=== PATIENT | male | born 1950 | race Caucasian/White ===

== ENCOUNTER 2017-12-30 15:18 | Inpatient (IN) | payer MEDICAID, OTHER ==
--- NOTE | 2017-12-30 15:26 | ED PDOC ---
Arrival/HPI - General Time Seen by Provider: 12/30/17 15:25 Historian: Patient, Family (Son) - History of Present Illness Narrative History of Present Illness (Text): 12/30/17 16:04 67 year old male, whose past medical history includes Afib, hypotension, o rthostatis, and CVA (left sided weakness), who presents to the ED complaining of 2 episodes of syncope over the past 3 days. Patient notes associated SOB, fatigue and bilateral side pain. Patient had a rushing catheter put in 1 week ago. Patient has been on nitrofuracin for 5 days. Patient notes 3 days ago he experienced vomiting, diarrhea, and syncope. On his way to the bathroom he felt weak, sat down in his wheelchair and passed out for 2 minutes. Syncopal episode was witnessed by son. Patient notes he felt better yesterday. However, today patient had another syncopal episode while walking to the couch, witnessed by son. Patient denies any chills, chest pain, or any other complaints. Time/Duration: < week (3 days) Symptom Onset: Gradual Symptom Course: Unchanged Activities at Onset: Light Context: Home Past Medical History - Provider Review Nursing Documentation Reviewed: Yes Family/Social History - Physician Review Nursing Documentation Reviewed: Yes Family/Social History: Unknown Family HX Allergies/Home Meds Allergies/Adverse Reactions: Allergies No Known Allergies Allergy (Verified 12/30/17 15:31) Home Medications: Home Meds Medication Instructions Recorded Confirmed Apixaban [Eliquis] 5 mg PO DAILY 12/30/17 12/30/17 Atorvastatin [Lipitor] 10 mg PO DIN 12/30/17 12/30/17 Midodrine [Proamatine] 2.5 mg PO DAILY 12/30/17 12/30/17 Pantoprazole [Protonix] 40 mg PO DAILY 12/30/17 12/30/17 Potassium Chloride [K-Dur 20 mEq 1 tab PO DAILY 12/30/17 12/30/17 ER Tab] RX: Aspirin [Aspirin Chewable] 81 mg PO DAILY 12/30/17 12/30/17 RX: Dofetilide [Tikosyn] 1 tab PO DAILY 12/30/17 12/30/17 Review of Systems - Physician Review All systems were reviewed & negative as marked: Yes - Review of Systems Constitutional: Fatigue Eyes: Normal ENT: Normal Respiratory: SOB Cardiovascular: Syncope. absent: Chest Pain Gastrointestinal: Diarrhea, Vomiting Genitourinary Male: Normal. absent: Frequency, Hematuria Musculoskeletal: Normal. absent: Back Pain Skin: Normal. absent: Rash Neurological: Normal. absent: Headache, Dizziness Endocrine: Normal Hemo/Lymphatic: Normal Psychiatric: Normal Physical Exam - Physical Exam Narrative Physical Exam (Text): 12/30/17 16:16 Gen: NAD, cooperative, well appearing, non-toxic. Head: NCAT. EYES: PERRL, EOMI, conjunctiva clear, MOUTH: edentulous, moist MM, posterior pharynx without erythema or exudate, uvula midline. CV: (+) S1S2, RRR, no M/G/R LUNGS: CTA B/L, No W/R/R, good air movement Abd: Soft, CVA tenderness, no guarding, rebound or rigidity. Gastrourinary: leg bag filled with yellow urine. Neuro: AAO x 3, GCS 15, CN 2-12 intact, motor and sensory grossly intact, 4/5 muscle strength LLE and LUE, 5/5 RUE's and RLE's. ext: no cyanosis or edema Vital Signs Reviewed: Yes Temperature: Afebrile Blood Pressure: Normal Pulse: Bradycardic Respiratory Rate: Normal Appearance: Positive for: Well-Appearing, Non-Toxic, Comfortable Pain Distress: None Mental Status: Positive for: Alert and Oriented X 3 Medical Decision Making ED Course and Treatment: 12/30/17 16:19 Impression: 67 year old male presents to the ED complaining of 2 syncopal episodes over the past 3 days. Plan: -- CT abd/pelvis -- CT head -- Labs -- Cardiac ISO -- EKG -- CXR -- Urine Culture -- Blood Culture -- UA Progress Notes: 12/30/17 15:31 EKG reviewed, shows Sinus Bradycardia at 54 bpm. First degree AV block. Normal QRS intervals. Normal QT intervals. No ST elevations or depressions. 12/30/17 17:33 CXR reviewed, shows: IMPRESSION: No active pulmonary disease. 12/30/17 18:08 Pt orthostatic is positive 12/30/17 19:05 CT Head reviewed, shows: IMPRESSION: 1. Diffuse age-appropriate cerebellar and cerebral atrophy. 2. Bilateral periventricular hypolucencies compatible with chronic white matter ischemic disease. 3. Sinusitis as above. 4. No evidence of acute intracranial pathology. CT Abd/Pelvis reviewed, shows: IMPRESSION: 1. Phrygian gallbladder cap. 2. Bilateral renal cysts. 3. The prostate gland is moderately enlarged. Please correlate with PSA levels. 4. Severe nodular bladder wall thickening measuring up to 1.5 cm. Consider correlation with cystoscopy. 5. Moderate cardiomegaly with borderline pulmonary venous congestive changes. 12/30/17 19:09 Lab results discussed with pt. Blood was found in urine and large WBC count. 12/30/17 20:08 As per medical esthetician, Dr. Lopez has accepted pt onto her service. 12/30/17 20:24 Blood Culture sent out and pt will be administered Rocephin. - Scribe Statement The provider has reviewed the documentation as recorded by the Scribe Estee Lopez All medical record entries made by the Scribe were at my direction and personally dictated by me. I have reviewed the chart and agree that the record accurately reflects my personal performance of the history, physical exam, medical decision making, and the department course for this patient. I have also personally directed, reviewed, and agree with the discharge instructions and disposition. Disposition/Present on Arrival - Present on Arrival Any Indicators Present on Arrival: No History of DVT/PE: No History of Uncontrolled Diabetes: No Urinary Catheter: No History of Decub. Ulcer: No - Disposition Have Diagnosis and Disposition been Completed?: Yes Diagnosis: Syncope, UTI (urinary tract infection) Disposition: HOSPITALIZED Disposition Time: 19:00 Patient Problems: Current Active Problems Problem Status Onset Neurocardiogenic syncope Acute Syncope Acute UTI (urinary tract infection) Acute Condition: STABLE
[2017-12-30 16:56] LABS: INR 1.67; PARTIAL THROMBOPLASTIN TIME 30.3 Seconds (25.1-36.5); PROTHROMBIN TIME 19.2 SECONDS (9.4-12.5)
[2017-12-30 16:59] LABS: ALBUMIN 3.8 g/dL (3.0-4.8)
[2017-12-30 17:09] LABS: TROPONIN I 0.02 ng/mL
[2017-12-30 17:17] LABS: URINE APPEARANCE SL CLOUDY (CLEAR); URINE BILIRUBIN NEGATIVE (NEGATIVE); URINE BLOOD MODERATE (NEGATIVE); URINE COLOR YELLOW (YELLOW); URINE GLUCOSE (UA) NEGATIVE (NEGATIVE); URINE LEUKOCYTE ESTERASE LARGE Leu/uL (NEGATIVE); URINE PROTEIN NEGATIVE mg/dL (<30 mg/dL); URINE UROBILINOGEN 0.2 E.U./dL (<1 E.U./dL)
[2017-12-30] MEDS ORDERED: Sodium Chloride 0.9% 1,000 ML IV STA (17:28)
[2017-12-30 17:30] LABS: URINE BACTERIA MOD (NEG); URINE WBC 15 - 20 /hpf (0-6)
--- NOTE | 2017-12-30 17:31 | RAD ---
Date of service: 12/30/2017 HISTORY: syncope COMPARISON: No prior. FINDINGS: LUNGS: The lungs are well inflated and clear. PLEURA: No pleural effusions or pneumothorax. CARDIOVASCULAR: The heart is normal in size. No aortic atherosclerotic calcification present. OSSEOUS STRUCTURES: Within normal limits for the patient's age. VISUALIZED UPPER ABDOMEN: Normal. OTHER FINDINGS: None. IMPRESSION: No active pulmonary disease.
[2017-12-30] MEDS ORDERED: Iodixanol 320 MG/ML 100 ML BOTTLE IV ONE (17:35)
[2017-12-30 19:11] LABS: EOS % 0.3 % (1.5-5.0); GRAN # 6.33 (1.4-6.5); GRAN % 79.6 % (50.0-68.0); HEMOGLOBIN 11.6 g/dL (14.0-18.0); LYMPH # 1.2 (1.2-3.4); LYMPH % 14.9 % (22.0-35.0); MEAN CELL VOLUME 77.8 fl (80.0-105.0); MEAN CORPUSCULAR HEMOGLOBIN 25.8 pg (25.0-35.0); MEAN CORPUSCULAR HGB CONC 33.1 g/dl (31.0-37.0); MEAN PLATELET VOLUME 10.8 fl (7.0-11.0); MONO # 0.4 (0.1-0.6); MONO % 5.2 % (1.0-6.0); RBC 4.5 10^6/uL (3.5-6.1); RED CELL DISTRIBUTION WIDTH 13.7 % (11.5-14.5); WHITE BLOOD COUNT 7.9 10^3/uL (4.5-11.0)
[2017-12-30] MEDS ORDERED: cefTRIAXone 1 gm 1 GM/100 ML BAG IVPB STA (20:24)
[2017-12-30 21:32] VITALS: BMI 38.9
[2017-12-30] MEDS ORDERED: Magnesium Sulfate 2 gm/50 ml 2 GM/50 ML BAG IVPB ONE (21:44)
[2017-12-30 22:15] LABS: VENOUS BLOOD GAS BASE EXCESS 0.8 mmol/L (0.0-2.0); VENOUS BLOOD GAS PO2 86 mm/Hg (30-55); VENOUS BLOOD PH 7.46 (7.32-7.43)
[2017-12-30] MEDS ORDERED: Magnesium Sulfate 2 GM in Sodium Chloride 0.9% 100 ML IVPB ONE (22:17)
--- NOTE | 2017-12-30 22:53 | CP.PCM.HP ---
History of Present Illness - History of Present Illness History of Present Illness: Prasad Bell DO PGY1 - Internal Medicine Photographic Plate Maker - Medicine H&P CC: Syncope Patient is a 67M w/ a PMH of Afib on Dofetilide + Eliquis (Cardioverted as per son 9mo ago), Hypotension/ Orthostatic Hypotension, CVA w/ L sided residual de ficit, syncopal episodes, Urinary incontinence s/p rushing insertion; Presented [place] [facility] [place] w/ CC of syncopal episode this afternoon. Patient is a syriac speaking patient; HPI was supplemented with information from son. Patient reported that since rushing insertion he has been feeling "ill" with complaints of malaise and fever over the past week or so. Patient reports complaints of fevers, chills, BL flank pain, and dizziness over the past week. Over the past 3 days patient has had multiple bouts of nausea w/ 1 episode of NBNB vomitus; and multiple episodes of diarrhea. He reported that today when getting into his wheel chair he began to feel dizzy and complained of worsening dizziness and lightheadedness for 2-3 minutes prior to having a syncopal episode in his wheel chair. His son witnessed and called EMS; patient was reportedly unconscious for approximately 5min. There were no complaints of chest pain, palpitations, SOB, seizure like activity, denies any new or worsening focal deficits. Remainder of 12 system ROS is negative. PMD: [place] PMH: As above PSH: Lymph Node Biopsy - 02/2017 - negative Allergies: NKDA Home Rx: As per Chart - Verified Social: Denies Present on Admission - Present on Admission Any Indicators Present on Admission: No Review of Systems - Review of Systems All systems: reviewed and no additional remarkable complaints except Review of Systems: As per HPI Past Patient History - Infectious Disease Hx of Infectious Diseases: None - Past Social History Smoking Status: Never Smoked - CARDIAC Hx Hypertension: Yes - NEUROLOGICAL HX Cerebrovascular Accident: Yes - MUSCULOSKELETAL/RHEUMATOLOGICAL Hx Falls: No - PSYCHIATRIC Hx Substance Use: No - SURGICAL HISTORY Hx Cardiac Catheterization: Yes (2016) - ANESTHESIA Hx Anesthesia: Yes Hx Anesthesia Reactions: No Hx Malignant Hyperthermia: No Meds Allergies/Adverse Reactions: Allergies Allergy/AdvReac Type Severity Reaction Status Date / Time No Known Allergies Allergy Verified 12/30/17 15:31 Physical Exam - Constitutional Appears: Well, Non-toxic, No Acute Distress - Head Exam Head Exam: ATRAUMATIC, NORMAL INSPECTION, NORMOCEPHALIC - Eye Exam Eye Exam: EOMI, Normal appearance, PERRL. absent: Scleral icterus - ENT Exam ENT Exam: Mucous Membranes Moist, Normal Exam - Respiratory Exam Respiratory Exam: Clear to Auscultation Bilateral, NORMAL BREATHING PATTERN. absent: Rales, Rhonchi, Wheezes, Respiratory Distress - Cardiovascular Exam Cardiovascular Exam: Bradycardia, RRR, +S1, +S2 - GI/Abdominal Exam GI & Abdominal Exam: Normal Bowel Sounds, Soft. absent: Tenderness - Back Exam Back exam: CVA tenderness (L), CVA tenderness (R) - Neurological Exam Neurological exam: Alert, CN II-XII Intact, Oriented x3 - Psychiatric Exam Psychiatric exam: Normal Affect, Normal Mood - Skin Skin Exam: Dry, Normal Color, Warm Results - Vital Signs Recent Vital Signs: Last Vital Signs Temp 98.8 F 12/30/17 15:19 Pulse 54 L 12/30/17 21:07 Resp 18 12/30/17 21:29 BP 120/78 12/30/17 21:07 Pulse Ox 100 12/30/17 21:07 - Labs Result Diagrams: 12/30/17 18:50 12/30/17 16:30 Labs: Laboratory Results - last 24 hr 12/30/17 12/30/17 12/30/17 16:30 16:30 17:05 WBC RBC Hgb Hct MCV MCH MCHC RDW Plt Count MPV Gran % Lymph % (Auto) [place] % (Auto) Eos % (Auto) Baso % (Auto) Gran # Lymph # (Auto) [place] # (Auto) Eos # (Auto) Baso # (Auto) PT 19.2 H INR 1.67 APTT 30.3 Sodium 134 Potassium 4.1 Chloride 104 Carbon Dioxide 20 L Anion Gap 14 BUN 30 H Creatinine 1.5 Est GFR ( Amer) 56 Est GFR (Non-Af Amer) 47 Random Glucose 120 H Calcium 9.0 Phosphorus 2.5 Magnesium 1.5 L Total Bilirubin 0.8 AST 25 ALT 20 Alkaline Phosphatase 80 Lactate Dehydrogenase 572 Total Creatine Kinase 139 Troponin I 0.02 Total Protein 7.7 Albumin 3.8 Globulin 3.9 Albumin/Globulin Ratio 1.0 L Urine Color Yellow Urine Appearance Sl cloudy Urine pH 6.0 Ur Specific [place] <= 1.005 Urine Protein Negative Urine Glucose (UA) Negative Urine Ketones Negative Urine Blood Moderate H Urine Nitrate Negative Urine Bilirubin Negative Urine Urobilinogen 0.2 Ur Leukocyte Esterase Large H Urine RBC 5 - 10 Urine WBC 15 - 20 Ur Epithelial Cells 4 - 5 Urine Bacteria Mod 12/30/17 18:50 WBC 7.9 RBC 4.50 Hgb 11.6 L Hct 35.0 L MCV 77.8 L MCH 25.8 MCHC 33.1 RDW 13.7 Plt Count 156 MPV 10.8 Gran % 79.6 H Lymph % (Auto) 14.9 L [place] % (Auto) 5.2 Eos % (Auto) 0.3 L Baso % (Auto) 0.0 Gran # 6.33 Lymph # (Auto) 1.2 [place] # (Auto) 0.4 Eos # (Auto) 0.0 Baso # (Auto) 0.00 PT INR APTT Sodium Potassium Chloride Carbon Dioxide Anion Gap BUN Creatinine Est GFR ( Amer) Est GFR (Non-Af Amer) Random Glucose Calcium Phosphorus Magnesium Total Bilirubin AST ALT Alkaline Phosphatase Lactate Dehydrogenase Total Creatine Kinase Troponin I Total Protein Albumin Globulin Albumin/Globulin Ratio Urine Color Urine Appearance Urine pH Ur Specific [place] Urine Protein Urine Glucose (UA) Urine Ketones Urine Blood Urine Nitrate Urine Bilirubin Urine Urobilinogen Ur Leukocyte Esterase Urine RBC Urine WBC Ur Epithelial Cells Urine Bacteria Assessment & Plan - Assessment and Plan (Free Text) Assessment: Patient is a 67M w/ a PMH of Afib on Dofetilide + Eliquis (Cardioverted as per son 9mo ago), Hypotension/ Orthostatic Hypotension, CVA w/ L sided residual deficit, syncopal episodes, Urinary incontinence s/p rushing insertion; Presented [place] [facility] [place] on [place] w/ CC of syncopal episode this afternoon. Plan: Syncopal Episode Most likely secondary to hypovolemia 2/2 dehydration in setting of UTI however must r/o cardiac and acute neurologic etiologies Orthostatic Vitals Lying, Sitting [place]/69 >> 151/87 >> 95/47 C/w Midodrine 2.5 PO QD; may increase if no response w/ fluids Given unknown EF; we will c/w gentle hydration w/ NS at 50cc/hr TSH/T4 pending ECHO pending Cardiology consulted, appreciate reccs Neurology consulted, appreciate recscs UTI w/ flank tenderness; Patient febrile on admission CTAP showed no acute renal findings Renal US pending Rocephin 1gm QD Blood Cx Urine Cx Lactate wnl Tylenol prn fever Urology Dr. Montague consulted, appreciate reccs Diarrhea Given Recent Abx use we will r/o CDIFF F/u Cdiff studies Fecal leukocyte PORTIA - Cr 1.5; No baseline available Gental hydration as above Reassess BUN/Cr post hydration Hx AFib C/w Eliquis C/w Dofetilide (Tikosyn) or formulary replacement CVA w/ L sided residual deficit ASA 81 Lipitor 40 Patient was seen, examined, discussed w/ attending Dr. Eneida Bell DO PGY1 Internal Medicine Photographic Plate Maker - Date & Time Date: 12/31/17 Time: 02:59
[2017-12-31] MEDS: Sodium Chloride 0.9% 1,000 ML IV SCH (03:36)
[2017-12-31 06:53] LABS: EOS % 0.4 % (1.5-5.0); GRAN # 6.02 (1.4-6.5); GRAN % 75.5 % (50.0-68.0); HEMOGLOBIN 11.1 g/dL (14.0-18.0); LYMPH # 0.9 (1.2-3.4); LYMPH % 10.9 % (22.0-35.0); MEAN CELL VOLUME 78.2 fl (80.0-105.0); MEAN CORPUSCULAR HEMOGLOBIN 25.5 pg (25.0-35.0); MEAN CORPUSCULAR HGB CONC 32.6 g/dl (31.0-37.0); MEAN PLATELET VOLUME 10.9 fl (7.0-11.0); MONO # 1.1 (0.1-0.6); MONO % 13.2 % (1.0-6.0); RBC 4.36 10^6/uL (3.5-6.1); RED CELL DISTRIBUTION WIDTH 13.8 % (11.5-14.5)
[2017-12-31 07:50] LABS: CALCIUM 8.8 mg/dL (8.4-10.5)
[2017-12-31 07:51] LABS: ALB/GLOB RATIO 0.9 (1.1-1.8); ALBUMIN 3.5 g/dL (3.0-4.8)
--- NOTE | 2017-12-31 08:27 | CT ---
Date of service: 12/30/2017 PROCEDURE: CT HEAD WITHOUT CONTRAST. HISTORY: syncope COMPARISON: None available. TECHNIQUE: Axial computed tomography images were obtained through the head/brain without intravenous contrast. Radiation dose: Total exam DLP = 826.94 mGy-cm. This CT exam was performed using one or more of the following dose reduction techniques: Automated exposure control, adjustment of the mA and/or kV according to patient size, and/or use of iterative reconstruction technique. FINDINGS: HEMORRHAGE: No intracranial hemorrhage. BRAIN: No mass effect or edema. Mild atrophy with a chronic infarct in the left lateral cerebellum. VENTRICLES: Unremarkable. No hydrocephalus. CALVARIUM: Unremarkable. PARANASAL SINUSES: Unremarkable as visualized. No significant inflammatory changes. MASTOID AIR CELLS: Unremarkable as visualized. No inflammatory changes. OTHER FINDINGS: None. IMPRESSION: No acute hemorrhage.
--- NOTE | 2017-12-31 08:38 | CT ---
Date of service: 12/30/2017 PROCEDURE: CT Abdomen and Pelvis with and without intravenous contrast HISTORY: abd/flank pain COMPARISON: None. TECHNIQUE: Axial images of the abdomen were obtained in the pre contrast, portal venous and delayed phases of enhancement. Coronal and sagittal reformats were generated. Contrast dose: Radiation dose: Total exam DLP = 1037.92 mGy-cm. This CT exam was performed using one or more of the following dose reduction techniques: Automated exposure control, adjustment of the mA and/or kV according to patient size, and/or use of iterative reconstruction technique. FINDINGS: LOWER THORAX: Small hiatal hernia. LIVER: Unremarkable. No gross lesion or ductal dilatation. GALLBLADDER AND BILE DUCTS: Unremarkable. PANCREAS: Unremarkable. No gross lesion or ductal dilatation. SPLEEN: Unremarkable. ADRENALS: Unremarkable. No mass. KIDNEYS AND URETERS: Bilateral renal cysts, right greater than left measuring up to 2.5 centimeters. VASCULATURE: Unremarkable. No aortic aneurysm. No aortic atherosclerotic calcification or mural plaque present. BOWEL: Unremarkable. No obstruction. No gross mural thickening. APPENDIX: Normal appendix. PERITONEUM: Unremarkable. No free fluid. No free air. LYMPH NODES: Unremarkable. No enlarged lymph nodes. BLADDER: Heard catheter in the bladder severe bladder wall thickening with intraluminal air; correlate clinically for recent instrumentation. Findings suggestive of a severe cystitis. REPRODUCTIVE: Unremarkable. BONES: No acute fracture. OTHER FINDINGS: None. IMPRESSION: Heard catheter in the bladder severe bladder wall thickening with intraluminal air; correlate clinically for recent instrumentation. Findings suggestive of a severe cystitis. Bilateral renal cysts.
[2017-12-31] MEDS: cefTRIAXone 1 gm 1 GM/100 ML BAG IVPB SCH (09:21)
[2017-12-31] MEDS: Pantoprazole 40 mg EC Tab PO SCH (09:21)
--- NOTE | 2017-12-31 10:15 | CARD ---
APPROVED REPORT Date of service: 12/30/2017 EKG Measurement Heart [id number] <Conclusion> Probably AF with slow VR vs Sinus bradycardia. PRWP NSSTW changes
--- NOTE | 2017-12-31 10:37 | US ---
PROCEDURE: Bilateral carotid artery duplex ultrasound HISTORY: Carotid stenosis PHYSICIAN(S): Devante Dee MD. TECHNIQUE: Duplex sonography and color-flow Doppler were used to evaluate the carotid bifurcations and limited segments of the vertebral arteries bilaterally. FINDINGS: There is mild smooth heterogeneous plaque noted at the carotid bifurcations bilaterally. The peak systolic velocity in the proximal right internal carotid artery is 57 cm/sec. This corresponds to a 20 to 39% proximal right ICA stenosis. Normal systolic velocities are noted in the proximal right external carotid artery. There is antegrade flow in the right vertebral artery. The peak systolic velocity in the proximal left internal carotid artery is 61 cm/sec. This corresponds to a 20 to 39% proximal left ICA stenosis. Normal systolic velocities are noted in the proximal left external carotid artery. There is antegrade flow in the left vertebral artery. IMPRESSION: 1. Bilateral 20-39% proximal ICA stenoses. 2. Antegrade flow in both vertebral arteries.
[2017-12-31 11:04] LABS: FREE T4 1.33 ng/dL (0.78-2.19)
--- NOTE | 2017-12-31 13:40 | CP.PCM.CON ---
History of Present Illness - History of Present Illness History of Present Illness: Neurology Consultation Note: Mr. Gray is a 67-year-old man with multiple cardiovascular and medical co-morb idities and previous history of neurocardiogenic syncopal events, who had another event lasting about 5 minutes without evidence of seizure activity. According to the patient's son, there have been no syncopal events since the patient was started on Midodrine due to orthostatic hypotension. However, the patient recently had a Heard catheter placed for incontinence, and since then he has had 2 events. Neurology was consulted to assist with the management and care. The patient is currently back to baseline. Non-contrast CT scan of the head did not show any acute findings. Review of Systems - Constitutional Constitutional: As Per HPI - EENT Eyes: absent: As Per HPI, Blind Spots, Blurred Vision, Change in Vision, Decreased Night Vision, Diplopia, Discharge, Dry Eye, Exophthalmos, Floaters, Irritation, Itchy Eyes, Loss of Peripheral Vision, Pain, Photophobia, Requires Corrective Lenses, Sees Flashes, Spots in Vision, Tunnel Vision, Other Visual Disturbances, Loss of Vision, Other Ears: absent: As Per HPI, Decreased Hearing, Ear Discharge, Ear Pain, Tinnitus, Abnormal Hearing, Disequilibrium, Dizziness, Other Nose/Mouth/Throat: absent: As Per HPI, Epistaxis, Nasal Congestion, Nasal Discharge, Nasal Obstruction, Nasal Trauma, Nose Pain, Post Nasal Drip, Sinus Pain, Sinus Pressure, Bleeding Gums, Change in Voice, Dental Pain, Dry Mouth, Dysphagia, Halitosis, Hoarsness, Lip Swelling, Mouth Lesions, Mouth Pain, Odynophagia, Sore Throat, Throat Swelling, Tongue Swelling, Facial Pain, Neck Pain, Neck Mass, Other - Cardiovascular Cardiovascular: As Per HPI - Respiratory Respiratory: absent: As Per HPI, Cough, Dyspnea, Hemoptysis, Dyspnea on Exert ion, Wheezing, Snoring, Stridor, Pain on Inspiration, Chest Congestion, Excessive Mucous Production, Change in Mucous Color, Pain with Coughing, Other - Gastrointestinal Gastrointestinal: absent: As Per HPI, Abdominal Pain, Belching, Bloating, Change in Bowel Habits, Change in Stool Character, Coffee Ground Emesis, Constipation, Cramping, Diarrhea, Dyspepsia, Dysphagia, Early Satiety, Excessive Flatus, Fecal Incontinence, Heartburn, Hematemesis, Hematochezia, Loose Stools, Melena, Nausea, Odynophagia, Temesmus, Vomiting, Other - Neurological Neurological: As Per HPI - Psychiatric Psychiatric: absent: As Per HPI, Abnormal Sleep Pattern, Anhedonia, Anxiety, Auditory Hallucinations, Behavioral Changes, Change in Appetite, Change in Libido, Confusion, Depression, Difficulty Concentrating, Hallucinations, Homicidal Ideation, Hopelessness, Irritability, Memory Loss, Mood Swings, Panic Attacks, Paranoia, Suicidal Ideation, Visual Hallucinations, Tactile Hallucinations, Other - Endocrine Endocrine: absent: As Per HPI, Change in Body Appearance, Change in Libido, Cold Intolorance, Deepening of Voice, Excessive Sweating, Fatigue, Flushing, Heat Intolorance, Increase in Ring/Shoe/Hat Size, Palpitations, Polydipsia, Polyphagia, Polyuria, Other - Hematologic/Lymphatic Hematologic: absent: As Per HPI, Easy Bleeding, Easy Bruising, Lymphadenopathy, Other Past Patient History - Infectious Disease Hx of Infectious Diseases: None - Past Social History Smoking Status: Never Smoked - CARDIAC Hx Hypertension: Yes - NEUROLOGICAL HX Cerebrovascular Accident: Yes - MUSCULOSKELETAL/RHEUMATOLOGICAL Hx Falls: No - PSYCHIATRIC Hx Substance Use: No - SURGICAL HISTORY Hx Cardiac Catheterization: Yes (2016) - ANESTHESIA Hx Anesthesia: Yes Hx Anesthesia Reactions: No Hx Malignant Hyperthermia: No Meds Allergies/Adverse Reactions: Allergies Allergy/AdvReac Type Severity Reaction Status Date / Time No Known Allergies Allergy Verified 12/30/17 15:31 - Medications Medications: Current Medications Acetaminophen (Tylenol 325mg Tab) 650 mg PO Q6H PRN PRN Reason: Fever >100.4 F Last Admin: 12/30/17 23:05 Dose: 650 mg Apixaban (Eliquis) 5 mg PO DAILY [facility]; Protocol Last Admin: 12/31/17 09:21 Dose: 5 mg Aspirin (Aspirin Chewable) 81 mg PO DAILY [facility] Last Admin: 12/31/17 09:21 Dose: 81 mg Atorvastatin Calcium (Lipitor) 10 mg PO DIN NERY Finasteride (Proscar) 5 mg PO DAILY [facility] Ceftriaxone Sodium (Rocephin 1 Gram Ivpb) 1 gm in 100 mls @ 100 mls/hr IVPB DAILY [facility]; Protocol Last Admin: 12/31/17 09:21 Dose: 100 mls/hr Sodium Chloride (Sodium Chloride 0.9%) 1,000 mls @ 50 mls/hr IV .Q20H [facility] Last Admin: 12/31/17 03:36 Dose: 50 mls/hr Midodrine (Proamatine) 2.5 mg PO DAILY [facility] Last Admin: 12/31/17 09:21 Dose: 2.5 mg (Dofetilide [Tikosyn (]) Non-Formulary) 1 tab PO DAILY [facility] Pantoprazole Sodium (Protonix Ec Tab) 40 mg PO DAILY [facility] Last Admin: 12/31/17 09:21 Dose: 40 mg Physical Exam - Constitutional Appears: Well - Head Exam Head Exam: ATRAUMATIC, NORMAL INSPECTION, NORMOCEPHALIC - Eye Exam Eye Exam: EOMI, Normal appearance, PERRL - ENT Exam ENT Exam: Mucous Membranes Moist, Normal Exam - Neck Exam Neck exam: Positive for: Normal Inspection - Respiratory Exam Respiratory Exam: Clear to Auscultation Bilateral, NORMAL BREATHING PATTERN - Cardiovascular Exam Cardiovascular Exam: REGULAR RHYTHM, +S1, +S2 - GI/Abdominal Exam GI & Abdominal Exam: Normal Bowel Sounds, Soft. absent: Tenderness - Rectal Exam Rectal Exam: Deferred - Neurological Exam Neurological exam: Alert, CN II-XII Intact, Normal Gait, Oriented x3, Reflexes Normal - Psychiatric Exam Psychiatric exam: Normal Affect, Normal Mood - Skin Skin Exam: Dry, Intact, Normal Color, Warm Results - Vital Signs Recent Vital Signs: Last Vital Signs Temp 98 F 12/31/17 12:00 Pulse 53 L 12/31/17 12:00 Resp 20 12/31/17 12:00 BP 157/77 H 12/31/17 12:00 Pulse Ox 98 12/31/17 06:00 - Labs Result Diagrams: 12/31/17 05:45 12/31/17 05:45 Labs: Laboratory Results - last 24 hr 12/30/17 12/30/17 12/30/17 16:30 16:30 17:05 WBC RBC Hgb Hct MCV MCH MCHC RDW Plt Count MPV Gran % Lymph % (Auto) [place] % (Auto) Eos % (Auto) Baso % (Auto) Gran # Lymph # (Auto) [place] # (Auto) Eos # (Auto) Baso # (Auto) PT 19.2 H INR 1.67 APTT 30.3 pO2 VBG pH VBG pCO2 VBG HCO3 VBG Total CO2 VBG O2 Sat (Calc) VBG Base Excess VBG Potassium Glucose Lactate FiO2 Sodium 134 Potassium 4.1 Chloride 104 Carbon Dioxide 20 L Anion Gap 14 BUN 30 H Creatinine 1.5 Est GFR ( Amer) 56 Est GFR (Non-Af Amer) 47 POC Glucose (mg/dL) Random Glucose 120 H Hemoglobin A1c Calcium 9.0 Phosphorus 2.5 Magnesium 1.5 L Total Bilirubin 0.8 AST 25 ALT 20 Alkaline Phosphatase 80 Lactate Dehydrogenase 572 Total Creatine Kinase 139 Troponin I 0.02 Total Protein 7.7 Albumin 3.8 Globulin 3.9 Albumin/Globulin Ratio 1.0 L Triglycerides Cholesterol LDL Cholesterol Direct HDL Cholesterol Free T4 TSH 3rd Generation Venous Blood Potassium Urine Color Yellow Urine Appearance Sl cloudy Urine pH 6.0 Ur Specific [place] <= 1.005 Urine Protein Negative Urine Glucose (UA) Negative Urine Ketones Negative Urine Blood Moderate H Urine Nitrate Negative Urine Bilirubin Negative Urine Urobilinogen 0.2 Ur Leukocyte Esterase Large H Urine RBC 5 - 10 Urine WBC 15 - 20 Ur Epithelial Cells 4 - 5 Urine Bacteria Mod 12/30/17 12/30/17 12/31/17 18:50 22:00 05:45 WBC 7.9 RBC 4.50 Hgb 11.6 L Hct 35.0 L MCV 77.8 L MCH 25.8 MCHC 33.1 RDW 13.7 Plt Count 156 MPV 10.8 Gran % 79.6 H Lymph % (Auto) 14.9 L [place] % (Auto) 5.2 Eos % (Auto) 0.3 L Baso % (Auto) 0.0 Gran # 6.33 Lymph # (Auto) 1.2 [place] # (Auto) 0.4 Eos # (Auto) 0.0 Baso # (Auto) 0.00 PT INR APTT pO2 86 H VBG pH 7.46 H VBG pCO2 34.0 L VBG HCO3 24.2 VBG Total CO2 25.2 VBG O2 Sat (Calc) 97.6 H VBG Base Excess 0.8 VBG Potassium 4.0 Glucose 109 Lactate 1.0 FiO2 21.0 Sodium 138.0 138 Potassium 3.9 Chloride 107.0 105 Carbon Dioxide 25 Anion Gap 12 BUN 26 H Creatinine 1.5 Est GFR ( Amer) 56 Est GFR (Non-Af Amer) 47 POC Glucose (mg/dL) Random Glucose 101 Hemoglobin A1c Calcium 8.8 Phosphorus 3.0 Magnesium 1.9 Total Bilirubin 0.7 AST 22 ALT 22 Alkaline Phosphatase 73 Lactate Dehydrogenase Total Creatine Kinase Troponin I Total Protein 7.2 Albumin 3.5 Globulin 3.7 Albumin/Globulin Ratio 0.9 L Triglycerides 146 Cholesterol 97 L LDL Cholesterol Direct 39 HDL Cholesterol 29 Free T4 TSH 3rd Generation Venous Blood Potassium 4.0 Urine Color Urine Appearance Urine pH Ur Specific [place] Urine Protein Urine Glucose (UA) Urine Ketones Urine Blood Urine Nitrate Urine Bilirubin Urine Urobilinogen Ur Leukocyte Esterase Urine RBC Urine WBC Ur Epithelial Cells Urine Bacteria 12/31/17 12/31/17 12/31/17 05:45 05:45 05:45 WBC 8.0 RBC 4.36 Hgb 11.1 L Hct 34.1 L MCV 78.2 L MCH 25.5 MCHC 32.6 RDW 13.8 Plt Count 142 MPV 10.9 Gran % 75.5 H Lymph % (Auto) 10.9 L [place] % (Auto) 13.2 H Eos % (Auto) 0.4 L Baso % (Auto) 0.0 Gran # 6.02 Lymph # (Auto) 0.9 L [place] # (Auto) 1.1 H Eos # (Auto) 0.0 Baso # (Auto) 0.00 PT INR APTT pO2 VBG pH VBG pCO2 VBG HCO3 VBG Total CO2 VBG O2 Sat (Calc) VBG Base Excess VBG Potassium Glucose Lactate FiO2 Sodium Potassium Chloride Carbon Dioxide Anion Gap BUN Creatinine Est GFR ( Amer) Est GFR (Non-Af Amer) POC Glucose (mg/dL) Random Glucose Hemoglobin A1c 6.4 Calcium Phosphorus Magnesium Total Bilirubin AST ALT Alkaline Phosphatase Lactate Dehydrogenase Total Creatine Kinase Troponin I Total Protein Albumin Globulin Albumin/Globulin Ratio Triglycerides Cholesterol LDL Cholesterol Direct HDL Cholesterol Free T4 1.33 TSH 3rd Generation 1.68 Venous Blood Potassium Urine Color Urine Appearance Urine pH Ur Specific [place] Urine Protein Urine Glucose (UA) Urine Ketones Urine Blood Urine Nitrate Urine Bilirubin Urine Urobilinogen Ur Leukocyte Esterase Urine RBC Urine WBC Ur Epithelial Cells Urine Bacteria 12/31/17 07:42 WBC RBC Hgb Hct MCV MCH MCHC RDW Plt Count MPV Gran % Lymph % (Auto) [place] % (Auto) Eos % (Auto) Baso % (Auto) Gran # Lymph # (Auto) [place] # (Auto) Eos # (Auto) Baso # (Auto) PT INR APTT pO2 VBG pH VBG pCO2 VBG HCO3 VBG Total CO2 VBG O2 Sat (Calc) VBG Base Excess VBG Potassium Glucose Lactate FiO2 Sodium Potassium Chloride Carbon Dioxide Anion Gap BUN Creatinine Est GFR ( Amer) Est GFR (Non-Af Amer) POC Glucose (mg/dL) 94 Random Glucose Hemoglobin A1c Calcium Phosphorus Magnesium Total Bilirubin AST ALT Alkaline Phosphatase Lactate Dehydrogenase Total Creatine Kinase Troponin I Total Protein Albumin Globulin Albumin/Globulin Ratio Triglycerides Cholesterol LDL Cholesterol Direct HDL Cholesterol Free T4 TSH 3rd Generation Venous Blood Potassium Urine Color Urine Appearance Urine pH Ur Specific [place] Urine Protein Urine Glucose (UA) Urine Ketones Urine Blood Urine Nitrate Urine Bilirubin Urine Urobilinogen Ur Leukocyte Esterase Urine RBC Urine WBC Ur Epithelial Cells Urine Bacteria Assessment & Plan (1) Neurocardiogenic syncope Assessment and Plan: Likely due to underlying cardiac disease, in addition to dehydration and vaso- vagal like events caused by catheter decreasing pressure. Florinef may help in addition to midodrine. Consider removing the Heard. Neurological work-up is negative. No further recommendations at this time. Status: Acute
--- NOTE | 2017-12-31 15:09 | US ---
Date of service: 12/31/2017 PROCEDURE: Ultrasound of the Kidneys HISTORY: b/l flank pain COMPARISON: None available. TECHNIQUE: Sonogram of the kidneys. FINDINGS: RIGHT KIDNEY: Measures: 12.3 x 6.5 x 6.7 cm. Normal in size, contour and echogenicity. No stone, solid mass lesion or hydronephrosis visualized. There are 4 separate cysts in the right kidney ranging in size from 1.8 to 3 cm. LEFT KIDNEY: Measures: 12.1 x 4.7 x 4.5 cm. Normal in size, contour and echogenicity. No stone, solid mass lesion or hydronephrosis visualized. OTHER FINDINGS: None. IMPRESSION: Unremarkable renal sonogram.
--- NOTE | 2017-12-31 15:27 | CARD ---
APPROVED REPORT Date of service: 12/31/2017 EXAM: Two-dimensional and M-mode echocardiogram with Doppler and color Doppler. INDICATION Syncope 2D DIMENSIONS Left Atrium (2D)4.2 (1.6-4.0cm)IVSd1.2 (0.7-1.1cm) LVDd4.6 (3.9-5.9cm)PWd1.4 (0.7-1.1cm) LVDs2.6 (2.5-4.0cm)FS (%) 42.9 % LVEF (%)74.1 (>50%) M-Mode DIMENSIONS Aortic Root3.90 (2.2-3.7cm)Aortic Cusp Exc.2.10 (1.5-2.0cm) Aortic Valve AoV Peak Gmdlwrjw104.0cm/[place] Peak GR.9mmHg Mitral Valve MV E Tqdzxojd027.0cm/sMV A Ykpyfodd47.8cm/sE/A ratio2.0 TDI Lateral E' Peak V7.90cm/sMedial E' Peak V4.00cm/sE/Lateral E'14.2 E/Medial E'28.0 Pulmonary Valve PV Peak Hxxsyiqu18.7cm/sPV Peak Grad.4mmHg Tricuspid Valve TR Peak [id number]/sRAP [id number] Peak Gr.55mmHg [id number] LEFT VENTRICLE The left ventricle is normal size. There is normal left ventricular wall thickness. The left ventricular ejection fraction is within the normal range. There is a flattened septum RIGHT VENTRICLE The right ventricle is normal size. There is normal right ventricular wall thickness. The right ventricular systolic function is normal. ATRIA The left atrium is mildly dilated. The right atrium is mildly dilated. AORTIC VALVE The aortic valve is not well visualized. No aortic regurgitation is present. There is no aortic valvular stenosis. MITRAL VALVE The mitral valve is moderately thickened. Mitral regurgitation is moderate. TRICUSPID VALVE There is moderate tricuspid regurgitation. There is moderate to severe pulmonary hypertension. PULMONIC VALVE There is mild pulmonic valvular regurgitation. GREAT VESSELS The aortic root is normal in size. <Conclusion> The left ventricle is normal size. There is normal left ventricular wall thickness. The left ventricular ejection fraction is within the normal range. There is a flattened septum Mitral regurgitation is moderate. There is moderate tricuspid regurgitation. There is moderate to severe pulmonary hypertension.
[2017-12-31] MEDS: DOFETILIDE PO SCH (15:37)
--- NOTE | 2017-12-31 19:55 | US ---
HISTORY: Leg pain and swelling. Evaluate for DVT PHYSICIAN(S): Devante Dee MD. TECHNIQUE: Duplex sonography and color-flow Doppler with graded compression were used to evaluate the deep venous systems of both lower extremities. FINDINGS: The visualized deep venous systems of both lower extremities are sonographically normal and compressible. Normal wave forms and augmentation are seen. There is no sonographic evidence for deep venous thrombosis in the visualized segments of both lower extremities. IMPRESSION: No sonographic evidence for deep venous thrombosis in the visualized segments of both lower extremities.
--- NOTE | 2018-01-01 00:48 | CON ---
DATE: 12/31/2017 REASON FOR CONSULTATION: Recurrent falls. HISTORY OF PRESENT ILLNESS: The patient is a 67-year-old [place] male who has a history of hypertension, history of chronic atrial fibrillation, is being followed by Dr. Davila, underwent cardiac catheterization according to the last year at [facility] and was told that he has no coronary artery disease. The patient has a history of stroke some few years ago and was placed on Tegretol therapy, but was taken off Tegretol. After that, the patient was admitted because of recurrent falls about five times according to the . The witnessed most of them. They usually occur either in the sitting or the standing position. The patient loses conciseness, collapses. His tongue is tangled. The tongue protrudes out his mouth. The patient usually gets urinary incontinence when he had Heard catheter inserted in the office of his urologist. There were no convulsions noted and no tongue biting. The patient attributes the force to precipitous drop in the patient's blood pressure. SOCIAL HISTORY: The patient is a nonsmoker and nondrinker. MEDICATIONS: Aspirin 81 mg once a day, Eliquis 5 mg once daily, Lipitor 10 mg once a day, Proamatine 2.5 mg once a day, Rocephin 1 g intravenously daily, normal saline at 60 mL an hour. REVIEW OF SYSTEMS: No fever or chills. No nausea or vomiting. The patient has prostatic enlargement, but the is unaware of any history of prostatic carcinoma. PHYSICAL EXAMINATION: GENERAL: The patient is an elderly male who does not appear to be in acute distress. VITAL SIGNS: Blood pressure 120/78, heart rate 54, temperature 98.8, and respirations 19. HEENT: Normocephalic. CHEST: Clear. HEART: S1 and S2 are regular. ABDOMEN: Soft. EXTREMITIES: No edema. LABORATORY DATA: Hemoglobin and hematocrit 11.1 and 34.1. White blood count and platelet count are within normal limits. Today's SMA-7 is within normal limits except for BUN of 26. One set of troponin is 0.02. TSH level and free T4 are within normal limits. INR is 1.67. CT scan of the abdomen and pelvis revealed Heard catheter in the bladder, severe bladder wall thickening with intraluminal air, correlate clinically for recent instrumentation. Findings suggestive of severe cystitis. Chest x-ray is unremarkable except for borderline cardiomegaly and prominent bronchovascular markings. Head CT scan without contrast was unremarkable as well as carotid Doppler. EKG revealed atrial fibrillation with slow ventricular response at the rate of 54, poor R-wave progression and nonspecific ST-T wave changes. ASSESSMENT: 1. Recurrent falls, rule out recurrent seizure activity rather than the current syncope. 2. Chronic atrial fibrillation with slow ventricular response. 3. Bladder neck obstruction. RECOMMENDATIONS: Continue aspirin 81 mg once a day, Eliquis 5 mg twice daily, and Lipitor 10 mg once a day. Obtain prostatic-specific antigen. I would review the echocardiographic study. Obtain electroencephalogram. Neurology consult has been requested. Vic Tripp MD
[2018-01-01 06:34] LABS: EOS # 0.1 (0.0-0.7); EOS % 1.2 % (1.5-5.0); GRAN # 4.45 (1.4-6.5); HEMOGLOBIN 11.3 g/dL (14.0-18.0); LYMPH % 15.1 % (22.0-35.0); MEAN CELL VOLUME 78.4 fl (80.0-105.0); MEAN CORPUSCULAR HEMOGLOBIN 25.7 pg (25.0-35.0); MEAN CORPUSCULAR HGB CONC 32.8 g/dl (31.0-37.0); MEAN PLATELET VOLUME 10.9 fl (7.0-11.0); MONO % 15.7 % (1.0-6.0); RBC 4.4 10^6/uL (3.5-6.1); RED CELL DISTRIBUTION WIDTH 13.9 % (11.5-14.5); WHITE BLOOD COUNT 6.6 10^3/uL (4.5-11.0)
[2018-01-01 06:46] LABS: ALB/GLOB RATIO 0.9 (1.1-1.8); ALBUMIN 3.4 g/dL (3.0-4.8); ALT/SGPT 27 U/L (7-56); AST/SGOT 38 U/L (17-59); BLOOD UREA NITROGEN 24 mg/dL (7-21); CALCIUM 8.4 mg/dL (8.4-10.5); GFR NON-AFRICAN AMERICAN 55
[2018-01-01] MEDS: DOFETILIDE PO SCH (09:26)
[2018-01-01] MEDS: Pantoprazole 40 mg EC Tab PO SCH (09:26)
[2018-01-01] MEDS: cefTRIAXone 1 gm 1 GM/100 ML BAG IVPB SCH (09:26)
--- NOTE | 2018-01-01 16:50 | CP.PCM.PN ---
<Andres Griffin - Last Filed: 01/01/18 22:49> Subjective - Date & Time of Evaluation Date of Evaluation: 01/01/18 Time of Evaluation: 07:00 - Subjective Subjective: PGY-1 Medicine Progress Note for Dr. Goel Patient seen and examined at bedside, in no acute distress. No acute events reported overnight. Patient endorses continued dizziness when attempting sit upright in bed or with standing. No fevers/chills, headaches, changes in vision, chest pain, palpitations, sob, cough, abdominal pain, n/v/d/c, dysuria, or changes in stool. Objective - Vital Signs/Intake and Output Vital Signs (last 24 hours): Temp Pulse Resp BP Pulse Ox 99 F 47 L 18 163/83 H 98 01/01/18 12:00 01/01/18 12:00 01/01/18 12:00 01/01/18 12:00 01/01/18 06:00 Intake and Output: 01/01/18 01/01/18 06:59 18:59 Intake Total 600 720 Output Total 1600 Balance 600 -880 - Medications Medications: Current Medications Acetaminophen (Tylenol 325mg Tab) 650 mg PO Q6H PRN PRN Reason: Fever >100.4 F Last Admin: 12/30/17 23:05 Dose: 650 mg Apixaban (Eliquis) 5 mg PO DAILY [facility]; Protocol Last Admin: 01/01/18 09:26 Dose: 5 mg Aspirin (Aspirin Chewable) 81 mg PO DAILY [facility] Last Admin: 01/01/18 09:26 Dose: 81 mg Atorvastatin Calcium (Lipitor) 10 mg PO DIN [facility] Last Admin: 12/31/17 18:10 Dose: 10 mg Finasteride (Proscar) 5 mg PO DAILY [facility] Last Admin: 01/01/18 09:26 Dose: 5 mg Fludrocortisone Acetate (Florinef) 0.1 mg PO DAILY [facility] Last Admin: 01/01/18 09:26 Dose: 0.1 mg Ceftriaxone Sodium (Rocephin 1 Gram Ivpb) 1 gm in 100 mls @ 100 mls/hr IVPB DAILY [facility]; Protocol Last Admin: 01/01/18 09:26 Dose: 100 mls/hr Sodium Chloride (Sodium Chloride 0.9%) 1,000 mls @ 50 mls/hr IV .Q20H [facility] Last Admin: 12/31/17 03:36 Dose: 50 mls/hr Midodrine (Proamatine) 5 mg PO DAILY [facility] (Dofetilide [Tikosyn (]) 250mcg) 1 tab PO Q12 [facility] Pantoprazole Sodium (Protonix Ec Tab) 40 mg PO DAILY [facility] Last Admin: 01/01/18 09:26 Dose: 40 mg - Labs Labs: 01/01/18 05:30 01/01/18 05:30 PT 19.2 SECONDS (9.4-12.5) H 12/30/17 16:30 INR 1.67 12/30/17 16:30 APTT 30.3 Seconds (25.1-36.5) 12/30/17 16:30 - Constitutional Appears: Non-toxic, No Acute Distress - Head Exam Head Exam: ATRAUMATIC, NORMAL INSPECTION, NORMOCEPHALIC - Eye Exam Eye Exam: EOMI, Normal appearance - ENT Exam ENT Exam: Mucous Membranes Moist, Normal Exam - Neck Exam Neck Exam: Full ROM, Normal Inspection - Respiratory Exam Respiratory Exam: Clear to Ausculation Bilateral, NORMAL BREATHING PATTERN. absent: Rales, Rhonchi, Wheezes, Respiratory Distress, Stridor - Cardiovascular Exam Cardiovascular Exam: Bradycardia, +S1, +S2 - GI/Abdominal Exam GI & Abdominal Exam: Soft, Normal Bowel Sounds. absent: Distended, Firm, Guarding, Rigid, Tenderness, Organomegaly - Extremities Exam Extremities Exam: Normal Capillary Refill, Normal Inspection. absent: Joint Swelling, Pedal Edema - Back Exam Back Exam: NORMAL INSPECTION - Neurological Exam Neurological Exam: Alert, Awake, CN II-XII Intact, Oriented x3 Additional comments: + orthostatic vitals - Psychiatric Exam Psychiatric exam: Normal Affect, Normal Mood - Skin Skin Exam: Dry, Intact, Normal Color, Warm Assessment and Plan - Assessment and Plan (Free Text) Assessment: 67 Armenian-speaking male with a PMHx of Afib on Dofetilide + Eliquis (Cardioverted as per son 9mo ago), Hypotension/ Orthostatic Hypotension, CVA w/ L sided residual deficit, syncopal episodes, Urinary incontinence s/p rushing insertion presenting with syncopal episode. Plan: Recurrent Syncopal Episodes --TSH/Free T4 wnl --Imaging: -Echo: LV normal size, normal LV wall thickness, EF 74.5%; moderate mitral and tricuspid regurgitation; moderate to severe pulmonary HTN --Neurology recs (Dr. Pettit) appreciated -likely due to underlying cardiac disease, in addition to dehydration and vasovagal-like events caused by catheter decreasing pressure. -Florinef may help in addition to midodrine -consider removing rushing -no further recs at this time --Cardiology recs (Dr. Tripp) appreciated -c/w Eliquis, ASA, lipitor, proamantine -patient requested electrophysiology consult by Dr. Daniel Perez -dofetilide being held for now until pt is evaluated by Dr. Perez --Medications -Midodrine increased to 10 mg PO daily -Florinef 0.1 mg PO daily -NS @ 50 cc/hr UTI w/ flank tenderness --pt febrile on admission (102.6) --Lactate wnl --BCx no growth after 24 hrs x2 --Urine Cx prelim: gram negative varun, between 50K-100K colonies --f/u Urology recs (Dr. Montague) --CT abdomen/pelvis: no acute renal findings --Renal U/S: no acute findings --Medications -Rocephin 1gm Daily -Tylenol PRN Diarrhea --Given Recent Abx use we will r/o C-diff --F/u Cdiff studies --Fecal leukocyte PORTIA - Cr 1.5; No baseline available --Gental hydration as above --Cr 1.3, continue to monitor Hx AFib --C/w Eliquis --Hold Dofetilide, per Cardio, until patient evaluated by electrophysiology CVA w/ L sided residual deficit --c/w ASA 81 --c/w Lipitor 40 PPx, Diet, Disposition --GI: protonix 40 mg PO daily --Diet: HHD --f/u PT eval and therapy Case discussed with Dr. Manasa Griffin DO, PGY-1 <Manuel Goel - Last Filed: 01/05/18 11:04> Objective - Vital Signs/Intake and Output Vital Signs (last 24 hours): Temp Pulse Resp BP Pulse Ox 98.8 F 53 L 18 130/71 99 01/05/18 06:00 01/05/18 06:00 01/05/18 06:00 01/05/18 06:00 01/05/18 06:00 Intake and Output: 01/05/18 01/05/18 06:59 18:59 Intake Total 1480 Output Total 2200 Balance -720 - Medications Medications: Current Medications Acetaminophen (Tylenol 325mg Tab) 650 mg PO Q6H PRN PRN Reason: Fever >100.4 F Last Admin: 12/30/17 23:05 Dose: 650 mg Apixaban (Eliquis) 5 mg PO DAILY [facility]; Protocol Last Admin: 01/05/18 09:27 Dose: 5 mg Aspirin (Aspirin Chewable) 81 mg PO DAILY [facility] Last Admin: 01/05/18 09:27 Dose: 81 mg Atorvastatin Calcium (Lipitor) 5 mg PO DIN [facility] Last Admin: 01/04/18 17:30 Dose: 5 mg Finasteride (Proscar) 5 mg PO DAILY [facility] Last Admin: 01/05/18 09:27 Dose: 5 mg Fludrocortisone Acetate (Florinef) 0.2 mg PO BID [facility] Last Admin: 01/05/18 09:27 Dose: 0.2 mg Hydralazine HCl (Apresoline) 10 mg IVP Q6 PRN PRN Reason: Systolic Blood Pressure Last Admin: 01/05/18 00:47 Dose: 10 mg Sodium Chloride (Sodium Chloride 0.9%) 1,000 mls @ 50 mls/hr IV .Q20H [facility] Last Admin: 01/04/18 10:39 Dose: 50 mls/hr Lactulose (Enulose) 20 gm PO DAILY [facility] Last Admin: 01/05/18 09:28 Dose: Not Given Midodrine (Proamatine) 5 mg PO DAILY [facility] Last Admin: 01/05/18 09:27 Dose: 5 mg (Dofetilide [Tikosyn (]) 250mcg) 1 tab PO Q12 [facility] Pantoprazole Sodium (Protonix Ec Tab) 40 mg PO DAILY [facility] Last Admin: 01/05/18 09:27 Dose: 40 mg Polyethylene Glycol (Miralax) 17 gm PO DAILY PRN PRN Reason: Constipation - Labs Labs: 01/05/18 06:30 01/05/18 06:30 PT 19.2 SECONDS (9.4-12.5) H 12/30/17 16:30 INR 1.67 12/30/17 16:30 APTT 30.3 Seconds (25.1-36.5) 12/30/17 16:30 Attending/Attestation - Attestation I have personally seen and examined this patient.: Yes I have fully participated in the care of the patient.: Yes I have reviewed all pertinent clinical information, including history, physical exam and plan: Yes Notes (Text): 01/05/18 11:04 Medical record note made by the resident after discussion with my direction and input after the patient was personally seen and examined by me. I have reviewed the chart and agree that the record accurately reflects by personal performance of the history, physical exam, data review, and medical decision-making, in the course for the patient. I have also personally directed the plan of care.
--- NOTE | 2018-01-01 17:33 | PN ---
DATE: 01/01/2018 SUBJECTIVE: The patient was noted to have insignificant pulses on the monitor. No reported dizziness. PHYSICAL EXAMINATION: VITAL SIGNS: Blood pressure 163/83, heart rate 47, temperature 99, respiration 18. HEENT: Normocephalic. CHEST: Clear. HEART: S1 and S2 regular. ABDOMEN: Soft. EXTREMITIES: No edema. LABORATORY DATA: Today's SMA-7 is within normal limits except for BUN of 24. Today's hemoglobin and hematocrit 11.3 and 34.5, white count and platelet count are within normal limits. RPR is negative. Venous Doppler of lower extremity, no evidence of DVT. Carotid artery ultrasound bilateral 20-39% proximal internal carotid artery stenosis, antegrade flow on both vertebral arteries. ASSESSMENT: 1. Recurrent syncopal episodes. 2. Chronic atrial fibrillation with slow ventricular response and insignificant pauses. RECOMMENDATIONS: Continue current Eliquis, aspirin, Lipitor, ProAmatine. The patient did request electrophysiology consult by Dr. Daniel Perez. Dofetilide is being on hold for now until the patient is evaluated by Dr. Perez. Vic Tripp MD
[2018-01-02 06:30] LABS: EOS # 0.2 (0.0-0.7); EOS % 3.7 % (1.5-5.0); GRAN # 2.27 (1.4-6.5); GRAN % 56.3 % (50.0-68.0); HEMOGLOBIN 11.1 g/dL (14.0-18.0); LYMPH # 1.1 (1.2-3.4); LYMPH % 28.3 % (22.0-35.0); MEAN CELL VOLUME 77.8 fl (80.0-105.0); MEAN CORPUSCULAR HEMOGLOBIN 25.6 pg (25.0-35.0); MEAN CORPUSCULAR HGB CONC 32.9 g/dl (31.0-37.0); MEAN PLATELET VOLUME 10.6 fl (7.0-11.0); MONO # 0.5 (0.1-0.6); MONO % 11.7 % (1.0-6.0); RBC 4.33 10^6/uL (3.5-6.1); RED CELL DISTRIBUTION WIDTH 13.8 % (11.5-14.5)
[2018-01-02 06:39] LABS: ALB/GLOB RATIO 0.9 (1.1-1.8); ALBUMIN 3.3 g/dL (3.0-4.8); ALT/SGPT 31 U/L (7-56); AST/SGOT 28 U/L (17-59); BLOOD UREA NITROGEN 24 mg/dL (7-21); CALCIUM 8.6 mg/dL (8.4-10.5); GFR NON-AFRICAN AMERICAN 55
[2018-01-02] MEDS: Pantoprazole 40 mg EC Tab PO SCH (10:45)
[2018-01-02] MEDS: cefTRIAXone 1 gm 1 GM/100 ML BAG IVPB SCH (10:46)
--- NOTE | 2018-01-02 13:49 | CP.PCM.PN ---
<Andres Griffin - Last Filed: 01/02/18 15:32> Subjective - Date & Time of Evaluation Date of Evaluation: 01/02/18 Time of Evaluation: 08:00 - Subjective Subjective: PGY-1 Medicine Progress Note for Dr. Goel Patient seen and examined with son at bedside. No acute events reported overnight. Son states that patient continues to have dizziness when standing. Per nursing notes, last set of ortho vitals were positive. Patient unable to stand, gets dizzy and lightheaded. Patient also endorses constipation. No other acute complaints at this time. Objective - Vital Signs/Intake and Output Vital Signs (last 24 hours): Temp Pulse Resp BP Pulse Ox 99.7 F H 49 L 18 154/87 H 98 01/02/18 12:00 01/02/18 12:00 01/02/18 12:00 01/02/18 12:00 01/02/18 06:00 Intake and Output: 01/02/18 01/02/18 06:59 18:59 Intake Total 1200 Output Total 2000 Balance -800 - Medications Medications: Current Medications Acetaminophen (Tylenol 325mg Tab) 650 mg PO Q6H PRN PRN Reason: Fever >100.4 F Last Admin: 12/30/17 23:05 Dose: 650 mg Apixaban (Eliquis) 5 mg PO DAILY [facility]; Protocol Last Admin: 01/02/18 11:21 Dose: 5 mg Aspirin (Aspirin Chewable) 81 mg PO DAILY [facility] Last Admin: 01/02/18 10:45 Dose: 81 mg Atorvastatin Calcium (Lipitor) 5 mg PO DIN [facility] Finasteride (Proscar) 5 mg PO DAILY [facility] Last Admin: 01/02/18 10:45 Dose: 5 mg Fludrocortisone Acetate (Florinef) 0.2 mg PO DAILY [facility] Ceftriaxone Sodium (Rocephin 1 Gram Ivpb) 1 gm in 100 mls @ 100 mls/hr IVPB DAILY [facility]; Protocol Last Admin: 01/02/18 10:46 Dose: 100 mls/hr Sodium Chloride (Sodium Chloride 0.9%) 1,000 mls @ 50 mls/hr IV .Q20H [facility] Last Admin: 12/31/17 03:36 Dose: 50 mls/hr Midodrine (Proamatine) 5 mg PO DAILY [facility] (Dofetilide [Tikosyn (]) 250mcg) 1 tab PO Q12 [facility] Pantoprazole Sodium (Protonix Ec Tab) 40 mg PO DAILY [facility] Last Admin: 01/02/18 10:45 Dose: 40 mg Polyethylene Glycol (Miralax) 17 gm PO DAILY PRN PRN Reason: Constipation - Labs Labs: 01/02/18 05:35 01/02/18 05:35 PT 19.2 SECONDS (9.4-12.5) H 12/30/17 16:30 INR 1.67 12/30/17 16:30 APTT 30.3 Seconds (25.1-36.5) 12/30/17 16:30 - Constitutional Appears: Non-toxic, No Acute Distress - Head Exam Head Exam: ATRAUMATIC, NORMAL INSPECTION, NORMOCEPHALIC - Eye Exam Eye Exam: EOMI, Normal appearance - ENT Exam ENT Exam: Mucous Membranes Moist, Normal Exam - Neck Exam Neck Exam: Full ROM, Normal Inspection - Respiratory Exam Respiratory Exam: Clear to Ausculation Bilateral, NORMAL BREATHING PATTERN. absent: Rales, Rhonchi, Wheezes, Respiratory Distress, Stridor - Cardiovascular Exam Cardiovascular Exam: Bradycardia, +S1, +S2 - GI/Abdominal Exam GI & Abdominal Exam: Soft, Normal Bowel Sounds. absent: Distended, Firm, Guarding, Rigid, Tenderness - Exam Additional comments: indwelling rushing catheter in place, draining 5150 cc within past 24 hrs. - Extremities Exam Extremities Exam: Normal Capillary Refill, Normal Inspection. absent: Calf Tenderness, Joint Swelling, Pedal Edema - Back Exam Back Exam: NORMAL INSPECTION - Neurological Exam Neurological Exam: Alert, Awake, CN II-XII Intact, Oriented x3 - Psychiatric Exam Psychiatric exam: Normal Affect, Normal Mood - Skin Skin Exam: Dry, Intact, Normal Color, Warm Assessment and Plan - Assessment and Plan (Free Text) Assessment: 67 [place]bourgish-speaking male with a PMHx of Afib on Dofetilide + Eliquis (Cardioverted as per son 9mo ago), Hypotension/ Orthostatic Hypotension, CVA w/ L sided residual deficit, syncopal episodes, Urinary incontinence s/p rushing insertion presenting with syncopal episode. Plan: Recurrent Syncopal Episodes --TSH/Free T4 wnl --Imaging: -Echo: LV normal size, normal LV wall thickness, EF 74.5%; moderate mitral and tricuspid regurgitation; moderate to severe pulmonary HTN --Neurology recs (Dr. Pettit) appreciated -likely due to underlying cardiac disease, in addition to dehydration and vasovagal-like events caused by catheter decreasing pressure. -Florinef may help in addition to midodrine -consider removing rushing -no further recs at this time --Cardiology recs (Dr. Tripp) appreciated -c/w Eliquis, ASA, lipitor, proamantine -patient requested electrophysiology consult by Dr. Daniel Perez -dofetilide being held for now until pt is evaluated by Dr. Perez --Medications -Midodrine decreased to 5mg PO daily -Florinef increased to 0.2 mg PO daily -NS @ 50 cc/hr UTI w/ flank tenderness --pt febrile on admission (102.6) --Lactate wnl --BCx no growth after 24 hrs x2 --Urine Cx: Serratia Marcescens, sensitive to rocephin. 50K-100k colonies --f/u Urology recs (Dr. Montague) --CT abdomen/pelvis: no acute renal findings --Renal U/S: no acute findings --Medications -Rocephin 1gm Daily -Tylenol PRN Constipation --Begin Miralax prn PORTIA - Cr 1.5; No baseline available --Gental hydration as above --Cr 1.3, continue to monitor Hx AFib --C/w Eliquis --Held Dofetilide, per Cardio, until patient evaluated by electrophysiology CVA w/ L sided residual deficit --c/w ASA 81 --c/w Lipitor 40 PPx, Diet, Disposition --GI: protonix 40 mg PO daily --Diet: HHD --f/u PT eval and therapy Case discussed with Dr. Manasa Griffin DO, PGY-1 <Manuel Goel - Last Filed: 01/05/18 11:04> Objective - Vital Signs/Intake and Output Vital Signs (last 24 hours): Temp Pulse Resp BP Pulse Ox 98.8 F 53 L 18 130/71 99 01/05/18 06:00 01/05/18 06:00 01/05/18 06:00 01/05/18 06:00 01/05/18 06:00 Intake and Output: 01/05/18 01/05/18 06:59 18:59 Intake Total 1480 Output Total 2200 Balance -720 - Medications Medications: Current Medications Acetaminophen (Tylenol 325mg Tab) 650 mg PO Q6H PRN PRN Reason: Fever >100.4 F Last Admin: 12/30/17 23:05 Dose: 650 mg Apixaban (Eliquis) 5 mg PO DAILY [facility]; Protocol Last Admin: 01/05/18 09:27 Dose: 5 mg Aspirin (Aspirin Chewable) 81 mg PO DAILY [facility] Last Admin: 01/05/18 09:27 Dose: 81 mg Atorvastatin Calcium (Lipitor) 5 mg PO DIN [facility] Last Admin: 01/04/18 17:30 Dose: 5 mg Finasteride (Proscar) 5 mg PO DAILY [facility] Last Admin: 01/05/18 09:27 Dose: 5 mg Fludrocortisone Acetate (Florinef) 0.2 mg PO BID [facility] Last Admin: 01/05/18 09:27 Dose: 0.2 mg Hydralazine HCl (Apresoline) 10 mg IVP Q6 PRN PRN Reason: Systolic Blood Pressure Last Admin: 01/05/18 00:47 Dose: 10 mg Sodium Chloride (Sodium Chloride 0.9%) 1,000 mls @ 50 mls/hr IV .Q20H [facility] Last Admin: 01/04/18 10:39 Dose: 50 mls/hr Lactulose (Enulose) 20 gm PO DAILY [facility] Last Admin: 01/05/18 09:28 Dose: Not Given Midodrine (Proamatine) 5 mg PO DAILY [facility] Last Admin: 01/05/18 09:27 Dose: 5 mg (Dofetilide [Tikosyn (]) 250mcg) 1 tab PO Q12 [facility] Pantoprazole Sodium (Protonix Ec Tab) 40 mg PO DAILY [facility] Last Admin: 01/05/18 09:27 Dose: 40 mg Polyethylene Glycol (Miralax) 17 gm PO DAILY PRN PRN Reason: Constipation - Labs Labs: 01/05/18 06:30 01/05/18 06:30 PT 19.2 SECONDS (9.4-12.5) H 12/30/17 16:30 INR 1.67 12/30/17 16:30 APTT 30.3 Seconds (25.1-36.5) 12/30/17 16:30 Attending/Attestation - Attestation I have personally seen and examined this patient.: Yes I have fully participated in the care of the patient.: Yes I have reviewed all pertinent clinical information, including history, physical exam and plan: Yes Notes (Text): 01/05/18 11:04 Medical record note made by the resident after discussion with my direction and input after the patient was personally seen and examined by me. I have reviewed the chart and agree that the record accurately reflects by personal performance of the history, physical exam, data review, and medical decision-making, in the course for the patient. I have also personally directed the plan of care.
--- NOTE | 2018-01-02 15:41 | PN ---
DATE: 01/02/2018 SUBJECTIVE: The patient is still experiencing postural dizziness. He is currently in sinus bradycardia with insignificant pauses and first-degree AV block. PHYSICAL EXAMINATION: VITAL SIGNS: Blood pressure 125/70, heart rate 75, temperature 98.6, respiration 20. Earlier, heart rate this morning was 48. HEENT: Normocephalic. CHEST: Clear. HEART: S1, S2 regular. EXTREMITIES: No edema. LABORATORY DATA: Today's hemoglobin and hematocrit 11.1 and 33.7, white count 4, platelet count 146,000. Today, SMA-7 is within normal limit except for BUN of 24. ASSESSMENT: 1. Recurrent syncopal episode. 2. Postural hypotension. 3. Paroxysmal atrial fibrillation. 4. Sinus bradycardia with insignificant pauses. RECOMMENDATIONS: Continue current aspirin, Eliquis, Florinef, ProAmatine, Lipitor. Awaiting electrophysiology evaluation by Dr. Perez. Vic Tripp MD
[2018-01-02] MEDS: Sodium Chloride 0.9% 1,000 ML IV SCH (23:47)
[2018-01-03 06:15] LABS: BASO # 0.01 K/mm3 (0.0-2.0); BASO % 0.3 % (0.0-3.0); EOS # 0.2 (0.0-0.7); EOS % 5.1 % (1.5-5.0); GRAN # 1.94 (1.4-6.5); GRAN % 52.1 % (50.0-68.0); HEMOGLOBIN 11.2 g/dL (14.0-18.0); LYMPH # 1.1 (1.2-3.4); LYMPH % 30.1 % (22.0-35.0); MEAN CELL VOLUME 77.5 fl (80.0-105.0); MEAN CORPUSCULAR HEMOGLOBIN 25.5 pg (25.0-35.0); MEAN CORPUSCULAR HGB CONC 32.8 g/dl (31.0-37.0); MEAN PLATELET VOLUME 10.5 fl (7.0-11.0); MONO # 0.5 (0.1-0.6); MONO % 12.4 % (1.0-6.0); RBC 4.4 10^6/uL (3.5-6.1); RED CELL DISTRIBUTION WIDTH 13.9 % (11.5-14.5); WHITE BLOOD COUNT 3.7 10^3/uL (4.5-11.0)
[2018-01-03 06:32] LABS: ALB/GLOB RATIO 0.9 (1.1-1.8); ALBUMIN 3.1 g/dL (3.0-4.8); ALT/SGPT 28 U/L (7-56); AST/SGOT 30 U/L (17-59); BLOOD UREA NITROGEN 21 mg/dL (7-21); CALCIUM 8.2 mg/dL (8.4-10.5); GFR NON-AFRICAN AMERICAN > 60
--- NOTE | 2018-01-03 07:13 | CP.PCM.PN ---
<Andres Griffin - Last Filed: 01/03/18 15:59> Subjective - Date & Time of Evaluation Date of Evaluation: 01/03/18 Time of Evaluation: 07:13 - Subjective Subjective: PGY-1 Medicine Progress Note for Dr. Goel Patient seen and examined sitting at bedside this AM, resting comfortably. Continues to endorse lightheadedness/dizziness with sitting/standing. Orthostatic vitals still positive. Encouraged to continue working with PT to ambulate and transfer. No other acute complaints at this time. Objective - Vital Signs/Intake and Output Vital Signs (last 24 hours): Temp Pulse Resp BP Pulse Ox 98.6 F 58 L 20 110/62 97 01/03/18 00:01 01/03/18 00:01 01/03/18 00:01 01/03/18 00:01 01/03/18 00:01 Intake and Output: 01/03/18 01/03/18 06:59 18:59 Intake Total 560 Output Total 1000 Balance -440 - Medications Medications: Current Medications Acetaminophen (Tylenol 325mg Tab) 650 mg PO Q6H PRN PRN Reason: Fever >100.4 F Last Admin: 12/30/17 23:05 Dose: 650 mg Apixaban (Eliquis) 5 mg PO DAILY [facility]; Protocol Last Admin: 01/02/18 11:21 Dose: 5 mg Aspirin (Aspirin Chewable) 81 mg PO DAILY [facility] Last Admin: 01/02/18 10:45 Dose: 81 mg Atorvastatin Calcium (Lipitor) 5 mg PO DIN [facility] Last Admin: 01/02/18 17:24 Dose: 5 mg Finasteride (Proscar) 5 mg PO DAILY [facility] Last Admin: 01/02/18 10:45 Dose: 5 mg Fludrocortisone Acetate (Florinef) 0.2 mg PO DAILY [facility] Ceftriaxone Sodium (Rocephin 1 Gram Ivpb) 1 gm in 100 mls @ 100 mls/hr IVPB DAILY [facility]; Protocol Last Admin: 01/02/18 10:46 Dose: 100 mls/hr Sodium Chloride (Sodium Chloride 0.9%) 1,000 mls @ 50 mls/hr IV .Q20H [facility] Last Admin: 01/02/18 23:47 Dose: 50 mls/hr Midodrine (Proamatine) 5 mg PO DAILY [facility] (Dofetilide [Tikosyn (]) 250mcg) 1 tab PO Q12 [facility] Pantoprazole Sodium (Protonix Ec Tab) 40 mg PO DAILY [facility] Last Admin: 01/02/18 10:45 Dose: 40 mg Polyethylene Glycol (Miralax) 17 gm PO DAILY PRN PRN Reason: Constipation - Labs Labs: 01/03/18 05:30 01/03/18 05:30 PT 19.2 SECONDS (9.4-12.5) H 12/30/17 16:30 INR 1.67 12/30/17 16:30 APTT 30.3 Seconds (25.1-36.5) 12/30/17 16:30 - Constitutional Appears: Non-toxic, No Acute Distress - Head Exam Head Exam: ATRAUMATIC, NORMAL INSPECTION, NORMOCEPHALIC - Eye Exam Eye Exam: EOMI, Normal appearance Pupil Exam: NORMAL ACCOMODATION - ENT Exam ENT Exam: Mucous Membranes Moist, Normal Exam - Neck Exam Neck Exam: Full ROM, Normal Inspection - Respiratory Exam Respiratory Exam: Clear to Ausculation Bilateral, NORMAL BREATHING PATTERN. absent: Rales, Rhonchi, Wheezes, Respiratory Distress, Stridor - Cardiovascular Exam Cardiovascular Exam: Bradycardia, +S1, +S2 - GI/Abdominal Exam GI & Abdominal Exam: Soft, Normal Bowel Sounds. absent: Distended, Firm, Guarding, Rigid, Tenderness - Exam Additional comments: indwelling rushing catheter in place, draining 2900cc in 24 hrs. - Extremities Exam Extremities Exam: Normal Capillary Refill, Normal Inspection. absent: Calf Tenderness, Joint Swelling, Pedal Edema - Back Exam Back Exam: NORMAL INSPECTION - Neurological Exam Neurological Exam: Alert, Awake, CN II-XII Intact, Oriented x3 - Psychiatric Exam Psychiatric exam: Normal Affect, Normal Mood - Skin Skin Exam: Dry, Intact, Normal Color, Warm Assessment and Plan - Assessment and Plan (Free Text) Assessment: 67 Sinhala-speaking male with a PMHx of Afib on Dofetilide + Eliquis (Cardioverted as per son 9mo ago), Hypotension/ Orthostatic Hypotension, CVA w/ L sided residual deficit, syncopal episodes, Urinary incontinence s/p rushing i nsertion presenting with syncopal episode. Plan: Recurrent Syncopal Episodes --TSH/Free T4 wnl --Imaging: -Echo: LV normal size, normal LV wall thickness, EF 74.5%; moderate mitral and tricuspid regurgitation; moderate to severe pulmonary HTN --Neurology recs (Dr. Pettit) appreciated -likely due to underlying cardiac disease, in addition to dehydration and vasovagal-like events caused by catheter decreasing pressure. -Florinef may help in addition to midodrine -consider removing rushing -no further recs at this time --Cardiology recs (Dr. Tripp) appreciated -c/w Eliquis, ASA, lipitor, proamantine, dofetilide --Electrophysiology recs (Dr. Perez) appreciated -spoke with Dr. Perez who evaluated pt today -may resume dofetilide, does not warrant pacemaker at this time -c/w IVF, encourage ambulation and continued work with PT --Medications -Midodrine 5mg PO daily -Florinef 0.2 mg PO daily -Dofetilide 1 tab PO q12 -NS @ 50 cc/hr UTI w/ flank tenderness --pt febrile on admission (102.6) --Lactate wnl --BCx no growth x2 --Urine Cx: Serratia Marcescens, sensitive to rocephin. 50K-100k colonies --f/u Urology recs (Dr. Montague) --CT abdomen/pelvis: no acute renal findings --Renal U/S: no acute findings --Medications -Rocephin 1gm Daily -Tylenol PRN Constipation --Miralax prn PORTIA - Cr 1.5; No baseline available --Gental hydration as above --Cr 1.2, continue to monitor Hx AFib --C/w Eliquis --Held Dofetilide, per Cardio, until patient evaluated by electrophysiology CVA w/ L sided residual deficit --c/w ASA 81 --c/w Lipitor 40 PPx, Diet, Disposition --GI: protonix 40 mg PO daily --Diet: HHD --Physical therapy on board --Dispo: Custodial Services Manager spoke to son at the bedside regarding insurance for patient. * Son stated he brought [facility] for his father recently. Insurance package may not cover subacute. * Patient is not a citizen at this time and is here on a green card. Patient does not have the 5 year stay yet under Medicaid. * Patient's son will bring card in tomorrow. Custodial Services Manager will run insurance to see if a facility will accept and if subacute is a coverage. Case discussed with Dr. Manasa Griffin DO, PGY-1 <Manuel Goel - Last Filed: 01/05/18 11:03> Objective - Vital Signs/Intake and Output Vital Signs (last 24 hours): Temp Pulse Resp BP Pulse Ox 98.8 F 53 L 18 130/71 99 01/05/18 06:00 01/05/18 06:00 01/05/18 06:00 01/05/18 06:00 01/05/18 06:00 Intake and Output: 01/05/18 01/05/18 06:59 18:59 Intake Total 1480 Output Total 2200 Balance -720 - Medications Medications: Current Medications Acetaminophen (Tylenol 325mg Tab) 650 mg PO Q6H PRN PRN Reason: Fever >100.4 F Last Admin: 12/30/17 23:05 Dose: 650 mg Apixaban (Eliquis) 5 mg PO DAILY [facility]; Protocol Last Admin: 01/05/18 09:27 Dose: 5 mg Aspirin (Aspirin Chewable) 81 mg PO DAILY [facility] Last Admin: 01/05/18 09:27 Dose: 81 mg Atorvastatin Calcium (Lipitor) 5 mg PO DIN [facility] Last Admin: 01/04/18 17:30 Dose: 5 mg Finasteride (Proscar) 5 mg PO DAILY [facility] Last Admin: 01/05/18 09:27 Dose: 5 mg Fludrocortisone Acetate (Florinef) 0.2 mg PO BID [facility] Last Admin: 01/05/18 09:27 Dose: 0.2 mg Hydralazine HCl (Apresoline) 10 mg IVP Q6 PRN PRN Reason: Systolic Blood Pressure Last Admin: 01/05/18 00:47 Dose: 10 mg Sodium Chloride (Sodium Chloride 0.9%) 1,000 mls @ 50 mls/hr IV .Q20H [facility] Last Admin: 01/04/18 10:39 Dose: 50 mls/hr Lactulose (Enulose) 20 gm PO DAILY [facility] Last Admin: 01/05/18 09:28 Dose: Not Given Midodrine (Proamatine) 5 mg PO DAILY [facility] Last Admin: 01/05/18 09:27 Dose: 5 mg (Dofetilide [Tikosyn (]) 250mcg) 1 tab PO Q12 [facility] Pantoprazole Sodium (Protonix Ec Tab) 40 mg PO DAILY [facility] Last Admin: 01/05/18 09:27 Dose: 40 mg Polyethylene Glycol (Miralax) 17 gm PO DAILY PRN PRN Reason: Constipation - Labs Labs: 01/05/18 06:30 01/05/18 06:30 PT 19.2 SECONDS (9.4-12.5) H 12/30/17 16:30 INR 1.67 12/30/17 16:30 APTT 30.3 Seconds (25.1-36.5) 12/30/17 16:30 Attending/Attestation - Attestation I have personally seen and examined this patient.: Yes I have fully participated in the care of the patient.: Yes I have reviewed all pertinent clinical information, including history, physical exam and plan: Yes Notes (Text): 01/05/18 11:03 Medical record note made by the resident after discussion with my direction and input after the patient was personally seen and examined by me. I have reviewed the chart and agree that the record accurately reflects by personal performance of the history, physical exam, data review, and medical decision-making, in the course for the patient. I have also personally directed the plan of care.
[2018-01-03] MEDS: Pantoprazole 40 mg EC Tab PO SCH (09:38)
[2018-01-03] MEDS: cefTRIAXone 1 gm 1 GM/100 ML BAG IVPB SCH (09:38)
--- NOTE | 2018-01-03 12:55 | PN ---
DATE: 01/03/2018 SUBJECTIVE: The patient denies any chest pain. He is currently in sinus rhythm. He did have a 2.47 sinus pause. The patient was evaluated with Dr. Daniel Perez yesterday who recommended to reduce the dose of dofetilide to 1 tablet a day and pacemaker is not indicated at this time. This was relayed to me by Dr. Goel as the official consult is not available yet on the [facility] Database. The patient complains of constipation. PHYSICAL EXAMINATION: VITAL SIGNS: Blood pressure 141/76, heart rate 50, temperature 98.4, respirations 18. HEENT: Normocephalic. CHEST: Clear. HEART: S1, S2 regular. EXTREMITIES: No edema. LABORATORY DATA: Today's hemoglobin and hematocrit 11.2 and 34.1. White count 3.7, platelet count 170,000. Today's SMA-7 is within normal limit except for anion gap of 8. ASSESSMENT: 1. Paroxysmal atrial fibrillation. 2. Postural hypotension. 3. History of cerebrovascular accident. RECOMMENDATIONS: Continue aspirin 81 mg once a day, Eliquis 5 mg daily, Lipitor at 5 mg daily, ProAmatine 5 mg daily. Resume dofetilide at one tablet daily. I will start lactulose 30 mg p.o. daily. Vic Tripp MD
--- NOTE | 2018-01-03 18:04 | CARD ---
APPROVED REPORT Date of service: 01/03/2018 EKG Measurement Heart [id number] <Conclusion> Sinus bradycardia with 1st degree AV block Left axis deviation Abnormal ECG
[2018-01-03 18:11] LABS: HEMOGLOBIN 11.5 g/dL (14.0-18.0); MEAN CELL VOLUME 77.3 fl (80.0-105.0); MEAN CORPUSCULAR HEMOGLOBIN 25.9 pg (25.0-35.0); MEAN CORPUSCULAR HGB CONC 33.5 g/dl (31.0-37.0); MEAN PLATELET VOLUME 10.2 fl (7.0-11.0); RBC 4.44 10^6/uL (3.5-6.1); RED CELL DISTRIBUTION WIDTH 13.7 % (11.5-14.5)
[2018-01-03 18:12] LABS: BLOOD UREA NITROGEN 18 mg/dL (7-21); CALCIUM 8.5 mg/dL (8.4-10.5); GFR NON-AFRICAN AMERICAN > 60
[2018-01-03 18:24] LABS: TROPONIN I 0.08 ng/mL
[2018-01-03 18:33] LABS: WHITE BLOOD COUNT 3.2 10^3/uL (4.5-11.0)
[2018-01-03] MEDS: Sodium Chloride 0.9% 1,000 ML IV SCH (18:45)
--- NOTE | 2018-01-03 21:17 | PCM.RRT ---
<Arleen Ortiz - Last Filed: 01/03/18 21:06> COOPERATIVE MANAGER Nurse Assessment - Situation Date: 01/03/18 Time COOPERATIVE MANAGER was called: 16:38 COOPERATIVE MANAGER Responder Arrival Time: 16:40 COOPERATIVE MANAGER Location:: [address] [place] [address] Room Number: 264-1 COOPERATIVE MANAGER Reason for Call: Bradycardia, Change in Mental Status COOPERATIVE MANAGER Called By: RN - IV IV Inserted during COOPERATIVE MANAGER?: No - Respiratory Oxygen Delivery Method: Non Rebreather @% Oxygen Flow Rate: 100 Received Nebulizer Treatments:: No Was the Patient Ventilated with Bag/Mask 100% O2?: No Secretions Suctioned?: No Was the Patient Intubated?: No Was the Patient Placed on a Ventilator?: No - Diagnostic Test Ordered EKG: Yes Chest X-Ray: No CT Scan: No - Stat Labs Ordered COOPERATIVE MANAGER Stat Labs Ordered: CBC, BMP, TROPONIN COOPERATIVE MANAGER Other Labs Ordered: magnesium CPR started during COOPERATIVE MANAGER?: No - Vital Signs Vital Sign: Rapid Response Vital Sign Blood Pressure 195/95 Pulse Rate 34 Respiratory Rate 14 Temperature 98.3 F Oxygen Saturation 100 - Finger Stick Blood Glucose Finger Stick Blood Glucose: 107 - Time COOPERATIVE MANAGER Ended Time COOPERATIVE MANAGER Ended: 16:55 - Vital Signs at end of COOPERATIVE MANAGER Vital Signs at end of COOPERATIVE MANAGER: Rapid Response End Vital Sign Blood Pressure 188/86 Pulse Rate 57 Respiratory Rate 16 Temperature 98.3 F O2 Sat by Pulse Oximetry 100 - Recommendations Notifications: Attending Physician, Family or Designated Caregiver I.Reason for COOPERATIVE MANAGER - A) Acute Change in Patient: Subjective: Rapid response was called on pt, pt was assessed and found to be responsive upon exam. Pts vitals were taken, and are listed in note. He had a history of orthostatic hypotension and had gotten up with assistance from nursing to use the camode. Pt after straining started to become unresponse and foaming at mouth per nursing. Pt was found to be HTNsive so no fluids were started and pt was given oxygen through NC. Pt was noted to be more responsive and no longer altered as initial exam was proceeding. Pt then was noted to be at baseline mentation as he was recovering from suspected vasovagal episode. 12 lead EKG done at the time showed 1st degree AV block with HR in the 50s which is pts baseline. The bradycardia did not make the pt hypotensive and the rapid was resolved while further investigation and exams were being done. CBC, BMP, mag, cardiac enzymes and finger stick were drawn. - Neurological Status (Select all that apply): Alert, Confused - Respiratory Oxygen Delivery Method: Non Rebreather @% Oxygen Flow Rate: 100 - Constitutional Appears: Agitated, Confused Additional Comments: upon resolution of rapid pt improved back to alert, oriented - Head Head Exam: ATRAUMATIC, NORMAL INSPECTION, NORMOCEPHALIC - Eyes Eye Exam: EOMI, Normal appearance - Respiratory Exam Respiratory Exam: Decreased Breath Sounds, NORMAL BREATHING PATTERN. absent: Rales, Rhonchi, Wheezes Additional comments: upon resolution of rapid pt improved back to baseline - Cardiovascular Exam Cardiovascular Exam: Bradycardia, +S1, +S2. absent: Gallop, Rubs - GI/Abdominal Exam GI & Abdominal Exam: Soft, Normal Bowel Sounds. absent: Rigid, Tenderness - Neurological Exam Neurological Exam: Alert, Altered Additional exam: upon resolution of rapid pt improved back to baseline - Extremities Exam Extremities Exam: Full ROM, Normal Capillary Refill, Normal Inspection. absent: Calf Tenderness, Tenderness Plan - Assessment of Findings&Treatment Plan Pt is 67 yo M who had a rapid called for being unrepsonsive. Upon entry into the room pt was alert, but still altered. Given past history of orthostatic hypotension and the history per nursing of pt straining, likely thought to be vasovagal episode which resolved spontaneously. Cbc. bmp, mag, cardiac enzymes, 12 lead ekg, blood glucose and vitals were all taken or assessed at bedside. <Manuel Goel - Last Filed: 01/05/18 11:03> COOPERATIVE MANAGER Nurse Assessment - Vital Signs Vital Sign: Rapid Response Vital Sign Blood Pressure 195/95 Pulse Rate 34 Respiratory Rate 14 Temperature 98.3 F Oxygen Saturation 100 - Vital Signs at end of COOPERATIVE MANAGER Vital Signs at end of COOPERATIVE MANAGER: Rapid Response End Vital Sign Blood Pressure 188/86 Pulse Rate 57 Respiratory Rate 16 Temperature 98.3 F O2 Sat by Pulse Oximetry 100 Attending/Attestation - Attestation I have personally seen and examined this patient.: Yes I have fully participated in the care of the patient.: Yes I have reviewed all pertinent clinical information, including history, physical exam and plan: Yes Notes (Text): 01/05/18 11:03 Medical record note made by the resident after discussion with my direction and input after the patient was personally seen and examined by me. I have reviewed the chart and agree that the record accurately reflects by personal performance of the history, physical exam, data review, and medical decision-making, in the course for the patient. I have also personally directed the plan of care.
--- NOTE | 2018-01-03 22:05 | PCM.SEPTIC ---
Sepsis Progress Note - Non Invasive Reassessment Vital Sign (Latest): Temp Pulse Resp BP Pulse Ox 98.3 F 52 L 18 169/90 H 99 01/03/18 17:22 01/03/18 17:22 01/03/18 17:22 01/03/18 17:22 01/03/18 06:00
--- NOTE | 2018-01-04 02:41 | CON ---
DATE: 01/03/2018 REASON FOR EVALUATION: 1. Paroxysmal atrial fibrillation. 2. Orthostatic hypotension. 3. Bradycardia. 4. Bladder neck obstruction. Thank you very much for this consult. HISTORY OF PRESENT ILLNESS: Mr. Angélica Gray is a 67-year-old [place] gentleman with past medical history of hypertension, atrial fibrillation, status post CVA, possible seizure disorder who presents to [facility] with recurrent falls approximately 5 times according to the . I had a detailed discussion with the patient's son who is well aware of his condition and his current circumstances. The patient had been on Tikosyn, was discontinued off Tikosyn upon admission because of baseline bradycardia. The patient's functional status over the last year has been very limited, he is able to walk short distances, but has been free from syncope during this time. His syncopal episodes occur neither in a sitting or standing position, he loses consciousness and collapses. The patient has been having issues with urinary incontinence and does follow with his urologist. The patient has been seen by Dr. Davila and was initiated on midodrine with limited success. SOCIAL HISTORY: Negative for tobacco, ETOH or drug abuse. The patient's primary is Dr. Briones of [facility]. PAST MEDICAL HISTORY: As mentioned. PAST SURGICAL HISTORY: Lymph node biopsy in 02/2017, which was negative. ALLERGIES: NO KNOWN DRUG ALLERGIES. PHYSICAL EXAMINATION: VITAL SIGNS: Temperature is 98.9, pulse is 74, blood pressure is 196/82, prior to that orthostatics had been done with the patient's lying blood pressure of 158/82, sitting blood pressure of 90/58, standing blood pressure of 98/35, respiratory rate of 18. GENERAL: He is a well-developed obese elderly [place] male in no acute distress. HEENT: Examination of his head is normocephalic and atraumatic. There is no stephanie facial asymmetry. Mucous membranes appear moist. NECK: Supple. No jugular venous distention. No carotid bruits. CHEST: Clear to auscultation bilaterally. CARDIOVASCULAR: Irregular rhythm with what appears to be coarse atrial fibrillation with slow ventricular response. QT and QTc is 464 and 440 respectively. DIAGNOSTIC DATA: Telemetry currently appears that he is in sinus rhythm. Echocardiogram was performed on 12/31/2017. LV function appears to be within the normal range, there is a flattened septum, RV systolic function and appearance appears to be normal, left atrium is mildly dilated, right atrium is mildly dilated, aortic valve is not well visualized, mitral valve is moderately thickened, mitral regurgitation is moderate. There is also some moderate tricuspid regurgitation as well, [id number] pulmonary hypertension also noted. Lower extremity venous Doppler was negative for DVT. ASSESSMENT AND PLAN: 1. Paroxysmal atrial fibrillation. The patient with intermittent atrial fibrillation, atrial fibrillation had been treated successfully with Tikosyn which the patient did respond to. At this point, we would restart half dose Tikosyn in an effort to maintain normal sinus rhythm. The patient may have some degree of sick sinus syndrome. The patient had been functioning at baseline over the last 6 months. If we have evidence of significant worsening sinus bradycardia or pauses, we may consider a permanent pacemaker implantation. In addition, if we are able to demonstrate chronotropic incompetence also, a pacemaker would be indicated. I have discussed this with the patient's son, as well as the medical team. 2. Orthostatic hypotension. I agree with the patient being started on isoproterenol, we will need to monitor for significant hypertension. The patient's finasteride may be complicating that as well. We will continue midodrine as well. At this point, we will continue to treat him as such, it is unclear if the patient's urinary issues for which now he has a Heard catheter is making the situation worse. I suspect this may have a large part to do with the patient's presentation, I have discussed this with the patient's son as well as the medical team. 3. Bradycardia, of unclear significance. If there is again failure to increase heart rate with activity, a permanent pacemaker may be indicated. 4. Bladder neck obstruction treated as per the Urology team. 5. Moderate mitral regurgitation, tricuspid regurgitation, pulmonary hypertension may be the patient's baseline, there does not appear to be any significant lower extremity venous thrombosis, chronic thromboembolic phenomenon may have been considered in terms of his hypotension in presentation at this point, less likely given negative lower extremity venous Doppler. Daniel Perez MD cc: Vic Tripp MD
[2018-01-04 06:45] LABS: BASO # 0.01 K/mm3 (0.0-2.0); BASO % 0.3 % (0.0-3.0); EOS # 0.1 (0.0-0.7); EOS % 3.4 % (1.5-5.0); GRAN # 1.64 (1.4-6.5); HEMOGLOBIN 11.1 g/dL (14.0-18.0); LYMPH % 28.1 % (22.0-35.0); MEAN CELL VOLUME 77.8 fl (80.0-105.0); MEAN CORPUSCULAR HEMOGLOBIN 25.5 pg (25.0-35.0); MEAN CORPUSCULAR HGB CONC 32.7 g/dl (31.0-37.0); MEAN PLATELET VOLUME 10.6 fl (7.0-11.0); MONO # 0.7 (0.1-0.6); MONO % 21.2 % (1.0-6.0); PLATELET COUNT 176 10^3/uL (120.0-450.0); RBC 4.36 10^6/uL (3.5-6.1); RED CELL DISTRIBUTION WIDTH 13.8 % (11.5-14.5); WHITE BLOOD COUNT 3.5 10^3/uL (4.5-11.0)
[2018-01-04 07:15] LABS: ALB/GLOB RATIO 0.9 (1.1-1.8); ALBUMIN 3.2 g/dL (3.0-4.8); ALT/SGPT 28 U/L (7-56); AST/SGOT 25 U/L (17-59); BLOOD UREA NITROGEN 17 mg/dL (7-21); CALCIUM 8.8 mg/dL (8.4-10.5); GFR NON-AFRICAN AMERICAN > 60
--- NOTE | 2018-01-04 07:38 | CP.PCM.PN ---
<Andres Griffin - Last Filed: 01/04/18 12:40> Subjective - Date & Time of Evaluation Date of Evaluation: 01/04/18 Time of Evaluation: 07:38 - Subjective Subjective: PGY-1 Medicine Progress Note for Dr. Goel Patient seen and examined at bedside this AM. 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 Pt was found to be hypertensive so no fluids were started and pt was given oxygen through [place]. He became more responsive and reached baseline mentation as he recovered from vasovagal episode. 12 lead EKG done at the time showed 1st degree AV block with HR in the 50s which is his baseline. Patient continues to endorse dizziness this AM, continues to work with PT for conditioning and ambulation. Objective - Vital Signs/Intake and Output Vital Signs (last 24 hours): Temp Pulse Resp BP Pulse Ox 98.2 F 57 L 20 138/80 97 01/04/18 06:00 01/04/18 06:00 01/04/18 06:00 01/04/18 06:00 01/04/18 06:00 Intake and Output: 01/04/18 01/04/18 06:59 18:59 Intake Total 1450 Output Total 5300 Balance -3850 - Medications Medications: Current Medications Acetaminophen (Tylenol 325mg Tab) 650 mg PO Q6H PRN PRN Reason: Fever >100.4 F Last Admin: 12/30/17 23:05 Dose: 650 mg Apixaban (Eliquis) 5 mg PO DAILY [facility]; Protocol Last Admin: 01/03/18 09:38 Dose: 5 mg Aspirin (Aspirin Chewable) 81 mg PO DAILY [facility] Last Admin: 01/03/18 09:37 Dose: 81 mg Atorvastatin Calcium (Lipitor) 5 mg PO DIN [facility] Last Admin: 01/03/18 18:44 Dose: 5 mg Finasteride (Proscar) 5 mg PO DAILY [facility] Last Admin: 01/03/18 09:37 Dose: 5 mg Fludrocortisone Acetate (Florinef) 0.2 mg PO BID [facility] Last Admin: 01/03/18 18:44 Dose: 0.2 mg Hydralazine HCl (Apresoline) 10 mg IVP Q6 PRN PRN Reason: Systolic Blood Pressure Ceftriaxone Sodium (Rocephin 1 Gram Ivpb) 1 gm in 100 mls @ 100 mls/hr IVPB DAILY [facility]; Protocol Last Admin: 01/03/18 09:38 Dose: 100 mls/hr Sodium Chloride (Sodium Chloride 0.9%) 1,000 mls @ 50 mls/hr IV .Q20H [facility] Last Admin: 01/03/18 18:45 Dose: 50 mls/hr Lactulose (Enulose) 20 gm PO DAILY [facility] Last Admin: 01/03/18 12:17 Dose: 20 gm Midodrine (Proamatine) 5 mg PO DAILY [facility] Last Admin: 01/03/18 09:38 Dose: 5 mg (Dofetilide [Tikosyn (]) 250mcg) 1 tab PO Q12 [facility] Pantoprazole Sodium (Protonix Ec Tab) 40 mg PO DAILY [facility] Last Admin: 01/03/18 09:38 Dose: 40 mg Polyethylene Glycol (Miralax) 17 gm PO DAILY PRN PRN Reason: Constipation - Labs Labs: 01/04/18 05:15 01/04/18 05:15 PT 19.2 SECONDS (9.4-12.5) H 12/30/17 16:30 INR 1.67 12/30/17 16:30 APTT 30.3 Seconds (25.1-36.5) 12/30/17 16:30 - Constitutional Appears: Non-toxic, No Acute Distress - Head Exam Head Exam: ATRAUMATIC, NORMAL INSPECTION, NORMOCEPHALIC - Eye Exam Eye Exam: EOMI, Normal appearance Pupil Exam: NORMAL ACCOMODATION - ENT Exam ENT Exam: Mucous Membranes Moist, Normal Exam - Neck Exam Neck Exam: Full ROM, Normal Inspection - Respiratory Exam Respiratory Exam: Clear to Ausculation Bilateral, NORMAL BREATHING PATTERN. absent: Rales, Rhonchi, Wheezes, Respiratory Distress, Stridor - Cardiovascular Exam Cardiovascular Exam: Bradycardia, +S1, +S2 - GI/Abdominal Exam GI & Abdominal Exam: Soft, Normal Bowel Sounds. absent: Distended, Firm, Guarding, Rigid, Tenderness, Rebound - Extremities Exam Extremities Exam: Full ROM, Normal Capillary Refill, Normal Inspection. absent: Calf Tenderness, Joint Swelling, Pedal Edema - Back Exam Back Exam: NORMAL INSPECTION - Neurological Exam Neurological Exam: Alert, Awake, CN II-XII Intact, Oriented x3 - Psychiatric Exam Psychiatric exam: Normal Affect, Normal Mood - Skin Skin Exam: Dry, Intact, Normal Color, Warm Assessment and Plan - Assessment and Plan (Free Text) Assessment: 67 Tajik-speaking male with a PMHx of Afib on Dofetilide + Eliquis (Cardioverted as per son 9mo ago), Hypotension/ Orthostatic Hypotension, CVA w/ L sided residual deficit, syncopal episodes, Urinary incontinence s/p rushing insertion presenting with syncopal episode. Plan: Recurrent Syncopal Episodes --TSH/Free T4 wnl --Imaging: -Echo: LV normal size, normal LV wall thickness, EF 74.5%; moderate mitral and tricuspid regurgitation; moderate to severe pulmonary HTN --Neurology recs (Dr. Pettit) appreciated -likely due to underlying cardiac disease, in addition to dehydration and vasovagal-like events caused by catheter decreasing pressure. -Florinef may help in addition to midodrine -consider removing rushing -no further recs at this time --Cardiology recs (Dr. Tripp) appreciated -c/w Eliquis, ASA, lipitor, proamantine, dofetilide --Electrophysiology recs (Dr. Perez) appreciated -pt with intermittent a fib that had been treated successfully with Tikosyn which the pt did respond to. At this point, we would restart half dose Tikosyn in effort to maintain NSR; pt may have some degree of sick sinus syndrome. -if there's evidence of worsening sinus bradycardia or pauses, we may consider a permanent pacemaker implantation -consider starting pt on isopreterenol, monitor for significant HTN. The pt's finasteride may be complicated that as well. -Continue midodrine --Medications -Midodrine 5mg PO daily -Florinef 0.2 mg PO daily changed to 0.2 mg PO BID (01/04) -Dofetilide 1 tab PO q12--on hold to get pt's HR up (01/04) -NS @ 50 cc/hr UTI w/ flank tenderness --pt febrile on admission (102.6) --Lactate wnl --BCx no growth x2 --Urine Cx: Serratia Marcescens, sensitive to rocephin. 50K-100k colonies --f/u Urology recs (Dr. Montague) -rushing to be removed Sunday, per who spoke with Dr. Montague --CT abdomen/pelvis: no acute renal findings --Renal U/S: no acute findings --Medications -Rocephin 1gm Daily -Tylenol PRN Constipation --Miralax prn PORTIA - Cr 1.5; No baseline available --Gental hydration as above --Cr 1.1, continue to monitor Hx AFib --C/w Eliquis --Held Dofetilide, per Cardio, until patient evaluated by electrophysiology CVA w/ L sided residual deficit --c/w ASA 81 --c/w Lipitor 40 PPx, Diet, Disposition --GI: protonix 40 mg PO daily --Diet: HHD --Physical therapy on board -tolerated treatment well. he was able to tolerate sitting for 4-5 mins, standing 30 sec- 45 sec. Last set of orthostatics are as below: Supine: 158/82 Sittin/51 Standin/35 --Dispo: [facility] has no in network facilities for patient's insurance. rag production worker called provider services, was advised that patient has a benefit for [facility] but they could not give sw a list of facilities. sw was advised that if a member or patient called member services, , they can provide a list of in network [facility] facilities. sw spoke with patient's son, Eduardo at [phone]. sw reviewed the above regarding member services. eduardo will call and provide sw with in network facilities. sw provided contact information. Case discussed with Dr. Manasa Griffin DO, PGY-1 <Manuel Goel - Last Filed: 01/05/18 11:02> Objective - Vital Signs/Intake and Output Vital Signs (last 24 hours): Temp Pulse Resp BP Pulse Ox 98.8 F 53 L 18 130/71 99 01/05/18 06:00 01/05/18 06:00 01/05/18 06:00 01/05/18 06:00 01/05/18 06:00 Intake and Output: 01/05/18 01/05/18 06:59 18:59 Intake Total 1480 Output Total 2200 Balance -720 - Medications Medications: Current Medications Acetaminophen (Tylenol 325mg Tab) 650 mg PO Q6H PRN PRN Reason: Fever >100.4 F Last Admin: 12/30/17 23:05 Dose: 650 mg Apixaban (Eliquis) 5 mg PO DAILY [facility]; Protocol Last Admin: 01/05/18 09:27 Dose: 5 mg Aspirin (Aspirin Chewable) 81 mg PO DAILY [facility] Last Admin: 01/05/18 09:27 Dose: 81 mg Atorvastatin Calcium (Lipitor) 5 mg PO DIN [facility] Last Admin: 01/04/18 17:30 Dose: 5 mg Finasteride (Proscar) 5 mg PO DAILY [facility] Last Admin: 01/05/18 09:27 Dose: 5 mg Fludrocortisone Acetate (Florinef) 0.2 mg PO BID [facility] Last Admin: 01/05/18 09:27 Dose: 0.2 mg Hydralazine HCl (Apresoline) 10 mg IVP Q6 PRN PRN Reason: Systolic Blood Pressure Last Admin: 01/05/18 00:47 Dose: 10 mg Sodium Chloride (Sodium Chloride 0.9%) 1,000 mls @ 50 mls/hr IV .Q20H [facility] Last Admin: 01/04/18 10:39 Dose: 50 mls/hr Lactulose (Enulose) 20 gm PO DAILY [facility] Last Admin: 01/05/18 09:28 Dose: Not Given Midodrine (Proamatine) 5 mg PO DAILY [facility] Last Admin: 01/05/18 09:27 Dose: 5 mg (Dofetilide [Tikosyn (]) 250mcg) 1 tab PO Q12 [facility] Pantoprazole Sodium (Protonix Ec Tab) 40 mg PO DAILY [facility] Last Admin: 01/05/18 09:27 Dose: 40 mg Polyethylene Glycol (Miralax) 17 gm PO DAILY PRN PRN Reason: Constipation - Labs Labs: 01/05/18 06:30 01/05/18 06:30 PT 19.2 SECONDS (9.4-12.5) H 12/30/17 16:30 INR 1.67 12/30/17 16:30 APTT 30.3 Seconds (25.1-36.5) 12/30/17 16:30 Attending/Attestation - Attestation I have personally seen and examined this patient.: Yes I have fully participated in the care of the patient.: Yes I have reviewed all pertinent clinical information, including history, physical exam and plan: Yes Notes (Text): 01/05/18 10:54 67 yearls old male with PMHx of Afib on Dofetilide and anticoagulation with Eliquis (Cardioverted as per son 9mo ago), Orthostatic Hypotension on Midodrine at home since one year, CVA w/ L sided residual deficit, syncopal episodes, SP recent [facility] cathter for Urinary retention was admitted with recurrent syncope, found to have severe orthostatic hypotension , was also found to be bradycardiac. There is no new Neuro deficit.Patient is still symptomatic. Orthostatic hypotension , on IV hydration, Florinef and Midodrine.Midodrine dose can not be increased due to H/O urinary retention.Patient will need physical therapy and rehabilitation. AF, currently in NSR , HR is around 50, Dofetilide is on hold.Cardiology is following, on anticoagulation with apixiban. Urinary Retention due to BPH and medication, Urology is following.Patient is ASP treatment for UTI. Prognosis is guarded. 01/05/18 11:00 01/05/18 11:01
[2018-01-04 08:20] LABS: ATYPICAL LYMPHOCYTE 2 % (0.0-0.0); EOSINOPHIL 7 % (0.0-3.0); LYMPHOCYTE 21 % (22.0-35.0); MONOCYTE 13 % (1.0-6.0); NEUTROPHIL 57 % (50.0-70.0); PLATELET ESTIMATE NORMAL (NORMAL)
[2018-01-04] MEDS: Pantoprazole 40 mg EC Tab PO SCH (10:28)
[2018-01-04] MEDS: Sodium Chloride 0.9% 1,000 ML IV SCH (10:39)
--- NOTE | 2018-01-04 17:03 | PN ---
DATE: 01/04/2018 SUBJECTIVE: The patient had rapid response yesterday in the afternoon because of bradycardia. Patient's heart rate at that time, the lowest was reported to be 29 beats per minute and the patient had 3.1-second pause. PHYSICAL EXAMINATION: VITAL SIGNS: Blood pressure 191/95, heart rate 46, temperature 99, respiration 18. HEENT: Normocephalic. CHEST: Diminished breath sounds at bases. HEART: S1, S2 regular. LABORATORY DATA: Today's SMA-7 is within normal limits except for potassium of 3.5 and anion gap of 9. ASSESSMENT: 1. Paroxysmal atrial fibrillation. 2. Symptomatic bradycardia. RECOMMENDATIONS: Continue current Eliquis, aspirin, hydralazine, Florinef, Lipitor, ProAmatine as well as normal saline infusion and I will further discuss case with outsole molder, Dr. Perez. Vic Tripp MD
[2018-01-05 07:28] LABS: BASO # 0.01 K/mm3 (0.0-2.0); BASO % 0.3 % (0.0-3.0); EOS # 0.1 (0.0-0.7); EOS % 3.3 % (1.5-5.0); GRAN # 1.72 (1.4-6.5); GRAN % 44.2 % (50.0-68.0); LYMPH # 1.2 (1.2-3.4); LYMPH % 29.6 % (22.0-35.0); MEAN CELL VOLUME 77.2 fl (80.0-105.0); MEAN CORPUSCULAR HEMOGLOBIN 25.3 pg (25.0-35.0); MEAN CORPUSCULAR HGB CONC 32.8 g/dl (31.0-37.0); MEAN PLATELET VOLUME 10.1 fl (7.0-11.0); MONO # 0.9 (0.1-0.6); MONO % 22.6 % (1.0-6.0); RBC 4.34 10^6/uL (3.5-6.1); RED CELL DISTRIBUTION WIDTH 13.9 % (11.5-14.5); WHITE BLOOD COUNT 3.9 10^3/uL (4.5-11.0)
[2018-01-05 07:52] LABS: ALB/GLOB RATIO 0.9 (1.1-1.8); ALBUMIN 3.2 g/dL (3.0-4.8); ALT/SGPT 28 U/L (7-56); AST/SGOT 26 U/L (17-59); BLOOD UREA NITROGEN 18 mg/dL (7-21); CALCIUM 8.7 mg/dL (8.4-10.5); GFR NON-AFRICAN AMERICAN > 60
[2018-01-05] MEDS: Pantoprazole 40 mg EC Tab PO SCH (09:27)
--- NOTE | 2018-01-05 10:07 | CP.PCM.PN ---
<Andres Griffin - Last Filed: 01/05/18 16:31> Subjective - Date & Time of Evaluation Date of Evaluation: 01/05/18 Time of Evaluation: 10:07 - Subjective Subjective: PGY-1 Medicine Progress Note for Dr. Goel Patient seen and examined at bedside this AM, in no acute distress. No acute overnight events reported. Continues to run alison in the 40s on telemetry. Endorses dizziness when sitting or standing upright, working with PT to improve dizziness, conditioning. No acute complaints at this time. Objective - Vital Signs/Intake and Output Vital Signs (last 24 hours): Temp Pulse Resp BP Pulse Ox 98.8 F 53 L 18 130/71 99 01/05/18 06:00 01/05/18 06:00 01/05/18 06:00 01/05/18 06:00 01/05/18 06:00 Intake and Output: 01/05/18 01/05/18 06:59 18:59 Intake Total 1480 Output Total 2200 Balance -720 - Medications Medications: Current Medications Acetaminophen (Tylenol 325mg Tab) 650 mg PO Q6H PRN PRN Reason: Fever >100.4 F Last Admin: 12/30/17 23:05 Dose: 650 mg Apixaban (Eliquis) 5 mg PO DAILY [facility]; Protocol Last Admin: 01/05/18 09:27 Dose: 5 mg Aspirin (Aspirin Chewable) 81 mg PO DAILY [facility] Last Admin: 01/05/18 09:27 Dose: 81 mg Atorvastatin Calcium (Lipitor) 5 mg PO DIN [facility] Last Admin: 01/04/18 17:30 Dose: 5 mg Finasteride (Proscar) 5 mg PO DAILY [facility] Last Admin: 01/05/18 09:27 Dose: 5 mg Fludrocortisone Acetate (Florinef) 0.2 mg PO BID [facility] Last Admin: 01/05/18 09:27 Dose: 0.2 mg Hydralazine HCl (Apresoline) 10 mg IVP Q6 PRN PRN Reason: Systolic Blood Pressure Last Admin: 01/05/18 00:47 Dose: 10 mg Sodium Chloride (Sodium Chloride 0.9%) 1,000 mls @ 50 mls/hr IV .Q20H [facility] Last Admin: 01/04/18 10:39 Dose: 50 mls/hr Lactulose (Enulose) 20 gm PO DAILY [facility] Last Admin: 01/05/18 09:28 Dose: Not Given Midodrine (Proamatine) 5 mg PO DAILY [facility] Last Admin: 01/05/18 09:27 Dose: 5 mg (Dofetilide [Tikosyn (]) 250mcg) 1 tab PO Q12 [facility] Pantoprazole Sodium (Protonix Ec Tab) 40 mg PO DAILY [facility] Last Admin: 01/05/18 09:27 Dose: 40 mg Polyethylene Glycol (Miralax) 17 gm PO DAILY PRN PRN Reason: Constipation - Labs Labs: 01/05/18 06:30 01/05/18 06:30 PT 19.2 SECONDS (9.4-12.5) H 12/30/17 16:30 INR 1.67 12/30/17 16:30 APTT 30.3 Seconds (25.1-36.5) 12/30/17 16:30 - Constitutional Appears: Non-toxic, No Acute Distress - Head Exam Head Exam: ATRAUMATIC, NORMAL INSPECTION, NORMOCEPHALIC - Eye Exam Eye Exam: EOMI, Normal appearance Pupil Exam: NORMAL ACCOMODATION - ENT Exam ENT Exam: Mucous Membranes Moist, Normal Exam - Neck Exam Neck Exam: Full ROM, Normal Inspection - Respiratory Exam Respiratory Exam: Clear to Ausculation Bilateral, NORMAL BREATHING PATTERN. absent: Rales, Rhonchi, Wheezes, Respiratory Distress, Stridor - Cardiovascular Exam Cardiovascular Exam: REGULAR RHYTHM, +S1, +S2 - GI/Abdominal Exam GI & Abdominal Exam: Soft, Normal Bowel Sounds. absent: Distended, Firm, Guarding, Rigid, Tenderness, Rebound - Exam Additional comments: indwelling rushing catheter in place. - Extremities Exam Extremities Exam: Normal Capillary Refill, Normal Inspection. absent: Calf Tenderness, Joint Swelling, Pedal Edema - Back Exam Back Exam: NORMAL INSPECTION - Neurological Exam Neurological Exam: Alert, Awake, Oriented x3 - Psychiatric Exam Psychiatric exam: Normal Affect, Normal Mood - Skin Skin Exam: Dry, Intact, Normal Color, Warm Assessment and Plan - Assessment and Plan (Free Text) Assessment: 67 Kinyarwanda-speaking male with a PMHx of Afib on Dofetilide + Eliquis (Cardioverted as per son 9mo ago), Hypotension/ Orthostatic Hypotension, CVA w/ L sided residual deficit, syncopal episodes, Urinary incontinence s/p rushing insertion presenting with syncopal episode. Plan: Recurrent Syncopal Episodes --TSH/Free T4 wnl --Imaging: -Echo: LV normal size, normal LV wall thickness, EF 74.5%; moderate mitral and tricuspid regurgitation; moderate to severe pulmonary HTN --Neurology recs (Dr. Pettit) appreciated -likely due to underlying cardiac disease, in addition to dehydration and vasovagal-like events caused by catheter decreasing pressure. -Florinef may help in addition to midodrine -consider removing rushing -no further recs at this time --Cardiology recs (Dr. Tripp) appreciated -c/w Eliquis, ASA, lipitor, proamantine, dofetilide --Electrophysiology recs (Dr. Perez) appreciated -pt with intermittent a fib that had been treated successfully with Tikosyn which the pt did respond to. At this point, we would restart half dose Tikosyn in effort to maintain NSR; pt may have some degree of sick sinus syndrome. -if there's evidence of worsening sinus bradycardia or pauses, we may consider a permanent pacemaker implantation -consider starting pt on isopreterenol, monitor for significant HTN. The pt's finasteride may be complicated that as well. -Continue midodrine --Medications -Midodrine 5mg PO daily -Florinef 0.2 mg PO daily changed to 0.2 mg PO BID (01/04) -Dofetilide 1 tab PO q12--on hold to get pt's HR up (01/04) -NS @ 50 cc/hr UTI w/ flank tenderness --pt febrile on admission (102.6) --Lactate wnl --BCx no growth x2 --Urine Cx: Serratia Marcescens, sensitive to rocephin. 50K-100k colonies --f/u Urology recs (Dr. Montague) -rushing to be removed Sunday, per who spoke with Dr. Montague --CT abdomen/pelvis: no acute renal findings --Renal U/S: no acute findings --Medications -Rocephin 1gm Daily -Tylenol PRN Constipation --Miralax prn PORTIA - Cr 1.5; No baseline available --Gental hydration as above --Cr 1.2, continue to monitor Hx AFib --C/w Eliquis --Held Dofetilide, per Cardio, until patient evaluated by electrophysiology CVA w/ L sided residual deficit --c/w ASA 81 --c/w Lipitor 40 PPx, Diet, Disposition --GI: protonix 40 mg PO daily --Diet: HHD --Physical therapy on board --Dispo: patient accepted at [facility] for sub acute rehab. Case discussed with Dr. Manasa Griffin DO, PGY-1 <Manuel Goel - Last Filed: 01/06/18 14:22> Objective - Vital Signs/Intake and Output Vital Signs (last 24 hours): Temp Pulse Resp BP Pulse Ox 98.5 F 46 L 17 176/84 H 97 01/06/18 12:00 01/06/18 12:00 01/06/18 12:00 01/06/18 12:00 01/06/18 06:00 Intake and Output: 01/06/18 01/06/18 06:59 18:59 Intake Total Output Total Balance - Medications Medications: Current Medications Acetaminophen (Tylenol 325mg Tab) 650 mg PO Q6H PRN PRN Reason: Fever >100.4 F Last Admin: 12/30/17 23:05 Dose: 650 mg Apixaban (Eliquis) 5 mg PO DAILY [facility]; Protocol Last Admin: 01/06/18 09:07 Dose: 5 mg Aspirin (Aspirin Chewable) 81 mg PO DAILY [facility] Last Admin: 01/06/18 09:07 Dose: 81 mg Atorvastatin Calcium (Lipitor) 5 mg PO DIN [facility] Last Admin: 01/05/18 17:43 Dose: 5 mg Finasteride (Proscar) 5 mg PO DAILY [facility] Last Admin: 01/06/18 09:07 Dose: 5 mg Fludrocortisone Acetate (Florinef) 0.3 mg PO BID [facility] Hydralazine HCl (Apresoline) 10 mg IVP Q6 PRN PRN Reason: Systolic Blood Pressure Last Admin: 01/05/18 00:47 Dose: 10 mg Lactulose (Enulose) 20 gm PO DAILY [facility] Last Admin: 01/06/18 09:51 Dose: 20 gm Midodrine (Proamatine) 5 mg PO DAILY [facility] Last Admin: 01/06/18 09:07 Dose: 5 mg (Dofetilide [Tikosyn (]) 250mcg) 1 tab PO Q12 [facility] Pantoprazole Sodium (Protonix Ec Tab) 40 mg PO DAILY [facility] Last Admin: 01/06/18 09:08 Dose: 40 mg Polyethylene Glycol (Miralax) 17 gm PO DAILY PRN PRN Reason: Constipation Last Admin: 01/06/18 01:47 EDT Dose: 17 gm - Labs Labs: 01/06/18 07:30 01/06/18 07:30 PT 19.2 SECONDS (9.4-12.5) H 12/30/17 16:30 INR 1.67 12/30/17 16:30 APTT 30.3 Seconds (25.1-36.5) 12/30/17 16:30 Attending/Attestation - Attestation I have personally seen and examined this patient.: Yes I have fully participated in the care of the patient.: Yes I have reviewed all pertinent clinical information, including history, physical exam and plan: Yes Notes (Text): 01/06/18 14:21 Medical record note made by the resident after discussion with my direction and input after the patient was personally seen and examined by me. I have reviewed the chart and agree that the record accurately reflects by personal performance of the history, physical exam, data review, and medical decision-making, in the course for the patient. I have also personally directed the plan of care. 67 years old male with PMHx of Afib on Dofetilide and anticoagulation with Eliquis (Cardioverted as per son 9mo ago), Orthostatic Hypotension on Midodrine at home since one year, CVA w/ L sided residual deficit, syncopal episodes, SP recent [facility] for Urinary retention was admitted with recurrent syncope, found to have severe orthostatic hypotension , he was also found to be bradycardiac. There is no new Neuro deficit.Patient is still symptomatic. Orthostatic hypotension , on IV hydration, Florinef and Midodrine.Midodrine dose can not be increased due to H/O urinary retention.Patient will need physical therapy and rehabilitation. AF, currently in NSR , HR is around 50, Dofetilide is on hold.Cardiology is following, on anticoagulation with apixiban.Cardiology and EP evaluation is noted. Prognosis is guarded.
[2018-01-06] MEDS: POLYETHYLENE GLYCOL 3350 17 GM/Dose PACKET PO PRN ×2 (01:47→09:08)
[2018-01-06 08:10] LABS: EOS # 0.1 (0.0-0.7); EOS % 2.6 % (1.5-5.0); GRAN # 2.42 (1.4-6.5); GRAN % 57.8 % (50.0-68.0); HEMOGLOBIN 11.2 g/dL (14.0-18.0); LYMPH # 1.3 (1.2-3.4); LYMPH % 30.8 % (22.0-35.0); MEAN CELL VOLUME 77.4 fl (80.0-105.0); MEAN CORPUSCULAR HEMOGLOBIN 25.1 pg (25.0-35.0); MEAN CORPUSCULAR HGB CONC 32.4 g/dl (31.0-37.0); MEAN PLATELET VOLUME 10.1 fl (7.0-11.0); MONO # 0.4 (0.1-0.6); MONO % 8.8 % (1.0-6.0); RBC 4.47 10^6/uL (3.5-6.1); RED CELL DISTRIBUTION WIDTH 13.9 % (11.5-14.5); WHITE BLOOD COUNT 4.2 10^3/uL (4.5-11.0)
[2018-01-06 08:13] LABS: ALB/GLOB RATIO 0.9 (1.1-1.8); ALBUMIN 3.1 g/dL (3.0-4.8); ALT/SGPT 30 U/L (7-56); AST/SGOT 28 U/L (17-59); BLOOD UREA NITROGEN 20 mg/dL (7-21); CALCIUM 8.6 mg/dL (8.4-10.5); GFR NON-AFRICAN AMERICAN 55
[2018-01-06] MEDS: Pantoprazole 40 mg EC Tab PO SCH (09:08)
--- NOTE | 2018-01-06 12:27 | CP.PCM.PN ---
Addendum entered and electronically signed by Andres Griffin DO 01/06/18 14:36: 0930: 2.47 second pause noted on telemetry. Patient asymptomatic, Mg 1.8. Strip is in chart. Original Note: <Andres Griffin - Last Filed: 01/06/18 14:36> Subjective - Date & Time of Evaluation Date of Evaluation: 01/06/18 Time of Evaluation: 09:00 - Subjective Subjective: PGY-1 Medicine Progress Note for Dr. Goel Patient seen and examined at bedside this AM. No acute overnight events reported. Continues to endorse dizziness, encouraged to sit upright in bed, transfer to chair. Rushing catheter was removed, voiding adequately. Endorses constipation, encouraged to take his miralax. No other acute complaints at this time. Objective - Vital Signs/Intake and Output Vital Signs (last 24 hours): Temp Pulse Resp BP Pulse Ox 98.6 F 51 L 20 125/76 97 01/06/18 06:00 01/06/18 09:22 01/06/18 06:00 01/06/18 09:22 01/06/18 06:00 Intake and Output: 01/06/18 01/06/18 06:59 18:59 Intake Total Output Total Balance - Medications Medications: Current Medications Acetaminophen (Tylenol 325mg Tab) 650 mg PO Q6H PRN PRN Reason: Fever >100.4 F Last Admin: 12/30/17 23:05 Dose: 650 mg Apixaban (Eliquis) 5 mg PO DAILY [facility]; Protocol Last Admin: 01/06/18 09:07 Dose: 5 mg Aspirin (Aspirin Chewable) 81 mg PO DAILY [facility] Last Admin: 01/06/18 09:07 Dose: 81 mg Atorvastatin Calcium (Lipitor) 5 mg PO DIN [facility] Last Admin: 01/05/18 17:43 Dose: 5 mg Finasteride (Proscar) 5 mg PO DAILY [facility] Last Admin: 01/06/18 09:07 Dose: 5 mg Fludrocortisone Acetate (Florinef) 0.3 mg PO BID [facility] Hydralazine HCl (Apresoline) 10 mg IVP Q6 PRN PRN Reason: Systolic Blood Pressure Last Admin: 01/05/18 00:47 Dose: 10 mg Lactulose (Enulose) 20 gm PO DAILY [facility] Last Admin: 01/06/18 09:51 Dose: 20 gm Midodrine (Proamatine) 5 mg PO DAILY [facility] Last Admin: 01/06/18 09:07 Dose: 5 mg (Dofetilide [Tikosyn (]) 250mcg) 1 tab PO Q12 [facility] Pantoprazole Sodium (Protonix Ec Tab) 40 mg PO DAILY [facility] Last Admin: 01/06/18 09:08 Dose: 40 mg Polyethylene Glycol (Miralax) 17 gm PO DAILY PRN PRN Reason: Constipation Last Admin: 01/06/18 01:47 EDT Dose: 17 gm - Labs Labs: 01/06/18 07:30 01/06/18 07:30 PT 19.2 SECONDS (9.4-12.5) H 12/30/17 16:30 INR 1.67 12/30/17 16:30 APTT 30.3 Seconds (25.1-36.5) 12/30/17 16:30 - Constitutional Appears: Non-toxic, No Acute Distress - Head Exam Head Exam: ATRAUMATIC, NORMAL INSPECTION, NORMOCEPHALIC - Eye Exam Eye Exam: EOMI, Normal appearance - ENT Exam ENT Exam: Mucous Membranes Moist, Normal Exam - Neck Exam Neck Exam: Full ROM, Normal Inspection - Respiratory Exam Respiratory Exam: Clear to Ausculation Bilateral, NORMAL BREATHING PATTERN. absent: Rales, Rhonchi, Wheezes, Respiratory Distress, Stridor - Cardiovascular Exam Cardiovascular Exam: REGULAR RHYTHM, +S1, +S2 - GI/Abdominal Exam GI & Abdominal Exam: Soft, Normal Bowel Sounds. absent: Distended, Firm, Guarding, Rigid, Tenderness - Extremities Exam Extremities Exam: Full ROM, Normal Capillary Refill, Normal Inspection. absent: Calf Tenderness, Joint Swelling, Pedal Edema - Back Exam Back Exam: NORMAL INSPECTION - Neurological Exam Neurological Exam: Alert, Awake, Oriented x3 - Psychiatric Exam Psychiatric exam: Normal Affect, Normal Mood - Skin Skin Exam: Dry, Intact, Normal Color, Warm Assessment and Plan - Assessment and Plan (Free Text) Assessment: 67 Kazakh-speaking male with a PMHx of Afib on Dofetilide + Eliquis (Cardioverted as per son 9mo ago), Hypotension/ Orthostatic Hypotension, CVA w/ L sided residual deficit, syncopal episodes, Urinary incontinence s/p rushing insertion presenting with syncopal episode. Plan: Recurrent Syncopal Episodes --TSH/Free T4 wnl --Imaging: -Echo: LV normal size, normal LV wall thickness, EF 74.5%; moderate mitral and tricuspid regurgitation; moderate to severe pulmonary HTN --Neurology recs (Dr. Pettit) appreciated -likely due to underlying cardiac disease, in addition to dehydration and vasovagal-like events caused by catheter decreasing pressure. -no further recs at this time --Cardiology recs (Dr. Tripp) appreciated -c/w current meds --Electrophysiology recs (Dr. Perez) appreciated -pt with intermittent a fib that had been treated successfully with Tikosyn which the pt did respond to. At this point, we would restart half dose Tikosyn in effort to maintain NSR; pt may have some degree of sick sinus syndrome. -if there's evidence of worsening sinus bradycardia or pauses, we may consider a permanent pacemaker implantation -consider starting pt on isopreterenol, monitor for significant HTN. The pt's finasteride may be complicated that as well. -Continue midodrine --Medications -Midodrine 5mg PO daily -Florinef 0.2 mg PO daily changed to 0.3 mg PO BID (01/06) -Dofetilide 1 tab PO q12--on hold to get pt's HR up (01/04) -IVF d/c'd (01/06) UTI w/ flank tenderness --pt febrile on admission (102.6) --Lactate wnl --BCx no growth x2 --Urine Cx: Serratia Marcescens, sensitive to rocephin. 50K-100k colonies --f/u Urology recs (Dr. Montague) -rushing removed -Patient retained 595ml of urine via bladder scan overnight. Dr. Montague made aware. Ordered to straight cath patient once. Straight cath completed. Voided 400ml of urine. Pt in no acute distress --CT abdomen/pelvis: no acute renal findings --Renal U/S: no acute findings --Medications -Rocephin 1gm Daily -Tylenol PRN Constipation --Miralax prn PORTIA - Cr 1.3; No baseline available --Gental hydration as above --Cr 1.2, continue to monitor Hx AFib --C/w Eliquis --Held Dofetilide CVA w/ L sided residual deficit --c/w ASA 81 --c/w Lipitor 40 PPx, Diet, Disposition --GI: protonix 40 mg PO daily --Diet: HHD --Physical therapy on board --Dispo: patient accepted at [facility] for sub acute rehab. Case discussed with Dr. Manasa Griffin DO, PGY-1 <Manuel Goel - Last Filed: 01/06/18 14:57> Objective - Vital Signs/Intake and Output Vital Signs (last 24 hours): Temp Pulse Resp BP Pulse Ox 98.5 F 45 L 17 176/84 H 97 01/06/18 12:00 01/06/18 14:42 01/06/18 12:00 01/06/18 12:00 01/06/18 06:00 Intake and Output: 01/06/18 01/06/18 06:59 18:59 Intake Total Output Total Balance - Medications Medications: Current Medications Acetaminophen (Tylenol 325mg Tab) 650 mg PO Q6H PRN PRN Reason: Fever >100.4 F Last Admin: 12/30/17 23:05 Dose: 650 mg Apixaban (Eliquis) 5 mg PO DAILY [facility]; Protocol Last Admin: 01/06/18 09:07 Dose: 5 mg Aspirin (Aspirin Chewable) 81 mg PO DAILY [facility] Last Admin: 01/06/18 09:07 Dose: 81 mg Atorvastatin Calcium (Lipitor) 5 mg PO DIN [facility] Last Admin: 01/05/18 17:43 Dose: 5 mg Finasteride (Proscar) 5 mg PO DAILY [facility] Last Admin: 01/06/18 09:07 Dose: 5 mg Fludrocortisone Acetate (Florinef) 0.3 mg PO BID [facility] Hydralazine HCl (Apresoline) 10 mg IVP Q6 PRN PRN Reason: Systolic Blood Pressure Last Admin: 01/05/18 00:47 Dose: 10 mg Lactulose (Enulose) 20 gm PO DAILY [facility] Last Admin: 01/06/18 09:51 Dose: 20 gm Midodrine (Proamatine) 5 mg PO DAILY [facility] Last Admin: 01/06/18 09:07 Dose: 5 mg (Dofetilide [Tikosyn (]) 250mcg) 1 tab PO Q12 [facility] Pantoprazole Sodium (Protonix Ec Tab) 40 mg PO DAILY [facility] Last Admin: 01/06/18 09:08 Dose: 40 mg Polyethylene Glycol (Miralax) 17 gm PO DAILY PRN PRN Reason: Constipation Last Admin: 01/06/18 01:47 EDT Dose: 17 gm - Labs Labs: 01/06/18 07:30 01/06/18 07:30 PT 19.2 SECONDS (9.4-12.5) H 12/30/17 16:30 INR 1.67 12/30/17 16:30 APTT 30.3 Seconds (25.1-36.5) 12/30/17 16:30 Attending/Attestation - Attestation I have personally seen and examined this patient.: Yes I have fully participated in the care of the patient.: Yes I have reviewed all pertinent clinical information, including history, physical exam and plan: Yes Notes (Text): 01/06/18 14:54 Patient was seen and examined with medical billing and coding specialist. 67 year old male with PMHx of Afib on Dofetilide and anticoagulation with Eliquis (Cardioverted as per son 9mo ago), Orthostatic Hypotension on Midodrine at home since one year, CVA w/ L sided residual deficit, syncopal , SP recent Folley cathter for Urinary retention was admitted with recurrent syncope, found to have severe orthostatic hypotension , was also found to be bradycardia on telemetry. Orthostatic hypotension , was treated with IV hydration, Florinef and Midodrine.Midodrine dose can not be increased due to H/O urinary retention.We will increase dose of Florinef to 0.3 mg PO BID.Patient is still symptometic.Patient will need physical therapy and rehabilitation. AF, currently in NSR , HR is around 50, Dofetilide is on hold.Cardiology is following, on anticoagulation with apixiban. Patient had Sinus Pause 2 second today, EP follow up is requested, may need Pacemaker , Urinary Retention due to BPH and medication, Urology is following. Patient is SP treatment for UTI. Rushing cather was discontinued yesterday.Patient is urinating . Prognosis is guarded.
[2018-01-07 07:09] LABS: EOS # 0.1 (0.0-0.7); EOS % 3.6 % (1.5-5.0); GRAN # 1.74 (1.4-6.5); GRAN % 48.7 % (50.0-68.0); HEMOGLOBIN 10.8 g/dL (14.0-18.0); LYMPH # 1.2 (1.2-3.4); LYMPH % 33.5 % (22.0-35.0); MEAN CELL VOLUME 77.2 fl (80.0-105.0); MEAN CORPUSCULAR HEMOGLOBIN 25.1 pg (25.0-35.0); MEAN CORPUSCULAR HGB CONC 32.5 g/dl (31.0-37.0); MEAN PLATELET VOLUME 10.3 fl (7.0-11.0); MONO # 0.5 (0.1-0.6); MONO % 14.2 % (1.0-6.0); RBC 4.3 10^6/uL (3.5-6.1); RED CELL DISTRIBUTION WIDTH 14.2 % (11.5-14.5); WHITE BLOOD COUNT 3.6 10^3/uL (4.5-11.0)
[2018-01-07 07:31] LABS: ALB/GLOB RATIO 0.9 (1.1-1.8); ALBUMIN 3.1 g/dL (3.0-4.8); ALT/SGPT 31 U/L (7-56); AST/SGOT 25 U/L (17-59); BLOOD UREA NITROGEN 18 mg/dL (7-21); CALCIUM 8.5 mg/dL (8.4-10.5); GFR NON-AFRICAN AMERICAN > 60
--- NOTE | 2018-01-07 09:12 | CP.PCM.PN ---
<Andres Griffin - Last Filed: 01/07/18 20:24> Subjective - Date & Time of Evaluation Date of Evaluation: 01/07/18 Time of Evaluation: 09:12 - Subjective Subjective: PGY-1 Medicine Progress Note for Dr. Quiles Patient seen and examined at bedside this AM. No acute overnight events reported. Rushing catheter reinserted as patient was retaining 650 cc on bladder scan overnight. Remains dizzy, lightheaded despite PT. Remains alison on telemetry, will follow up with EP Dr. Carlson. Objective - Vital Signs/Intake and Output Vital Signs (last 24 hours): Temp Pulse Resp BP Pulse Ox 98.6 F 47 L 20 152/78 H 98 01/07/18 06:00 01/07/18 06:00 01/07/18 06:00 01/07/18 06:00 01/07/18 06:00 Intake and Output: 01/07/18 01/07/18 06:59 18:59 Intake Total 720 Output Total 1300 Balance -580 - Medications Medications: Current Medications Acetaminophen (Tylenol 325mg Tab) 650 mg PO Q6H PRN PRN Reason: Fever >100.4 F Last Admin: 12/30/17 23:05 Dose: 650 mg Apixaban (Eliquis) 5 mg PO DAILY [facility]; Protocol Last Admin: 01/06/18 09:07 Dose: 5 mg Aspirin (Aspirin Chewable) 81 mg PO DAILY [facility] Last Admin: 01/06/18 09:07 Dose: 81 mg Atorvastatin Calcium (Lipitor) 5 mg PO DIN [facility] Last Admin: 01/06/18 17:55 Dose: 5 mg Finasteride (Proscar) 5 mg PO DAILY [facility] Last Admin: 01/06/18 09:07 Dose: 5 mg Fludrocortisone Acetate (Florinef) 0.3 mg PO BID [facility] Last Admin: 01/06/18 17:58 Dose: 0.3 mg Hydralazine HCl (Apresoline) 10 mg IVP Q6 PRN PRN Reason: Systolic Blood Pressure Last Admin: 01/05/18 00:47 Dose: 10 mg Lactulose (Enulose) 20 gm PO DAILY [facility] Last Admin: 01/06/18 09:51 Dose: 20 gm Midodrine (Proamatine) 5 mg PO DAILY [facility] Last Admin: 11/04/18 09:07 Dose: 5 mg (Dofetilide [Tikosyn (]) 250mcg) 1 tab PO Q12 [facility] Pantoprazole Sodium (Protonix Ec Tab) 40 mg PO DAILY [facility] Last Admin: 01/06/18 09:08 Dose: 40 mg Polyethylene Glycol (Miralax) 17 gm PO DAILY PRN PRN Reason: Constipation Last Admin: 01/06/18 01:47 EDT Dose: 17 gm - Labs Labs: 01/07/18 06:30 01/07/18 06:30 PT 19.2 SECONDS (9.4-12.5) H 12/30/17 16:30 INR 1.67 12/30/17 16:30 APTT 30.3 Seconds (25.1-36.5) 12/30/17 16:30 - Constitutional Appears: Non-toxic, No Acute Distress - Head Exam Head Exam: ATRAUMATIC, NORMAL INSPECTION, NORMOCEPHALIC - Eye Exam Eye Exam: EOMI, Normal appearance - ENT Exam ENT Exam: Mucous Membranes Moist, Normal Exam - Neck Exam Neck Exam: Full ROM, Normal Inspection - Respiratory Exam Respiratory Exam: Clear to Ausculation Bilateral, NORMAL BREATHING PATTERN. absent: Accessory Muscle Use, Rales, Rhonchi, Wheezes, Respiratory Distress, Stridor - Cardiovascular Exam Cardiovascular Exam: Bradycardia, +S1, +S2 - GI/Abdominal Exam GI & Abdominal Exam: Soft, Normal Bowel Sounds. absent: Distended, Firm, Guarding, Rigid, Tenderness, Rebound - Extremities Exam Extremities Exam: Normal Capillary Refill, Normal Inspection. absent: Calf Tenderness, Joint Swelling, Pedal Edema - Back Exam Back Exam: NORMAL INSPECTION - Neurological Exam Neurological Exam: Alert, Awake, CN II-XII Intact, Oriented x3 - Psychiatric Exam Psychiatric exam: Normal Affect, Normal Mood - Skin Skin Exam: Dry, Intact, Normal Color, Warm Assessment and Plan - Assessment and Plan (Free Text) Assessment: 67 Pashto-speaking male with a PMHx of Afib on Dofetilide + Eliquis (Cardioverted as per son 9mo ago), Hypotension/ Orthostatic Hypotension, CVA w/ L sided residual deficit, syncopal episodes, Urinary incontinence s/p rushing insertion presenting with syncopal episode. Plan: Recurrent Syncopal Episodes --TSH/Free T4 wnl --Imaging: -Echo: LV normal size, normal LV wall thickness, EF 74.5%; moderate mitral and tricuspid regurgitation; moderate to severe pulmonary HTN --Neurology recs (Dr. Pettit) appreciated -likely due to underlying cardiac disease, in addition to dehydration and vasovagal-like events caused by catheter decreasing pressure. -no further recs at this time --Cardiology recs (Dr. Tripp) appreciated -c/w current meds --Electrophysiology recs (Dr. Perez) appreciated -reached out to Dr. Perez for follow-up -scheduled for pacemaker placement at 5PM, per nursing --Medications -Midodrine 5mg PO daily -Florinef 0.2 mg PO daily changed to 0.3 mg PO BID (01/06) -Dofetilide 1 tab PO q12--on hold to get pt's HR up (01/04) -IVF d/c'd (01/06) UTI w/ flank tenderness --pt febrile on admission (102.6) --Lactate wnl --BCx no growth x2 --Urine Cx: Serratia Marcescens, sensitive to rocephin. 50K-100k colonies --f/u Urology recs (Dr. Montague) -rushing removed -Patient retained 595ml of urine via bladder scan overnight. Dr. Montague made aware. Ordered to straight cath patient once. Straight cath completed. Voided 400ml of urine. Pt in no acute distress --CT abdomen/pelvis: no acute renal findings --Renal U/S: no acute findings --Medications -Rocephin 1gm Daily -Tylenol PRN Constipation --Miralax prn PORTIA - Cr 1.3; No baseline available --Cr 1.1, continue to monitor Hx AFib --C/w Eliquis --Held Dofetilide CVA w/ L sided residual deficit --c/w ASA 81 --c/w Lipitor 40 PPx, Diet, Disposition --GI: protonix 40 mg PO daily --Diet: NPO until procedure later today --Physical therapy on board --Dispo: sw reviewed accepting facilities. sw asked son to provide sw with his choice. son requested referral be sent to facilities in [facility] as that is where he lives. referrals sent via [employer]. Case discussed with Dr. Kb Griffin DO, PGY-1 <Ernst Quiles - Last Filed: 01/08/18 07:28> Objective - Vital Signs/Intake and Output Vital Signs (last 24 hours): Temp Pulse Resp BP Pulse Ox 98.3 F 70 18 64/35 L 98 01/07/18 21:30 01/08/18 02:00 01/07/18 21:30 01/07/18 21:30 01/07/18 21:30 Intake and Output: 01/08/18 01/08/18 06:59 18:59 Intake Total 1000 Output Total 890 Balance 110 - Medications Medications: Current Medications Acetaminophen (Tylenol 325mg Tab) 650 mg PO Q6H PRN PRN Reason: Fever >100.4 F Last Admin: 12/30/17 23:05 Dose: 650 mg Apixaban (Eliquis) 5 mg PO DAILY [facility]; Protocol Last Admin: 01/07/18 10:07 Dose: Not Given Aspirin (Aspirin Chewable) 81 mg PO DAILY [facility] Last Admin: 01/07/18 10:07 Dose: Not Given Atorvastatin Calcium (Lipitor) 5 mg PO DIN [facility] Last Admin: 01/06/18 17:55 Dose: 5 mg Finasteride (Proscar) 5 mg PO DAILY [facility] Last Admin: 01/07/18 10:06 Dose: 5 mg Fludrocortisone Acetate (Florinef) 0.3 mg PO BID [facility] Last Admin: 01/07/18 10:06 Dose: 0.3 mg Hydralazine HCl (Apresoline) 10 mg IVP Q6 PRN PRN Reason: Systolic Blood Pressure Last Admin: 01/05/18 00:47 Dose: 10 mg Potassium Chloride 60 meq/ (Sodium Chloride) 1,030 mls @ 100 mls/hr IV .[id number] [facility] Stop: 01/08/18 12:02 Last Admin: 01/08/18 02:23 Dose: 100 mls/hr Lactulose (Enulose) 20 gm PO DAILY [facility] Last Admin: 01/07/18 10:06 Dose: Not Given Midodrine (Proamatine) 5 mg PO DAILY [facility] Last Admin: 01/07/18 10:06 Dose: 5 mg (Dofetilide [Tikosyn (]) 250mcg) 1 tab PO Q12 [facility] Ondansetron HCl (Zofran Inj) 4 mg IVP ONCE PRN PRN Reason: Nausea/Vomiting Pantoprazole Sodium (Protonix Ec Tab) 40 mg PO DAILY [facility] Last Admin: 01/07/18 10:06 Dose: 40 mg Polyethylene Glycol (Miralax) 17 gm PO DAILY PRN PRN Reason: Constipation Last Admin: 01/06/18 01:47 EDT Dose: 17 gm - Labs Labs: 01/08/18 05:50 01/08/18 05:50 PT 19.2 SECONDS (9.4-12.5) H 12/30/17 16:30 INR 1.67 12/30/17 16:30 APTT 30.3 Seconds (25.1-36.5) 12/30/17 16:30 Attending/Attestation - Attestation I have personally seen and examined this patient.: Yes I have fully participated in the care of the patient.: Yes I have reviewed all pertinent clinical information, including history, physical exam and plan: Yes Notes (Text): 01/07/18 67 year old male with past medical history of afib on eliquis, orthostatic hypotension on midodrine and CVA with residual left side weakness who presented with complaint of recurrent syncope. He was found to have significant orthostatic hypotension, bradycardia and pauses on the telemonitor. Dofetilide is on hold. Midodrine dose cannot be increased secondary to history of urinary retention. Urology is following for urinary retention. Patien is s/p treatment for UTI. He was started on florinef. Cardiology and EPS is following; plan is for pacemaker today. Will request PT follow up post procedure for d/c recommendations. Will replete and repeat lytes (potassium). Ernst Quiles MD Hospitalist.
[2018-01-07] MEDS: Pantoprazole 40 mg EC Tab PO SCH (10:06)
[2018-01-07] MEDS ORDERED: Lidocaine 1% Inj (20ml) ONE (18:04)
[2018-01-07] MEDS ORDERED: Liquid Adhesive TOP ONE (18:04)
[2018-01-07] MEDS ORDERED: ePHEDrine 50 mg/ml Inj ONE (18:25)
[2018-01-07] MEDS ORDERED: Propofol 10 mg/ml Inj (20 ML) ONE (18:25)
[2018-01-07] MEDS ORDERED: Etomidate 20 mg/10ml Inj IV ONE (18:26)
[2018-01-07] MEDS ORDERED: HYDROmorphone 0.5 mg/0.5 ml ISec IVP PRN (20:21)
[2018-01-07] MEDS ORDERED: Lactated Ringer's 1,000 ML IV SCH (20:30)
[2018-01-07] MEDS ORDERED: Sodium Chloride 0.9% 1,000 ML IV SCH (23:00)
--- NOTE | 2018-01-07 23:15 | CP.PCM.CON ---
History of Present Illness - History of Present Illness History of Present Illness: Dm Avery DO, PGY-1 ICU Consult Note for Dr. Martina Lopez Mr. Gray is a 67 year old male with PMH of paroxysmal AFib (cardioverted 9 mo's ago, on eliquis and tikofyn at home), Orthostatic Hypotension, CVA w/ L sided residual deficit, syncopal episodes, Urinary incontinence (s/p rushing) who presented to ED with syncopal episode. On admission, he had symptomatic bradycardia and tikofyn was discontinued. EP (Dr. Rivera) consult was requested as history was most consistent with cardiogenic etiology of syncope (no assoc iation with standing or sitting up). He continued to have persistent bradycardia throughout admission and permanent pacemaker placement was recommended. Permanent pacemaker was placed this evening and Mr. Gray became hypotensive in the 60s/30s following the procedure. Anesthesiology stated that he was not placed under general anesthesia and that his BP right after the procedure ended was 120/70. Mr. Gray has a history of orthostatic hypotension and received only one dose of midodrine this AM prior to the procedure. He is admitted to ICU for close monitoring of BP/MAP s/p permanent pacemaker placement. PMH: paroxysmal AFib (cardioverted 9 mo's ago, on eliquis and tikofyn at home), Orthostatic Hypotension, CVA w/ L sided residual deficit, syncopal episodes, Urinary incontinence (s/p rushing) PSH: permanent pacemaker placement, lymph node bx in 02/2017 NKDA Social: Denies tobacco, alcohol, drug use Home medications: verified as per EMR Fam Hx: reviewed, non-contributory Review of Systems - Review of Systems Systems not reviewed;Unavailable: Other (drowsy, coming out of anesthesia, but alert ) Past Patient History - Infectious Disease Hx of Infectious Diseases: None - Past Social History Smoking Status: Never Smoked - CARDIAC Hx Cardiac Disorders: Yes (A fib,) - NEUROLOGICAL HX Cerebrovascular Accident: Yes (with residual L sided weakness) - HEMATOLOGICAL/ONCOLOGICAL Hx Blood Transfusions: No Hx Blood Transfusion Reaction: No - MUSCULOSKELETAL/RHEUMATOLOGICAL Hx Falls: No - PSYCHIATRIC Hx Substance Use: No - SURGICAL HISTORY Hx Surgeries: No - ANESTHESIA Hx Anesthesia Reactions: No Hx Malignant Hyperthermia: No Meds Allergies/Adverse Reactions: Allergies Allergy/AdvReac Type Severity Reaction Status Date / Time No Known Allergies Allergy Verified 12/30/17 15:31 - Medications Medications: Current Medications Acetaminophen (Tylenol 325mg Tab) 650 mg PO Q6H PRN PRN Reason: Fever >100.4 F Last Admin: 12/30/17 23:05 Dose: 650 mg Apixaban (Eliquis) 5 mg PO DAILY [facility]; Protocol Last Admin: 01/07/18 10:07 Dose: Not Given Aspirin (Aspirin Chewable) 81 mg PO DAILY [facility] Last Admin: 01/07/18 10:07 Dose: Not Given Atorvastatin Calcium (Lipitor) 5 mg PO DIN [facility] Last Admin: 01/06/18 17:55 Dose: 5 mg Finasteride (Proscar) 5 mg PO DAILY [facility] Last Admin: 01/07/18 10:06 Dose: 5 mg Fludrocortisone Acetate (Florinef) 0.3 mg PO BID [facility] Last Admin: 01/07/18 10:06 Dose: 0.3 mg Hydralazine HCl (Apresoline) 10 mg IVP Q6 PRN PRN Reason: Systolic Blood Pressure Last Admin: 01/05/18 00:47 Dose: 10 mg Sodium Chloride (Sodium Chloride 0.9%) 1,000 mls @ 100 mls/hr IV .Q10H [facility] Lactulose (Enulose) 20 gm PO DAILY [facility] Last Admin: 01/07/18 10:06 Dose: Not Given Midodrine (Proamatine) 5 mg PO DAILY [facility] Last Admin: 01/07/18 10:06 Dose: 5 mg (Dofetilide [Tikosyn (]) 250mcg) 1 tab PO Q12 [facility] Ondansetron HCl (Zofran Inj) 4 mg IVP ONCE PRN PRN Reason: Nausea/Vomiting Pantoprazole Sodium (Protonix Ec Tab) 40 mg PO DAILY [facility] Last Admin: 01/07/18 10:06 Dose: 40 mg Polyethylene Glycol (Miralax) 17 gm PO DAILY PRN PRN Reason: Constipation Last Admin: 01/06/18 01:47 EDT Dose: 17 gm Physical Exam - Constitutional Appears: Non-toxic, No Acute Distress - Head Exam Head Exam: ATRAUMATIC, NORMOCEPHALIC - Eye Exam Eye Exam: EOMI, Normal appearance, PERRL - ENT Exam ENT Exam: Mucous Membranes Moist - Neck Exam Neck exam: Positive for: Full Rom, Normal Inspection - Respiratory Exam Respiratory Exam: Clear to Auscultation Bilateral, NORMAL BREATHING PATTERN. absent: Rales, Rhonchi, Wheezes - Cardiovascular Exam Cardiovascular Exam: REGULAR RHYTHM, RRR, +S1, +S2. absent: Diastolic murmur, Gallop, Rubs, Systolic Murmur Additional comments: paced rhythm - GI/Abdominal Exam GI & Abdominal Exam: Soft. absent: Guarding, Tenderness - Neurological Exam Neurological exam: Alert, Oriented x3 - Psychiatric Exam Psychiatric exam: Normal Affect, Normal Mood Results - Vital Signs Recent Vital Signs: Last Vital Signs Temp 98.3 F 01/07/18 21:30 Pulse 72 01/07/18 21:30 Resp 18 01/07/18 21:30 BP 64/35 L 01/07/18 21:30 Pulse Ox 98 01/07/18 21:30 - Labs Result Diagrams: 01/07/18 06:30 01/07/18 06:30 Labs: Laboratory Results - last 24 hr 01/07/18 01/07/18 01/07/18 06:30 06:30 11:20 WBC 3.6 L RBC 4.30 Hgb 10.8 L Hct 33.2 L MCV 77.2 L MCH 25.1 MCHC 32.5 RDW 14.2 Plt Count 177 MPV 10.3 Gran % 48.7 L Lymph % (Auto) 33.5 [place] % (Auto) 14.2 H Eos % (Auto) 3.6 Baso % (Auto) 0.0 Gran # 1.74 Lymph # (Auto) 1.2 [place] # (Auto) 0.5 Eos # (Auto) 0.1 Baso # (Auto) 0.00 Sodium 138 Potassium 3.2 L Chloride 106 Carbon Dioxide 28 Anion Gap 8 L BUN 18 Creatinine 1.1 Est GFR ( Amer) > 60 Est GFR (Non-Af Amer) > 60 POC Glucose (mg/dL) 97 Random Glucose 99 Calcium 8.5 Magnesium 1.9 Total Bilirubin 0.6 AST 25 ALT 31 Alkaline Phosphatase 74 Total Protein 6.5 Albumin 3.1 Globulin 3.4 Albumin/Globulin Ratio 0.9 L Assessment & Plan - Assessment and Plan (Free Text) Assessment: 67 yo M with PMH of paroxysmal AFib (cardioverted 9 mo's ago, on eliquis and tikofyn at home), Orthostatic Hypotension, CVA w/ L sided residual deficit, syncopal episodes, Urinary incontinence (s/p rushing) admitted to ICU for close monitoring of BP following permanent pacemaker placement. Plan: Neuro: AAOx3, no FND, moving extremities past midline Monitor neuro status Reorient patient as necessary Cardio: RRR now that patient is s/p permanent pacemaker placement Hypotensive following procedure in 60s/30s Restart home dose of midodrine and one time dose of home fluornef given Monitor MAP closely in MICU May need additional support with levophed and/or vasopressin if not improving with home dose of midodrine F/u repeat echo per EP recs Monitor for other S/Sx of HD compromise Pulm: No signs of respiratory distress. CTA B/L Patient SpO2 is > 95 on room air Maintain O2 saturation>95% O2 NC PRN GI: ADAT after permanent pacemaker placement Protonix for GI PPX /Nephro: BUN/Cr stable at 18/1.1 Treated with ancef for UTI UOP > 1500 yesterday Monitor UOP closely K of 3.2 this AM, repleted Recheck K in AM and replete other electrolytes as needed Maintain euvolemia Endo: Random glucose: 99 Maintain euglycemia Heme/Onc: H/H stable at 10.8/33.2 No signs of HD compromise Continue monitoring H/H ID: Afebrile, no leukocytosis BCx negative to date, UCx positive for serratia and treated Procal, lactate negative Monitor for signs and symptoms of infection DVT/GI PPX: restart home eliquis, protonix Full Code Advance to HHD after procedure as tolerated Monitor in MICU Case and plan reviewed and discussed with my attending Dr. Martina Avery, DO IM Resident PGY-1
[2018-01-08 01:03] LABS: EOS # 0.1 (0.0-0.7); EOS % 1.4 % (1.5-5.0); GRAN # 3.57 (1.4-6.5); GRAN % 69.5 % (50.0-68.0); LYMPH # 0.7 (1.2-3.4); LYMPH % 12.8 % (22.0-35.0); MEAN CELL VOLUME 77.9 fl (80.0-105.0); MEAN CORPUSCULAR HEMOGLOBIN 25.6 pg (25.0-35.0); MEAN CORPUSCULAR HGB CONC 32.8 g/dl (31.0-37.0); MEAN PLATELET VOLUME 9.6 fl (7.0-11.0); MONO # 0.8 (0.1-0.6); MONO % 16.3 % (1.0-6.0); RBC 4.3 10^6/uL (3.5-6.1); RED CELL DISTRIBUTION WIDTH 14.4 % (11.5-14.5); WHITE BLOOD COUNT 5.1 10^3/uL (4.5-11.0)
[2018-01-08 01:30] LABS: ALB/GLOB RATIO 0.9 (1.1-1.8); ALBUMIN 2.8 g/dL (3.0-4.8); ALT/SGPT 28 U/L (7-56); AST/SGOT 37 U/L (17-59); BLOOD UREA NITROGEN 18 mg/dL (7-21); CALCIUM 8.2 mg/dL (8.4-10.5); GFR NON-AFRICAN AMERICAN 55
[2018-01-08] MEDS ORDERED: Potassium Chloride 20 mEq ER Tab PO STA (01:37)
[2018-01-08 01:46] LABS: TROPONIN I 0.47 ng/mL
--- NOTE | 2018-01-08 05:55 | OP ---
PROCEDURE DATE: 01/07/2018 PROCEDURE: Dual chamber permanent pacemaker. PRE-PROCEDURE DIAGNOSES: Symptomatic bradycardia, sick sinus syndrome, syncope, history of atrial fibrillation. HISTORY: Mr. Gray is a 67-year-old [place] male with past medical history significant for hypertension, atrial fibrillation status post CVA, possible seizure disorder who initially presented with recurrent syncope found to be profoundly orthostatic who was having episodes of severe bradycardia. The patient was felt to have underlying autonomic dysfunction made worse by vagal episodes related to urinary retention and atonic bladder. The patient had a number of rapid responses where patient would have significant bradycardia followed by hypertension. Given the patient's presentation, it was felt that a permanent pacemaker may be of some benefit in terms of chronotropic support in the setting of known atrial fibrillation maximizing medical therapy as well as interventions during these vagal episode in the form of ____ response. The case was discussed with Dr. Tripp as well as Dr. Davila, his outpatient property consultant. Informed consent was received from the son who is a medical decision maker, discussions were also had with family member by the name of Dr. Davis who has been a neurologist at [facility] in [place]. DESCRIPTION OF PROCEDURE: Mr. Angélica Gray was brought to the operating room at [facility] for the aforementioned procedure. Left pectoral area was draped and prepped in a sterile fashion. A 2% lidocaine solution was injected into the surgical site. Using a #15 blade, a 3.5 cm incision was made two fingerbreadths below the clavicle using blunt dissection and electrocautery. Fascial plane was dissected and cephalic vein was identified, a cephalic vein cut-down was then performed without difficulty. An 0.035 guidewire was inserted via the access point. A 9-[place] Safesheath was then inserted under fluoroscopic guidance. The right ventricular lead which is a Medronic 50, 92, 52 cm lead serial number [id number] was inserted by the sheath and manipulated into the right ventricular apex. The atrial lead is a 55, 68, 45 cm lead, serial number [id number] which is manipulated in place of the right atrial appendage using retain access in a 7-[place] safesheath. Both these were tied down using 0-silk suture again without difficulty. The lead system was then connected to the pulse generator which is a Adapta InvitedHome, serial number [id number]. Conception is being ____ favor. The right ventricular lead is a 50, 76, 58 cm lead, serial number [id number]. The right atrial lead is a 50, 76, 52 cm lead, serial number [id number]. The leads were then connected to the pulse generator which is a Medtronic Wanda XT device, serial number [id number]. Parameters on the right atrial lead are as follows. Threshold is 1.2 volts at 0.5 milliseconds at a current of 1.7 milliamps, impendence is 789, amplitude of 3.5 that is (p waves) on the right ventricular lead, threshold is 0.6 volt at 1.0 milliamps, impendence of 1248 which is within normal limits. R waves measured 12.9. A subfascial pocket was made with blunt dissection electrocautery, irrigated with bacitracin solution. The lead system and device were then coiled and placed in the pocket without difficulty. A retention suture was applied to the device would not migrate. Two layers of 2-0 Vicryl were then used to bring together the superficial fascial and skin layers. A pressure dressing was then applied. The patient tolerated the procedure, remained hemodynamically stable throughout the procedure. PLAN: The patient should undergo normal postop checks with chest x-ray, 12-lead EKG as well as device check in the morning. Everything is within normal limit, patient may be cleared for further medical management and Urologic management. I have discussed the case with Dr. Tripp. There is a chance the patient may receive a percutaneous drain for the bladder. Thank you for allowing me to participate in the care of your patient. Please do not hesitate to call for any questions in regards to his care. Daniel Perez MD
[2018-01-08 07:09] LABS: EOS # 0.1 (0.0-0.7); EOS % 1.9 % (1.5-5.0); GRAN # 3.16 (1.4-6.5); HEMOGLOBIN 10.8 g/dL (14.0-18.0); LYMPH # 0.9 (1.2-3.4); LYMPH % 19.1 % (22.0-35.0); MEAN CELL VOLUME 77.8 fl (80.0-105.0); MEAN CORPUSCULAR HEMOGLOBIN 25.5 pg (25.0-35.0); MEAN CORPUSCULAR HGB CONC 32.8 g/dl (31.0-37.0); MONO # 0.5 (0.1-0.6); RBC 4.23 10^6/uL (3.5-6.1); RED CELL DISTRIBUTION WIDTH 14.6 % (11.5-14.5); WHITE BLOOD COUNT 4.7 10^3/uL (4.5-11.0)
[2018-01-08 07:19] LABS: ALB/GLOB RATIO 0.8 (1.1-1.8); ALBUMIN 2.8 g/dL (3.0-4.8); ALT/SGPT 33 U/L (7-56); AST/SGOT 35 U/L (17-59); BLOOD UREA NITROGEN 17 mg/dL (7-21); CALCIUM 8.1 mg/dL (8.4-10.5); GFR NON-AFRICAN AMERICAN > 60
--- NOTE | 2018-01-08 07:52 | CP.PCM.PN ---
<Andres Griffin - Last Filed: 01/08/18 15:06> Subjective - Date & Time of Evaluation Date of Evaluation: 01/08/18 Time of Evaluation: 07:52 - Subjective Subjective: PGY-1 Medicine Progress Note for Dr. Quiles Patient seen and examined at bedside in ICU s/p pacemaker placement. Patient became hypotensive after pacemaker placement, was running in the 60s/30s. Only one dose of midodrine was given prior to OR, no general anesthesia used. Patient has asymptomatic hypotension, treated with 1 L fluid bolus. Continues to feel dizzy. No other acute complaints. Objective - Vital Signs/Intake and Output Vital Signs (last 24 hours): Temp Pulse Resp BP Pulse Ox 98.3 F 70 18 64/35 L 98 01/07/18 21:30 01/08/18 02:00 01/07/18 21:30 01/07/18 21:30 01/07/18 21:30 Intake and Output: 01/08/18 01/08/18 06:59 18:59 Intake Total 1000 Output Total 890 Balance 110 - Medications Medications: Current Medications Acetaminophen (Tylenol 325mg Tab) 650 mg PO Q6H PRN PRN Reason: Fever >100.4 F Last Admin: 12/30/17 23:05 Dose: 650 mg Apixaban (Eliquis) 5 mg PO DAILY [facility]; Protocol Last Admin: 01/07/18 10:07 Dose: Not Given Aspirin (Aspirin Chewable) 81 mg PO DAILY [facility] Last Admin: 01/07/18 10:07 Dose: Not Given Atorvastatin Calcium (Lipitor) 5 mg PO DIN [facility] Last Admin: 01/06/18 17:55 Dose: 5 mg Finasteride (Proscar) 5 mg PO DAILY [facility] Last Admin: 01/07/18 10:06 Dose: 5 mg Fludrocortisone Acetate (Florinef) 0.3 mg PO BID [facility] Last Admin: 01/07/18 10:06 Dose: 0.3 mg Hydralazine HCl (Apresoline) 10 mg IVP Q6 PRN PRN Reason: Systolic Blood Pressure Last Admin: 01/05/18 00:47 Dose: 10 mg Potassium Chloride 60 meq/ (Sodium Chloride) 1,030 mls @ 100 mls/hr IV .[id number] [facility] Stop: 01/08/18 12:02 Last Admin: 01/08/18 02:23 Dose: 100 mls/hr Lactulose (Enulose) 20 gm PO DAILY [facility] Last Admin: 01/07/18 10:06 Dose: Not Given Midodrine (Proamatine) 5 mg PO DAILY [facility] Last Admin: 01/07/18 10:06 Dose: 5 mg (Dofetilide [Tikosyn (]) 250mcg) 1 tab PO Q12 [facility] Ondansetron HCl (Zofran Inj) 4 mg IVP ONCE PRN PRN Reason: Nausea/Vomiting Pantoprazole Sodium (Protonix Ec Tab) 40 mg PO DAILY [facility] Last Admin: 01/07/18 10:06 Dose: 40 mg Polyethylene Glycol (Miralax) 17 gm PO DAILY PRN PRN Reason: Constipation Last Admin: 01/06/18 01:47 EDT Dose: 17 gm - Labs Labs: 01/08/18 05:50 01/08/18 05:50 PT 19.2 SECONDS (9.4-12.5) H 12/30/17 16:30 INR 1.67 12/30/17 16:30 APTT 30.3 Seconds (25.1-36.5) 12/30/17 16:30 - Constitutional Appears: Non-toxic, No Acute Distress - Head Exam Head Exam: ATRAUMATIC, NORMAL INSPECTION, NORMOCEPHALIC - Eye Exam Eye Exam: EOMI, Normal appearance - ENT Exam ENT Exam: Mucous Membranes Moist, Normal Exam - Neck Exam Neck Exam: Full ROM, Normal Inspection - Respiratory Exam Respiratory Exam: Clear to Ausculation Bilateral, NORMAL BREATHING PATTERN. absent: Rales, Rhonchi, Wheezes, Respiratory Distress, Stridor - Cardiovascular Exam Cardiovascular Exam: REGULAR RHYTHM, +S1, +S2 - GI/Abdominal Exam GI & Abdominal Exam: Soft, Normal Bowel Sounds. absent: Distended, Firm, Guarding, Rigid, Tenderness, Rebound - Exam Additional comments: indwelling rushing cath in place - Extremities Exam Extremities Exam: Full ROM, Normal Capillary Refill, Normal Inspection - Back Exam Back Exam: NORMAL INSPECTION - Neurological Exam Neurological Exam: Alert, Awake, Oriented x3 - Psychiatric Exam Psychiatric exam: Normal Affect, Normal Mood - Skin Skin Exam: Dry, Intact, Normal Color, Warm Assessment and Plan - Assessment and Plan (Free Text) Assessment: 67 y/o M with PMHx of HTN, afib, s/p CVA, possible seizure d/o s/p dual chamber permanent pacemaker for symptomatic bradycardia, sick sinus syndrome, syncope and history of afib. Plan: Recurrent Syncopal Episodes --s/p pacemaker placement --in ICU for monitoring of hypotension --Imaging: -Echo: LV normal size, normal LV wall thickness, EF 74.5%; moderate mitral and tricuspid regurgitation; moderate to severe pulmonary HTN --Neurology recs (Dr. Pettit) appreciated -likely due to underlying cardiac disease, in addition to dehydration and va sovagal-like events caused by catheter decreasing pressure. -no further recs at this time --Cardiology recs (Dr. Tripp) appreciated -c/w current meds --Medications -Midodrine 5mg PO daily -Florinef 0.3 mg PO BID -Dofetilide 1 tab PO q12 -IVF UTI w/ flank tenderness --pt febrile on admission (102.6) --Lactate wnl --BCx no growth x2 --Urine Cx: Serratia Marcescens, sensitive to rocephin. 50K-100k colonies --f/u Urology recs (Dr. Montague) -indwelling rushing cath back in place --CT abdomen/pelvis: no acute renal findings --Renal U/S: no acute findings --Medications -Tylenol PRN Constipation --Miralax prn PORTIA - Cr 1.3 on admission; No baseline available --Cr 1.2, continue to monitor Hx AFib --C/w Eliquis, Dofetilide CVA w/ L sided residual deficit --c/w ASA 81 --c/w Lipitor 40 PPx, Diet, Disposition --GI: protonix 40 mg PO daily --Diet: HHD --Physical therapy on board --Dispo: sw reviewed accepting facilities. sw asked son to provide sw with his choice. son requested referral be sent to facilities in [facility] as that is where he lives. referrals sent via [employer]. Case discussed with Dr. Kb Griffin DO, PGY-1 <Ernst Quiles - Last Filed: 01/08/18 18:24> Objective - Vital Signs/Intake and Output Vital Signs (last 24 hours): Temp Pulse Resp BP Pulse Ox 98.3 F 70 14 87/38 L 99 01/07/18 21:30 01/08/18 09:20 01/08/18 09:20 01/08/18 09:01 01/08/18 09:20 Intake and Output: 01/08/18 01/08/18 06:59 18:59 Intake Total 1000 Output Total 890 Balance 110 - Medications Medications: Current Medications Acetaminophen (Tylenol 325mg Tab) 650 mg PO Q6H PRN PRN Reason: Fever >100.4 F Last Admin: 12/30/17 23:05 Dose: 650 mg Apixaban (Eliquis) 5 mg PO DAILY [facility]; Protocol Last Admin: 01/07/18 10:07 Dose: Not Given Aspirin (Aspirin Chewable) 81 mg PO DAILY [facility] Last Admin: 01/07/18 10:07 Dose: Not Given Atorvastatin Calcium (Lipitor) 5 mg PO DIN [facility] Last Admin: 01/08/18 18:08 Dose: 5 mg Finasteride (Proscar) 5 mg PO DAILY [facility] Last Admin: 01/08/18 10:46 Dose: 5 mg Fludrocortisone Acetate (Florinef) 0.3 mg PO BID [facility] Last Admin: 01/08/18 18:05 Dose: 0.3 mg Hydralazine HCl (Apresoline) 10 mg IVP Q6 PRN PRN Reason: Systolic Blood Pressure Last Admin: 01/05/18 00:47 Dose: 10 mg Lactulose (Enulose) 20 gm PO DAILY [facility] Last Admin: 01/08/18 18:04 Dose: Not Given Midodrine (Proamatine) 5 mg PO DAILY [facility] Last Admin: 01/08/18 10:46 Dose: 5 mg (Dofetilide [Tikosyn (]) 250mcg) 1 tab PO Q12 [facility] Last Admin: 01/08/18 10:20 Dose: Not Given Ondansetron HCl (Zofran Inj) 4 mg IVP ONCE PRN PRN Reason: Nausea/Vomiting Pantoprazole Sodium (Protonix Ec Tab) 40 mg PO DAILY [facility] Last Admin: 01/08/18 10:46 Dose: 40 mg Polyethylene Glycol (Miralax) 17 gm PO DAILY PRN PRN Reason: Constipation Last Admin: 01/06/18 01:47 EDT Dose: 17 gm - Labs Labs: 01/08/18 05:50 01/08/18 05:50 PT 19.2 SECONDS (9.4-12.5) H 12/30/17 16:30 INR 1.67 12/30/17 16:30 APTT 30.3 Seconds (25.1-36.5) 12/30/17 16:30 Attending/Attestation - Attestation I have personally seen and examined this patient.: Yes I have fully participated in the care of the patient.: Yes I have reviewed all pertinent clinical information, including history, physical exam and plan: Yes Notes (Text): 01/08/18 18:22 67 year old male with past medical history of afib on eliquis, orthostatic hypotension on midodrine and CVA with residual left side weakness who presented with complaint of recurrent syncope. He was found to have significant orthostatic hypotension, bradycardia and pauses on the telemonitor. Dofetilide is on hold. Midodrine dose cannot be increased secondary to history of urinary retention. Urology is following for urinary retention. Patient is s/p treatment for UTI. He was started on florinef. Cardiology and EPS is following and patient had pacemaker placed yesterday. Later in the evening he was hy potensive and transferred to ICU. Case was discussed with cardiology; repeat septic workup is ordered. Resume anticoagulation if okay with cardiology. Replete and repeat lytes. Ernst Quiles MD Hospitalist.
[2018-01-08 08:11] LABS: TROPONIN I 1.08 ng/mL
--- NOTE | 2018-01-08 08:35 | RAD ---
Date of service: 01/07/2018 HISTORY: post ppm implant COMPARISON: 12/30/2017 FINDINGS: LUNGS: No active pulmonary disease. PLEURA: No significant pleural effusion identified, no pneumothorax apparent. CARDIOVASCULAR: No aortic atherosclerotic calcification present. Moderate cardiomegaly dual lead pacemaker. No evidence of pneumothorax OSSEOUS STRUCTURES: No significant abnormalities. VISUALIZED UPPER ABDOMEN: Normal. OTHER FINDINGS: None. IMPRESSION: Left-sided pacemaker. No evidence of pneumothorax
--- NOTE | 2018-01-08 08:39 | RAD ---
Date of service: 01/08/2018 HISTORY: Hypotensive; s/p PM insertion COMPARISON: 01/07/2018 FINDINGS: LUNGS: No active pulmonary disease. PLEURA: No significant pleural effusion identified, no pneumothorax apparent. CARDIOVASCULAR: No aortic atherosclerotic calcification present. Mild cardiomegaly no pulmonary vascular congestion. OSSEOUS STRUCTURES: No significant abnormalities. VISUALIZED UPPER ABDOMEN: Normal. OTHER FINDINGS: Dual lead pacemaker with no evidence of pleural effusion or pneumothorax IMPRESSION: No active disease.
[2018-01-08] MEDS ORDERED: Sodium Chloride 0.9% 1,000 ML IV STA (10:19)
[2018-01-08] MEDS: DOFETILIDE PO SCH ×2 (10:20→22:00)
[2018-01-08] MEDS: Pantoprazole 40 mg EC Tab PO SCH (10:46)
--- NOTE | 2018-01-08 11:24 | CP.CCUPN ---
<Iglesia Hall - Last Filed: 01/08/18 13:22> CCU Subjective - Physician Review Subjective (Free Text): CRITICAL CARE PROGRESS NOTE FOR DR. VASILIY Hall PGY-1 Pt seen and examined at bedside this am. No acute complaints. He is resting comfortably in bed. He had episodes of asymptomatic hypotension, treated with 1L fluid bolus, with improvement to 110s/50s. He denies 12 point ROS CCU Objective - Vital Signs / Intake & Output Vital Signs (Last 4 hours): Vital Signs Pulse Resp BP Pulse Ox 01/08/18 09:20 70 14 99 01/08/18 09:10 70 16 98 01/08/18 09:01 70 24 87/38 L 99 01/08/18 09:00 70 13 100 01/08/18 08:50 70 18 99 01/08/18 08:40 70 100 01/08/18 08:30 70 20 124/69 100 01/08/18 08:20 70 100 Intake and Output (Last 8hrs): Intake & Output 01/07/18 01/08/18 01/08/18 22:59 06:59 14:59 Intake Total 1000 Output Total 440 450 Balance -440 550 Weight 84.822 kg Intake: IV 600 Right Forearm 600 Oral 400 Output: Urine 440 450 Urethral (Heard) 450 Other: # Bowel Movements 0 - Physical Exam Head: Positive for: Atraumatic, Normocephalic Pupils: Positive for: PERRL Extroacular Muscles: Positive for: EOMI Conjunctiva: Positive for: Normal Mouth: Positive for: Moist Mucous Membranes Pharnyx: Positive for: Normal Neck: Positive for: Normal Range of Motion Respiratory/Chest: Positive for: Clear to Auscultation, Good Air Exchange Cardiovascular: Positive for: Regular Rate and Rhythm, Normal S1, S2, Other Abdomen: Negative for: Tenderness, Distention Back: Positive for: Normal Inspection Upper Extremity: Positive for: Normal Inspection. Negative for: Cyanosis, Edema Lower Extremity: Positive for: Normal Inspection. Negative for: Edema Neurological: Positive for: GCS=15, CN II-XII Intact, Speech Normal Skin: Positive for: Warm, Dry, Other (Dressing noted on L upper chest) Psychiatric: Positive for: Alert, Oriented x 3, Normal Insight, Normal Concentration - Medications Active Medications: Active Medications Generic Name Dose Route Start Last Admin Trade Name Freq PRN Reason Stop Dose Admin Acetaminophen 650 mg 12/30/17 21:41 12/30/17 23:05 Tylenol 325mg Tab PO 650 mg Q6H PRN Administration Fever >100.4 F Apixaban 5 mg 12/31/17 10:00 01/07/18 10:07 Eliquis PO Not Given DAILY [facility] Protocol Aspirin 81 mg 12/31/17 10:00 01/07/18 10:07 Aspirin Chewable PO Not Given DAILY NERY Atorvastatin Calcium 5 mg 01/02/18 07:35 01/06/18 17:55 Lipitor PO 5 mg DIN NERY Administration Finasteride 5 mg 12/31/17 13:15 01/08/18 10:46 Proscar PO 5 mg DAILY NERY Administration Fludrocortisone Acetate 0.3 mg 01/06/18 11:00 01/07/18 10:06 Florinef PO 0.3 mg BID NERY Administration Hydralazine HCl 10 mg 01/03/18 17:01 01/05/18 00:47 Apresoline IVP 10 mg Q6 PRN Administration Systolic Blood Pressure Potassium Chloride 60 meq/ 1,030 mls @ 100 mls/hr 01/08/18 01:40 01/08/18 02:23 Sodium Chloride IV 01/08/18 12:02 100 mls/hr .[id number] NERY Administration Potassium Chloride 10 meq in 100 mls @ 50 mls/hr 01/08/18 10:54 Potassium Chloride 10 Meq/100 Ml IVPB 01/08/18 14:53 Q2H NERY Lactulose 20 gm 01/03/18 11:45 01/07/18 10:06 Enulose PO Not Given DAILY [facility] Midodrine 5 mg 01/02/18 11:42 01/08/18 10:46 Proamatine PO 5 mg DAILY NERY Administration (Dofetilide [Tikosyn 1 tab 01/01/18 10:27 ]) 250mcg PO Q12 NERY Ondansetron HCl 4 mg 01/07/18 20:21 Zofran Inj IVP ONCE PRN Nausea/Vomiting Pantoprazole Sodium 40 mg 12/31/17 10:00 01/08/18 10:46 Protonix Ec Tab PO 40 mg DAILY NERY Administration Polyethylene Glycol 17 gm 01/02/18 11:42 01/06/18 01:47 EDT Miralax PO 17 gm DAILY PRN Administration Constipation - Patient Studies Lab Studies: Lab Studies 01/08/18 01/08/18 01/08/18 Range/Units 05:50 05:50 00:50 WBC 4.7 (4.5-11.0) 10^3/uL RBC 4.23 (3.5-6.1) 10^6/uL Hgb 10.8 L (14.0-18.0) g/dL Hct 32.9 L (42.0-52.0) % MCV 77.8 L (80.0-105.0) fl MCH 25.5 (25.0-35.0) pg MCHC 32.8 (31.0-37.0) g/dl RDW 14.6 H (11.5-14.5) % Plt Count 180 (120.0-450.0) 10^3/uL MPV 10.0 (7.0-11.0) fl Gran % 68.0 (50.0-68.0) % Lymph % (Auto) 19.1 L (22.0-35.0) % [place] % (Auto) 11.0 H (1.0-6.0) % Eos % (Auto) 1.9 (1.5-5.0) % Baso % (Auto) 0.0 (0.0-3.0) % Gran # 3.16 (1.4-6.5) Lymph # (Auto) 0.9 L (1.2-3.4) [place] # (Auto) 0.5 (0.1-0.6) Eos # (Auto) 0.1 (0.0-0.7) Baso # (Auto) 0.00 (0.0-2.0) K/mm3 Sodium 139 138 (132-148) mmol/L Potassium 3.3 L 2.9 L* (3.6-5.0) mmol/L Chloride 106 105 (98-107) mmol/L Carbon Dioxide 28 26 (21-33) mmol/L Anion Gap 8 L 11 (10-20) BUN 17 18 (7-21) mg/dL Creatinine 1.2 1.3 (0.8-1.5) mg/dl Est GFR ( Amer) > 60 > 60 Est GFR (Non-Af Amer) > 60 55 POC Glucose (mg/dL) (65-110) mg/dL Random Glucose 99 94 (70-110) mg/dL Calcium 8.1 L 8.2 L (8.4-10.5) mg/dL Phosphorus 3.9 (2.5-4.5) mg/dL Magnesium 1.7 (1.7-2.2) mg/dL Total Bilirubin 0.6 0.8 (0.2-1.3) mg/dL AST 35 37 (17-59) U/L ALT 33 28 (7-56) U/L Alkaline Phosphatase 74 75 (38-126) U/L Lactate Dehydrogenase 515 (333-699) U/L Total Creatine Kinase 118 (35-230) U/L Troponin I 1.08 H* D 0.47 H* D ng/mL Total Protein 6.1 6.1 (5.8-8.3) g/dL Albumin 2.8 L 2.8 L (3.0-4.8) g/dL Globulin 3.3 3.3 gm/dL Albumin/Globulin Ratio 0.8 L 0.9 L (1.1-1.8) 01/08/18 01/07/18 Range/Units 00:50 11:20 WBC 5.1 D (4.5-11.0) 10^3/uL RBC 4.30 (3.5-6.1) 10^6/uL Hgb 11.0 L (14.0-18.0) g/dL Hct 33.5 L (42.0-52.0) % MCV 77.9 L (80.0-105.0) fl MCH 25.6 (25.0-35.0) pg MCHC 32.8 (31.0-37.0) g/dl RDW 14.4 (11.5-14.5) % Plt Count 179 (120.0-450.0) 10^3/uL MPV 9.6 (7.0-11.0) fl Gran % 69.5 H (50.0-68.0) % Lymph % (Auto) 12.8 L (22.0-35.0) % [place] % (Auto) 16.3 H (1.0-6.0) % Eos % (Auto) 1.4 L (1.5-5.0) % Baso % (Auto) 0.0 (0.0-3.0) % Gran # 3.57 (1.4-6.5) Lymph # (Auto) 0.7 L (1.2-3.4) [place] # (Auto) 0.8 H (0.1-0.6) Eos # (Auto) 0.1 (0.0-0.7) Baso # (Auto) 0.00 (0.0-2.0) K/mm3 Sodium (132-148) mmol/L Potassium (3.6-5.0) mmol/L Chloride (98-107) mmol/L Carbon Dioxide (21-33) mmol/L Anion Gap (10-20) BUN (7-21) mg/dL Creatinine (0.8-1.5) mg/dl Est GFR ( Amer) Est GFR (Non-Af Amer) POC Glucose (mg/dL) 97 (65-110) mg/dL Random Glucose (70-110) mg/dL Calcium (8.4-10.5) mg/dL Phosphorus (2.5-4.5) mg/dL Magnesium (1.7-2.2) mg/dL Total Bilirubin (0.2-1.3) mg/dL AST (17-59) U/L ALT (7-56) U/L Alkaline Phosphatase (38-126) U/L Lactate Dehydrogenase (333-699) U/L Total Creatine Kinase (35-230) U/L Troponin I ng/mL Total Protein (5.8-8.3) g/dL Albumin (3.0-4.8) g/dL Globulin gm/dL Albumin/Globulin Ratio (1.1-1.8) Laboratory Results - last 24 hr 01/07/18 01/08/18 01/08/18 11:20 00:50 00:50 WBC 5.1 D RBC 4.30 Hgb 11.0 L Hct 33.5 L MCV 77.9 L MCH 25.6 MCHC 32.8 RDW 14.4 Plt Count 179 MPV 9.6 Gran % 69.5 H Lymph % (Auto) 12.8 L [place] % (Auto) 16.3 H Eos % (Auto) 1.4 L Baso % (Auto) 0.0 Gran # 3.57 Lymph # (Auto) 0.7 L [place] # (Auto) 0.8 H Eos # (Auto) 0.1 Baso # (Auto) 0.00 Sodium 138 Potassium 2.9 L* Chloride 105 Carbon Dioxide 26 Anion Gap 11 BUN 18 Creatinine 1.3 Est GFR ( Amer) > 60 Est GFR (Non-Af Amer) 55 POC Glucose (mg/dL) 97 Random Glucose 94 Calcium 8.2 L Phosphorus Magnesium Total Bilirubin 0.8 AST 37 ALT 28 Alkaline Phosphatase 75 Lactate Dehydrogenase 515 Total Creatine Kinase 118 Troponin I 0.47 H* D Total Protein 6.1 Albumin 2.8 L Globulin 3.3 Albumin/Globulin Ratio 0.9 L 01/08/18 01/08/18 05:50 05:50 WBC 4.7 RBC 4.23 Hgb 10.8 L Hct 32.9 L MCV 77.8 L MCH 25.5 MCHC 32.8 RDW 14.6 H Plt Count 180 MPV 10.0 Gran % 68.0 Lymph % (Auto) 19.1 L [place] % (Auto) 11.0 H Eos % (Auto) 1.9 Baso % (Auto) 0.0 Gran # 3.16 Lymph # (Auto) 0.9 L [place] # (Auto) 0.5 Eos # (Auto) 0.1 Baso # (Auto) 0.00 Sodium 139 Potassium 3.3 L Chloride 106 Carbon Dioxide 28 Anion Gap 8 L BUN 17 Creatinine 1.2 Est GFR ( Amer) > 60 Est GFR (Non-Af Amer) > 60 POC Glucose (mg/dL) Random Glucose 99 Calcium 8.1 L Phosphorus 3.9 Magnesium 1.7 Total Bilirubin 0.6 AST 35 ALT 33 Alkaline Phosphatase 74 Lactate Dehydrogenase Total Creatine Kinase Troponin I 1.08 H* D Total Protein 6.1 Albumin 2.8 L Globulin 3.3 Albumin/Globulin Ratio 0.8 L EKG/Cardiology Studies: Cardiology / EKG Studies 01/07/18 20:49 EKG [ELECTROCARDIOGRAM] Routine Comment: Reason For Exam: post implant 01/08/18 07:00 EKG [ELECTROCARDIOGRAM] Stat Comment: Reason For Exam: Abdominal pain Fingerstick Blood Sugar Results: 89 Review of Systems - Review of Systems Review of Systems: as per [facility] Critical Care Progress Note - Nutrition Nutrition: Nutrition Category Date Time Status Heart Healthy Diet [DIET] Diets 12/30/17 Dinner Active Assessment/Plan - Assessment and Plan (Free Text) Assessment: 67 y/o M with PMHx of HTN, afib, s/p CVA, possible seizure d/o s/p dual chamber permanent pacemaker for symptomatic bradycardia, sick sinus syndrome, syncope and history of afib. Plan: Neuro: No FND AxO x 3 Moving extremities past midline Reorient as necessary Cardiovascular: s/p dual chamber permanent pacemaker Atrial paced rhythm Episodes of hypotension, however currently normotensives in 130s/60 Given fluid bolus Continue home midodrine dofetilide fludrocortisone hydralazine prn Maintain MAP>65 Echo today. F/u report Pulmonary: Lungs CTA b/l Maintain SaO2 >90% O2 NC prn GI: Soft, nondistended nontender HHD Protonix for GI ppx zofran prn /Nephro: BUN/Cr stable Treated with ancef for UTI UOP wnl K repleted replete electrolytes prn Maintain euvolemia Endo: Maintain euglycemia Heme/Onc: H/H stable No signs of HD compromise Continue monitoring H/H ID: Afebrile, no leukocytosis BCx negative to date, UCx previously positive for serratia and treated Procalcitonin, lactate negative DVT/GI PPX: restart eliquis per cardio recs Full Code Dispo: Pt denies any acute complaints today. He is conversing, tolerating his diet. He is s/p dual chamber pacemaker placement. He is hemodynamically stable. He no longer requires ICU care. He is stable for transfer to telemetry floor. Please reconsult as necessary <Tristan Bergman - Last Filed: 01/08/18 13:31> CCU Objective - Vital Signs / Intake & Output Intake and Output (Last 8hrs): Intake & Output 01/07/18 01/08/18 01/08/18 22:59 06:59 14:59 Intake Total 1000 Output Total 440 450 Balance -440 550 Weight 187 lb Intake: IV 600 Right Forearm 600 Oral 400 Output: Urine 440 450 Urethral (Heard) 450 Other: # Bowel Movements 0 - Medications Active Medications: Active Medications Generic Name Dose Route Start Last Admin Trade Name Freq PRN Reason Stop Dose Admin Acetaminophen 650 mg 12/30/17 21:41 12/30/17 23:05 Tylenol 325mg Tab PO 650 mg Q6H PRN Administration Fever >100.4 F Apixaban 5 mg 12/31/17 10:00 01/07/18 10:07 Eliquis PO Not Given DAILY [facility] Protocol Aspirin 81 mg 12/31/17 10:00 01/07/18 10:07 Aspirin Chewable PO Not Given DAILY NERY Atorvastatin Calcium 5 mg 01/02/18 07:35 01/06/18 17:55 Lipitor PO 5 mg DIN NERY Administration Finasteride 5 mg 12/31/17 13:15 01/08/18 10:46 Proscar PO 5 mg DAILY NERY Administration Fludrocortisone Acetate 0.3 mg 01/06/18 11:00 01/08/18 12:35 Florinef PO 0.3 mg BID NERY Administration Hydralazine HCl 10 mg 01/03/18 17:01 01/05/18 00:47 Apresoline IVP 10 mg Q6 PRN Administration Systolic Blood Pressure Potassium Chloride 10 meq in 100 mls @ 50 mls/hr 01/08/18 10:54 01/08/18 12:42 Potassium Chloride 10 Meq/100 Ml IVPB 01/08/18 14:53 50 mls/hr Q2H NERY Administration Lactulose 20 gm 01/03/18 11:45 01/08/18 12:53 Enulose PO 20 gm DAILY NERY Administration Midodrine 5 mg 01/02/18 11:42 01/08/18 10:46 Proamatine PO 5 mg DAILY NERY Administration (Dofetilide [Tikosyn 1 tab 01/01/18 10:27 ]) 250mcg PO Q12 NERY Ondansetron HCl 4 mg 01/07/18 20:21 Zofran Inj IVP ONCE PRN Nausea/Vomiting Pantoprazole Sodium 40 mg 12/31/17 10:00 01/08/18 10:46 Protonix Ec Tab PO 40 mg DAILY NERY Administration Polyethylene Glycol 17 gm 01/02/18 11:42 01/06/18 01:47 EDT Miralax PO 17 gm DAILY PRN Administration Constipation - Patient Studies Lab Studies: Lab Studies 01/08/18 01/08/18 01/08/18 Range/Units 05:50 05:50 00:50 WBC 4.7 (4.5-11.0) 10^3/uL RBC 4.23 (3.5-6.1) 10^6/uL Hgb 10.8 L (14.0-18.0) g/dL Hct 32.9 L (42.0-52.0) % MCV 77.8 L (80.0-105.0) fl MCH 25.5 (25.0-35.0) pg MCHC 32.8 (31.0-37.0) g/dl RDW 14.6 H (11.5-14.5) % Plt Count 180 (120.0-450.0) 10^3/uL MPV 10.0 (7.0-11.0) fl Gran % 68.0 (50.0-68.0) % Lymph % (Auto) 19.1 L (22.0-35.0) % [place] % (Auto) 11.0 H (1.0-6.0) % Eos % (Auto) 1.9 (1.5-5.0) % Baso % (Auto) 0.0 (0.0-3.0) % Gran # 3.16 (1.4-6.5) Lymph # (Auto) 0.9 L (1.2-3.4) [place] # (Auto) 0.5 (0.1-0.6) Eos # (Auto) 0.1 (0.0-0.7) Baso # (Auto) 0.00 (0.0-2.0) K/mm3 Sodium 139 138 (132-148) mmol/L Potassium 3.3 L 2.9 L* (3.6-5.0) mmol/L Chloride 106 105 (98-107) mmol/L Carbon Dioxide 28 26 (21-33) mmol/L Anion Gap 8 L 11 (10-20) BUN 17 18 (7-21) mg/dL Creatinine 1.2 1.3 (0.8-1.5) mg/dl Est GFR ( Amer) > 60 > 60 Est GFR (Non-Af Amer) > 60 55 POC Glucose (mg/dL) (65-110) mg/dL Random Glucose 99 94 (70-110) mg/dL Calcium 8.1 L 8.2 L (8.4-10.5) mg/dL Phosphorus 3.9 (2.5-4.5) mg/dL Magnesium 1.7 (1.7-2.2) mg/dL Total Bilirubin 0.6 0.8 (0.2-1.3) mg/dL AST 35 37 (17-59) U/L ALT 33 28 (7-56) U/L Alkaline Phosphatase 74 75 (38-126) U/L Lactate Dehydrogenase 515 (333-699) U/L Total Creatine Kinase 118 (35-230) U/L Troponin I 1.08 H* D 0.47 H* D ng/mL Total Protein 6.1 6.1 (5.8-8.3) g/dL Albumin 2.8 L 2.8 L (3.0-4.8) g/dL Globulin 3.3 3.3 gm/dL Albumin/Globulin Ratio 0.8 L 0.9 L (1.1-1.8) 01/08/18 01/07/18 Range/Units 00:50 11:20 WBC 5.1 D (4.5-11.0) 10^3/uL RBC 4.30 (3.5-6.1) 10^6/uL Hgb 11.0 L (14.0-18.0) g/dL Hct 33.5 L (42.0-52.0) % MCV 77.9 L (80.0-105.0) fl MCH 25.6 (25.0-35.0) pg MCHC 32.8 (31.0-37.0) g/dl RDW 14.4 (11.5-14.5) % Plt Count 179 (120.0-450.0) 10^3/uL MPV 9.6 (7.0-11.0) fl Gran % 69.5 H (50.0-68.0) % Lymph % (Auto) 12.8 L (22.0-35.0) % [place] % (Auto) 16.3 H (1.0-6.0) % Eos % (Auto) 1.4 L (1.5-5.0) % Baso % (Auto) 0.0 (0.0-3.0) % Gran # 3.57 (1.4-6.5) Lymph # (Auto) 0.7 L (1.2-3.4) [place] # (Auto) 0.8 H (0.1-0.6) Eos # (Auto) 0.1 (0.0-0.7) Baso # (Auto) 0.00 (0.0-2.0) K/mm3 Sodium (132-148) mmol/L Potassium (3.6-5.0) mmol/L Chloride (98-107) mmol/L Carbon Dioxide (21-33) mmol/L Anion Gap (10-20) BUN (7-21) mg/dL Creatinine (0.8-1.5) mg/dl Est GFR ( Amer) Est GFR (Non-Af Amer) POC Glucose (mg/dL) 97 (65-110) mg/dL Random Glucose (70-110) mg/dL Calcium (8.4-10.5) mg/dL Phosphorus (2.5-4.5) mg/dL Magnesium (1.7-2.2) mg/dL Total Bilirubin (0.2-1.3) mg/dL AST (17-59) U/L ALT (7-56) U/L Alkaline Phosphatase (38-126) U/L Lactate Dehydrogenase (333-699) U/L Total Creatine Kinase (35-230) U/L Troponin I ng/mL Total Protein (5.8-8.3) g/dL Albumin (3.0-4.8) g/dL Globulin gm/dL Albumin/Globulin Ratio (1.1-1.8) Laboratory Results - last 24 hr 01/07/18 01/08/18 01/08/18 11:20 00:50 00:50 WBC 5.1 D RBC 4.30 Hgb 11.0 L Hct 33.5 L MCV 77.9 L MCH 25.6 MCHC 32.8 RDW 14.4 Plt Count 179 MPV 9.6 Gran % 69.5 H Lymph % (Auto) 12.8 L [place] % (Auto) 16.3 H Eos % (Auto) 1.4 L Baso % (Auto) 0.0 Gran # 3.57 Lymph # (Auto) 0.7 L [place] # (Auto) 0.8 H Eos # (Auto) 0.1 Baso # (Auto) 0.00 Sodium 138 Potassium 2.9 L* Chloride 105 Carbon Dioxide 26 Anion Gap 11 BUN 18 Creatinine 1.3 Est GFR ( Amer) > 60 Est GFR (Non-Af Amer) 55 POC Glucose (mg/dL) 97 Random Glucose 94 Calcium 8.2 L Phosphorus Magnesium Total Bilirubin 0.8 AST 37 ALT 28 Alkaline Phosphatase 75 Lactate Dehydrogenase 515 Total Creatine Kinase 118 Troponin I 0.47 H* D Total Protein 6.1 Albumin 2.8 L Globulin 3.3 Albumin/Globulin Ratio 0.9 L 01/08/18 01/08/18 05:50 05:50 WBC 4.7 RBC 4.23 Hgb 10.8 L Hct 32.9 L MCV 77.8 L MCH 25.5 MCHC 32.8 RDW 14.6 H Plt Count 180 MPV 10.0 Gran % 68.0 Lymph % (Auto) 19.1 L [place] % (Auto) 11.0 H Eos % (Auto) 1.9 Baso % (Auto) 0.0 Gran # 3.16 Lymph # (Auto) 0.9 L [place] # (Auto) 0.5 Eos # (Auto) 0.1 Baso # (Auto) 0.00 Sodium 139 Potassium 3.3 L Chloride 106 Carbon Dioxide 28 Anion Gap 8 L BUN 17 Creatinine 1.2 Est GFR ( Amer) > 60 Est GFR (Non-Af Amer) > 60 POC Glucose (mg/dL) Random Glucose 99 Calcium 8.1 L Phosphorus 3.9 Magnesium 1.7 Total Bilirubin 0.6 AST 35 ALT 33 Alkaline Phosphatase 74 Lactate Dehydrogenase Total Creatine Kinase Troponin I 1.08 H* D Total Protein 6.1 Albumin 2.8 L Globulin 3.3 Albumin/Globulin Ratio 0.8 L EKG/Cardiology Studies: Cardiology / EKG Studies 01/07/18 20:49 EKG [ELECTROCARDIOGRAM] Routine Comment: Reason For Exam: post implant 01/08/18 07:00 EKG [ELECTROCARDIOGRAM] Stat Comment: Reason For Exam: Abdominal pain Critical Care Progress Note - Nutrition Nutrition: Nutrition Category Date Time Status Heart Healthy Diet [DIET] Diets 12/30/17 Dinner Active Assessment/Plan - Assessment and Plan (Free Text) Plan: Patient seen and examined on rounds with resident, agree with note with following additions/exceptions: Patient is 67yo male with PMHx HTN, afib, s/p CVA, possible seizure, postural hypotension, autonomic dysfunction on midodrine, admitted to MICU s/p PPM for hypotension. Currently afebrile, BP stable, sbp 90-130s, HR 70s, AAOx3, NAD, doing well Labs, imaging, chart reviewed Troponin mild elevation, no CP, SOB Cardiology following Afib s/p PPM HTN Autonomic dysfunction Recommend: - supp o2 as needed - NO ID issues - MIdoddrine - IVF - Hold BP meds - Follow up cardiology - FS control - GI ppx - DVT ppx - A/C as per cardiology - Transfer to telemetry, stable
--- NOTE | 2018-01-08 12:28 | CARD ---
APPROVED REPORT Date of service: 01/08/2018 EKG Measurement Heart [id number] <Conclusion> Electronic atrial pacemaker Left axis deviation Nonspecific T wave abnormality Prolonged QT Abnormal ECG
--- NOTE | 2018-01-08 12:29 | CARD ---
APPROVED REPORT Date of service: 01/07/2018 EKG Measurement Heart [id number] <Conclusion> Wide QRS rhythm with fusion complexes Nonspecific intraventricular block Right ventricular hypertrophy Inferior infarct, age undetermined Possible Anterolateral infarct, age undetermined Abnormal ECG
--- NOTE | 2018-01-08 13:45 | RAD ---
Date of service: 01/07/2018 PROCEDURE: Intraoperative Fluoroscopy. HISTORY: PACEMAKER INSERTION FINDINGS: Fluoroscopic assistance was provided. Fluoroscopy time = 256.3 sec. Radiation dose = 20.68 mGy-cm. Please refer to the operative report from DI Ward.
--- NOTE | 2018-01-08 15:05 | PN ---
DATE: 01/08/2018 SUBJECTIVE: The patient underwent dual-chamber pacemaker placement yesterday. He is currently hypotensive in ICU. Fluid challenge was started. The patient denies any dizziness while lying flat. PHYSICAL EXAMINATION: VITAL SIGNS: Blood pressure 87/38, heart rate 70, respiration 14, temperature 98.3. HEENT: Normocephalic. CHEST: Clear. HEART: S1 and S2, regular. EXTREMITIES: No edema. LABORATORY DATA: Today's hemoglobin and hematocrit 10.8 and 32.9, white count and platelet count are within normal limit. Today's SMA-7: Sodium 139, potassium 3.3, chloride 106, CO2 of 28, glucose 99, BUN 17, and creatinine 1.2. Troponin 0.47 and 1.08. An EKG done today revealed atrial paced rhythm with prolonged AV conduction. There are no ischemic ST-T wave changes. ASSESSMENT: 1. Status post dual-chamber pacemaker placement. 2. Hypotension. 3. Rule out underlying sepsis. 4. Rule out pericardial effusion. RECOMMENDATIONS: Case was discussed with intensivists and with the medical team. The patient will be maintained on IV fluid infusion, fluid challenge and we will get a bedside echocardiographic study. I also recommended urine culture and blood culture. Vic Tripp MD
--- NOTE | 2018-01-08 16:40 | PCM.URO ---
Urology Progress Note - Objective Lab Studies: Reviewed (MAINTAIN MCELROY) Lab Results Last 24 Hours: Laboratory Results - last 24 hr 01/08/18 01/08/18 01/08/18 00:50 00:50 05:50 WBC 5.1 D 4.7 RBC 4.30 4.23 Hgb 11.0 L 10.8 L Hct 33.5 L 32.9 L MCV 77.9 L 77.8 L MCH 25.6 25.5 MCHC 32.8 32.8 RDW 14.4 14.6 H Plt Count 179 180 MPV 9.6 10.0 Gran % 69.5 H 68.0 Lymph % (Auto) 12.[address] [place] % (Auto) 16.3 H 11.0 H Eos % (Auto) 1.4 L 1.9 Baso % (Auto) 0.0 0.0 Gran # 3.57 3.16 Lymph # (Auto) 0.[address] [place] # (Auto) 0.8 H 0.5 Eos # (Auto) 0.1 0.1 Baso # (Auto) 0.00 0.00 Sodium 138 Potassium 2.9 L* Chloride 105 Carbon Dioxide 26 Anion Gap 11 BUN 18 Creatinine 1.3 Est GFR ( Amer) > 60 Est GFR (Non-Af Amer) 55 Random Glucose 94 Calcium 8.2 L Phosphorus Magnesium Total Bilirubin 0.8 AST 37 ALT 28 Alkaline Phosphatase 75 Lactate Dehydrogenase 515 Total Creatine Kinase 118 Troponin I 0.47 H* D Total Protein 6.1 Albumin 2.8 L Globulin 3.3 Albumin/Globulin Ratio 0.9 L 01/08/18 05:50 WBC RBC Hgb Hct MCV MCH MCHC RDW Plt Count MPV Gran % Lymph % (Auto) [place] % (Auto) Eos % (Auto) Baso % (Auto) Gran # Lymph # (Auto) [place] # (Auto) Eos # (Auto) Baso # (Auto) Sodium 139 Potassium 3.3 L Chloride 106 Carbon Dioxide 28 Anion Gap 8 L BUN 17 Creatinine 1.2 Est GFR ( Amer) > 60 Est GFR (Non-Af Amer) > 60 Random Glucose 99 Calcium 8.1 L Phosphorus 3.9 Magnesium 1.7 Total Bilirubin 0.6 AST 35 ALT 33 Alkaline Phosphatase 74 Lactate Dehydrogenase Total Creatine Kinase Troponin I 1.08 H* D Total Protein 6.1 Albumin 2.8 L Globulin 3.3 Albumin/Globulin Ratio 0.8 L Intake & Output: Intake & Output 01/07/18 01/08/18 01/08/18 18:59 06:59 18:59 Intake Total 1000 Output Total 890 Balance 110 Weight 187 lb Intake: IV 600 Right Forearm 600 Oral 400 Output: Urine 890 Urethral ([place]) 450 Other: # Bowel Movements 0 Vital Signs: Vital Signs - 24 hr 01/07/18 01/07/18 01/07/18 16:50 17:00 17:02 Temperature Pulse Rate 52 L 53 L 53 L Respiratory 12 Rate Blood Pressure 160/81 H O2 Sat by Pulse 100 Oximetry 01/07/18 01/07/18 01/07/18 17:46 20:15 20:30 Temperature 98.3 F 98.3 F Pulse Rate 54 L 77 82 Respiratory 18 18 Rate Blood Pressure 169/74 H 123/71 88/47 L O2 Sat by Pulse 97 97 Oximetry 01/07/18 01/07/18 01/07/18 20:45 20:50 21:05 Temperature 98.3 F 98.3 F 98.3 F Pulse Rate 70 70 70 Respiratory 18 18 18 Rate Blood Pressure 72/44 L 72/45 L 64/38 L O2 Sat by Pulse 97 98 98 Oximetry 01/07/18 01/08/18 01/08/18 21:30 02:00 08:20 Temperature 98.3 F Pulse Rate 72 70 70 Respiratory 18 Rate Blood Pressure 64/35 L O2 Sat by Pulse 98 100 Oximetry 01/08/18 01/08/18 01/08/18 08:30 08:40 08:50 Temperature Pulse Rate 70 70 70 Respiratory 20 18 Rate Blood Pressure 124/69 O2 Sat by Pulse 100 100 99 Oximetry 01/08/18 01/08/18 01/08/18 09:00 09:01 09:10 Temperature Pulse Rate 70 70 70 Respiratory 13 24 16 Rate Blood Pressure 87/38 L O2 Sat by Pulse 100 99 98 Oximetry 01/08/18 09:20 Temperature Pulse Rate 70 Respiratory 14 Rate Blood Pressure O2 Sat by Pulse 99 Oximetry
--- NOTE | 2018-01-08 20:43 | CARD ---
APPROVED REPORT Date of service: 01/08/2018 EXAM: Two-dimensional and M-mode echocardiogram with Doppler and color Doppler. INDICATION R/O PERICARDIAL EFFUSION, S/P PM PLACEMENT 2D DIMENSIONS Left Atrium (2D)4.5 (1.6-4.0cm)IVSd1.5 (0.7-1.1cm) LVDd4.4 (3.9-5.9cm)PWd1.5 (0.7-1.1cm) LVDs3.3 (2.5-4.0cm)FS (%) 25.3 % LVEF (%)50.2 (>50%) M-Mode DIMENSIONS Aortic Root4.00 (2.2-3.7cm)Aortic Cusp Exc.2.60 (1.5-2.0cm) Aortic Valve AoV Peak Ikrsmvcz714.0cm/[place] Peak GR.10mmHg Mitral Valve MV E Necxfyvz866.0cm/s TDI Lateral E' Peak V7.99cm/sMedial E' Peak V9.20cm/sE/Lateral E'14.1 E/Medial E'12.3 Tricuspid Valve TR Peak [id number]/sRAP [id number] Peak Gr.45mmHg [id number] LEFT VENTRICLE The left ventricle is normal size. There is mild concentric left ventricular hypertrophy. The left ventricular function is normal.EF-55% There is normal LV segmental wall motion. Transmitral Doppler flow pattern is Grade III-reversible restrictive diastolic dysfunction. No left ventricle thrombus noted on this study. There is no ventricular septal defect visualized. There is no left ventricular aneurysm. There is no mass noted in the left ventricle. RIGHT VENTRICLE The right ventricle is normal size. There is normal right ventricular wall thickness. The right ventricular systolic function is normal. There is a pacemaker lead in the right ventricle. ATRIA The left atrium is mildly dilated. The right atrium is mildly dilated. There is a catheter/pacemaker lead seen in the right atrium. The interatrial septum is intact with no evidence for an atrial septal defect. AORTIC VALVE The aortic valve is thickened but opens well. The aortic valve is mildly sclerotic. There is trace aortic regurgitation. There is no aortic valvular stenosis. There is no aortic valvular vegetation. MITRAL VALVE The mitral valve is thickened but opens well. Mitral regurgitation is trace to mild. There is no mitral valve stenosis. There is no evidence of mitral valve prolapse. TRICUSPID VALVE The tricuspid valve leaflets are thickened , but open well. There is moderate tricuspid regurgitation.RVSP-55 mmof Hg. There is no tricuspid valve stenosis. There is no tricuspid valve prolapse or vegetation. PULMONIC VALVE The pulmonary valve is normal in structure. There is no pulmonic valvular regurgitation. There is no pulmonic valvular stenosis. GREAT VESSELS The aortic root is normal in size. The ascending aorta is normal in size. The pulmonary artery is normal. The IVC is dilated. PERICARDIAL EFFUSION There is no pleural effusion. Trivial PE <Conclusion> The left ventricle is normal size. There is mild concentric left ventricular hypertrophy. The left ventricular function is normal.EF-55% There is trace aortic regurgitation. Mitral regurgitation is trace to mild. There is moderate tricuspid regurgitation.RVSP-55 mmof Hg. Trivial PE The IVC is dilated. PPM lead noted in RA/RV no vegetation or thrombus noted in this study.
[2018-01-09 01:05] LABS: URINE BILIRUBIN NEGATIVE (NEGATIVE); URINE BLOOD TRACE-INTACT (NEGATIVE); URINE GLUCOSE (UA) NEGATIVE (NEGATIVE); URINE LEUKOCYTE ESTERASE TRACE Leu/uL (NEGATIVE); URINE PROTEIN 30 mg/dL (<30 mg/dL); URINE UROBILINOGEN 0.2 E.U./dL (<1 E.U./dL)
[2018-01-09 01:07] LABS: URINE APPEARANCE CLEAR (CLEAR); URINE COLOR YELLOW (YELLOW)
[2018-01-09 01:19] LABS: URINE EPITHELIAL CELLS 0 - 2 /hpf (0-5); URINE RBC 0 - 2 /hpf (0-2); URINE WBC 0 - 2 /hpf (0-6)
[2018-01-09 07:14] LABS: EOS # 0.2 (0.0-0.7); EOS % 5.8 % (1.5-5.0); GRAN # 1.9 (1.4-6.5); GRAN % 52.6 % (50.0-68.0); HEMOGLOBIN 10.2 g/dL (14.0-18.0); LYMPH # 0.8 (1.2-3.4); LYMPH % 23.3 % (22.0-35.0); MEAN CELL VOLUME 77.9 fl (80.0-105.0); MEAN CORPUSCULAR HEMOGLOBIN 25.4 pg (25.0-35.0); MEAN CORPUSCULAR HGB CONC 32.6 g/dl (31.0-37.0); MEAN PLATELET VOLUME 10.3 fl (7.0-11.0); MONO # 0.7 (0.1-0.6); MONO % 18.3 % (1.0-6.0); RBC 4.02 10^6/uL (3.5-6.1); RED CELL DISTRIBUTION WIDTH 14.7 % (11.5-14.5); WHITE BLOOD COUNT 3.6 10^3/uL (4.5-11.0)
[2018-01-09 07:32] LABS: ALB/GLOB RATIO 0.8 (1.1-1.8); ALBUMIN 2.7 g/dL (3.0-4.8); ALT/SGPT 23 U/L (7-56); AST/SGOT 35 U/L (17-59); BLOOD UREA NITROGEN 15 mg/dL (7-21); CALCIUM 7.9 mg/dL (8.4-10.5); GFR NON-AFRICAN AMERICAN > 60
[2018-01-09] MEDS ORDERED: Tetrahydrozoline Opht 0.05% Sol (15 ml) OD PRN (09:54)
[2018-01-09] MEDS: DOFETILIDE PO SCH ×2 (11:01→22:00)
[2018-01-09] MEDS: Pantoprazole 40 mg EC Tab PO SCH (11:01)
--- NOTE | 2018-01-09 12:00 | CP.PCM.PN ---
<Segundo Villegas - Last Filed: 01/09/18 13:25> Subjective - Date & Time of Evaluation Date of Evaluation: 01/09/18 Time of Evaluation: 11:52 - Subjective Subjective: Lei Villegas PGY2 - Progress note for Hospitalist Service Patient seen and examined this AM. No acute events reported overnight. Patient continues to work with physical therapy in a limited capacity secondary to dizziness and lightheadedness symptoms. Patient has no new complaints at this time. Denies chest pain, shortness of breath, abdominal pain, nausea, vomiting. Objective - Vital Signs/Intake and Output Vital Signs (last 24 hours): Temp Pulse Resp BP Pulse Ox 99.2 F 65 19 125/73 98 01/09/18 00:10 01/09/18 08:10 01/09/18 08:10 01/09/18 08:00 01/09/18 08:10 Intake and Output: 01/09/18 01/09/18 06:59 18:59 Intake Total 340 Output Total 1300 Balance -960 - Medications Medications: Current Medications Acetaminophen (Tylenol 325mg Tab) 650 mg PO Q6H PRN PRN Reason: Fever >100.4 F Last Admin: 12/30/17 23:05 Dose: 650 mg Apixaban (Eliquis) 5 mg PO DAILY [facility]; Protocol Last Admin: 01/07/18 10:07 Dose: Not Given Aspirin (Aspirin Chewable) 81 mg PO DAILY [facility] Last Admin: 01/07/18 10:07 Dose: Not Given Atorvastatin Calcium (Lipitor) 5 mg PO DIN [facility] Last Admin: 01/08/18 18:08 Dose: 5 mg Finasteride (Proscar) 5 mg PO DAILY [facility] Last Admin: 01/09/18 11:00 Dose: 5 mg Fludrocortisone Acetate (Florinef) 0.3 mg PO BID [facility] Last Admin: 01/09/18 11:01 Dose: 0.3 mg Hydralazine HCl (Apresoline) 10 mg IVP Q6 PRN PRN Reason: Systolic Blood Pressure Last Admin: 01/05/18 00:47 Dose: 10 mg Lactulose (Enulose) 20 gm PO DAILY [facility] Last Admin: 01/09/18 11:00 Dose: 20 gm Midodrine (Proamatine) 5 mg PO DAILY [facility] Last Admin: 01/09/18 11:00 Dose: 5 mg (Dofetilide [Tikosyn (]) 250mcg) 1 tab PO Q12 [facility] Last Admin: 01/09/18 11:01 Dose: Not Given Ondansetron HCl (Zofran Inj) 4 mg IVP ONCE PRN PRN Reason: Nausea/Vomiting Pantoprazole Sodium (Protonix Ec Tab) 40 mg PO DAILY [facility] Last Admin: 01/09/18 11:01 Dose: 40 mg Polyethylene Glycol (Miralax) 17 gm PO DAILY PRN PRN Reason: Constipation Last Admin: 01/06/18 01:47 EDT Dose: 17 gm Tetrahydrozoline HCl/Zinc Sulfate (Visine 0.05% Opht Soln) 0 ml OD Q4 PRN PRN Reason: Dry eyes - Labs Labs: 01/09/18 05:30 01/09/18 05:30 PT 19.2 SECONDS (9.4-12.5) H 12/30/17 16:30 INR 1.67 12/30/17 16:30 APTT 30.3 Seconds (25.1-36.5) 12/30/17 16:30 - Constitutional Appears: Toxic - Head Exam Head Exam: ATRAUMATIC, NORMAL INSPECTION, NORMOCEPHALIC - Eye Exam Eye Exam: EOMI, PERRL - Neck Exam Neck Exam: Full ROM - Respiratory Exam Respiratory Exam: Clear to Ausculation Bilateral, NORMAL BREATHING PATTERN - Cardiovascular Exam Cardiovascular Exam: REGULAR RHYTHM, +S1, +S2 - GI/Abdominal Exam GI & Abdominal Exam: Soft, Normal Bowel Sounds. absent: Tenderness - Neurological Exam Neurological Exam: Alert, Awake, Oriented x3 Neuro motor strength exam: Left Upper Extremity: 5, Right Upper Extremity: 5, Left Lower Extremity: 5, Right Lower Extremity: 5 - Psychiatric Exam Additional comments: lethargic behavior - Skin Skin Exam: Dry, Warm Assessment and Plan - Assessment and Plan (Free Text) Assessment: 67 year old male with past medical history of afib on eliquis, orthostatic hypotension on midodrine and CVA with residual left side weakness who presented with complaint of recurrent syncope. Patient is status post pacemaker placement secondary to sick sinus syndrome vs. chronic bradycardia. Plan: Recurrent Syncopal Episodes - Echo: LV normal size, normal LV wall thickness, EF 74.5%; moderate mitral and tricuspid regurgitation; moderate to severe pulmonary HTN - Head CT: Chronic changes, no acute findings - Midodrine 5mg Daily, Florinef 0.3 mg PO BID, Dofetilide 1mg PO BID, IVF - Cardiology following - Neurology following Bradycardia - Patient s/p pacemaker with Dr. Carlson EP - EP Dr. Carlson consulted and following the patient - Cardiology consulted and following - Patient appears to have resting HR of 60s, stable at this time Urinary retention - Urology with Dr. Montague consulted and following - Recommendations to continue with indwelling rushing - Monitoring of cardiac medications for possible side effects of urinary retention - Renal US no acute findings - CT abd/pelvis: no acute renal findings Urinary tract infection - Urology consulted and following - Patient with current rushing catheter in place, continue per urology - Patient treated with ancef and rocephin, asymptomatic at this time Hypotensive - Possibly secondary to sepsis, workup ordered yesterday evening - Follow up blood, urine cultures - Patient give IVF challenge - Patient BP normalized at this point PORTIA in setting of CKD - resolved at this point - Cr remains stable - Continue with hydration Previous CVA worth residual left sided deficit - ASA, Lipitor - Neurology following GI/DVT PPX - Protonix 40mg Daily - Eliquis in setting of afib Dispo: Awaiting final decision from family regarding QING as well as septic workup from previous 24 hours Patient seen, case and plan discussed with attending, Dr. Quiles <Ernst Quiles - Last Filed: 01/09/18 18:26> Objective - Vital Signs/Intake and Output Vital Signs (last 24 hours): Temp Pulse Resp BP Pulse Ox 99.2 F 65 19 125/73 98 01/09/18 00:10 01/09/18 17:53 01/09/18 08:10 01/09/18 08:00 01/09/18 08:10 Intake and Output: 01/09/18 01/09/18 06:59 18:59 Intake Total 340 950 Output Total 1300 1200 Balance -960 -250 - Medications Medications: Current Medications Acetaminophen (Tylenol 325mg Tab) 650 mg PO Q6H PRN PRN Reason: Fever >100.4 F Last Admin: 12/30/17 23:05 Dose: 650 mg Apixaban (Eliquis) 5 mg PO DAILY [facility]; Protocol Last Admin: 01/07/18 10:07 Dose: Not Given Aspirin (Aspirin Chewable) 81 mg PO DAILY [facility] Last Admin: 01/07/18 10:07 Dose: Not Given Atorvastatin Calcium (Lipitor) 5 mg PO DIN [facility] Last Admin: 01/09/18 16:54 Dose: 5 mg Finasteride (Proscar) 5 mg PO DAILY [facility] Last Admin: 01/09/18 11:00 Dose: 5 mg Fludrocortisone Acetate (Florinef) 0.3 mg PO BID [facility] Last Admin: 01/09/18 16:55 Dose: 0.3 mg Hydralazine HCl (Apresoline) 10 mg IVP Q6 PRN PRN Reason: Systolic Blood Pressure Last Admin: 01/05/18 00:47 Dose: 10 mg Lactulose (Enulose) 20 gm PO DAILY [facility] Last Admin: 01/09/18 11:00 Dose: 20 gm Midodrine (Proamatine) 5 mg PO DAILY [facility] Last Admin: 01/09/18 11:00 Dose: 5 mg (Dofetilide [Tikosyn (]) 250mcg) 1 tab PO Q12 [facility] Ondansetron HCl (Zofran Inj) 4 mg IVP ONCE PRN PRN Reason: Nausea/Vomiting Pantoprazole Sodium (Protonix Ec Tab) 40 mg PO DAILY [facility] Last Admin: 01/09/18 11:01 Dose: 40 mg Polyethylene Glycol (Miralax) 17 gm PO DAILY PRN PRN Reason: Constipation Last Admin: 01/06/18 01:47 EDT Dose: 17 gm Tetrahydrozoline HCl/Zinc Sulfate (Visine 0.05% Opht Soln) 0 ml OD Q4 PRN PRN Reason: Dry eyes - Labs Labs: 01/09/18 05:30 01/09/18 05:30 PT 19.2 SECONDS (9.4-12.5) H 12/30/17 16:30 INR 1.67 12/30/17 16:30 APTT 30.3 Seconds (25.1-36.5) 12/30/17 16:30 Attending/Attestation - Attestation I have personally seen and examined this patient.: Yes I have fully participated in the care of the patient.: Yes I have reviewed all pertinent clinical information, including history, physical exam and plan: Yes Notes (Text): 01/09/18 18:23 67 year old male with past medical history of afib on eliquis, orthostatic hypotension on midodrine and CVA with residual left side weakness who presented with complaint of recurrent syncope. He was found to have significant orthostatic hypotension, bradycardia and pauses on the telemonitor. Dofetilide was on hold. Midodrine dose cannot be increased secondary to history of urinary retention. Urology is following for urinary retention. Patient is s/p treatment for UTI. He was started on florinef. Cardiology and EPS is following and patient had pacemaker placed earlier this week. Later in the evening he was hypotensive and transferred to ICU. Blood pressure has improved after receiving iv fluids. Repeat echocardiogram was reviewed. Repeat septic workup was ordered and pending at this time. Ernst Quiles MD Hospitalist.
[2018-01-09] MEDS ORDERED: DOFETILIDE PO SCH (14:02)
--- NOTE | 2018-01-09 17:18 | PN ---
DATE: 01/09/2018 SUBJECTIVE: The patient denies chest pain or dizziness while lying flat. PHYSICAL EXAMINATION: VITAL SIGNS: Blood pressure 125/73, heart rate 64, respirations 19, temperature 99.2. HEENT: Normocephalic. CHEST: Clear. HEART: S1 and S2 regular. EXTREMITIES: Trace leg edema. LABORATORY DATA: Hemoglobin and hematocrit 10.1 and 31.3. White count 3.6, platelet count 157,000. Today's SMA-7 is within normal limit except for anion gap of 7. Today's troponin 0.48. ASSESSMENT: 1. Autonomic dysfunction and recurrent postural hypotension. 2. Status post dual-chamber pacemaker placement for symptomatic bradycardia. 3. Benign prostatic hypertrophy. RECOMMENDATIONS: Continue current Florinef 0.3 mg b.i.d., Lipitor 40 mg once a day, Proscar 5 mg once a day. I did receive the echocardiographic study and revealed no pericardial effusion and normal EF. Vic Tripp MD
[2018-01-10 06:43] LABS: EOS # 0.2 (0.0-0.7); EOS % 5.8 % (1.5-5.0); GRAN # 1.8 (1.4-6.5); HEMOGLOBIN 10.4 g/dL (14.0-18.0); LYMPH # 0.9 (1.2-3.4); LYMPH % 26.3 % (22.0-35.0); MEAN CELL VOLUME 77.7 fl (80.0-105.0); MEAN CORPUSCULAR HEMOGLOBIN 25.2 pg (25.0-35.0); MEAN CORPUSCULAR HGB CONC 32.5 g/dl (31.0-37.0); MEAN PLATELET VOLUME 10.2 fl (7.0-11.0); MONO # 0.6 (0.1-0.6); MONO % 15.9 % (1.0-6.0); RBC 4.12 10^6/uL (3.5-6.1); RED CELL DISTRIBUTION WIDTH 14.8 % (11.5-14.5); WHITE BLOOD COUNT 3.5 10^3/uL (4.5-11.0)
[2018-01-10 06:54] LABS: ALBUMIN 2.7 g/dL (3.0-4.8); BLOOD UREA NITROGEN 13 mg/dL (7-21); CALCIUM 8.2 mg/dL (8.4-10.5); GFR NON-AFRICAN AMERICAN > 60
[2018-01-10 06:55] LABS: ALB/GLOB RATIO 0.8 (1.1-1.8); ALT/SGPT 31 U/L (7-56); AST/SGOT 29 U/L (17-59)
[2018-01-10] MEDS ORDERED: Potassium Chloride 20 mEq ER Tab PO ONE (07:04)
--- NOTE | 2018-01-10 08:59 | CP.PCM.PN ---
<Andres Griffin - Last Filed: 01/10/18 16:33> Subjective - Date & Time of Evaluation Date of Evaluation: 01/10/18 Time of Evaluation: 08:58 - Subjective Subjective: PGY-1 Medicine Progress Note for Dr. Quiles Patient seen and examined at bedside this AM, resting comfortably and in no acute distress. No acute overnight events reported. Continues to work with PT in a limited capacity due to dizziness. Working with case management on subacute rehab placement. No headaches, changes in vision, chest pain, palpitations, sob, cough, abdominal pain, n/v/d/c. Objective - Vital Signs/Intake and Output Vital Signs (last 24 hours): Temp Pulse Resp BP Pulse Ox 99.2 F 70 19 125/73 98 01/09/18 00:10 01/10/18 06:00 01/09/18 08:10 01/09/18 08:00 01/09/18 08:10 Intake and Output: 01/10/18 01/10/18 06:59 18:59 Output Total 400 Balance -400 - Medications Medications: Current Medications Acetaminophen (Tylenol 325mg Tab) 650 mg PO Q6H PRN PRN Reason: Fever >100.4 F Last Admin: 12/30/17 23:05 Dose: 650 mg Apixaban (Eliquis) 5 mg PO DAILY [facility]; Protocol Last Admin: 01/07/18 10:07 Dose: Not Given Aspirin (Aspirin Chewable) 81 mg PO DAILY [facility] Last Admin: 01/07/18 10:07 Dose: Not Given Atorvastatin Calcium (Lipitor) 5 mg PO DIN [facility] Last Admin: 01/09/18 16:54 Dose: 5 mg Finasteride (Proscar) 5 mg PO DAILY [facility] Last Admin: 01/09/18 11:00 Dose: 5 mg Fludrocortisone Acetate (Florinef) 0.3 mg PO BID [facility] Last Admin: 01/09/18 18:00 Dose: 0.3 mg Hydralazine HCl (Apresoline) 10 mg IVP Q6 PRN PRN Reason: Systolic Blood Pressure Last Admin: 01/05/18 00:47 Dose: 10 mg Lactulose (Enulose) 20 gm PO DAILY [facility] Last Admin: 01/09/18 10:00 Dose: Not Given Midodrine (Proamatine) 5 mg PO DAILY [facility] Last Admin: 01/09/18 11:00 Dose: 5 mg (Dofetilide [Tikosyn (]) 250mcg) 1 tab PO Q12 [facility] Last Admin: 01/09/18 22:00 Dose: 1 tab Ondansetron HCl (Zofran Inj) 4 mg IVP ONCE PRN PRN Reason: Nausea/Vomiting Pantoprazole Sodium (Protonix Ec Tab) 40 mg PO DAILY [facility] Last Admin: 01/09/18 11:01 Dose: 40 mg Polyethylene Glycol (Miralax) 17 gm PO DAILY PRN PRN Reason: Constipation Last Admin: 01/06/18 01:47 EDT Dose: 17 gm Tetrahydrozoline HCl/Zinc Sulfate (Visine 0.05% Opht Soln) 0 ml OD Q4 PRN PRN Reason: Dry eyes - Labs Labs: 01/10/18 05:30 01/10/18 05:30 PT 19.2 SECONDS (9.4-12.5) H 12/30/17 16:30 INR 1.67 12/30/17 16:30 APTT 30.3 Seconds (25.1-36.5) 12/30/17 16:30 - Constitutional Appears: Non-toxic, No Acute Distress - Head Exam Head Exam: ATRAUMATIC, NORMAL INSPECTION, NORMOCEPHALIC - Eye Exam Eye Exam: EOMI, Normal appearance - ENT Exam ENT Exam: Mucous Membranes Moist, Normal Exam - Neck Exam Neck Exam: Full ROM, Normal Inspection - Respiratory Exam Respiratory Exam: Clear to Ausculation Bilateral, NORMAL BREATHING PATTERN. absent: Accessory Muscle Use, Rales, Rhonchi, Wheezes, Respiratory Distress, Stridor - Cardiovascular Exam Cardiovascular Exam: REGULAR RHYTHM, +S1, +S2 - GI/Abdominal Exam GI & Abdominal Exam: Soft, Normal Bowel Sounds. absent: Distended, Firm, Guarding, Rigid, Tenderness, Organomegaly - Extremities Exam Extremities Exam: Full ROM, Normal Capillary Refill, Normal Inspection. absent: Calf Tenderness, Pedal Edema - Back Exam Back Exam: NORMAL INSPECTION - Neurological Exam Neurological Exam: Alert, Awake, Oriented x3 - Psychiatric Exam Psychiatric exam: Normal Affect, Normal Mood - Skin Skin Exam: Dry, Intact, Normal Color, Warm Assessment and Plan - Assessment and Plan (Free Text) Assessment: 67 year old male with past medical history of afib on eliquis, orthostatic hypotension on midodrine and CVA with residual left side weakness who presented with complaint of recurrent syncope. Patient is status post pacemaker placement secondary to sick sinus syndrome vs. chronic bradycardia. Plan: Recurrent Syncopal Episodes - Echo: LV normal size, normal LV wall thickness, EF 74.5%; moderate mitral and tricuspid regurgitation; moderate to severe pulmonary HTN - Head CT: Chronic changes, no acute findings - Midodrine 5mg Daily, Florinef 0.3 mg PO BID, Dofetilide 1mg PO BID, IVF - Cardiology following - Neurology following Bradycardia - Patient s/p pacemaker with Dr. Carlson EP - EP Dr. Carlson consulted and following the patient - Cardiology consulted and following - Patient appears to have resting HR of 60s-70s, stable at this time Urinary retention - Urology with Dr. Montague consulted and following - Recommendations to continue with indwelling rushing - Monitoring of cardiac medications for possible side effects of urinary retention - Renal US no acute findings - CT abd/pelvis: no acute renal findings Urinary tract infection - Urology consulted and following - Patient with current rushing catheter in place, continue per urology - Patient treated with ancef and rocephin, asymptomatic at this time Hypotensive - BCx negative x 24 hrs, Urine Cx final negative - Patient BP normalized at this point PORTIA in setting of CKD - resolved at this point - Cr remains stable - Continue with hydration Previous CVA worth residual left sided deficit - ASA, Lipitor - Neurology following PPx, Diet, Disposition - Protonix 40mg Daily - Eliquis in setting of afib - Dispo: Awaiting finalization of QING; septic workup ordered negative Case discussed with Dr. Kb Griffin DO, PGY-1 <Ernst Quiles - Last Filed: 01/10/18 17:32> Objective - Vital Signs/Intake and Output Vital Signs (last 24 hours): Temp Pulse Resp BP Pulse Ox 98.1 F 70 21 175/102 H 97 01/10/18 04:00 01/10/18 15:20 01/10/18 15:10 01/10/18 15:02 01/10/18 15:20 Intake and Output: 01/10/18 01/10/18 06:59 18:59 Intake Total 580 Output Total 400 750 Balance -400 -170 - Medications Medications: Current Medications Acetaminophen (Tylenol 325mg Tab) 650 mg PO Q6H PRN PRN Reason: Fever >100.4 F Last Admin: 01/10/18 08:59 Dose: 650 mg Apixaban (Eliquis) 5 mg PO DAILY [facility]; Protocol Last Admin: 01/07/18 10:07 Dose: Not Given Aspirin (Aspirin Chewable) 81 mg PO DAILY [facility] Last Admin: 01/07/18 10:07 Dose: Not Given Atorvastatin Calcium (Lipitor) 5 mg PO DIN [facility] Last Admin: 01/09/18 16:54 Dose: 5 mg Finasteride (Proscar) 5 mg PO DAILY [facility] Last Admin: 01/10/18 11:31 Dose: 5 mg Fludrocortisone Acetate (Florinef) 0.3 mg PO BID [facility] Last Admin: 01/10/18 11:30 Dose: 0.3 mg Hydralazine HCl (Apresoline) 10 mg IVP Q6 PRN PRN Reason: Systolic Blood Pressure Last Admin: 01/05/18 00:47 Dose: 10 mg Lactulose (Enulose) 20 gm PO DAILY [facility] Last Admin: 01/10/18 11:30 Dose: Not Given Midodrine (Proamatine) 5 mg PO DAILY [facility] Last Admin: 01/10/18 11:31 Dose: 5 mg (Dofetilide [Tikosyn (]) 250mcg) 1 tab PO Q12 [facility] Last Admin: 01/10/18 11:33 Dose: 1 tab Ondansetron HCl (Zofran Inj) 4 mg IVP ONCE PRN PRN Reason: Nausea/Vomiting Pantoprazole Sodium (Protonix Ec Tab) 40 mg PO DAILY [facility] Last Admin: 01/10/18 11:31 Dose: 40 mg Polyethylene Glycol (Miralax) 17 gm PO DAILY PRN PRN Reason: Constipation Last Admin: 01/06/18 01:47 EDT Dose: 17 gm Tetrahydrozoline HCl/Zinc Sulfate (Visine 0.05% Opht Soln) 0 ml OD Q4 PRN PRN Reason: Dry eyes - Labs Labs: 01/10/18 05:30 01/10/18 05:30 PT 19.2 SECONDS (9.4-12.5) H 12/30/17 16:30 INR 1.67 12/30/17 16:30 APTT 30.3 Seconds (25.1-36.5) 12/30/17 16:30 Attending/Attestation - Attestation I have personally seen and examined this patient.: Yes I have fully participated in the care of the patient.: Yes I have reviewed all pertinent clinical information, including history, physical exam and plan: Yes Notes (Text): 01/10/18 17:30 67 year old male with past medical history of afib on eliquis, orthostatic hypotension on midodrine and CVA with residual left side weakness who presented with complaint of recurrent syncope. He was found to have significant orthostatic hypotension, bradycardia and pauses on the telemonitor. Dofetilide was on hold. Midodrine dose cannot be increased secondary to history of urinary retention. Urology is following for urinary retention and rushing is currently in place. Patient is s/p treatment for UTI. He was started on florinef. Cardiology and EPS is following and patient had pacemaker placed earlier this week. Later in the evening he was hypotensive and transferred to ICU. Blood pressure has improved after receiving iv fluids and patient is downgraded to telemetry unit. Repeat echocardiogram was reviewed. Repeat cultures are negative to date. Patient is still orthostatic with symptoms. Continue with physical therapy as tolerated who is currently recommended QING at this time. Ernst Quiles MD Hospitalist.
[2018-01-10] MEDS ORDERED: Magnesium Sulfate 1 gm in D5W 1 GM/100 ML BAG IVPB ONE (10:05)
[2018-01-10] MEDS: Pantoprazole 40 mg EC Tab PO SCH (11:31)
[2018-01-10] MEDS: DOFETILIDE PO SCH ×2 (11:33→21:09)
--- NOTE | 2018-01-11 07:51 | CP.PCM.PN ---
<Andres Griffin - Last Filed: 01/11/18 17:16> Subjective - Date & Time of Evaluation Date of Evaluation: 01/11/18 Time of Evaluation: 07:51 - Subjective Subjective: PGY-1 Medicine Progress Note for Dr. Quiles Patient seen and examined this morning. No acute overnight events reported. Continues to work with physical therapy. Spoke with patient's son Eduardo-- --informed son that urology procedure with Dr. Montague may be followed up in the outpatient setting, per Urology recs. Advised son to select rehab facility for father, reach out to social work/case management for followup and discharge plans. No headaches, changes in vision, chest pain, palpitations, sob, cough, abdominal pain, n/v/d/c. Objective - Vital Signs/Intake and Output Vital Signs (last 24 hours): Temp Pulse Resp BP Pulse Ox 98.1 F 72 20 153/79 H 9 L 01/11/18 05:54 01/11/18 05:54 01/11/18 05:54 01/11/18 05:54 01/11/18 05:54 Intake and Output: 01/11/18 01/11/18 06:59 18:59 Intake Total 180 Output Total 1900 Balance -1720 - Medications Medications: Current Medications Acetaminophen (Tylenol 325mg Tab) 650 mg PO Q6H PRN PRN Reason: Fever >100.4 F Last Admin: 01/10/18 08:59 Dose: 650 mg Apixaban (Eliquis) 5 mg PO DAILY [facility]; Protocol Last Admin: 01/07/18 10:07 Dose: Not Given Aspirin (Aspirin Chewable) 81 mg PO DAILY [facility] Last Admin: 01/07/18 10:07 Dose: Not Given Atorvastatin Calcium (Lipitor) 5 mg PO DIN [facility] Last Admin: 01/10/18 18:03 Dose: 5 mg Finasteride (Proscar) 5 mg PO DAILY [facility] Last Admin: 01/10/18 11:31 Dose: 5 mg Fludrocortisone Acetate (Florinef) 0.3 mg PO BID [facility] Last Admin: 01/10/18 18:10 Dose: 0.3 mg Hydralazine HCl (Apresoline) 10 mg IVP Q6 PRN PRN Reason: Systolic Blood Pressure Last Admin: 01/05/18 00:47 Dose: 10 mg Lactulose (Enulose) 20 gm PO DAILY [facility] Last Admin: 01/10/18 11:30 Dose: Not Given Midodrine (Proamatine) 5 mg PO DAILY [facility] Last Admin: 01/10/18 11:31 Dose: 5 mg (Dofetilide [Tikosyn (]) 250mcg) 1 tab PO Q12 [facility] Last Admin: 01/10/18 21:09 Dose: 1 tab Ondansetron HCl (Zofran Inj) 4 mg IVP ONCE PRN PRN Reason: Nausea/Vomiting Pantoprazole Sodium (Protonix Ec Tab) 40 mg PO DAILY [facility] Last Admin: 01/10/18 11:31 Dose: 40 mg Polyethylene Glycol (Miralax) 17 gm PO DAILY PRN PRN Reason: Constipation Last Admin: 01/06/18 01:47 EDT Dose: 17 gm Tetrahydrozoline HCl/Zinc Sulfate (Visine 0.05% Opht Soln) 0 ml OD Q4 PRN PRN Reason: Dry eyes - Labs Labs: 01/10/18 05:30 01/10/18 05:30 PT 19.2 SECONDS (9.4-12.5) H 12/30/17 16:30 INR 1.67 12/30/17 16:30 APTT 30.3 Seconds (25.1-36.5) 12/30/17 16:30 - Constitutional Appears: Non-toxic, No Acute Distress - Head Exam Head Exam: ATRAUMATIC, NORMAL INSPECTION, NORMOCEPHALIC - Eye Exam Eye Exam: EOMI, Normal appearance Pupil Exam: NORMAL ACCOMODATION - ENT Exam ENT Exam: Mucous Membranes Moist, Normal Exam - Neck Exam Neck Exam: Full ROM, Normal Inspection - Respiratory Exam Respiratory Exam: Clear to Ausculation Bilateral, NORMAL BREATHING PATTERN. absent: Accessory Muscle Use, Rales, Rhonchi, Wheezes, Respiratory Distress, Stridor - Cardiovascular Exam Cardiovascular Exam: REGULAR RHYTHM, +S1, +S2 - GI/Abdominal Exam GI & Abdominal Exam: Soft, Normal Bowel Sounds. absent: Distended, Firm, Guarding, Rigid, Tenderness, Organomegaly, Rebound - Extremities Exam Extremities Exam: Full ROM, Normal Capillary Refill, Normal Inspection. absent: Calf Tenderness, Joint Swelling, Pedal Edema - Back Exam Back Exam: NORMAL INSPECTION - Neurological Exam Neurological Exam: Alert, Awake, Oriented x3 - Psychiatric Exam Psychiatric exam: Normal Affect, Normal Mood - Skin Skin Exam: Dry, Intact, Normal Color, Warm Assessment and Plan - Assessment and Plan (Free Text) Assessment: 67 year old male with past medical history of afib on eliquis, orthostatic hypotension on midodrine and CVA with residual left side weakness who presented with complaint of recurrent syncope. Patient is status post pacemaker placement secondary to sick sinus syndrome vs. chronic bradycardia. Plan: Recurrent Syncopal Episodes - Echo: LV normal size, normal LV wall thickness, EF 74.5%; moderate mitral and tricuspid regurgitation; moderate to severe pulmonary HTN - Head CT: Chronic changes, no acute findings - Midodrine 5mg Daily, Florinef 0.3 mg PO BID, Dofetilide 1mg PO BID, IVF - Cardiology following - Neurology following Bradycardia - Patient s/p pacemaker with Dr. Carlson EP - EP Dr. Carlson consulted and following the patient - Cardiology consulted and following - Patient appears to have resting HR of 60s-70s, stable at this time Urinary retention - Urology with Dr. Montague consulted and following - Recommendations to continue with indwelling rushing - Finasteride may be held - Can f/u outpatient for possible TURP procedure - Monitoring of cardiac medications for possible side effects of urinary retention - Renal US no acute findings - CT abd/pelvis: no acute renal findings Urinary tract infection - Urology consulted and following - Patient with current rushing catheter in place, continue per urology - Patient treated with ancef and rocephin, asymptomatic at this time Hypotensive - BCx negative x 24 hrs, Urine Cx final negative - Patient BP normalized at this point PORTIA in setting of CKD - resolved at this point - Cr remains stable - Continue with hydration Previous CVA worth residual left sided deficit - ASA, Lipitor - Neurology following PPx, Diet, Disposition - Protonix 40mg Daily - Eliquis in setting of afib - Dispo: Awaiting finalization of [facility], case management/social work on board. Awaiting final coordination between son and social work. Case discussed with Dr. Kb Griffin DO, PGY-1 <Ernst Quiles - Last Filed: 01/11/18 18:03> Objective - Vital Signs/Intake and Output Vital Signs (last 24 hours): Temp Pulse Resp BP Pulse Ox 98.5 F 69 18 165/107 H 9 L 01/11/18 17:05 01/11/18 17:05 01/11/18 17:05 01/11/18 11:31 01/11/18 05:54 Intake and Output: 01/11/18 01/11/18 06:59 18:59 Intake Total 180 Output Total 1900 Balance -1720 - Medications Medications: Current Medications Acetaminophen (Tylenol 325mg Tab) 650 mg PO Q6H PRN PRN Reason: Fever >100.4 F Last Admin: 01/11/18 12:28 Dose: 650 mg Apixaban (Eliquis) 5 mg PO DAILY [facility]; Protocol Last Admin: 01/11/18 10:00 Dose: 5 mg Aspirin (Aspirin Chewable) 81 mg PO DAILY [facility] Last Admin: 01/11/18 10:00 Dose: 81 mg Atorvastatin Calcium (Lipitor) 5 mg PO DIN [facility] Last Admin: 01/11/18 16:45 Dose: 5 mg Finasteride (Proscar) 5 mg PO DAILY [facility] Last Admin: 01/11/18 10:00 Dose: 5 mg Fludrocortisone Acetate (Florinef) 0.3 mg PO BID [facility] Last Admin: 01/11/18 10:00 Dose: 0.3 mg Hydralazine HCl (Apresoline) 10 mg IVP Q6 PRN PRN Reason: Systolic Blood Pressure Last Admin: 01/05/18 00:47 Dose: 10 mg Lactulose (Enulose) 20 gm PO DAILY [facility] Last Admin: 01/11/18 12:24 Dose: Not Given Midodrine (Proamatine) 5 mg PO DAILY [facility] Last Admin: 01/11/18 10:00 Dose: 5 mg (Dofetilide [Tikosyn (]) 250mcg) 1 tab PO Q12 [facility] Last Admin: 01/10/18 21:09 Dose: 1 tab Ondansetron HCl (Zofran Inj) 4 mg IVP ONCE PRN PRN Reason: Nausea/Vomiting Pantoprazole Sodium (Protonix Ec Tab) 40 mg PO DAILY [facility] Last Admin: 01/11/18 10:00 Dose: 40 mg Polyethylene Glycol (Miralax) 17 gm PO DAILY PRN PRN Reason: Constipation Last Admin: 01/06/18 01:47 EDT Dose: 17 gm Tetrahydrozoline HCl/Zinc Sulfate (Visine 0.05% Opht Soln) 0 ml OD Q4 PRN PRN Reason: Dry eyes - Labs Labs: 01/11/18 08:45 01/11/18 08:45 PT 19.2 SECONDS (9.4-12.5) H 12/30/17 16:30 INR 1.67 12/30/17 16:30 APTT 30.3 Seconds (25.1-36.5) 12/30/17 16:30 Attending/Attestation - Attestation I have personally seen and examined this patient.: Yes I have fully participated in the care of the patient.: Yes I have reviewed all pertinent clinical information, including history, physical exam and plan: Yes Notes (Text): 01/11/18 17:49 67 year old male with past medical history of afib on eliquis, orthostatic hypotension on midodrine and CVA with residual left side weakness who presented with complaint of recurrent syncope. He was found to have significant orthostatic hypotension, bradycardia and pauses on the telemonitor. He is on midodrine which cannot be increased secondary to history of urinary retention. He is also on florinef. Case was discussed with urology and finasteride will be held for now as patient has rushing. He will need outpatient TURP as per urology. Cardiology and EPS is following and patient had pacemaker placed earlier this week. Later in the evening he was hypotensive and transferred to ICU. Blood pressure has improved after receiving iv fluids and patient was downgraded to telemetry unit. Repeat echocardiogram was reviewed. Repeat cultures are negative to date. Continue with physical therapy as tolerated who is currently recommended [facility] at this time. Will replete and repeat potassium. Patient is s/p treatment for UTI. D/c planning to [facility] if accepted and bed available. Ernst Quiles MD Hospitalist.
[2018-01-11 09:03] LABS: EOS % 4.4 % (1.5-5.0); GRAN # 1.8 (1.4-6.5); HEMOGLOBIN 11.1 g/dL (14.0-18.0); LYMPH # 0.9 (1.2-3.4); LYMPH % 26.9 % (22.0-35.0); MEAN CELL VOLUME 77.6 fl (80.0-105.0); MEAN CORPUSCULAR HEMOGLOBIN 25.6 pg (25.0-35.0); MEAN CORPUSCULAR HGB CONC 32.9 g/dl (31.0-37.0); MEAN PLATELET VOLUME 9.8 fl (7.0-11.0); MONO % 11.7 % (1.0-6.0); RBC 4.34 10^6/uL (3.5-6.1); RED CELL DISTRIBUTION WIDTH 14.7 % (11.5-14.5); WHITE BLOOD COUNT 3.2 10^3/uL (4.5-11.0)
[2018-01-11 09:04] LABS: EOS # 0.1 (0.0-0.7); MONO # 0.4 (0.1-0.6)
[2018-01-11 09:13] LABS: ALB/GLOB RATIO 0.9 (1.1-1.8); ALBUMIN 3.2 g/dL (3.0-4.8); ALT/SGPT 29 U/L (7-56); AST/SGOT 27 U/L (17-59); BLOOD UREA NITROGEN 12 mg/dL (7-21); CALCIUM 8.5 mg/dL (8.4-10.5); GFR NON-AFRICAN AMERICAN > 60
[2018-01-11] MEDS: DOFETILIDE PO SCH ×2 (10:00→21:01)
[2018-01-11] MEDS: Pantoprazole 40 mg EC Tab PO SCH (10:00)
--- NOTE | 2018-01-11 14:17 | PN ---
DATE: 01/11/2018 FOLLOWUP SUBJECTIVE: The patient was transferred to telemetry. There is no reported postural hypotension yet; however, he is mostly in bed. PHYSICAL EXAMINATION: VITAL SIGNS: Blood pressure 165/107, heart rate 69, temperature 97.8, respirations 18. HEENT: Normocephalic. CHEST: Clear. HEART: S1 and S2 regular. EXTREMITIES: No edema. LABORATORY DATA: Today's hemoglobin and hematocrit 11.1 and 33.7, white count 3.2, platelet count 157,000. Today's SMA-7 is within normal limits except for potassium 3.1 and anion gap of 9. ASSESSMENT: 1. Dysautonomia and postural hypotension. 2. Status post dual-chamber pacemaker placement. 3. Benign prostatic hypertension requiring an indwelling Heard catheter. 5. Hypertension. RECOMMENDATIONS: Case was discussed with Dr. Quiles. The patient can be transferred to subacute rehab on his current medications including dofetilide 250 mg every 12 hours, aspirin 81 mg once a day, Eliquis 40 mg daily, Lipitor at 5 mg daily, ProAmatine 5 mg daily. Cystoscopy will be entertained later after the patient is hemodynamically stable. Vic Tripp MD
[2018-01-11] MEDS ORDERED: Potassium Chloride 20 mEq ER Tab PO ONE (15:58)
--- NOTE | 2018-01-12 06:29 | CP.PCM.PN ---
<Segundo Villegas - Last Filed: 01/13/18 07:07> Subjective - Date & Time of Evaluation Date of Evaluation: 01/12/18 Time of Evaluation: 06:24 - Subjective Subjective: Lei Villegas PGY2 IM Progress Note Patient seen and examined this AM. No acute events overnight reported. Patient vital signs are noted to be stable. Objective - Vital Signs/Intake and Output Vital Signs (last 24 hours): Temp Pulse Resp BP Pulse Ox 98.2 F 68 20 133/80 98 01/12/18 06:00 01/12/18 06:00 01/12/18 06:00 01/12/18 06:00 01/12/18 06:00 Intake and Output: 01/11/18 01/12/18 18:59 06:59 Intake Total 1080 Output Total 1575 Balance -495 - Medications Medications: Current Medications Acetaminophen (Tylenol 325mg Tab) 650 mg PO Q6H PRN PRN Reason: Fever >100.4 F Last Admin: 01/11/18 12:28 Dose: 650 mg Apixaban (Eliquis) 5 mg PO DAILY [facility]; Protocol Last Admin: 01/11/18 10:00 Dose: 5 mg Aspirin (Aspirin Chewable) 81 mg PO DAILY [facility] Last Admin: 01/11/18 10:00 Dose: 81 mg Atorvastatin Calcium (Lipitor) 5 mg PO DIN [facility] Last Admin: 01/11/18 16:45 Dose: 5 mg Finasteride (Proscar) 5 mg PO DAILY [facility] Last Admin: 01/11/18 10:00 Dose: 5 mg Fludrocortisone Acetate (Florinef) 0.3 mg PO BID [facility] Last Admin: 01/11/18 18:57 Dose: 0.3 mg Hydralazine HCl (Apresoline) 10 mg IVP Q6 PRN PRN Reason: Systolic Blood Pressure Last Admin: 01/05/18 00:47 Dose: 10 mg Lactulose (Enulose) 20 gm PO DAILY [facility] Last Admin: 01/11/18 12:24 Dose: Not Given Midodrine (Proamatine) 5 mg PO DAILY [facility] Last Admin: 01/11/18 10:00 Dose: 5 mg (Dofetilide [Tikosyn (]) 250mcg) 1 tab PO Q12 [facility] Last Admin: 01/11/18 21:01 Dose: 1 tab Ondansetron HCl (Zofran Inj) 4 mg IVP ONCE PRN PRN Reason: Nausea/Vomiting Pantoprazole Sodium (Protonix Ec Tab) 40 mg PO DAILY [facility] Last Admin: 01/11/18 10:00 Dose: 40 mg Polyethylene Glycol (Miralax) 17 gm PO DAILY PRN PRN Reason: Constipation Last Admin: 01/06/18 01:47 EDT Dose: 17 gm Tetrahydrozoline HCl/Zinc Sulfate (Visine 0.05% Opht Soln) 0 ml OD Q4 PRN PRN Reason: Dry eyes - Labs Labs: 01/11/18 08:45 01/11/18 08:45 PT 19.2 SECONDS (9.4-12.5) H 12/30/17 16:30 INR 1.67 12/30/17 16:30 APTT 30.3 Seconds (25.1-36.5) 12/30/17 16:30 - Constitutional Appears: No Acute Distress - Head Exam Head Exam: ATRAUMATIC, NORMAL INSPECTION, NORMOCEPHALIC - Eye Exam Eye Exam: EOMI, PERRL - ENT Exam ENT Exam: Mucous Membranes Moist - Respiratory Exam Respiratory Exam: Clear to Ausculation Bilateral, NORMAL BREATHING PATTERN - Cardiovascular Exam Cardiovascular Exam: REGULAR RHYTHM, +S1, +S2 - GI/Abdominal Exam GI & Abdominal Exam: Soft, Normal Bowel Sounds - Extremities Exam Extremities Exam: absent: Calf Tenderness, Pedal Edema - Neurological Exam Neurological Exam: Alert, Awake, Oriented x3 Neuro motor strength exam: Left Upper Extremity: 5, Right Upper Extremity: 5, Left Lower Extremity: 5, Right Lower Extremity: 5 - Psychiatric Exam Psychiatric exam: Normal Affect, Normal Mood - Skin Skin Exam: Dry, Warm Assessment and Plan - Assessment and Plan (Free Text) Assessment: 67 year old male with past medical history of atrial fibrillation on Eliquis, orthostatic hypotension on midodrine and CVA with left sided residual weakness with original presentation of recurrent syncope. Patient evaluated and found to have orthostatic hypotension, bradycardia s/p pacemaker. 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 Plan: Recurrent Syncopal Episodes - Echo: LV normal size, normal LV wall thickness, EF 74.5%; moderate mitral and tricuspid regurgitation; moderate to severe pulmonary HTN - Head CT: Chronic changes, no acute findings Florinef 0.3 mg PO BID - Cardiology following - stable for transfer to [facility] - Continue Dofetilide 250 mg PO BID, ASA 81mg Daily, Eliquis 40mg daily, Lipitor 5mg daily, Proamatine 5mg daily - Neurology following Bradycardia s/p pacemaker - EPS Dr. Carlson following - Cardiology consulted and following - Continue current management Urinary retention - Urology with Dr. Montague consulted and following - Recommendations to continue with indwelling rushing - Finasteride may be held - Can f/u outpatient for possible TURP procedure - Renal US no acute findings - CT abd/pelvis: no acute renal findings Urinary tract infection - Patient treated with ancef and rocephin - Asymptomatic, afebrile, neutropenia Previous CVA worth residual left sided deficit - ASA, Lipitor - Neurology following - Continue PT as tolerated PPx, Diet, Disposition - Protonix 40mg Daily - Eliquis in setting of afib - Dispo: Awaiting finalization of [facility], case management/social work on board. Awaiting final coordination between son and social work Patient seen, case and plan approved by attending, Dr. Quiles <Ernst Quiles - Last Filed: 01/13/18 07:19> Objective - Vital Signs/Intake and Output Vital Signs (last 24 hours): Temp Pulse Resp BP Pulse Ox 98.1 F 71 20 132/88 98 01/13/18 06:00 01/13/18 06:00 01/13/18 06:00 01/13/18 06:00 01/13/18 00:01 Intake and Output: 01/13/18 01/13/18 06:59 18:59 Intake Total 540 Output Total 2400 Balance -1860 - Medications Medications: Current Medications Acetaminophen (Tylenol 325mg Tab) 650 mg PO Q6H PRN PRN Reason: Fever >100.4 F Last Admin: 01/11/18 12:28 Dose: 650 mg Apixaban (Eliquis) 5 mg PO DAILY [facility]; Protocol Last Admin: 01/12/18 10:36 Dose: 5 mg Aspirin (Aspirin Chewable) 81 mg PO DAILY [facility] Last Admin: 01/12/18 10:36 Dose: 81 mg Atorvastatin Calcium (Lipitor) 5 mg PO DIN [facility] Last Admin: 01/12/18 18:24 Dose: 5 mg Finasteride (Proscar) 5 mg PO DAILY [facility] Last Admin: 01/11/18 10:00 Dose: 5 mg Fludrocortisone Acetate (Florinef) 0.3 mg PO BID [facility] Last Admin: 01/12/18 18:23 Dose: 0.3 mg Hydralazine HCl (Apresoline) 10 mg IVP Q6 PRN PRN Reason: Systolic Blood Pressure Last Admin: 01/05/18 00:47 Dose: 10 mg Lactulose (Enulose) 20 gm PO DAILY [facility] Last Admin: 01/12/18 10:37 Dose: 20 gm Midodrine (Proamatine) 5 mg PO DAILY [facility] Last Admin: 01/12/18 10:36 Dose: 5 mg (Dofetilide [Tikosyn (]) 250mcg) 1 tab PO Q12 [facility] Last Admin: 01/12/18 21:29 Dose: 1 tab Ondansetron HCl (Zofran Inj) 4 mg IVP ONCE PRN PRN Reason: Nausea/Vomiting Pantoprazole Sodium (Protonix Ec Tab) 40 mg PO DAILY [facility] Last Admin: 01/12/18 10:36 Dose: 40 mg Polyethylene Glycol (Miralax) 17 gm PO DAILY PRN PRN Reason: Constipation Last Admin: 01/12/18 18:23 Dose: 17 gm Tetrahydrozoline HCl/Zinc Sulfate (Visine 0.05% Opht Soln) 0 ml OD Q4 PRN PRN Reason: Dry eyes - Labs Labs: 01/12/18 07:00 01/12/18 07:00 PT 19.2 SECONDS (9.4-12.5) H 12/30/17 16:30 INR 1.67 12/30/17 16:30 APTT 30.3 Seconds (25.1-36.5) 12/30/17 16:30 Attending/Attestation - Attestation I have personally seen and examined this patient.: Yes I have fully participated in the care of the patient.: Yes I have reviewed all pertinent clinical information, including history, physical exam and plan: Yes Notes (Text): 01/12/18 67 year old male with past medical history of afib on eliquis, orthostatic hypotension on midodrine and CVA with residual left side weakness who presented with complaint of recurrent syncope. He was found to have significant orthostatic hypotension, bradycardia and pauses on the telemonitor. He is on midodrine which cannot be increased secondary to history of urinary retention. He is also on florinef. Case was discussed with urology and finasteride will be held for now as patient has rushing. He will need outpatient TURP as per urology. Continue with PT as tolerated. His orthostatics have actually improved yesterday. Cardiology and EPS is following and patient had pacemaker placed earlier this week. Later in the evening he was hypotensive and transferred to ICU. Blood pressure has improved after receiving iv fluids and patient was downgraded to telemetry unit. Repeat echocardiogram was reviewed. Repeat cultures are negative to date. Patient is s/p treatment for UTI. D/c planning to [facility] if accepted and bed available likely early next week. Ernst Quiles MD Hospitalist.
[2018-01-12 08:01] LABS: EOS # 0.1 (0.0-0.7); GRAN # 1.81 (1.4-6.5); GRAN % 51.9 % (50.0-68.0); HEMOGLOBIN 10.4 g/dL (14.0-18.0); LYMPH # 1.1 (1.2-3.4); LYMPH % 31.8 % (22.0-35.0); MEAN CORPUSCULAR HEMOGLOBIN 25.4 pg (25.0-35.0); MEAN CORPUSCULAR HGB CONC 32.6 g/dl (31.0-37.0); MEAN PLATELET VOLUME 10.2 fl (7.0-11.0); MONO # 0.4 (0.1-0.6); MONO % 12.3 % (1.0-6.0); RBC 4.09 10^6/uL (3.5-6.1); RED CELL DISTRIBUTION WIDTH 14.9 % (11.5-14.5); WHITE BLOOD COUNT 3.5 10^3/uL (4.5-11.0)
[2018-01-12 08:17] LABS: ALB/GLOB RATIO 0.9 (1.1-1.8); ALBUMIN 2.9 g/dL (3.0-4.8); ALT/SGPT 26 U/L (7-56); AST/SGOT 27 U/L (17-59); BLOOD UREA NITROGEN 12 mg/dL (7-21); CALCIUM 8.5 mg/dL (8.4-10.5); GFR NON-AFRICAN AMERICAN > 60
[2018-01-12] MEDS: DOFETILIDE PO SCH ×2 (10:36→21:29)
[2018-01-12] MEDS: Pantoprazole 40 mg EC Tab PO SCH (10:36)
[2018-01-12] MEDS: POLYETHYLENE GLYCOL 3350 17 GM/Dose PACKET PO PRN (18:23)
[2018-01-13 07:39] LABS: EOS # 0.1 (0.0-0.7); EOS % 4.1 % (1.5-5.0); GRAN # 1.6 (1.4-6.5); HEMOGLOBIN 10.8 g/dL (14.0-18.0); LYMPH # 0.9 (1.2-3.4); LYMPH % 27.1 % (22.0-35.0); MEAN CELL VOLUME 78.3 fl (80.0-105.0); MEAN CORPUSCULAR HEMOGLOBIN 25.5 pg (25.0-35.0); MEAN CORPUSCULAR HGB CONC 32.5 g/dl (31.0-37.0); MEAN PLATELET VOLUME 10.1 fl (7.0-11.0); MONO # 0.6 (0.1-0.6); MONO % 17.8 % (1.0-6.0); RBC 4.24 10^6/uL (3.5-6.1); RED CELL DISTRIBUTION WIDTH 15.2 % (11.5-14.5); WHITE BLOOD COUNT 3.1 10^3/uL (4.5-11.0)
[2018-01-13 07:48] LABS: ALB/GLOB RATIO 0.9 (1.1-1.8); ALBUMIN 2.9 g/dL (3.0-4.8); ALT/SGPT 30 U/L (7-56); AST/SGOT 26 U/L (17-59); BLOOD UREA NITROGEN 10 mg/dL (7-21); CALCIUM 8.2 mg/dL (8.4-10.5); GFR NON-AFRICAN AMERICAN > 60
--- NOTE | 2018-01-13 07:49 | CP.PCM.PN ---
<Segundo Villegas - Last Filed: 01/13/18 12:20> Subjective - Date & Time of Evaluation Date of Evaluation: 01/13/18 Time of Evaluation: 07:46 - Subjective Subjective: Lei Villegas PGY2 - IM Progress Note Patient seen and examined this AM. No acute events reported overnight. Patient reports continued left shoulder discomfort. Patient reported to be hypotensive during rounds. Patient reports continued dizziness symptoms but denies syncopal events. Objective - Vital Signs/Intake and Output Vital Signs (last 24 hours): Temp Pulse Resp BP Pulse Ox 98.1 F 71 20 132/88 98 01/13/18 06:00 01/13/18 06:00 01/13/18 06:00 01/13/18 06:00 01/13/18 00:01 Intake and Output: 01/13/18 01/13/18 06:59 18:59 Intake Total 540 Output Total 2400 Balance -1860 - Medications Medications: Current Medications Acetaminophen (Tylenol 325mg Tab) 650 mg PO Q6H PRN PRN Reason: Fever >100.4 F Last Admin: 01/11/18 12:28 Dose: 650 mg Apixaban (Eliquis) 5 mg PO DAILY [facility]; Protocol Last Admin: 01/12/18 10:36 Dose: 5 mg Aspirin (Aspirin Chewable) 81 mg PO DAILY [facility] Last Admin: 01/12/18 10:36 Dose: 81 mg Atorvastatin Calcium (Lipitor) 5 mg PO DIN [facility] Last Admin: 01/12/18 18:24 Dose: 5 mg Finasteride (Proscar) 5 mg PO DAILY [facility] Last Admin: 01/11/18 10:00 Dose: 5 mg Fludrocortisone Acetate (Florinef) 0.3 mg PO BID [facility] Last Admin: 01/12/18 18:23 Dose: 0.3 mg Hydralazine HCl (Apresoline) 10 mg IVP Q6 PRN PRN Reason: Systolic Blood Pressure Last Admin: 01/05/18 00:47 Dose: 10 mg Lactulose (Enulose) 20 gm PO DAILY [facility] Last Admin: 01/12/18 10:37 Dose: 20 gm Midodrine (Proamatine) 5 mg PO DAILY [facility] Last Admin: 01/12/18 10:36 Dose: 5 mg (Dofetilide [Tikosyn (]) 250mcg) 1 tab PO Q12 NERY Last Admin: 01/12/18 21:29 Dose: 1 tab Ondansetron HCl (Zofran Inj) 4 mg IVP ONCE PRN PRN Reason: Nausea/Vomiting Pantoprazole Sodium (Protonix Ec Tab) 40 mg PO DAILY NERY Last Admin: 01/12/18 10:36 Dose: 40 mg Polyethylene Glycol (Miralax) 17 gm PO DAILY PRN PRN Reason: Constipation Last Admin: 01/12/18 18:23 Dose: 17 gm Tetrahydrozoline HCl/Zinc Sulfate (Visine 0.05% Opht Soln) 0 ml OD Q4 PRN PRN Reason: Dry eyes - Labs Labs: 01/13/18 07:00 01/12/18 07:00 PT 19.2 SECONDS (9.4-12.5) H 12/30/17 16:30 INR 1.67 12/30/17 16:30 APTT 30.3 Seconds (25.1-36.5) 12/30/17 16:30 - Constitutional Appears: No Acute Distress - Head Exam Head Exam: ATRAUMATIC, NORMAL INSPECTION, NORMOCEPHALIC - Eye Exam Eye Exam: EOMI, PERRL - ENT Exam ENT Exam: Mucous Membranes Moist - Respiratory Exam Respiratory Exam: Clear to Ausculation Bilateral, NORMAL BREATHING PATTERN - Cardiovascular Exam Cardiovascular Exam: REGULAR RHYTHM, +S1, +S2 - GI/Abdominal Exam GI & Abdominal Exam: Soft, Normal Bowel Sounds - Extremities Exam Extremities Exam: absent: Tenderness - Neurological Exam Neurological Exam: Alert, Awake, Oriented x3 Neuro motor strength exam: Left Upper Extremity: 5, Right Upper Extremity: 5, Left Lower Extremity: 5, Right Lower Extremity: 5 - Psychiatric Exam Psychiatric exam: Normal Affect, Normal Mood - Skin Skin Exam: Dry, Warm Assessment and Plan - Assessment and Plan (Free Text) Assessment: 67 year old male with past medical history of atrial fibrillation on Eliquis, orthostatic hypotension on midodrine and CVA with left sided residual weakness with original presentation of recurrent syncope. Patient evaluated and found to have orthostatic hypotension, bradycardia s/p pacemaker. Patient is being followed by career services coordinator for recurrent syncope, animal care specialist for bradycardia s/p bradycardia, urology for urinary retention. Plan: Recurrent Syncopal Episodes - Echo: LV normal size, normal LV wall thickness, EF 74.5%; moderate mitral and tricuspid regurgitation; moderate to severe pulmonary HTN - Head CT: Chronic changes, no acute findings Florinef 0.3 mg PO BID - Cardiology following - stable for transfer to [facility] - Continue Dofetilide 250 mg PO BID, ASA 81mg Daily, Eliquis 40mg daily, Li pitor 5mg daily, Proamatine 5mg daily - Neurology following Orthostatic Hypotension - Patient with continued positive orthostatic hypotension - Patient euvolemic with continued symptoms of dizziness - Appears chronic in nature, continue to monitor Bradycardia s/p pacemaker - Cardiology consulted and following - Continue current management Urinary retention - Urology with Dr. Montague consulted and following - Recommendations to continue with indwelling rushing - Finasteride may be held - Can f/u outpatient for possible TURP procedure - Renal US no acute findings - CT abd/pelvis: no acute renal findings Urinary tract infection - Patient treated with ancef and rocephin - Asymptomatic, afebrile, neutropenia Previous CVA worth residual left sided deficit - ASA, Lipitor - Neurology following - Continue PT as tolerated PPx, Diet, Disposition - Protonix 40mg Daily - Eliquis in setting of afib Dispo: Patient planning to go to [facility] if accepted. Patient seen, case and plan approved by attending, Dr. Quiles <Ernst Quiles - Last Filed: 01/13/18 15:21> Objective - Vital Signs/Intake and Output Vital Signs (last 24 hours): Temp Pulse Resp BP Pulse Ox 98.2 F 70 16 151/92 H 99 01/13/18 12:00 01/13/18 12:00 01/13/18 12:00 01/13/18 12:00 01/13/18 10:23 Intake and Output: 01/13/18 01/13/18 06:59 18:59 Intake Total 540 Output Total 2400 Balance -1860 - Medications Medications: Current Medications Acetaminophen (Tylenol 325mg Tab) 650 mg PO Q6H PRN PRN Reason: Fever >100.4 F Last Admin: 01/11/18 12:28 Dose: 650 mg Apixaban (Eliquis) 5 mg PO DAILY [facility]; Protocol Last Admin: 01/13/18 10:24 Dose: 5 mg Aspirin (Aspirin Chewable) 81 mg PO DAILY [facility] Last Admin: 01/13/18 10:24 Dose: 81 mg Atorvastatin Calcium (Lipitor) 5 mg PO DIN [facility] Last Admin: 01/12/18 18:24 Dose: 5 mg Finasteride (Proscar) 5 mg PO DAILY [facility] Last Admin: 01/11/18 10:00 Dose: 5 mg Fludrocortisone Acetate (Florinef) 0.3 mg PO BID [facility] Last Admin: 01/13/18 10:23 Dose: 0.3 mg Hydralazine HCl (Apresoline) 10 mg IVP Q6 PRN PRN Reason: Systolic Blood Pressure Last Admin: 01/05/18 00:47 Dose: 10 mg Lactulose (Enulose) 20 gm PO DAILY [facility] Last Admin: 01/13/18 10:24 Dose: 20 gm Midodrine (Proamatine) 5 mg PO DAILY [facility] Last Admin: 01/13/18 10:23 Dose: 5 mg (Dofetilide [Tikosyn (]) 250mcg) 1 tab PO Q12 [facility] Last Admin: 01/13/18 10:24 Dose: 1 tab Ondansetron HCl (Zofran Inj) 4 mg IVP ONCE PRN PRN Reason: Nausea/Vomiting Pantoprazole Sodium (Protonix Ec Tab) 40 mg PO DAILY [facility] Last Admin: 01/13/18 10:23 Dose: 40 mg Polyethylene Glycol (Miralax) 17 gm PO DAILY PRN PRN Reason: Constipation Last Admin: 01/12/18 18:23 Dose: 17 gm Tetrahydrozoline HCl/Zinc Sulfate (Visine 0.05% Opht Soln) 0 ml OD Q4 PRN PRN Reason: Dry eyes - Labs Labs: 01/13/18 07:00 01/13/18 14:20 PT 19.2 SECONDS (9.4-12.5) H 12/30/17 16:30 INR 1.67 12/30/17 16:30 APTT 30.3 Seconds (25.1-36.5) 12/30/17 16:30 Attending/Attestation - Attestation I have personally seen and examined this patient.: Yes I have fully participated in the care of the patient.: Yes I have reviewed all pertinent clinical information, including history, physical exam and plan: Yes Notes (Text): 01/13/18 15:20 67 year old male with past medical history of afib on eliquis, orthostatic hypotension on midodrine and CVA with residual left side weakness who presented with complaint of recurrent syncope. He was found to have significant orthostatic hypotension, bradycardia and pauses on the telemonitor. Patient was also seen by cardiology and EPS and s/p pacemaker placed earlier this week. He is on midodrine which cannot be increased secondary to history of urinary retention. He is also on florinef. Case was discussed with urology who agreed to hold his finasteride for now as patient has rushing. He will need outpatient TURP as per urology. Continue with PT as tolerated. Patient is s/p treatment for UTI. Will replete and repeat lytes (potassium). D/c planning to [facility] if accepted and bed available. Ernst Quiles MD Hospitalist.
[2018-01-13] MEDS ORDERED: Potassium Chloride 20 mEq ER Tab PO STA (08:03)
[2018-01-13] MEDS: Pantoprazole 40 mg EC Tab PO SCH (10:23)
[2018-01-13] MEDS: DOFETILIDE PO SCH ×2 (10:24→21:51)
[2018-01-13 14:55] LABS: BLOOD UREA NITROGEN 12 mg/dL (7-21); CALCIUM 8.1 mg/dL (8.4-10.5); GFR NON-AFRICAN AMERICAN > 60
[2018-01-14 07:13] LABS: BASO # 0.01 K/mm3 (0.0-2.0); BASO % 0.3 % (0.0-3.0); EOS # 0.3 (0.0-0.7); EOS % 6.9 % (1.5-5.0); GRAN # 2.03 (1.4-6.5); GRAN % 52.2 % (50.0-68.0); HEMOGLOBIN 10.4 g/dL (14.0-18.0); LYMPH # 1.2 (1.2-3.4); LYMPH % 30.1 % (22.0-35.0); MEAN CELL VOLUME 78.9 fl (80.0-105.0); MEAN CORPUSCULAR HEMOGLOBIN 25.9 pg (25.0-35.0); MEAN CORPUSCULAR HGB CONC 32.8 g/dl (31.0-37.0); MEAN PLATELET VOLUME 10.1 fl (7.0-11.0); MONO # 0.4 (0.1-0.6); MONO % 10.5 % (1.0-6.0); RBC 4.02 10^6/uL (3.5-6.1); RED CELL DISTRIBUTION WIDTH 15.4 % (11.5-14.5); WHITE BLOOD COUNT 3.9 10^3/uL (4.5-11.0)
[2018-01-14 07:46] LABS: ALB/GLOB RATIO 0.9 (1.1-1.8); ALBUMIN 2.7 g/dL (3.0-4.8); ALT/SGPT 26 U/L (7-56); AST/SGOT 22 U/L (17-59); BLOOD UREA NITROGEN 11 mg/dL (7-21); CALCIUM 8.3 mg/dL (8.4-10.5); GFR NON-AFRICAN AMERICAN > 60
[2018-01-14] MEDS ORDERED: Potassium Chloride 20 mEq ER Tab PO ONE (08:22)
[2018-01-14] MEDS: DOFETILIDE PO SCH ×2 (09:01→21:50)
[2018-01-14] MEDS: Pantoprazole 40 mg EC Tab PO SCH (09:01)
--- NOTE | 2018-01-14 10:20 | PCM.URO ---
Urology Progress Note - Subjective Abdominal Pain: Yes (discontinue rushing -- my best recommendation ) Flank Pain: Yes (is to keep the catheter in place. see dictated note) - Objective Lab Results Last 24 Hours: Laboratory Results - last 24 hr 01/13/18 01/14/18 01/14/18 14:20 06:30 06:30 WBC 3.9 L D RBC 4.02 Hgb 10.4 L Hct 31.7 L MCV 78.9 L MCH 25.9 MCHC 32.8 RDW 15.4 H Plt Count 150 MPV 10.1 Gran % 52.2 Lymph % (Auto) 30.1 [place] % (Auto) 10.5 H Eos % (Auto) 6.9 H Baso % (Auto) 0.3 Gran # 2.03 Lymph # (Auto) 1.2 [place] # (Auto) 0.4 Eos # (Auto) 0.3 Baso # (Auto) 0.01 Sodium 139 141 Potassium 3.6 3.1 L Chloride 103 104 Carbon Dioxide 30 33 Anion Gap 9 L 7 L BUN 12 11 Creatinine 0.9 0.8 Est GFR ( Amer) > 60 > 60 Est GFR (Non-Af Amer) > 60 > 60 Random Glucose 131 H 97 Calcium 8.1 L 8.3 L Total Bilirubin 0.5 AST 22 ALT 26 Alkaline Phosphatase 77 Total Protein 5.8 Albumin 2.7 L Globulin 3.0 Albumin/Globulin Ratio 0.9 L Intake & Output: Intake & Output 01/13/18 01/14/18 01/14/18 18:59 06:59 18:59 Intake Total 200 1470 Output Total 3725 Balance 200 -2255 Weight 192 lb 8 oz Intake: IV 200 Left Thumb 200 Oral 1470 Output: Urine 3725 Urethral (Rushing) 3725 Other: # Bowel Movements 1 Vital Signs: Vital Signs - 24 hr 01/13/18 01/13/18 01/13/18 10:23 12:00 14:00 Temperature 98.2 F Pulse Rate 70 70 70 Respiratory 16 Rate Blood Pressure 75/45 L 151/92 H O2 Sat by Pulse 99 Oximetry 01/13/18 01/13/18 01/14/18 18:00 22:00 00:01 Temperature 98.2 F 98.6 F Pulse Rate 70 70 70 Respiratory 17 18 Rate Blood Pressure 144/86 127/75 O2 Sat by Pulse Oximetry 01/14/18 01/14/18 02:00 06:00 Temperature 98.1 F Pulse Rate 70 69 Respiratory 20 Rate Blood Pressure 108/77 O2 Sat by Pulse 98 Oximetry
--- NOTE | 2018-01-14 12:28 | PN ---
DATE: 01/11/2018 SUBJECTIVE: The patient is currently resting comfortably, he is no longer in the ICU. Heard catheter is in place. Draining clear yellow. See the plan as below. DIAGNOSIS: Urinary retention. The plan is as follows. We will discuss options. We will consider workup. There is a plan for rehab medicine. We have to discuss the timing of the workup. Perhaps if the patient is medically cleared, we could do some more diagnostics studies. I have explained to the patient and the son concerning a neurogenic bladder and a neurogenic component. That even if it is BPH and we open up his prostate, he still will have trouble urinating from lack of bladder contractions. We just spoke in his case to do urodynamic studies. So for now the plan is as follows, Heard catheter. We will discuss further Urology workup and the timing of such, whether as an inpatient or whether as an outpatient. We could do all the testing as an outpatient if the patient is cleared medically. The son is concerned about his orthostatic. Kemar Montague MD
--- NOTE | 2018-01-14 12:36 | PN ---
DATE: 01/14/2018 UROLOGY PROGRESS NOTE SUBJECTIVE: Patient is currently resting comfortably, had many conversations, see the many previously dictated. I had many conversations with the son over the weekend in the last week. He attributes his orthostatic hypotension secondary to Heard catheter, and he has asked me to take the catheter out. He is also asking for further diagnostic studies, see the many previously discussed conversations. I am not sure that the orthostatic hypotension is related to Heard catheter, but I am going to remove it today. I believe the patient will be back in retention, see the previous notes. However, the patient and his son are sure that is related. I did discuss that if he can urinate, it would be unsafe to do further diagnostic studies. He is still currently on telemetry, so we would offer then a suprapubic catheter with minimal anesthesia, and then see how he responds to this, at least have an empty bladder. See plans listed below. PAST MEDICAL AND SURGICAL: No other changes. REVIEW OF SYSTEMS: Noted above. PHYSICAL EXAMINATION: GENERAL: Well-nourished male. VITAL SIGNS: Within normal limits and included the chart. ABDOMEN: Overall soft. GENITOURINARY: Catheter is in place. Draining well. DIAGNOSES: Urinary retention, voiding dysfunction amongst many other medical problems. ASSESSMENT AND PLAN: In summary, a very pleasant gentleman, he is currently 67 years old. He has a recent pacemaker, these medical issues have been worked up from Urology standpoint. PLAN: 1. A trial of void. 2. Plus or minus use of an alpha cuauhtemoc, this may be causing side effects. 3. If he can urinate, but does not want a Heard, we will consider suprapubic catheter. The eventual goal with the patient is considering I explained that urodynamics would be a difficult test to perform, but more importantly, he may have a neurogenic component of the bladder that even a resection of the prostate may not help him urinate better. I have drawn the pictures and explained with images of prostate and bladder, but we may encourage the patient anyway to consider a suprapubic catheter initially and then consider a TURP in an effort that this may help him. So for now, the plan is as follows: 1. Trial of void. 2. When medically cleared, we will plan for a cystoscopy and then further plans will follow. Kemar Montague MD [facility] # [id number]
--- NOTE | 2018-01-14 13:00 | PN ---
UROLOGY PROGRESS NOTE DATE: 01/09/2018 See the previously dictated notes. The patient has been here now at my recommendation actually. The patient came in on 12/30/2017 with urinary retention, voiding dysfunction, and multiple medical issues. See all the progress notes previously and see my progress notes and consult notes. SUBJECTIVE: The patient is currently resting comfortably. He is now back in the ICU. The Heard catheter is draining clear. See the plans listed below. The past medical, surgical are as listed. Pacemaker is noted. Cardiology plans are noted. PHYSICAL EXAMINATION: ABDOMEN: From the urology standpoint, the abdomen is a little soft. GENITOURINARY: Heard catheter is in place, draining clear urine. UROLOGY DIAGNOSES: 1. Urinary retention. 2. Voiding dysfunction. PLAN IS FOLLOWS: I discussed with the patient options, needs to be medically cleared and stable before we do more . The patient thinks that perhaps the orthostatic hypertension is related to the Heard catheter and penis, thinks that it may be drawing fluid into the penis. I do not have any literature to support this, but for now we are recommending that we continue the Heard catheter, and if anything, we can make him medically stable, we will consider diagnostic studies. Urology plan is a cystoscopy when medically cleared and then further testing. We did discuss the idea of urodynamics, I explained that it would be difficult to perform in this situation, and we did discuss other testings. We did discuss even transurethral resection of the prostate with or without a laser or with electrocautery. We can definitely see if this would benefit the patient. Even if he had a neurogenic bladder, he may benefit from an open prostate. We will discuss this further as the patient develops. Kemar Montague MD
--- NOTE | 2018-01-14 13:23 | CP.PCM.PN ---
<Andres Griffin - Last Filed: 01/14/18 15:58> Subjective - Date & Time of Evaluation Date of Evaluation: 01/14/18 Time of Evaluation: 08:00 - Subjective Subjective: PGY-1 Medicine Progress Note for Dr. Quiles Patient seen and examined at bedside this AM. No acute overnight events reported. Patient continues to work with PT, endorses dizziness. Orthostatics continue to be positive. Awaiting QING replacement. No acute complaints at this time. Objective - Vital Signs/Intake and Output Vital Signs (last 24 hours): Temp Pulse Resp BP Pulse Ox 98.3 F 68 20 134/71 98 01/14/18 12:00 01/14/18 12:00 01/14/18 12:00 01/14/18 12:00 01/14/18 06:00 Intake and Output: 01/14/18 01/14/18 06:59 18:59 Intake Total 1470 Output Total 3725 Balance -2255 - Medications Medications: Current Medications Acetaminophen (Tylenol 325mg Tab) 650 mg PO Q6H PRN PRN Reason: Fever >100.4 F Last Admin: 01/11/18 12:28 Dose: 650 mg Apixaban (Eliquis) 5 mg PO DAILY [facility]; Protocol Last Admin: 01/14/18 09:00 Dose: 5 mg Aspirin (Aspirin Chewable) 81 mg PO DAILY [facility] Last Admin: 01/14/18 09:00 Dose: 81 mg Atorvastatin Calcium (Lipitor) 5 mg PO DIN [facility] Last Admin: 01/13/18 17:25 Dose: 5 mg Finasteride (Proscar) 5 mg PO DAILY [facility] Last Admin: 01/11/18 10:00 Dose: 5 mg Fludrocortisone Acetate (Florinef) 0.3 mg PO BID [facility] Last Admin: 01/14/18 09:00 Dose: 0.3 mg Hydralazine HCl (Apresoline) 10 mg IVP Q6 PRN PRN Reason: Systolic Blood Pressure Last Admin: 01/05/18 00:47 Dose: 10 mg Lactulose (Enulose) 20 gm PO DAILY [facility] Last Admin: 01/14/18 09:08 Dose: Not Given Midodrine (Proamatine) 5 mg PO DAILY [facility] Last Admin: 01/14/18 09:00 Dose: 5 mg (Dofetilide [Tikosyn (]) 250mcg) 1 tab PO Q12 NERY Last Admin: 01/14/18 09:01 Dose: 1 tab Ondansetron HCl (Zofran Inj) 4 mg IVP ONCE PRN PRN Reason: Nausea/Vomiting Pantoprazole Sodium (Protonix Ec Tab) 40 mg PO DAILY NERY Last Admin: 01/14/18 09:01 Dose: 40 mg Polyethylene Glycol (Miralax) 17 gm PO DAILY PRN PRN Reason: Constipation Last Admin: 01/12/18 18:23 Dose: 17 gm Tetrahydrozoline HCl/Zinc Sulfate (Visine 0.05% Opht Soln) 0 ml OD Q4 PRN PRN Reason: Dry eyes - Labs Labs: 01/14/18 06:30 01/14/18 06:30 PT 19.2 SECONDS (9.4-12.5) H 12/30/17 16:30 INR 1.67 12/30/17 16:30 APTT 30.3 Seconds (25.1-36.5) 12/30/17 16:30 - Constitutional Appears: Non-toxic, No Acute Distress - Head Exam Head Exam: ATRAUMATIC, NORMAL INSPECTION, NORMOCEPHALIC - Eye Exam Eye Exam: EOMI, Normal appearance Pupil Exam: NORMAL ACCOMODATION - ENT Exam ENT Exam: Mucous Membranes Moist, Normal Exam - Neck Exam Neck Exam: Full ROM, Normal Inspection - Respiratory Exam Respiratory Exam: Clear to Ausculation Bilateral, NORMAL BREATHING PATTERN. absent: Accessory Muscle Use, Rales, Rhonchi, Wheezes, Respiratory Distress, Stridor - Cardiovascular Exam Cardiovascular Exam: REGULAR RHYTHM, +S1, +S2 - GI/Abdominal Exam GI & Abdominal Exam: Soft, Normal Bowel Sounds. absent: Distended, Firm, Guarding, Rigid, Tenderness, Organomegaly - Extremities Exam Extremities Exam: Full ROM, Normal Capillary Refill, Normal Inspection. absent: Calf Tenderness, Pedal Edema - Back Exam Back Exam: NORMAL INSPECTION - Neurological Exam Neurological Exam: Alert, Awake, Oriented x3 - Psychiatric Exam Psychiatric exam: Normal Affect, Normal Mood - Skin Skin Exam: Dry, Intact, Normal Color, Warm Assessment and Plan - Assessment and Plan (Free Text) Assessment: 67 year old male with past medical history of atrial fibrillation on Eliquis, orthostatic hypotension on midodrine and CVA with left sided residual weakness with original presentation of recurrent syncope. Patient evaluated and found to have orthostatic hypotension, bradycardia s/p pacemaker. Patient is being fo llowed by exhibition designer for recurrent syncope, data base administrator for bradycardia s/p bradycardia, urology for urinary retention. Plan: Recurrent Syncopal Episodes - Echo: LV normal size, normal LV wall thickness, EF 74.5%; moderate mitral and tricuspid regurgitation; moderate to severe pulmonary HTN - Head CT: Chronic changes, no acute findings Florinef 0.3 mg PO BID - Cardiology following - stable for transfer to [facility] - Continue Dofetilide 250 mg PO BID, ASA 81mg Daily, Eliquis 40mg daily, Lipitor 5mg daily, Proamatine 5mg daily - Neurology following Orthostatic Hypotension - Patient with continued positive orthostatic hypotension - Patient euvolemic with continued symptoms of dizziness - Appears chronic in nature, continue to monitor Bradycardia s/p pacemaker - Cardiology consulted and following - Continue current management Urinary retention - Urology with Dr. Montague consulted and following - voiding trial - cystoscopy outpatient and further plans per discussions with family -if pt can urinate but continues to not want rushing, may consider suprapubic catheter - Renal US no acute findings - CT abd/pelvis: no acute renal findings Urinary tract infection - Patient treated with ancef and rocephin - Asymptomatic, afebrile, neutropenia Previous CVA worth residual left sided deficit - ASA, Lipitor - Neurology following - Continue PT as tolerated PPx, Diet, Disposition - GI: Protonix 40mg Daily - DVT: Eliquis in setting of afib - Dispo: Awaiting authorization for [facility] placement to [facility] in [facility] Case discussed with Dr. Kb Griffin DO, PGY-1 <Ernst Quiles - Last Filed: 01/14/18 16:20> Objective - Vital Signs/Intake and Output Vital Signs (last 24 hours): Temp Pulse Resp BP Pulse Ox 98.3 F 68 20 134/71 98 01/14/18 12:00 01/14/18 12:00 01/14/18 12:00 01/14/18 12:00 01/14/18 06:00 Intake and Output: 01/14/18 01/14/18 06:59 18:59 Intake Total 1470 Output Total 3725 Balance -2255 - Medications Medications: Current Medications Acetaminophen (Tylenol 325mg Tab) 650 mg PO Q6H PRN PRN Reason: Fever >100.4 F Last Admin: 01/11/18 12:28 Dose: 650 mg Apixaban (Eliquis) 5 mg PO DAILY [facility]; Protocol Last Admin: 01/14/18 09:00 Dose: 5 mg Aspirin (Aspirin Chewable) 81 mg PO DAILY [facility] Last Admin: 01/14/18 09:00 Dose: 81 mg Atorvastatin Calcium (Lipitor) 5 mg PO DIN [facility] Last Admin: 01/13/18 17:25 Dose: 5 mg Finasteride (Proscar) 5 mg PO DAILY [facility] Last Admin: 01/11/18 10:00 Dose: 5 mg Fludrocortisone Acetate (Florinef) 0.3 mg PO BID [facility] Last Admin: 01/14/18 09:00 Dose: 0.3 mg Hydralazine HCl (Apresoline) 10 mg IVP Q6 PRN PRN Reason: Systolic Blood Pressure Last Admin: 01/05/18 00:47 Dose: 10 mg Lactulose (Enulose) 20 gm PO DAILY [facility] Last Admin: 01/14/18 09:08 Dose: Not Given Midodrine (Proamatine) 5 mg PO DAILY [facility] Last Admin: 01/14/18 09:00 Dose: 5 mg (Dofetilide [Tikosyn (]) 250mcg) 1 tab PO Q12 [facility] Last Admin: 01/14/18 09:01 Dose: 1 tab Ondansetron HCl (Zofran Inj) 4 mg IVP ONCE PRN PRN Reason: Nausea/Vomiting Pantoprazole Sodium (Protonix Ec Tab) 40 mg PO DAILY [facility] Last Admin: 01/14/18 09:01 Dose: 40 mg Polyethylene Glycol (Miralax) 17 gm PO DAILY PRN PRN Reason: Constipation Last Admin: 01/12/18 18:23 Dose: 17 gm Tetrahydrozoline HCl/Zinc Sulfate (Visine 0.05% Opht Soln) 0 ml OD Q4 PRN PRN Reason: Dry eyes - Labs Labs: 01/14/18 06:30 01/14/18 06:30 PT 19.2 SECONDS (9.4-12.5) H 12/30/17 16:30 INR 1.67 12/30/17 16:30 APTT 30.3 Seconds (25.1-36.5) 12/30/17 16:30 Attending/Attestation - Attestation I have personally seen and examined this patient.: Yes I have fully participated in the care of the patient.: Yes I have reviewed all pertinent clinical information, including history, physical exam and plan: Yes Notes (Text): 01/14/18 16:18 67 year old male with past medical history of afib on eliquis, orthostatic hypotension on midodrine and CVA with residual left side weakness who presented with complaint of recurrent syncope. He was found to have significant or thostatic hypotension, bradycardia and pauses on the telemonitor. Patient was seen by cardiology and EPS and s/p pacemaker placed last week. He is on midodrine which cannot be increased secondary to history of urinary retention. He is also on florinef. Case was discussed with urology who agreed to hold his finasteride for now as patient has rushing. Urology follow up was appreciated; voiding trial. He will need outpatient cystoscopy / TURP as per urology. Continue with PT as tolerated. Patient is s/p treatment for UTI. Will replete and repeat potassium for hypokalemia. D/c planning to [facility] if accepted and bed available. is at bedside and questions were answered. Ernst Quiles MD Hospitalist.
[2018-01-15 06:21] LABS: EOS # 0.1 (0.0-0.7); EOS % 2.8 % (1.5-5.0); GRAN # 3.46 (1.4-6.5); GRAN % 67.9 % (50.0-68.0); HEMOGLOBIN 10.7 g/dL (14.0-18.0); LYMPH # 1.1 (1.2-3.4); LYMPH % 21.4 % (22.0-35.0); MEAN CORPUSCULAR HEMOGLOBIN 25.8 pg (25.0-35.0); MEAN CORPUSCULAR HGB CONC 32.6 g/dl (31.0-37.0); MEAN PLATELET VOLUME 10.6 fl (7.0-11.0); MONO # 0.4 (0.1-0.6); MONO % 7.9 % (1.0-6.0); RBC 4.15 10^6/uL (3.5-6.1); RED CELL DISTRIBUTION WIDTH 15.6 % (11.5-14.5); WHITE BLOOD COUNT 5.1 10^3/uL (4.5-11.0)
[2018-01-15 06:55] LABS: ALB/GLOB RATIO 0.9 (1.1-1.8); ALT/SGPT 25 U/L (7-56); AST/SGOT 25 U/L (17-59); BLOOD UREA NITROGEN 12 mg/dL (7-21); CALCIUM 8.3 mg/dL (8.4-10.5); GFR NON-AFRICAN AMERICAN > 60
[2018-01-15] MEDS ORDERED: Potassium Chloride 20 mEq ER Tab PO ONE (08:19)
[2018-01-15] MEDS: Pantoprazole 40 mg EC Tab PO SCH (11:05)
[2018-01-15] MEDS: DOFETILIDE PO SCH ×2 (11:08→21:46)
--- NOTE | 2018-01-15 11:35 | CP.PCM.DIS ---
Provider - Provider Date of Admission: 12/30/17 20:26 Attending physician: Ernst Quiles MD Time Spent in preparation of Discharge (in minutes): 40 Hospital Course - Lab Results Lab Results: Micro Results 01/08/18 19:15 Blood-Venous Blood Culture - Final NO GROWTH AFTER 5 DAYS 01/08/18 19:15 Blood-Venous Gram Stain - Final TEST NOT PERFORMED 01/08/18 19:15 Blood-Venous Blood Culture - Final NO GROWTH AFTER 5 DAYS 01/08/18 19:15 Blood-Venous Gram Stain - Final TEST NOT PERFORMED 01/09/18 00:00 Urine,Catheterized Urine Culture - Final No Growth (<1,000 CFU/ML) 01/07/18 23:40 Naris MRSA Culture (Admit) - Final MRSA NOT DETECTED 12/30/17 20:00 Blood Blood Culture - Final NO GROWTH AFTER 5 DAYS 12/30/17 20:00 Blood Gram Stain - Final TEST NOT PERFORMED 12/30/17 19:20 Blood Blood Culture - Final NO GROWTH AFTER 5 DAYS 12/30/17 19:20 Blood Gram Stain - Final TEST NOT PERFORMED 12/30/17 17:05 Urine,Rushing Urine Culture - Final Serratia Marcescens Most Recent Lab Values WBC 5.1 10^3/uL (4.5-11.0) D 01/15/18 06:15 RBC 4.15 10^6/uL (3.5-6.1) 01/15/18 06:15 Hgb 10.7 g/dL (14.0-18.0) L 01/15/18 06:15 Hct 32.8 % (42.0-52.0) L 01/15/18 06:15 MCV 79.0 fl (80.0-105.0) L 01/15/18 06:15 MCH 25.8 pg (25.0-35.0) 01/15/18 06:15 MCHC 32.6 g/dl (31.0-37.0) 01/15/18 06:15 RDW 15.6 % (11.5-14.5) H 01/15/18 06:15 Plt Count 156 10^3/uL (120.0-450.0) 01/15/18 06:15 MPV 10.6 fl (7.0-11.0) 01/15/18 06:15 Gran % 67.9 % (50.0-68.0) 01/15/18 06:15 Lymph % (Auto) 21.4 % (22.0-35.0) L 01/15/18 06:15 [place] % (Auto) 7.9 % (1.0-6.0) H 01/15/18 06:15 Eos % (Auto) 2.8 % (1.5-5.0) 01/15/18 06:15 Baso % (Auto) 0.0 % (0.0-3.0) 01/15/18 06:15 Gran # 3.46 (1.4-6.5) 01/15/18 06:15 Lymph # (Auto) 1.1 (1.2-3.4) L 01/15/18 06:15 [place] # (Auto) 0.4 (0.1-0.6) 01/15/18 06:15 Eos # (Auto) 0.1 (0.0-0.7) 01/15/18 06:15 Baso # (Auto) 0.00 K/mm3 (0.0-2.0) 01/15/18 06:15 Neutrophils % (Manual) 57 % (50.0-70.0) 01/04/18 05:15 Lymphocytes % (Manual) 21 % (22.0-35.0) L 01/04/18 05:15 Atypical Lymphs % 2 % (0.0-0.0) H 01/04/18 05:15 Monocytes % (Manual) 13 % (1.0-6.0) H 01/04/18 05:15 Eosinophils % (Manual) 7 % (0.0-3.0) H 01/04/18 05:15 Platelet Evaluation Normal (NORMAL) 01/04/18 05:15 PT 19.2 SECONDS (9.4-12.5) H 12/30/17 16:30 INR 1.67 12/30/17 16:30 APTT 30.3 Seconds (25.1-36.5) 12/30/17 16:30 pO2 86 mm/Hg (30-55) H 12/30/17 22:00 VBG pH 7.46 (7.32-7.43) H 12/30/17 22:00 VBG pCO2 34.0 (40-60) L 12/30/17 22:00 VBG HCO3 24.2 mmol/l (21-28) 12/30/17 22:00 VBG Total CO2 25.2 mmol.L (22-28) 12/30/17 22:00 VBG O2 Sat (Calc) 97.6 % (40-65) H 12/30/17 22:00 VBG Base Excess 0.8 mmol/L (0.0-2.0) 12/30/17 22:00 VBG Potassium 4.0 mmol/L (3.6-5.2) 12/30/17 22:00 Sodium 138.0 mmol/L (132-148) 12/30/17 22:00 Chloride 107.0 mmol/L (98-107) 12/30/17 22:00 Glucose 109 mg/dl (75-110) 12/30/17 22:00 Lactate 1.0 mmol/L (0.7-2.1) 12/30/17 22:00 FiO2 21.0 % 12/30/17 22:00 Sodium 141 mmol/L (132-148) 01/15/18 06:15 Potassium 3.1 mmol/L (3.6-5.0) L 01/15/18 06:15 Chloride 101 mmol/L (98-107) 01/15/18 06:15 Carbon Dioxide 33 mmol/L (21-33) 01/15/18 06:15 Anion Gap 10 (10-20) 01/15/18 06:15 BUN 12 mg/dL (7-21) 01/15/18 06:15 Creatinine 0.9 mg/dl (0.8-1.5) 01/15/18 06:15 Est GFR ( Amer) > 60 01/15/18 06:15 Est GFR (Non-Af Amer) > 60 01/15/18 06:15 POC Glucose (mg/dL) 97 mg/dL (65-110) 01/07/18 11:20 Random Glucose 100 mg/dL (70-110) 01/15/18 06:15 Hemoglobin A1c 6.4 % (4.2-6.5) 12/31/17 05:45 Calcium 8.3 mg/dL (8.4-10.5) L 01/15/18 06:15 Phosphorus 3.9 mg/dL (2.5-4.5) 01/08/18 05:50 Magnesium 1.8 mg/dL (1.7-2.2) 01/13/18 07:00 Total Bilirubin 0.7 mg/dL (0.2-1.3) 01/15/18 06:15 AST 25 U/L (17-59) 01/15/18 06:15 ALT 25 U/L (7-56) 01/15/18 06:15 Alkaline Phosphatase 80 U/L (38-126) 01/15/18 06:15 Lactate Dehydrogenase 515 U/L (333-699) 01/08/18 00:50 Total Creatine Kinase 118 U/L (35-230) 01/08/18 00:50 Troponin I 0.48 ng/mL H* D 01/09/18 08:00 Total Protein 6.2 g/dL (5.8-8.3) 01/15/18 06:15 Albumin 3.0 g/dL (3.0-4.8) 01/15/18 06:15 Globulin 3.2 gm/dL 01/15/18 06:15 Albumin/Globulin Ratio 0.9 (1.1-1.8) L 01/15/18 06:15 Triglycerides 146 mg/dL (35-160) 12/31/17 05:45 Cholesterol 97 mg/dL (130-200) L 12/31/17 05:45 LDL Cholesterol Direct 39 mg/dL (0-129) 12/31/17 05:45 HDL Cholesterol 29 mg/dL (29-60) 12/31/17 05:45 Prostate Specific Ag 5.2 ng/mL (0.00-2.5) H 12/31/17 13:00 Procalcitonin 0.14 NG/ML (0.19-0.49) L 12/31/17 05:45 Free T4 1.33 ng/dL (0.78-2.19) 12/31/17 05:45 TSH 3rd Generation 1.68 mIU/mL (0.46-4.68) 12/31/17 05:45 Venous Blood Potassium 4.0 mmol/L (3.6-5.2) 12/30/17 22:00 Urine Color Yellow (YELLOW) 01/09/18 00:00 Urine Appearance Clear (CLEAR) 01/09/18 00:00 Urine pH 6.0 (4.7-8.0) 01/09/18 00:00 Ur Specific [place] 1.025 (1.005-1.035) 01/09/18 00:00 Urine Protein 30 mg/dL (<30 mg/dL) H 01/09/18 00:00 Urine Glucose (UA) Negative mg/dL (NEGATIVE) 01/09/18 00:00 Urine Ketones Negative mg/dL (NEGATIVE) 01/09/18 00:00 Urine Blood Trace-intact (NEGATIVE) H 01/09/18 00:00 Urine Nitrate Negative (NEGATIVE) 01/09/18 00:00 Urine Bilirubin Negative (NEGATIVE) 01/09/18 00:00 Urine Urobilinogen 0.2 E.U./dL (<1 E.U./dL) 01/09/18 00:00 Ur Leukocyte Esterase Trace Edna/uL (NEGATIVE) H 01/09/18 00:00 Urine RBC 0 - 2 /hpf (0-2) 01/09/18 00:00 Urine WBC 0 - 2 /hpf (0-6) 01/09/18 00:00 Ur Epithelial Cells 0 - 2 /hpf (0-5) 01/09/18 00:00 Urine Bacteria None (NEG) 01/09/18 00:00 RPR Nonreactive (NONREACTIVE) 12/31/17 05:45 Influenza Typ A,B (EIA) Negative for flu a/b (NEGATIVE) 01/01/18 20:30 - Date & Time of H&P Date of H&P: 01/15/18 Time of H&P: 11:35 Discharge Exam - Head Exam Head Exam: ATRAUMATIC, NORMAL INSPECTION, NORMOCEPHALIC Discharge Plan - Follow Up Plan Condition: STABLE Disposition: HOME/ ROUTINE Additional Instructions: Patient is medically stable for discharge to subacute rehabilitation, as per Dr. Quiles. Patient is instructed to continue all medications as prescribed. Patient is instructed to follow up with his primary care provider within 1 week of discharge from subacute rehab for continued care and management. Patient is also instructed to follow up with cardiology, electrophysiology, and urology within 3-5 days of discharge from subacute rehab for continued management of conditions. Please be aware that finasteride is currently on hold, patient does not have a rushing catheter in place. Patient is instructed to follow up with urology for further management of medication and management of urinary retention symptoms. Patient is advised to get up slowly from bed, utilize compression stockings so as to avoid orthostatic hypotension symptoms--dizziness, lightheadedness. If symptoms worsen, please return to the ED. Referrals: Reshma Briones MD [Family Provider] - Vic Tripp MD [Staff Provider] - Daniel Perez MD [Staff Provider] - Dash Montague MD [Staff Provider] -
--- NOTE | 2018-01-15 12:48 | CP.PCM.PN ---
<Andres Griffin - Last Filed: 01/15/18 15:32> Subjective - Date & Time of Evaluation Date of Evaluation: 01/15/18 Time of Evaluation: 12:45 - Subjective Subjective: PGY-1 Medicine Progress Note for Dr. Quiles Patient seen and examined at bedside this AM, resting comfortably and in no acute distress. Urology follow up was appreciated, undergoing voiding trial. Reiterated to patient and family need to follow up with urology outpatient upon discharge from [facility]. No acute complaints at this time. Objective - Vital Signs/Intake and Output Vital Signs (last 24 hours): Temp Pulse Resp BP Pulse Ox 99 F 80 20 148/82 96 01/15/18 06:00 01/15/18 06:00 01/15/18 06:00 01/15/18 06:00 01/15/18 06:00 Intake and Output: 01/15/18 01/15/18 06:59 18:59 Intake Total 240 Output Total 3200 Balance -2960 - Medications Medications: Current Medications Acetaminophen (Tylenol 325mg Tab) 650 mg PO Q6H PRN PRN Reason: Fever >100.4 F Last Admin: 01/11/18 12:28 Dose: 650 mg Apixaban (Eliquis) 5 mg PO DAILY [facility]; Protocol Last Admin: 01/15/18 11:05 Dose: 5 mg Aspirin (Aspirin Chewable) 81 mg PO DAILY [facility] Last Admin: 01/15/18 11:05 Dose: 81 mg Atorvastatin Calcium (Lipitor) 5 mg PO DIN [facility] Last Admin: 01/14/18 17:55 Dose: 5 mg Finasteride (Proscar) 5 mg PO DAILY [facility] Last Admin: 01/11/18 10:00 Dose: 5 mg Fludrocortisone Acetate (Florinef) 0.3 mg PO BID [facility] Last Admin: 01/15/18 11:06 Dose: 0.3 mg Hydralazine HCl (Apresoline) 10 mg IVP Q6 PRN PRN Reason: Systolic Blood Pressure Last Admin: 01/05/18 00:47 Dose: 10 mg Lactulose (Enulose) 20 gm PO DAILY [facility] Last Admin: 01/15/18 11:06 Dose: Not Given Midodrine (Proamatine) 5 mg PO DAILY [facility] Last Admin: 01/15/18 11:10 Dose: Not Given (Dofetilide [Tikosyn (]) 250mcg) 1 tab PO Q12 [facility] Last Admin: 01/15/18 11:08 Dose: 1 tab Ondansetron HCl (Zofran Inj) 4 mg IVP ONCE PRN PRN Reason: Nausea/Vomiting Pantoprazole Sodium (Protonix Ec Tab) 40 mg PO DAILY [facility] Last Admin: 01/15/18 11:05 Dose: 40 mg Polyethylene Glycol (Miralax) 17 gm PO DAILY PRN PRN Reason: Constipation Last Admin: 01/12/18 18:23 Dose: 17 gm Tetrahydrozoline HCl/Zinc Sulfate (Visine 0.05% Opht Soln) 0 ml OD Q4 PRN PRN Reason: Dry eyes - Labs Labs: 01/15/18 06:15 01/15/18 06:15 PT 19.2 SECONDS (9.4-12.5) H 12/30/17 16:30 INR 1.67 12/30/17 16:30 APTT 30.3 Seconds (25.1-36.5) 12/30/17 16:30 - Constitutional Appears: Non-toxic, No Acute Distress - Head Exam Head Exam: ATRAUMATIC, NORMAL INSPECTION, NORMOCEPHALIC - Eye Exam Eye Exam: EOMI, Normal appearance Pupil Exam: NORMAL ACCOMODATION - ENT Exam ENT Exam: Mucous Membranes Moist, Normal Exam - Neck Exam Neck Exam: Full ROM, Normal Inspection - Respiratory Exam Respiratory Exam: Clear to Ausculation Bilateral, NORMAL BREATHING PATTERN. abs ent: Accessory Muscle Use, Rales, Rhonchi, Wheezes, Respiratory Distress, Stridor - Cardiovascular Exam Cardiovascular Exam: REGULAR RHYTHM, +S1, +S2 - GI/Abdominal Exam GI & Abdominal Exam: Soft, Normal Bowel Sounds. absent: Distended, Firm, Guarding, Rigid, Tenderness, Organomegaly, Rebound - Extremities Exam Extremities Exam: Normal Capillary Refill, Normal Inspection. absent: Calf Tenderness, Joint Swelling, Pedal Edema - Back Exam Back Exam: NORMAL INSPECTION - Neurological Exam Neurological Exam: Alert, Awake, Oriented x3 - Psychiatric Exam Psychiatric exam: Normal Affect, Normal Mood - Skin Skin Exam: Dry, Intact, Normal Color, Warm Assessment and Plan - Assessment and Plan (Free Text) Assessment: 67 year old M with PMHx of afib on eliquis, orthostatic hypotension on midodrine and CVA with residual left side weakness who presented with complaint of recurrent syncope. He was found to have significant orthostatic hypotension, bradycardia and pauses on the telemonitor. Patient was seen by cardiology and EPS and s/p pacemaker placed last week. He is on midodrine which cannot be increased secondary to history of urinary retention. He is also on florinef. Was approved for QING placement; however pt spiked rectal temp of 102.2 today. W ill repeat septic workup. Plan: Spiked fever -pt spiked rectal temp of 102.2 -pt asymptomatic, no leukocytosis -f/u repeat septic workup -UA, urine cx, blood cx -vbg shock panel -cxr -cbc, cmp -procalcitonin Recurrent Syncopal Episodes - Echo: LV normal size, normal LV wall thickness, EF 74.5%; moderate mitral and tricuspid regurgitation; moderate to severe pulmonary HTN - Head CT: Chronic changes, no acute findings Florinef 0.3 mg PO BID - Cardiology following - stable for transfer to [facility] - Continue Dofetilide 250 mg PO BID, ASA 81mg Daily, Eliquis 40mg daily, Lipitor 5mg daily, Proamatine 5mg daily - Neurology following Orthostatic Hypotension - Patient with continued positive orthostatic hypotension - Patient euvolemic with continued symptoms of dizziness - Appears chronic in nature, continue to monitor Bradycardia s/p pacemaker - Cardiology consulted and following - Continue current management Urinary retention - Urology with Dr. Montague consulted and following - voiding trial - cystoscopy outpatient and further plans per discussions with family -if pt can urinate but continues to not want rushing, may consider suprapubic catheter - Renal US no acute findings - CT abd/pelvis: no acute renal findings Previous CVA worth residual left sided deficit - ASA, Lipitor - Neurology following - Continue PT as tolerated PPx, Diet, Disposition - GI: Protonix 40mg Daily - DVT: Eliquis in setting of afib - Dispo: Awaiting authorization for QING placement to [facility] Case discussed with Dr. Kb Griffin DO, PGY-1 <Ernst Quiles - Last Filed: 01/15/18 15:57> Objective - Vital Signs/Intake and Output Vital Signs (last 24 hours): Temp Pulse Resp BP Pulse Ox 100 F H 80 20 125/71 96 01/15/18 12:00 01/15/18 12:00 01/15/18 12:00 01/15/18 12:00 01/15/18 06:00 Intake and Output: 01/15/18 01/15/18 06:59 18:59 Intake Total 240 Output Total 3200 Balance -2960 - Medications Medications: Current Medications Acetaminophen (Tylenol 325mg Tab) 650 mg PO Q6H PRN PRN Reason: Fever >100.4 F Last Admin: 01/15/18 12:47 Dose: 650 mg Apixaban (Eliquis) 5 mg PO DAILY [facility]; Protocol Last Admin: 01/15/18 11:05 Dose: 5 mg Aspirin (Aspirin Chewable) 81 mg PO DAILY [facility] Last Admin: 01/15/18 11:05 Dose: 81 mg Atorvastatin Calcium (Lipitor) 5 mg PO DIN [facility] Last Admin: 01/14/18 17:55 Dose: 5 mg Finasteride (Proscar) 5 mg PO DAILY [facility] Last Admin: 01/11/18 10:00 Dose: 5 mg Fludrocortisone Acetate (Florinef) 0.3 mg PO BID [facility] Last Admin: 01/15/18 11:06 Dose: 0.3 mg Hydralazine HCl (Apresoline) 10 mg IVP Q6 PRN PRN Reason: Systolic Blood Pressure Last Admin: 01/05/18 00:47 Dose: 10 mg Lactulose (Enulose) 20 gm PO DAILY [facility] Last Admin: 01/15/18 11:06 Dose: Not Given Midodrine (Proamatine) 5 mg PO DAILY [facility] Last Admin: 01/15/18 11:10 Dose: Not Given (Dofetilide [Tikosyn (]) 250mcg) 1 tab PO Q12 [facility] Last Admin: 01/15/18 11:08 Dose: 1 tab Ondansetron HCl (Zofran Inj) 4 mg IVP ONCE PRN PRN Reason: Nausea/Vomiting Pantoprazole Sodium (Protonix Ec Tab) 40 mg PO DAILY [facility] Last Admin: 01/15/18 11:05 Dose: 40 mg Polyethylene Glycol (Miralax) 17 gm PO DAILY PRN PRN Reason: Constipation Last Admin: 01/12/18 18:23 Dose: 17 gm Tetrahydrozoline HCl/Zinc Sulfate (Visine 0.05% Opht Soln) 0 ml OD Q4 PRN PRN Reason: Dry eyes - Labs Labs: 01/15/18 06:15 01/15/18 13:10 PT 19.2 SECONDS (9.4-12.5) H 12/30/17 16:30 INR 1.67 12/30/17 16:30 APTT 30.3 Seconds (25.1-36.5) 12/30/17 16:30 Attending/Attestation - Attestation I have personally seen and examined this patient.: Yes I have fully participated in the care of the patient.: Yes I have reviewed all pertinent clinical information, including history, physical exam and plan: Yes Notes (Text): 01/15/18 15:56 67 year old male with past medical history of afib on eliquis, orthostatic hypotension on midodrine and CVA with residual left side weakness who presented with complaint of recurrent syncope. He was found to have significant orthostatic hypotension, bradycardia and pauses on the telemonitor. Patient was seen by cardiology and EPS and s/p pacemaker placed last week. He is on midodrine which cannot be increased secondary to history of urinary retention. He is also on florinef. Case was discussed with urology who agreed to hold his finasteride for now. Rushing was discontinued yesterday and patient is voiding. He will need outpatient cystoscopy / TURP as per urology. Continue with PT as tolerated. Patient is s/p treatment for UTI. Will replete and repeat potassium for hypokalemia. Patient was actually set for discharge today to [facility] but noted to have fever 102 as per nurse. Will hold discharge for today repeat septic workup. is at bedside and questions were answered. Ernst Quiles MD Hospitalist.
--- NOTE | 2018-01-15 13:18 | RAD ---
Date of service: 01/15/2018 HISTORY: fever 102.2, r/o focal infection COMPARISON: 01/08/2018 FINDINGS: LUNGS: No active pulmonary disease. PLEURA: No significant pleural effusion identified, no pneumothorax apparent. CARDIOVASCULAR: No aortic atherosclerotic calcification present. Moderate cardiomegaly no pulmonary vascular congestion. Dual lead pacemaker OSSEOUS STRUCTURES: No significant abnormalities. VISUALIZED UPPER ABDOMEN: Normal. OTHER FINDINGS: None. IMPRESSION: No active disease.
[2018-01-15 13:39] LABS: VENOUS BLOOD GAS BASE EXCESS 9.7 mmol/L (0.0-2.0); VENOUS BLOOD GAS PO2 49 mm/Hg (30-55); VENOUS BLOOD PH 7.49 (7.32-7.43)
[2018-01-15 13:44] LABS: ALB/GLOB RATIO 0.9 (1.1-1.8); ALBUMIN 2.9 g/dL (3.0-4.8); ALT/SGPT 21 U/L (7-56); AST/SGOT 23 U/L (17-59); BLOOD UREA NITROGEN 12 mg/dL (7-21); CALCIUM 8.2 mg/dL (8.4-10.5); GFR NON-AFRICAN AMERICAN > 60
[2018-01-15 16:29] LABS: URINE BILIRUBIN NEGATIVE (NEGATIVE); URINE BLOOD SMALL (NEGATIVE); URINE GLUCOSE (UA) NEGATIVE (NEGATIVE); URINE LEUKOCYTE ESTERASE LARGE Leu/uL (NEGATIVE); URINE PROTEIN NEGATIVE mg/dL (<30 mg/dL)
[2018-01-15 16:30] LABS: URINE APPEARANCE CLEAR (CLEAR); URINE COLOR YELLOW (YELLOW)
[2018-01-15 17:06] LABS: URINE BACTERIA TRACE (NEG); URINE WBC 25 - 30 /hpf (0-6)
[2018-01-15] MEDS: cefTRIAXone 1 gm 1 GM/100 ML BAG IVPB SCH (20:37)
[2018-01-16 06:30] LABS: EOS % 0.5 % (1.5-5.0); GRAN # 6.22 (1.4-6.5); GRAN % 78.3 % (50.0-68.0); HEMOGLOBIN 9.8 g/dL (14.0-18.0); LYMPH # 0.8 (1.2-3.4); LYMPH % 9.8 % (22.0-35.0); MEAN CELL VOLUME 79.6 fl (80.0-105.0); MEAN CORPUSCULAR HEMOGLOBIN 25.9 pg (25.0-35.0); MEAN CORPUSCULAR HGB CONC 32.6 g/dl (31.0-37.0); MEAN PLATELET VOLUME 10.5 fl (7.0-11.0); MONO # 0.9 (0.1-0.6); MONO % 11.4 % (1.0-6.0); RBC 3.78 10^6/uL (3.5-6.1); RED CELL DISTRIBUTION WIDTH 16.1 % (11.5-14.5)
[2018-01-16 07:08] LABS: ALB/GLOB RATIO 0.9 (1.1-1.8); ALBUMIN 2.9 g/dL (3.0-4.8); ALT/SGPT 23 U/L (7-56); AST/SGOT 20 U/L (17-59); BLOOD UREA NITROGEN 12 mg/dL (7-21); CALCIUM 8.3 mg/dL (8.4-10.5); GFR NON-AFRICAN AMERICAN > 60
[2018-01-16] MEDS ORDERED: Potassium Chloride 20 mEq ER Tab PO ONE (07:23)
--- NOTE | 2018-01-16 08:46 | CP.PCM.PN ---
<Andres Griffin - Last Filed: 01/16/18 16:26> Subjective - Date & Time of Evaluation Date of Evaluation: 01/16/18 Time of Evaluation: 08:46 - Subjective Subjective: PGY-1 Medicine Progress Note for Dr. Goel Patient seen and examined at bedside this AM, resting comfortably and in no acute distress. No acute overnight events reported. Patient was planned for discharge to [facility] yesterday but spiked fever of 102 per nurse. Will hold discharge for repeat septic workup, awaiting urine culture results. Objective - Vital Signs/Intake and Output Vital Signs (last 24 hours): Temp Pulse Resp BP Pulse Ox 99.5 F 66 18 128/76 96 01/16/18 06:00 01/16/18 06:00 01/16/18 06:00 01/16/18 06:00 01/16/18 06:00 Intake and Output: 01/16/18 01/16/18 06:59 18:59 Intake Total 490 Output Total 300 Balance 190 - Medications Medications: Current Medications Acetaminophen (Tylenol 325mg Tab) 650 mg PO Q6H PRN PRN Reason: Fever >100.4 F Last Admin: 01/15/18 20:38 Dose: 650 mg Apixaban (Eliquis) 5 mg PO DAILY [facility]; Protocol Last Admin: 01/15/18 11:05 Dose: 5 mg Aspirin (Aspirin Chewable) 81 mg PO DAILY [facility] Last Admin: 01/15/18 11:05 Dose: 81 mg Atorvastatin Calcium (Lipitor) 5 mg PO DIN [facility] Last Admin: 01/15/18 17:43 Dose: 5 mg Finasteride (Proscar) 5 mg PO DAILY [facility] Last Admin: 01/11/18 10:00 Dose: 5 mg Fludrocortisone Acetate (Florinef) 0.3 mg PO BID [facility] Last Admin: 01/15/18 17:43 Dose: 0.3 mg Hydralazine HCl (Apresoline) 10 mg IVP Q6 PRN PRN Reason: Systolic Blood Pressure Last Admin: 01/05/18 00:47 Dose: 10 mg Ceftriaxone Sodium (Rocephin 1 Gram Ivpb) 1 gm in 100 mls @ 100 mls/hr IVPB DAILY [facility]; Protocol Last Admin: 01/15/18 20:37 Dose: 100 mls/hr Lactulose (Enulose) 20 gm PO DAILY [facility] Last Admin: 01/15/18 11:06 Dose: Not Given Midodrine (Proamatine) 5 mg PO DAILY [facility] Last Admin: 01/15/18 11:10 Dose: Not Given (Dofetilide [Tikosyn (]) 250mcg) 1 tab PO Q12 [facility] Last Admin: 01/15/18 21:46 Dose: Not Given Ondansetron HCl (Zofran Inj) 4 mg IVP ONCE PRN PRN Reason: Nausea/Vomiting Pantoprazole Sodium (Protonix Ec Tab) 40 mg PO DAILY [facility] Last Admin: 01/15/18 11:05 Dose: 40 mg Polyethylene Glycol (Miralax) 17 gm PO DAILY PRN PRN Reason: Constipation Last Admin: 01/12/18 18:23 Dose: 17 gm Tetrahydrozoline HCl/Zinc Sulfate (Visine 0.05% Opht Soln) 0 ml OD Q4 PRN PRN Reason: Dry eyes - Labs Labs: 01/16/18 06:00 01/16/18 06:00 PT 19.2 SECONDS (9.4-12.5) H 12/30/17 16:30 INR 1.67 12/30/17 16:30 APTT 30.3 Seconds (25.1-36.5) 12/30/17 16:30 - Constitutional Appears: Non-toxic, No Acute Distress - Head Exam Head Exam: ATRAUMATIC, NORMAL INSPECTION, NORMOCEPHALIC - Eye Exam Eye Exam: EOMI, Normal appearance Pupil Exam: NORMAL ACCOMODATION - ENT Exam ENT Exam: Mucous Membranes Moist, Normal Exam - Neck Exam Neck Exam: Full ROM, Normal Inspection - Respiratory Exam Respiratory Exam: Clear to Ausculation Bilateral, NORMAL BREATHING PATTERN. absent: Accessory Muscle Use, Rales, Rhonchi, Wheezes, Respiratory Distress, Stridor - Cardiovascular Exam Cardiovascular Exam: REGULAR RHYTHM, +S1, +S2 - GI/Abdominal Exam GI & Abdominal Exam: Soft, Normal Bowel Sounds. absent: Distended, Firm, Guarding, Rigid, Tenderness, Rebound - Extremities Exam Extremities Exam: Normal Capillary Refill, Normal Inspection. absent: Calf Tenderness, Joint Swelling, Pedal Edema - Back Exam Back Exam: NORMAL INSPECTION - Neurological Exam Neurological Exam: Alert, Awake, Oriented x3 - Psychiatric Exam Psychiatric exam: Normal Affect, Normal Mood - Skin Skin Exam: Dry, Intact, Normal Color, Warm Assessment and Plan - Assessment and Plan (Free Text) Assessment: 67 year old M with PMHx of afib on eliquis, orthostatic hypotension on midodrine and CVA with residual left side weakness who presented with complaint of recurrent syncope. He was found to have significant orthostatic hypotension, bradycardia and pauses on the telemonitor. Patient was seen by cardiology and EPS and s/p pacemaker placed last week. He is on midodrine which cannot be increased secondary to history of urinary retention. He is also on florinef. Was approved for QING placement; however pt spiked rectal temp of 102.2 today. Will repeat septic workup. Plan: Spiked fever -pt spiked rectal temp of 102.2 -pt asymptomatic, no leukocytosis -UA positive -lactate wnl -cxr: nu acute findings -procalcitonin negative -f/u UCx, Blood Cx Recurrent Syncopal Episodes - Echo: LV normal size, normal LV wall thickness, EF 74.5%; moderate mitral and tricuspid regurgitation; moderate to severe pulmonary HTN - Head CT: Chronic changes, no acute findings Florinef 0.3 mg PO BID - Cardiology following - stable for transfer to [facility] - Continue Dofetilide 250 mg PO BID, ASA 81mg Daily, Eliquis 40mg daily, Lipitor 5mg daily, Proamatine 5mg daily - Neurology following Orthostatic Hypotension - Patient with continued positive orthostatic hypotension - Patient euvolemic with continued symptoms of dizziness - Appears chronic in nature, continue to monitor Bradycardia s/p pacemaker - Cardiology consulted and following - Continue current management Urinary retention - Urology with Dr. Montague consulted and following - voiding trial - cystoscopy outpatient and further plans per discussions with family -if pt can urinate but continues to not want rushing, may consider suprapubic catheter - Renal US no acute findings - CT abd/pelvis: no acute renal findings Previous CVA worth residual left sided deficit - ASA, Lipitor - Neurology following - Continue PT as tolerated PPx, Diet, Disposition - GI: Protonix 40mg Daily - DVT: Eliquis in setting of afib - Dispo: [facility] pending urine cultures Case discussed with Dr. Manasa Griffin DO, PGY-1 <Manuel Goel - Last Filed: 01/16/18 17:04> Objective - Vital Signs/Intake and Output Vital Signs (last 24 hours): Temp Pulse Resp BP Pulse Ox 99 F 78 20 163/90 H 96 01/16/18 12:00 01/16/18 14:00 01/16/18 12:00 01/16/18 12:00 01/16/18 06:00 Intake and Output: 01/16/18 01/16/18 06:59 18:59 Intake Total 490 Output Total 300 Balance 190 - Medications Medications: Current Medications Acetaminophen (Tylenol 325mg Tab) 650 mg PO Q6H PRN PRN Reason: Fever >100.4 F Last Admin: 01/15/18 20:38 Dose: 650 mg Apixaban (Eliquis) 5 mg PO DAILY [facility]; Protocol Last Admin: 01/16/18 10:26 Dose: 5 mg Aspirin (Aspirin Chewable) 81 mg PO DAILY [facility] Last Admin: 01/16/18 10:26 Dose: 81 mg Atorvastatin Calcium (Lipitor) 5 mg PO DIN [facility] Last Admin: 01/15/18 17:43 Dose: 5 mg Finasteride (Proscar) 5 mg PO DAILY [facility] Last Admin: 01/11/18 10:00 Dose: 5 mg Fludrocortisone Acetate (Florinef) 0.3 mg PO BID [facility] Last Admin: 01/16/18 10:26 Dose: 0.3 mg Hydralazine HCl (Apresoline) 10 mg IVP Q6 PRN PRN Reason: Systolic Blood Pressure Last Admin: 01/05/18 00:47 Dose: 10 mg Ceftriaxone Sodium (Rocephin 1 Gram Ivpb) 1 gm in 100 mls @ 100 mls/hr IVPB DAILY [facility]; Protocol Last Admin: 01/16/18 10:36 Dose: 100 mls/hr Lactulose (Enulose) 20 gm PO DAILY [facility] Last Admin: 01/16/18 10:31 Dose: Not Given Midodrine (Proamatine) 5 mg PO DAILY [facility] Last Admin: 01/16/18 10:26 Dose: 5 mg (Dofetilide [Tikosyn (]) 250mcg) 1 tab PO Q12 [facility] Ondansetron HCl (Zofran Inj) 4 mg IVP ONCE PRN PRN Reason: Nausea/Vomiting Pantoprazole Sodium (Protonix Ec Tab) 40 mg PO DAILY [facility] Last Admin: 01/16/18 10:26 Dose: 40 mg Polyethylene Glycol (Miralax) 17 gm PO DAILY PRN PRN Reason: Constipation Last Admin: 01/12/18 18:23 Dose: 17 gm Tetrahydrozoline HCl/Zinc Sulfate (Visine 0.05% Opht Soln) 0 ml OD Q4 PRN PRN Reason: Dry eyes - Labs Labs: 01/16/18 06:00 01/16/18 06:00 PT 19.2 SECONDS (9.4-12.5) H 12/30/17 16:30 INR 1.67 12/30/17 16:30 APTT 30.3 Seconds (25.1-36.5) 12/30/17 16:30 Attending/Attestation - Attestation I have personally seen and examined this patient.: Yes I have fully participated in the care of the patient.: Yes I have reviewed all pertinent clinical information, including history, physical exam and plan: Yes Notes (Text): 01/16/18 17:00 Medical record note made by the resident after discussion with my direction and input after the patient was personally seen and examined by me. I have reviewed the chart and agree that the record accurately reflects by personal performance of the history, physical exam, data review, and medical decision-making, in the course for the patient. I have also personally directed the plan of care. 67 year old male with past medical history of afib on eliquis, orthostatic hypotension on midodrine and CVA with residual left side weakness who presented with complaint of recurrent syncope. He was found to have significant orthostatic hypotension, bradycardia and pauses on the telemetry. Patient was seen by cardiology and EPS and he s/p pacemaker placed last week. He is on midodrine which cannot be increased secondary to history of urinary retention. He is also on florinef. Patient symptoms are improved and he is feeling better. Folley catheter was discontinued and he is able to void. Patient was actually set for discharge yesterday to [facility] but noted to have fever 102 as per nurse. He is afebrile today,UA is suggestive of UTI. We will follow up blood cultures, if cultures remain negative, can be discharged to [facility] in 24 hour.
[2018-01-16] MEDS: Pantoprazole 40 mg EC Tab PO SCH (10:26)
[2018-01-16] MEDS: cefTRIAXone 1 gm 1 GM/100 ML BAG IVPB SCH (10:36)
[2018-01-16] MEDS: DOFETILIDE PO SCH (21:26)
[2018-01-17 06:00] VITALS: O2SAT 97
[2018-01-17 06:39] LABS: EOS # 0.1 (0.0-0.7); EOS % 2.4 % (1.5-5.0); GRAN # 4.02 (1.4-6.5); GRAN % 69.1 % (50.0-68.0); HEMOGLOBIN 9.9 g/dL (14.0-18.0); LYMPH % 17.7 % (22.0-35.0); MEAN CELL VOLUME 79.7 fl (80.0-105.0); MEAN CORPUSCULAR HEMOGLOBIN 25.4 pg (25.0-35.0); MEAN CORPUSCULAR HGB CONC 31.9 g/dl (31.0-37.0); MEAN PLATELET VOLUME 10.9 fl (7.0-11.0); MONO # 0.6 (0.1-0.6); MONO % 10.8 % (1.0-6.0); RBC 3.89 10^6/uL (3.5-6.1); RED CELL DISTRIBUTION WIDTH 16.1 % (11.5-14.5); WHITE BLOOD COUNT 5.8 10^3/uL (4.5-11.0)
[2018-01-17 08:06] LABS: ALB/GLOB RATIO 0.9 (1.1-1.8); ALBUMIN 2.8 g/dL (3.0-4.8); ALT/SGPT 28 U/L (7-56); AST/SGOT 24 U/L (17-59); BLOOD UREA NITROGEN 14 mg/dL (7-21); CALCIUM 8.1 mg/dL (8.4-10.5); GFR NON-AFRICAN AMERICAN > 60
[2018-01-17] MEDS ORDERED: Potassium Chloride 20 mEq ER Tab PO SCH (10:00)
[2018-01-17] MEDS: Pantoprazole 40 mg EC Tab PO SCH (10:01)
[2018-01-17] MEDS: cefTRIAXone 1 gm 1 GM/100 ML BAG IVPB SCH (10:02)
[2018-01-17] MEDS: DOFETILIDE PO SCH (10:09)
[2018-01-17 11:55] VITALS: BP 154/74; PULSE 59; RESP 18; TEMP 97.8
--- NOTE | 2018-01-17 13:37 | PCM.URO ---
Urology Progress Note - Objective Lab Studies: Reviewed (no gu changes want to complete work up when medically stable apparently this will done as an outpt) Lab Results Last 24 Hours: Laboratory Results - last 24 hr 01/17/18 01/17/18 06:00 07:00 WBC 5.8 D RBC 3.89 Hgb 9.9 L Hct 31.0 L MCV 79.7 L MCH 25.4 MCHC 31.9 RDW 16.1 H Plt Count 136 MPV 10.9 Gran % 69.1 H Lymph % (Auto) 17.7 L Overton % (Auto) 10.8 H Eos % (Auto) 2.4 Baso % (Auto) 0.0 Gran # 4.02 Lymph # (Auto) 1.0 L Overton # (Auto) 0.6 Eos # (Auto) 0.1 Baso # (Auto) 0.00 Sodium 141 Potassium 3.2 L Chloride 103 Carbon Dioxide 31 Anion Gap 11 BUN 14 Creatinine 0.9 Est GFR ( Amer) > 60 Est GFR (Non-Af Amer) > 60 Random Glucose 95 Calcium 8.1 L Total Bilirubin 0.7 AST 24 ALT 28 Alkaline Phosphatase 80 Total Protein 6.0 Albumin 2.8 L Globulin 3.1 Albumin/Globulin Ratio 0.9 L Intake & Output: Intake & Output 01/16/18 01/17/18 01/17/18 18:59 06:59 18:59 Intake Total 100 3040 Output Total 5700 Balance 100 -2660 Intake: IV 100 Left Wrist 100 Oral 3040 Output: Urine 5700 Urethral (Heard) 250 Urine, Voided 5450 Stool 0 Other: # Voids Urine, Voided 5 Vital Signs: Vital Signs - 24 hr 01/16/18 01/16/18 01/16/18 14:00 17:28 18:00 Temperature 99.7 F H Pulse Rate 78 70 71 Respiratory 18 Rate Blood Pressure 112/66 O2 Sat by Pulse Oximetry 01/17/18 01/17/18 01/17/18 00:01 05:58 06:14 Temperature 99.6 F 98.6 F Pulse Rate 69 70 70 Respiratory 20 20 Rate Blood Pressure 154/87 H 161/87 H 161/87 H O2 Sat by Pulse 96 97 Oximetry 01/17/18 11:54 Temperature 97.8 F Pulse Rate 59 L Respiratory 18 Rate Blood Pressure 154/74 H O2 Sat by Pulse Oximetry
--- NOTE | 2018-01-17 16:11 | CP.PCM.DIS ---
<LeonyesikaromeAndres - Last Filed: 01/17/18 16:02> Provider - Provider Date of Admission: 12/30/17 20:26 Attending physician: Manuel Goel MD Time Spent in preparation of Discharge (in minutes): 40 Hospital Course - Lab Results Lab Results: Micro Results 01/15/18 13:10 Blood-Venous Blood Culture - Preliminary NO GROWTH AFTER 48 HOURS 01/08/18 19:15 Blood-Venous Blood Culture - Final NO GROWTH AFTER 5 DAYS 01/08/18 19:15 Blood-Venous Gram Stain - Final TEST NOT PERFORMED 01/08/18 19:15 Blood-Venous Blood Culture - Final NO GROWTH AFTER 5 DAYS 01/08/18 19:15 Blood-Venous Gram Stain - Final TEST NOT PERFORMED 01/09/18 00:00 Urine,Catheterized Urine Culture - Final No Growth (<1,000 CFU/ML) 01/07/18 23:40 Naris MRSA Culture (Admit) - Final MRSA NOT DETECTED 12/30/17 20:00 Blood Blood Culture - Final NO GROWTH AFTER 5 DAYS 12/30/17 20:00 Blood Gram Stain - Final TEST NOT PERFORMED 12/30/17 19:20 Blood Blood Culture - Final NO GROWTH AFTER 5 DAYS 12/30/17 19:20 Blood Gram Stain - Final TEST NOT PERFORMED 12/30/17 17:05 Urine,Rushing Urine Culture - Final Serratia Marcescens Most Recent Lab Values WBC 5.8 10^3/uL (4.5-11.0) D 01/17/18 06:00 RBC 3.89 10^6/uL (3.5-6.1) 01/17/18 06:00 Hgb 9.9 g/dL (14.0-18.0) L 01/17/18 06:00 Hct 31.0 % (42.0-52.0) L 01/17/18 06:00 MCV 79.7 fl (80.0-105.0) L 01/17/18 06:00 MCH 25.4 pg (25.0-35.0) 01/17/18 06:00 MCHC 31.9 g/dl (31.0-37.0) 01/17/18 06:00 RDW 16.1 % (11.5-14.5) H 01/17/18 06:00 Plt Count 136 10^3/uL (120.0-450.0) 01/17/18 06:00 MPV 10.9 fl (7.0-11.0) 01/17/18 06:00 Gran % 69.1 % (50.0-68.0) H 01/17/18 06:00 Lymph % (Auto) 17.7 % (22.0-35.0) L 01/17/18 06:00 Stanley % (Auto) 10.8 % (1.0-6.0) H 01/17/18 06:00 Eos % (Auto) 2.4 % (1.5-5.0) 01/17/18 06:00 Baso % (Auto) 0.0 % (0.0-3.0) 01/17/18 06:00 Gran # 4.02 (1.4-6.5) 01/17/18 06:00 Lymph # (Auto) 1.0 (1.2-3.4) L 01/17/18 06:00 Stanley # (Auto) 0.6 (0.1-0.6) 01/17/18 06:00 Eos # (Auto) 0.1 (0.0-0.7) 01/17/18 06:00 Baso # (Auto) 0.00 K/mm3 (0.0-2.0) 01/17/18 06:00 Neutrophils % (Manual) 57 % (50.0-70.0) 01/04/18 05:15 Lymphocytes % (Manual) 21 % (22.0-35.0) L 01/04/18 05:15 Atypical Lymphs % 2 % (0.0-0.0) H 01/04/18 05:15 Monocytes % (Manual) 13 % (1.0-6.0) H 01/04/18 05:15 Eosinophils % (Manual) 7 % (0.0-3.0) H 01/04/18 05:15 Platelet Evaluation Normal (NORMAL) 01/04/18 05:15 PT 19.2 SECONDS (9.4-12.5) H 12/30/17 16:30 INR 1.67 12/30/17 16:30 APTT 30.3 Seconds (25.1-36.5) 12/30/17 16:30 pO2 49 mm/Hg (30-55) 01/15/18 13:10 VBG pH 7.49 (7.32-7.43) H 01/15/18 13:10 VBG pCO2 45.0 (40-60) 01/15/18 13:10 VBG HCO3 34.3 mmol/l (21-28) H 01/15/18 13:10 VBG Total CO2 35.7 mmol.L (22-28) H 01/15/18 13:10 VBG O2 Sat (Calc) 89.8 % (40-65) H 01/15/18 13:10 VBG Base Excess 9.7 mmol/L (0.0-2.0) H 01/15/18 13:10 VBG Potassium 3.3 mmol/L (3.6-5.2) L 01/15/18 13:10 Sodium 138.0 mmol/L (132-148) 01/15/18 13:10 Chloride 101.0 mmol/L (98-107) 01/15/18 13:10 Glucose 144 mg/dl (75-110) H 01/15/18 13:10 Lactate 1.2 mmol/L (0.7-2.1) 01/15/18 13:10 FiO2 21.0 % 01/15/18 13:10 Sodium 141 mmol/L (132-148) 01/17/18 07:00 Potassium 3.2 mmol/L (3.6-5.0) L 01/17/18 07:00 Chloride 103 mmol/L (98-107) 01/17/18 07:00 Carbon Dioxide 31 mmol/L (21-33) 01/17/18 07:00 Anion Gap 11 (10-20) 01/17/18 07:00 BUN 14 mg/dL (7-21) 01/17/18 07:00 Creatinine 0.9 mg/dl (0.8-1.5) 01/17/18 07:00 Est GFR ( Amer) > 60 01/17/18 07:00 Est GFR (Non-Af Amer) > 60 01/17/18 07:00 POC Glucose (mg/dL) 97 mg/dL (65-110) 01/07/18 11:20 Random Glucose 95 mg/dL (70-110) 01/17/18 07:00 Hemoglobin A1c 6.4 % (4.2-6.5) 12/31/17 05:45 Calcium 8.1 mg/dL (8.4-10.5) L 01/17/18 07:00 Phosphorus 3.9 mg/dL (2.5-4.5) 01/08/18 05:50 Magnesium 1.8 mg/dL (1.7-2.2) 01/13/18 07:00 Total Bilirubin 0.7 mg/dL (0.2-1.3) 01/17/18 07:00 AST 24 U/L (17-59) 01/17/18 07:00 ALT 28 U/L (7-56) 01/17/18 07:00 Alkaline Phosphatase 80 U/L (38-126) 01/17/18 07:00 Lactate Dehydrogenase 515 U/L (333-699) 01/08/18 00:50 Total Creatine Kinase 118 U/L (35-230) 01/08/18 00:50 Troponin I 0.48 ng/mL H* D 01/09/18 08:00 Total Protein 6.0 g/dL (5.8-8.3) 01/17/18 07:00 Albumin 2.8 g/dL (3.0-4.8) L 01/17/18 07:00 Globulin 3.1 gm/dL 01/17/18 07:00 Albumin/Globulin Ratio 0.9 (1.1-1.8) L 01/17/18 07:00 Triglycerides 146 mg/dL (35-160) 12/31/17 05:45 Cholesterol 97 mg/dL (130-200) L 12/31/17 05:45 LDL Cholesterol Direct 39 mg/dL (0-129) 12/31/17 05:45 HDL Cholesterol 29 mg/dL (29-60) 12/31/17 05:45 Prostate Specific Ag 5.2 ng/mL (0.00-2.5) H 12/31/17 13:00 Procalcitonin < 0.05 NG/ML (0.19-0.49) L 01/15/18 13:10 Free T4 1.33 ng/dL (0.78-2.19) 12/31/17 05:45 TSH 3rd Generation 1.68 mIU/mL (0.46-4.68) 12/31/17 05:45 Venous Blood Potassium 3.3 mmol/L (3.6-5.2) L 01/15/18 13:10 Urine Color Yellow (YELLOW) 01/15/18 16:24 Urine Appearance Clear (CLEAR) 01/15/18 16:24 Urine pH 7.0 (4.7-8.0) 01/15/18 16:24 Ur Specific Willard <= 1.005 (1.005-1.035) 01/15/18 16:24 Urine Protein Negative mg/dL (<30 mg/dL) 01/15/18 16:24 Urine Glucose (UA) Negative mg/dL (NEGATIVE) 01/15/18 16:24 Urine Ketones Negative mg/dL (NEGATIVE) 01/15/18 16:24 Urine Blood Small (NEGATIVE) H 01/15/18 16:24 Urine Nitrate Negative (NEGATIVE) 01/15/18 16:24 Urine Bilirubin Negative (NEGATIVE) 01/15/18 16:24 Urine Urobilinogen 1.0 E.U./dL (<1 E.U./dL) H 01/15/18 16:24 Ur Leukocyte Esterase Large Edna/uL (NEGATIVE) H 01/15/18 16:24 Urine RBC 5 - 10 /hpf (0-2) 01/15/18 16:24 Urine WBC 25 - 30 /hpf (0-6) 01/15/18 16:24 Ur Epithelial Cells 10 - 12 /hpf (0-5) 01/15/18 16:24 Urine Bacteria Trace (NEG) 01/15/18 16:24 RPR Nonreactive (NONREACTIVE) 12/31/17 05:45 Influenza Typ A,B (EIA) Negative for flu a/b (NEGATIVE) 01/01/18 20:30 - Hospital Course Hospital Course: HPI: Patient is a 67 year old male with a past medical history of atrial fibrillation on Dofetilide and Eliquis (patient cardioverted as per son 9 months ago), hyp otension/orthostatic hypotension, stroke with L sided residual deficit, syncopal episodes, urinary incontinence status-post rushing insertion who presented to [facility] ED on 12/30 [facility] chief complaint of syncopal episode this afternoon. Patient is Yi speaking patient; HPI was supplemented with information from son. Patient reported that since rushing insertion he has been feeling "ill" with complaints of malaise and fever over the past week or so. Patient reports complaints of fevers, chills, BL flank pain, and dizziness over the past week. Over the past 3 days patient has had multiple bouts of nausea w/ 1 episode of non-bloody, non-bilious vomiting, and multiple episodes of diarrhea. He reported that today when getting into his wheel chair he began to feel dizzy and complained of worsening dizziness and lightheadedness for 2-3 minutes prior to having a syncopal episode in his wheel chair. His son witnessed and called EMS; patient was reportedly unconscious for approximately 5min. There were no complaints of chest pain, palpitations, SOB, seizure like activity, denies any new or worsening focal deficits. Remainder of 12 system review of systems is negative. During the course of hospital admission: He was found to have significant orthostatic hypotension, bradycardia and pauses on the telemetry. Patient was seen by cardiology and electrophysiology and underwent pacemaker placement with no complications. Patient was on midodrine which cannot be increased secondary to history of urinary retention. He is also on florinef. Case was discussed with urology who agreed to hold his finasteride for now. Rushing was discontinued voiding trial was successfully completed. Per Urology (Dr. Montague) he will need outpatient cystoscopy/ TURP procedure. Patient is also status-post treatment for urinary tract infection. Patient was set for discharge earlier in the week to subacute rehabilitation, per Physical Therapy recommendations. However, patient was noted to spike a fever of 102 as per nurse. Discharge was held for repeat septic workup which was negative. at bedside was informed of all plans and hospital course, and all questions were answered. Patient remained afebrile over the course of 48 hours with no leukocytosis. Blood cultures demonstrated no growth. Patient is medically stable for discharge to subacute rehabilitation, as per Dr. Goel. Patient is instructed to continue all medications as prescribed. Patient is instructed to follow up with his primary care provider within 1 week of discharge from subacute rehab for continued care and management. Patient is also instructed to follow up with cardiology, electrophysiology, and urology within 3-5 days of discharge from subacute rehab for continued management of conditions. Please be aware that finasteride is currently on hold, patient does not have a rushing catheter in place. Patient is instructed to follow up with urology for further management of medication and management of urinary retention symptoms. Patient is advised to get up slowly from bed, utilize compression stockings so as to avoid orthostatic hypotension symptoms--dizziness, lightheadedness. If symptoms worsen, please return to the ED. - Date & Time of H&P Date of H&P: 01/17/18 Time of H&P: 16:02 Discharge Exam - Head Exam Head Exam: ATRAUMATIC, NORMAL INSPECTION, NORMOCEPHALIC - Eye Exam Eye Exam: EOMI, Normal appearance Pupil Exam: NORMAL ACCOMODATION - ENT Exam ENT Exam: Mucous Membranes Moist, Normal Exam - Neck Exam Neck exam: Full Rom, Normal Inspection - Respiratory Exam Respiratory Exam: Clear to PA & Lateral, NORMAL BREATHING PATTERN, UNREMARKABLE. absent: Rales, Rhonchi, Wheezes, Respiratory Distress, Stridor - Cardiovascular Exam Cardiovascular Exam: REGULAR RHYTHM, +S1, +S2 - GI/Abdominal Exam GI & Abdominal Exam: Normal Bowel Sounds, Soft, Unremarkable. absent: Distended, Firm, Guarding, Rebound, Rigid, Tenderness - Extremities Exam Extremities exam: full ROM, normal capillary refill, normal inspection, pedal pulses present - Back Exam Back exam: NORMAL INSPECTION - Neurological Exam Neurological exam: Alert, CN II-XII Intact, Oriented x3 - Psychiatric Exam Psychiatric exam: Normal Affect, Normal Mood - Skin Skin Exam: Dry, Intact, Normal Color, Warm Discharge Plan - Discharge Medications Prescriptions: RX: Ciprofloxacin [Cipro] 500 mg PO BID #8 tab - Follow Up Plan Condition: STABLE Disposition: TRANSF TO SNF Instructions: Orthostatic Hypotension, Syncope (Fainting) (DC), Low Blood Pressure (DC) Additional Instructions: Patient is medically stable for discharge to subacute rehabilitation, as per Dr. Goel. Patient is instructed to continue all medications as prescribed. Patient is instructed to follow up with his primary care provider within 1 week of discharge from subacute rehab for continued care and management. Patient is also instructed to follow up with cardiology, electrophysiology, and urology within 3-5 days of discharge from subacute rehab for continued management of conditions. Please be aware that finasteride is currently on hold, patient does not have a rushing catheter in place. Patient is instructed to follow up with urology for further management of medication and management of urinary retention symptoms. Patient is advised to get up slowly from bed, utilize compression stockings so as to avoid orthostatic hypotension symptoms--dizziness, lightheadedness. If symptoms worsen, please return to the ED. Referrals: Reshma Briones MD [Family Provider] - Vic Tripp MD [Staff Provider] - Daniel Perez MD [Staff Provider] - Dash Montague MD [Staff Provider] - <Manuel Goel - Last Filed: 01/17/18 17:26> Provider - Provider Date of Admission: 12/30/17 20:26 Attending physician: Manuel Goel MD Hospital Course - Lab Results Lab Results: Micro Results 01/15/18 13:10 Blood-Venous Blood Culture - Preliminary NO GROWTH AFTER 48 HOURS 01/08/18 19:15 Blood-Venous Blood Culture - Final NO GROWTH AFTER 5 DAYS 01/08/18 19:15 Blood-Venous Gram Stain - Final TEST NOT PERFORMED 01/08/18 19:15 Blood-Venous Blood Culture - Final NO GROWTH AFTER 5 DAYS 01/08/18 19:15 Blood-Venous Gram Stain - Final TEST NOT PERFORMED 01/09/18 00:00 Urine,Catheterized Urine Culture - Final No Growth (<1,000 CFU/ML) 01/07/18 23:40 Naris MRSA Culture (Admit) - Final MRSA NOT DETECTED 12/30/17 20:00 Blood Blood Culture - Final NO GROWTH AFTER 5 DAYS 12/30/17 20:00 Blood Gram Stain - Final TEST NOT PERFORMED 12/30/17 19:20 Blood Blood Culture - Final NO GROWTH AFTER 5 DAYS 12/30/17 19:20 Blood Gram Stain - Final TEST NOT PERFORMED 12/30/17 17:05 Urine,Rushing Urine Culture - Final Serratia Marcescens Most Recent Lab Values WBC 5.8 10^3/uL (4.5-11.0) D 01/17/18 06:00 RBC 3.89 10^6/uL (3.5-6.1) 01/17/18 06:00 Hgb 9.9 g/dL (14.0-18.0) L 01/17/18 06:00 Hct 31.0 % (42.0-52.0) L 01/17/18 06:00 MCV 79.7 fl (80.0-105.0) L 01/17/18 06:00 MCH 25.4 pg (25.0-35.0) 01/17/18 06:00 MCHC 31.9 g/dl (31.0-37.0) 01/17/18 06:00 RDW 16.1 % (11.5-14.5) H 01/17/18 06:00 Plt Count 136 10^3/uL (120.0-450.0) 01/17/18 06:00 MPV 10.9 fl (7.0-11.0) 01/17/18 06:00 Gran % 69.1 % (50.0-68.0) H 01/17/18 06:00 Lymph % (Auto) 17.7 % (22.0-35.0) L 01/17/18 06:00 Stanley % (Auto) 10.8 % (1.0-6.0) H 01/17/18 06:00 Eos % (Auto) 2.4 % (1.5-5.0) 01/17/18 06:00 Baso % (Auto) 0.0 % (0.0-3.0) 01/17/18 06:00 Gran # 4.02 (1.4-6.5) 01/17/18 06:00 Lymph # (Auto) 1.0 (1.2-3.4) L 01/17/18 06:00 Stanley # (Auto) 0.6 (0.1-0.6) 01/17/18 06:00 Eos # (Auto) 0.1 (0.0-0.7) 01/17/18 06:00 Baso # (Auto) 0.00 K/mm3 (0.0-2.0) 01/17/18 06:00 Neutrophils % (Manual) 57 % (50.0-70.0) 01/04/18 05:15 Lymphocytes % (Manual) 21 % (22.0-35.0) L 01/04/18 05:15 Atypical Lymphs % 2 % (0.0-0.0) H 01/04/18 05:15 Monocytes % (Manual) 13 % (1.0-6.0) H 01/04/18 05:15 Eosinophils % (Manual) 7 % (0.0-3.0) H 01/04/18 05:15 Platelet Evaluation Normal (NORMAL) 01/04/18 05:15 PT 19.2 SECONDS (9.4-12.5) H 12/30/17 16:30 INR 1.67 12/30/17 16:30 APTT 30.3 Seconds (25.1-36.5) 12/30/17 16:30 pO2 49 mm/Hg (30-55) 01/15/18 13:10 VBG pH 7.49 (7.32-7.43) H 01/15/18 13:10 VBG pCO2 45.0 (40-60) 01/15/18 13:10 VBG HCO3 34.3 mmol/l (21-28) H 01/15/18 13:10 VBG Total CO2 35.7 mmol.L (22-28) H 01/15/18 13:10 VBG O2 Sat (Calc) 89.8 % (40-65) H 01/15/18 13:10 VBG Base Excess 9.7 mmol/L (0.0-2.0) H 01/15/18 13:10 VBG Potassium 3.3 mmol/L (3.6-5.2) L 01/15/18 13:10 Sodium 138.0 mmol/L (132-148) 01/15/18 13:10 Chloride 101.0 mmol/L (98-107) 01/15/18 13:10 Glucose 144 mg/dl (75-110) H 01/15/18 13:10 Lactate 1.2 mmol/L (0.7-2.1) 01/15/18 13:10 FiO2 21.0 % 01/15/18 13:10 Sodium 141 mmol/L (132-148) 01/17/18 07:00 Potassium 3.2 mmol/L (3.6-5.0) L 01/17/18 07:00 Chloride 103 mmol/L (98-107) 01/17/18 07:00 Carbon Dioxide 31 mmol/L (21-33) 01/17/18 07:00 Anion Gap 11 (10-20) 01/17/18 07:00 BUN 14 mg/dL (7-21) 01/17/18 07:00 Creatinine 0.9 mg/dl (0.8-1.5) 01/17/18 07:00 Est GFR ( Amer) > 60 01/17/18 07:00 Est GFR (Non-Af Amer) > 60 01/17/18 07:00 POC Glucose (mg/dL) 97 mg/dL (65-110) 01/07/18 11:20 Random Glucose 95 mg/dL (70-110) 01/17/18 07:00 Hemoglobin A1c 6.4 % (4.2-6.5) 12/31/17 05:45 Calcium 8.1 mg/dL (8.4-10.5) L 01/17/18 07:00 Phosphorus 3.9 mg/dL (2.5-4.5) 01/08/18 05:50 Magnesium 1.8 mg/dL (1.7-2.2) 01/13/18 07:00 Total Bilirubin 0.7 mg/dL (0.2-1.3) 01/17/18 07:00 AST 24 U/L (17-59) 01/17/18 07:00 ALT 28 U/L (7-56) 01/17/18 07:00 Alkaline Phosphatase 80 U/L (38-126) 01/17/18 07:00 Lactate Dehydrogenase 515 U/L (333-699) 01/08/18 00:50 Total Creatine Kinase 118 U/L (35-230) 01/08/18 00:50 Troponin I 0.48 ng/mL H* D 01/09/18 08:00 Total Protein 6.0 g/dL (5.8-8.3) 01/17/18 07:00 Albumin 2.8 g/dL (3.0-4.8) L 01/17/18 07:00 Globulin 3.1 gm/dL 01/17/18 07:00 Albumin/Globulin Ratio 0.9 (1.1-1.8) L 01/17/18 07:00 Triglycerides 146 mg/dL (35-160) 12/31/17 05:45 Cholesterol 97 mg/dL (130-200) L 12/31/17 05:45 LDL Cholesterol Direct 39 mg/dL (0-129) 12/31/17 05:45 HDL Cholesterol 29 mg/dL (29-60) 12/31/17 05:45 Prostate Specific Ag 5.2 ng/mL (0.00-2.5) H 12/31/17 13:00 Procalcitonin < 0.05 NG/ML (0.19-0.49) L 01/15/18 13:10 Free T4 1.33 ng/dL (0.78-2.19) 12/31/17 05:45 TSH 3rd Generation 1.68 mIU/mL (0.46-4.68) 12/31/17 05:45 Venous Blood Potassium 3.3 mmol/L (3.6-5.2) L 01/15/18 13:10 Urine Color Yellow (YELLOW) 01/15/18 16:24 Urine Appearance Clear (CLEAR) 01/15/18 16:24 Urine pH 7.0 (4.7-8.0) 01/15/18 16:24 Ur Specific Willard <= 1.005 (1.005-1.035) 01/15/18 16:24 Urine Protein Negative mg/dL (<30 mg/dL) 01/15/18 16:24 Urine Glucose (UA) Negative mg/dL (NEGATIVE) 01/15/18 16:24 Urine Ketones Negative mg/dL (NEGATIVE) 01/15/18 16:24 Urine Blood Small (NEGATIVE) H 01/15/18 16:24 Urine Nitrate Negative (NEGATIVE) 01/15/18 16:24 Urine Bilirubin Negative (NEGATIVE) 01/15/18 16:24 Urine Urobilinogen 1.0 E.U./dL (<1 E.U./dL) H 01/15/18 16:24 Ur Leukocyte Esterase Large Edna/uL (NEGATIVE) H 01/15/18 16:24 Urine RBC 5 - 10 /hpf (0-2) 01/15/18 16:24 Urine WBC 25 - 30 /hpf (0-6) 01/15/18 16:24 Ur Epithelial Cells 10 - 12 /hpf (0-5) 01/15/18 16:24 Urine Bacteria Trace (NEG) 01/15/18 16:24 RPR Nonreactive (NONREACTIVE) 12/31/17 05:45 Influenza Typ A,B (EIA) Negative for flu a/b (NEGATIVE) 01/01/18 20:30 Attending/Attestation - Attestation I have personally seen and examined this patient.: Yes I have fully participated in the care of the patient.: Yes I have reviewed all pertinent clinical information, including history, physical exam and plan: Yes Notes (Text): 01/17/18 17:23 Medical record note made by the resident after discussion with my direction and input after the patient was personally seen and examined by me. I have reviewed the chart and agree that the record accurately reflects by personal performance of the history, physical exam, data review, and medical decision-making, in the course for the patient. I have also personally directed the plan of care. 67 year old male with past medical history of afib on eliquis, orthostatic hypotension on midodrine and CVA with residual left side weakness who presented with complaint of recurrent syncope. He was found to have significant orthostatic hypotension, bradycardia and pauses on the telemetry. Patient was seen by cardiology and EPS and he s/p pacemaker placed last week. He is on midodrine which cannot be increased secondary to history of urinary retention. He is also on florinef. Patient symptoms are improved and he is feeling better. Folley catheter was discontinued and he is able to void. . He is afebrile since 48 hour,UA is suggestive of UTI. Blood cultures are negative for any growth, He will be discharged to [facility] for rehabilitation. Management plan was discussed in detail with patient and . Education was provided.
== END 2018-01-17 14:09 | DRG 243 ==
LOC: ED 15:18 → ERH 20:26 → 2RNO 21:16 → ICU 01-07 22:00 → CCU 01-10 08:02 → ICU 01-10 08:20 → 2RSO 01-10 15:39
PROVIDERS: ADMIT Hospitalist; ATTEND Internal Medicine
PROC: 02HK3JZ Insertion of Pacemaker Lead into Right Ventricle, Percutaneous Approach (ICD-10-PCS; 2018-01-07)
PROC: 02H63JZ Insertion of Pacemaker Lead into Right Atrium, Percutaneous Approach (ICD-10-PCS; 2018-01-07)
PROC: 0JH606Z Insertion of Pacemaker, Dual Chamber into Chest Subcutaneous Tissue and Fascia, Open Approach (ICD-10-PCS; principal; 2018-01-07 17:00)
DX: I49.5 Sick sinus syndrome (principal); I95.1 Orthostatic hypotension; I69.354 Hemiplegia and hemiparesis following cerebral infarction affecting left non-dominant side; N39.0 Urinary tract infection, site not specified; G90.1 Familial dysautonomia [Riley-Day]; E86.0 Dehydration; I48.2 Chronic atrial fibrillation; N32.0 Bladder-neck obstruction; I48.0 Paroxysmal atrial fibrillation; N40.1 Benign prostatic hyperplasia with lower urinary tract symptoms; R33.8 Other retention of urine; I27.20 Pulmonary hypertension, unspecified; I10 Essential (primary) hypertension; E87.6 Hypokalemia; I08.1 Rheumatic disorders of both mitral and tricuspid valves; R32 Unspecified urinary incontinence; K59.00 Constipation, unspecified; R29.6 Repeated falls; Z79.01 Long term (current) use of anticoagulants

== ENCOUNTER 2018-02-20 05:46 | Observation (INO) | payer OTHER ==
[2018-02-14 10:26] VITALS: BMI 35.9
[2018-02-20] MEDS ORDERED: cefTRIAXone (Rocephin) 1 gm Inj ONE (14:47)
[2018-02-20] MEDS ORDERED: Lidocaine 2% Jelly (30 ml) ONE (14:47)
[2018-02-20] MEDS ORDERED: Lidocaine 2% Jelly (Uro-Jet) ONE (14:49)
[2018-02-20] MEDS ORDERED: Ciprofloxacin 400mg/200ml D5W 400 MG/200 ML BAG IVPB STA (14:54)
[2018-02-20] MEDS ORDERED: Liquid Adhesive TOP ONE (15:23)
[2018-02-20] MEDS ORDERED: HYDROmorphone 0.5 mg/0.5 ml ISec IVP PRN (15:33)
[2018-02-20] MEDS ORDERED: Sodium Chloride 0.9% 1,000 ML IV SCH (15:45)
--- NOTE | 2018-02-20 18:49 | CP.PCM.CON ---
<Aidan Martinez - Last Filed: 02/20/18 20:00> History of Present Illness - History of Present Illness History of Present Illness: Consult Note for Medicine Hospitalist Service Aidan DO Juan PGY-1 Pt is a 67 y o male with PMhx A-fib on Dofetilide and Eliquis, Orthostatic hypot ension, prior stroke 2 y ago with L-sided residual weakness, hx pacemaker placed on 01/07/18, syncopal episodes, urinary incontinence, who is status post TURP/cystoscopy with Dr. Dash Montague today. Reason for consult was medical management. Pt denies any acute complaints currently, only that he feels a little sore and has some pain with urination 2/2 to the surgical procedure. Denies fever or chills. Denies chest pain, palpitations, sob, n/v/d/c, abd pain, leg edema or other symptoms. Observed tolerating PO diet well at bedside without concerns. PMhx: as listed above PSurgHx: TURP/cystoscopy today, prior lung bx for abnormal lymph node in 2017 (no cancer identified) Allergies: NKDA Home meds: reviewed as per MAY Fam hx: denies Soc hx: denies cigarette smoking, EtOH or illicit drug use PMD: Dr. Reshma Briones Review of Systems - Constitutional Constitutional: absent: Chills, Fever - Cardiovascular Cardiovascular: absent: Chest Pain, Dyspnea, Dyspnea on Exertion, Leg Edema - Respiratory Respiratory: absent: Cough, Dyspnea, Wheezing - Gastrointestinal Gastrointestinal: absent: Abdominal Pain, Change in Bowel Habits, Constipation, Diarrhea, Nausea, Vomiting - Genitourinary Genitourinary: Difficulty Urinating, Urinary Incontinence Past Patient History - Infectious Disease Hx of Infectious Diseases: None - Past Social History Smoking Status: Never Smoked - CARDIAC Hx Pacemaker: Yes - NEUROLOGICAL Hx Paralysis: No - HEMATOLOGICAL/ONCOLOGICAL Hx Blood Transfusions: No - MUSCULOSKELETAL/RHEUMATOLOGICAL Hx Musculoskeletal Disorders: No - PSYCHIATRIC Hx Emotional Abuse: No Hx Physical Abuse: No Hx Substance Use: No - SURGICAL HISTORY Hx Surgeries: Yes - ANESTHESIA Hx Anesthesia Reactions: No Hx Malignant Hyperthermia: No Meds Allergies/Adverse Reactions: Allergies Allergy/AdvReac Type Severity Reaction Status Date / Time No Known Allergies Allergy Verified 12/30/17 15:31 - Medications Medications: Current Medications Docusate Sodium (Colace) 100 mg PO TID NERY Oxycodone/Acetaminophen (Percocet 5/325 Mg Tab) 1 tab PO Q6H PRN PRN Reason: Bladder Spasm Stop: 02/23/18 14:55 Physical Exam - Constitutional Appears: Well, Non-toxic, No Acute Distress - Head Exam Head Exam: ATRAUMATIC, NORMOCEPHALIC - Eye Exam Eye Exam: EOMI, Normal appearance, PERRL - ENT Exam ENT Exam: Mucous Membranes Moist - Respiratory Exam Respiratory Exam: Clear to Auscultation Bilateral, NORMAL BREATHING PATTERN. absent: Rales, Rhonchi, Wheezes - Cardiovascular Exam Cardiovascular Exam: REGULAR RHYTHM, +S1, +S2. absent: Gallop, Rubs, Systolic Murmur - GI/Abdominal Exam GI & Abdominal Exam: Normal Bowel Sounds, Soft. absent: Distended, Guarding, Organomegaly, Tenderness - Extremities Exam Extremities exam: Positive for: full ROM, normal capillary refill, normal inspection, pedal pulses present. Negative for: calf tenderness, pedal edema - Back Exam Back exam: NORMAL INSPECTION. absent: paraspinal tenderness - Neurological Exam Neurological exam: Alert, CN II-XII Intact, Oriented x3, Reflexes Normal - Skin Skin Exam: Dry, Intact, Normal Color, Warm Results - Vital Signs Recent Vital Signs: Last Vital Signs Temp 97.4 F L 02/20/18 18:06 Pulse 67 02/20/18 18:06 Resp 20 02/20/18 18:06 BP 162/86 H 02/20/18 18:06 Pulse Ox 99 02/20/18 18:06 Assessment & Plan - Assessment and Plan (Free Text) Assessment: Pt is a 67 y o male with PMhx A-fib on Dofetilide and Eliquis, Orthostatic hypotension, prior stroke 2 y ago with L-sided residual weakness, hx pacemaker placed on 01/07/18, syncopal episodes, urinary incontinence, who is status post TURP/cystoscopy with Dr. Dash Montague today. Reason for consult was medical management. Plan: S/p TURP/cystoscopy Pain management as per Dr. Montague Surgical clearance for discharge as per Dr. Montague Hx a-fib Discussed case with Dr. Montague, states he would like to hold Eliquis for at least 24 hrs post-procedure; Eliquis held No blood noted in rushing bag Hx orthostatic hypotension Currently hypertensive at 162/86 Will hold home midodrine at this time; can resume in event of hypotension while inpatient Hx stroke C/w ASA daily Hx HLD C/w atorvastatin 10 mg PO din Hx acid reflux C/w pantoprazole daily Will sign off case at this time, please re-consult if needed. Thank you for allowing us to participate in the care of your patient. Pt seen, examined with, and plan discussed with Dr. Davis, attending physician. Aidan Martinez DO PGY-1, Manufacturing Engineer Pager #[phone] <Alfonso Davis - Last Filed: 02/21/18 06:37> Meds - Medications Medications: Current Medications Aspirin (Aspirin Chewable) 81 mg PO DAILY [facility] Atorvastatin Calcium (Lipitor) 10 mg PO DIN [facility] Docusate Sodium (Colace) 100 mg PO TID [facility] Last Admin: 02/20/18 18:50 Dose: 100 mg Oxycodone/Acetaminophen (Percocet 5/325 Mg Tab) 1 tab PO Q6H PRN PRN Reason: Bladder Spasm Stop: 02/23/18 14:55 Last Admin: 02/20/18 18:51 Dose: 1 tab Pantoprazole Sodium (Protonix Ec Tab) 40 mg PO 0600 [facility] Results - Vital Signs Recent Vital Signs: Last Vital Signs Temp 97.6 F 02/20/18 22:28 Pulse 68 02/20/18 22:28 Resp 21 02/20/18 22:28 BP 124/76 02/20/18 22:28 Pulse Ox 98 02/20/18 22:28 Attending/Attestation - Attestation I have personally seen and examined this patient.: Yes I have fully participated in the care of the patient.: Yes I have reviewed all pertinent clinical information: Yes
[2018-02-20] MEDS: Oxycodone/Acetaminophen 5/325 mg Tab PO PRN (18:51)
[2018-02-20] MEDS ORDERED: Pneumococcal 23-Valent Vaccine IM ONE (22:58)
[2018-02-20] MEDS ORDERED: Influenza Vaccine 60 mcg/0.5 mL SYR (4YR UP) IM ONE (22:58)
[2018-02-21] MEDS ORDERED: Pantoprazole 40 mg EC Tab PO SCH (06:00)
[2018-02-21] MEDS: Oxycodone/Acetaminophen 5/325 mg Tab PO PRN ×2 (10:40→21:41)
[2018-02-21] MEDS ORDERED: Gentamicin 80 mg in 0.9% NS 80 MG/100 ML BAG IVPB ONE (23:11)
[2018-02-21] MEDS ORDERED: cefTRIAXone 1 gm 1 GM/100 ML BAG IVPB STA (23:14)
[2018-02-22] MEDS ORDERED: cefTRIAXone 1 gm 1 GM/100 ML BAG IVPB STA (03:28)
[2018-02-22] MEDS ORDERED: DOFETILIDE PO PRN (08:30)
[2018-02-22] MEDS: Oxycodone/Acetaminophen 5/325 mg Tab PO PRN (09:25)
[2018-02-22 10:08] LABS: EOS % 0.3 % (1.5-5.0); GRAN # 4.21 (1.4-6.5); GRAN % 73.4 % (50.0-68.0); HEMOGLOBIN 9.3 g/dL (14.0-18.0); LYMPH # 0.7 (1.2-3.4); LYMPH % 12.9 % (22.0-35.0); MEAN CELL VOLUME 81.5 fl (80.0-105.0); MEAN CORPUSCULAR HEMOGLOBIN 26.1 pg (25.0-35.0); MEAN CORPUSCULAR HGB CONC 32.1 g/dl (31.0-37.0); MEAN PLATELET VOLUME 10.4 fl (7.0-11.0); MONO # 0.8 (0.1-0.6); MONO % 13.4 % (1.0-6.0); RBC 3.56 10^6/uL (3.5-6.1); RED CELL DISTRIBUTION WIDTH 15.3 % (11.5-14.5); WHITE BLOOD COUNT 5.7 10^3/uL (4.5-11.0)
[2018-02-22 10:24] LABS: ALB/GLOB RATIO 0.9 (1.1-1.8); ALBUMIN 2.9 g/dL (3.0-4.8); CALCIUM 8.4 mg/dL (8.4-10.5)
[2018-02-22 10:38] VITALS: BP 140/72; PULSE 80; RESP 20; TEMP 99.1; O2SAT 100
--- NOTE | 2018-02-22 11:40 | CP.PCM.PN ---
<Prasad Bell - Last Filed: 02/22/18 12:26> Subjective - Date & Time of Evaluation Date of Evaluation: 02/22/18 Time of Evaluation: 12:10 - Subjective Subjective: Prasad Bell DO PGY1 Internal Medicine Cv Tech - Medicine Consult Note Patient was seen and examined this morning at bedside; Patient had Cystoscopy w/ turp on 02/20 Overnight patient was febrile; urology was consulted - abx and tylenol ordered. Upon exam this AM patient was complaining that he is having pain at his rushing site; nursing reported that rushing is leaking. Patient also c/o mild suprapubic pain. Patient denies any cp, sob, n/v/d/c. Reports he is moving his bowels well. Objective - Vital Signs/Intake and Output Vital Signs (last 24 hours): Temp Pulse Resp BP Pulse Ox 99.1 F 80 20 140/72 100 02/22/18 06:00 02/22/18 06:00 02/22/18 06:00 02/22/18 06:00 02/22/18 06:00 Intake and Output: 02/22/18 02/22/18 06:59 18:59 Intake Total 480 Output Total 1100 Balance -620 - Medications Medications: Current Medications Apixaban (Eliquis) 5 mg PO BID [facility]; Protocol Last Admin: 02/22/18 09:23 Dose: 5 mg Aspirin (Aspirin Chewable) 81 mg PO DAILY [facility] Last Admin: 02/22/18 09:24 Dose: 81 mg Atorvastatin Calcium (Lipitor) 10 mg PO DIN [facility] Last Admin: 02/21/18 18:05 Dose: 10 mg Docusate Sodium (Colace) 100 mg PO TID [facility] Last Admin: 02/22/18 09:24 Dose: Not Given Dofetilide [Tikosyn] ((Home Med)) 1 tab PO Q12 PRN PRN Reason: Other Oxycodone/Acetaminophen (Percocet 5/325 Mg Tab) 1 tab PO Q6H PRN PRN Reason: Bladder Spasm Stop: 02/23/18 14:55 Last Admin: 02/22/18 09:25 Dose: 1 tab Pantoprazole Sodium (Protonix Ec Tab) 40 mg PO 0600 [facility] Last Admin: 02/21/18 10:40 Dose: 40 mg - Labs Labs: 02/22/18 10:00 02/22/18 10:00 - Constitutional Appears: Well, Non-toxic, No Acute Distress - Head Exam Head Exam: ATRAUMATIC, NORMOCEPHALIC - Eye Exam Eye Exam: EOMI, Normal appearance, PERRL - ENT Exam ENT Exam: Mucous Membranes Moist - Respiratory Exam Respiratory Exam: Clear to Ausculation Bilateral, NORMAL BREATHING PATTERN - Cardiovascular Exam Cardiovascular Exam: REGULAR RHYTHM, RRR, +S1, +S2. absent: Murmur - GI/Abdominal Exam GI & Abdominal Exam: Soft, Tenderness (suprapubic), Normal Bowel Sounds - Exam Additional comments: Rushing is in place; leaking urine Penis is tender on palpation / manipulation; no erythema/ discharge noted. - Extremities Exam Extremities Exam: Normal Capillary Refill. absent: Pedal Edema Additional comments: 2+ DP BL - Neurological Exam Neurological Exam: Alert, Awake, CN II-XII Intact - Psychiatric Exam Psychiatric exam: Normal Affect, Normal Mood - Skin Skin Exam: Dry, Intact, Normal Color, Warm Assessment and Plan - Assessment and Plan (Free Text) Assessment: Pt is a 67 y o male with PMhx A-fib on Dofetilide and Eliquis, Orthostatic hypotension, prior stroke 2 y ago with L-sided residual weakness, hx pacemaker placed on 01/07/18, syncopal episodes, urinary incontinence, who is status post TURP/cystoscopy with Dr. Dash Montague 02/20. Hospitalist team consulted for medical management of patient. Plan: S/p TURP/cystoscopy 02/20 Febrile overnight; no elevated WBC Rocephin 2gm + Gentamicin 80mg given overnight Tylenol PRN fevers/ mild pain Pain management as per Dr. Montague 600ml urine output overnight Surgical clearance for discharge as per Dr. Montague Hx a-fib Eliquis resumed as per Dr. Montague C/w Tikosyn Q12 No blood noted in rushing bag; continue monitor for bleeding Hx orthostatic hypotension Patient w/ elevated BP Can continue holding home midodrine Will resume if hypotensive Hx stroke C/w ASA daily Hx HLD C/w atorvastatin 10 mg PO din Hx acid reflux C/w pantoprazole daily Patient was seen, examined, and discussed w/ attending Physician Dr. Bella Bell DO PGY1 - Internal Medicine Cv Tech - Progress Note for Hospitalist Consultation <Bella Bell - Last Filed: 02/23/18 12:56> Objective - Vital Signs/Intake and Output Vital Signs (last 24 hours): Temp Pulse Resp BP Pulse Ox 99.1 F 80 20 140/72 100 02/22/18 06:00 02/22/18 06:00 02/22/18 06:00 02/22/18 06:00 02/22/18 06:00 - Labs Labs: 02/22/18 10:00 02/22/18 10:00 Attending/Attestation - Attestation I have personally seen and examined this patient.: Yes I have fully participated in the care of the patient.: Yes I have reviewed all pertinent clinical information, including history, physical exam and plan: Yes Notes (Text): Patient seen and examined by me with resident at 9:30AM on 02/22/18. Case including HPI, physical exam, and assessment and plan discussed with resident. Agree with above with following additions/corrections. Patient is a 67-year-old male with past medical history significant for atrial fibrillation on Eliquis and Tikosyn, orthostatic hypotension, prior CVA with left-sided residual weakness, pacemaker placement, syncopal episodes, and urinary incontinence that presented to the hospital for TURP/cystoscopy with urology. Patient is status post TURP. We are consulted for medical management. Patient states he is feeling okay. Complains of pain at the Rushing catheter site. Patient has some gross hematuria today. Also febrile overnight. Patient denies chest pain or palpitations. No shortness of breath. No nausea, vomiting, or abdominal pain. No headaches or dizziness. Physical exam: General: Awake and alert sitting up in bed in no acute distress HEENT: Normocephalic, atraumatic. Extraocular muscles intact, pupils equal and reactive, no scleral icterus. Oropharynx is pink and moist. No pharyngeal erythema or exudate appreciated. Neck is supple. Cardiovascular: Paced rhythm, S1 and S2.No murmurs, rubs, or gallops appreciated Pulmonary: Normal respiratory effort. No rhonchi, rales, or wheezing appreciated Gastrointestinal: Soft, nondistended. Nontender. Positive bowel sounds all 4 quadrants. No guarding. Musculoskeletal: Moves all extremities. No calf tenderness. No edema appreciated. : Positive rushing catheter with gross hematuria. Central nervous system: AAO x3, CN II through XII grossly intact. Dermatologic: Skin warm and dry. Assessment and plan: Patient is a 67-year-old male with past medical history significant for atrial fibrillation on Eliquis and Tikosyn, orthostatic hypotension, prior CVA with left-sided residual weakness, pacemaker placement, syncopal episodes, and urinary incontinence that presented to the hospital for TURP/cystoscopy with urology. Patient is status post TURP. We are consulted for medical management. 1. Urinary retention and incontinence. Patient s/p TURP today. Care as per Dr. Montague. 2. Post procedural fever. One isolated fever. Patient was given antibiotics. No leukocytosis. Will need cultures if spikes fever again. 3. History of atrial fibrillation. Status post pacemaker. Continue with Eliquis and Tikosyn. Continue aspirin. 4. History of orthostatic hypotension. Midodrine held as patient's blood pressure on the higher side likely secondary to pain 5. History of CVA with left sided residual weakness. Continue ASA, Eliquis, and Lipitor 6. Hyperlipidemia. Continue lipitor 7. Acid reflux. Continue Protonix. Case was discussed in detail with the patient, patient's at bedside, and patient's son at bedside regarding current diagnosis and treatment plan. All questions answered.
--- NOTE | 2018-02-27 10:17 | HP ---
UROLOGY ADMISSION HISTORY AND PHYSICAL REASON FOR ADMISSION: Urinary retention, voiding dysfunction, urinary incontinence, incomplete bladder emptying, hematuria, and also for a PVP GreenLight laser. HISTORY OF PRESENT ILLNESS: As follows; Mr. Gray is a very pleasant 57-year-old gentleman. He has multiple medical issues including specifically, he has voiding dysfunction, incomplete bladder emptying. He is also having some urinary incontinence. He has a significant medical history of previous CVA and multiple medical issues. so from a Urology standpoint, we are bringing him in today. We were not able to perform urodynamic study, but he has previously not emptying his bladder well and he has had urinary retention, and he is not able to tolerate a Heard. Currently, he does not have a Heard in place. He also has urinary incontinence and this is concerning from that regard. We are planning today for a PVP GreenLight laser to make sure that he is open. He has a visually prostate, and this was discussed on evaluation. He does not have any signs of malignancy. We are planning for GreenLight laser and then depending on the result, we are then planning for use of medication, such as Ditropan given history of the stroke. PAST MEDICAL AND SURGICAL HISTORY: As listed above on the chart, and otherwise unremarkable. In relation to today's procedure, we had obtained the medical clearance. REVIEW OF SYSTEMS: As listed above, otherwise noncontributory, but it is significant. He recently was in a home, on a rehab center. I did talk with his son during multiple occasions. We talked to his son and the family and the , very supportive in his care. Significantly, see the medications listed on the chart. Right now, he is off his Eliquis and aspirin, but he is at risk for recurrent CVA and as soon as we can, we are going to restore him on these medications. See the remainder of list on the chart. PHYSICAL EXAMINATION: GENERAL: Well-nourished male, in no apparent distress. VITAL SIGNS: Noted. HEENT: Normocephalic, atraumatic. Sclerae are nonicteric, noninjected. LUNGS: Clear. HEART: Normal S1 and S2. NECK: No cervical or axillary lymphadenopathy. ABDOMEN: Overall soft. GENITOURINARY: Normal phallus. There are no testicular masses. RECTAL: 30 g prostate, felt smooth. LABORATORY DATA: See chart. PSA noted. All these are noted within the chart. DIAGNOSES AND PLAN: Urinary incontinence, urinary retention, incomplete bladder emptying, gross hematuria, voiding dysfunction, recurrent problems. In summary, this is a very pleasant 57-year-old gentleman with history of a stroke. He has not undergone urodynamic study. We have discussed this option with the patient. At this point, we are going to do photovaporization GreenLight laser energy for his prostate. We will provide the patient with antibiotic prophylaxis, and then we will see how he does. We are also going to resume the medications as quickly as possible. Kemar Montague MD
--- NOTE | 2018-03-11 01:01 | PN ---
DATE: 03/10/2018 IMMEDIATE POSTOPERATIVE NOTE See the history and physical. See the operative note. This is an immediate postop. The patient is in the recovery room. Status post PVP GreenLight laser . Vital signs within normal limits. The patient tolerated the procedure well without complications. The plans are Heard to straight drainage and then further plans will follow. The timing for the trial of void was discussed. Again, on the procedure, the patient also has some underlying issues of incontinence . Kemar Montague MD
--- NOTE | 2018-03-11 10:09 | OP ---
PROCEDURE DATE: 02/20/2018 PREOPERATIVE DIAGNOSES: Urinary retention, voiding dysfunction, urinary incontinence, visually occlusive prostate, and a component of neurogenic bladder. POSTOPERATIVE DIAGNOSES: Urinary retention, voiding dysfunction, urinary incontinence, visually occlusive prostate, and a component of neurogenic bladder. PROCEDURE: Photovaporization with GreenLight laser energy, transurethral resection of the prostate. SURGEON: Kemar Montague MD SPECIMEN: There were no specimens sent down. At the termination of the procedure, we had a wide open prostate. Prior to the procedure, we had a visually occlusive prostate. FINDINGS OF THE PROCEDURE: 1. Normal anterior urethra, no stricture. 2. The verumontanum was visually occlusive in the beginning and by the time I finished, it was open. COMPLICATIONS: There were no complications. BLOOD LOSS: Less than 10 mL. INDICATIONS: See history and physical. In light of the complicated situation, that the patient urinary retention, I am concerned he also has urinary incontinence. So, after discussing options with the patient at this time, I once again explained the risks that the procedure itself may even led him to have incontinence. with more medical therapy. The component of possibility for a neurogenic urinary incontinence due to the activity entertained. The other possibility he has been in retention before, we discussed various options. One of these is the patient is offered to just live with a Heard catheter and to change it periodically. We also discussed the idea of intermittent catheter. We discussed suprapubic catheters. We discussed a lot of different options with the patient. We are going to try this now to make sure that it is wide open and then try to make further recommendations and plan. DESCRIPTION OF PROCEDURE: See the history and physical for further details. Risks and benefits of treatment discussed, medical clearance. Everything has been worked out very nicely. The patient has been outlined about the procedure above. After obtaining informed consent, the patient was placed on the table. Routine monitor was placed. Time-out was called and confirmed patient and positioning. Antibiotic prophylaxis was used prior to the procedure. We introduced the cystoscope via urethra. We used a #22 Kinyarwanda scope. We identified all our landmarks. The prostate was noted to be visually occlusive, about 3 cm in length. The ureteral orifice identified. The verumontanum was identified. At the beginning and termination of the procedure, we identified all our landmarks and we had the prostate wide open. After obtaining informed consent, the patient was placed on the table. Routine monitor was placed. Time-out was called and confirmed patient and positioning. We introduced the scope under direct vision. We identified all our landmarks energy level of 80 mendoza. We worked him on the floor between 5 and 7. We then turned our attention from 7 to 11 and 5 to 1. We inspected the patient is wide open. We then turned any further opening. We turned off all the water, we made sure there is no bleeding. The patient tolerated the procedure without complication. We inserted a Heard catheter via urethra with a little mild traction. Kemar Montague MD
== END 2018-02-22 19:06 | disposition home health service (06) ==
LOC: SDS 05:46 → ERH 14:51 → 5RNO 17:43
PROVIDERS: ADMIT Urology; ATTEND Urology
DX: R33.9 Retention of urine, unspecified (principal); R32 Unspecified urinary incontinence; N31.9 Neuromuscular dysfunction of bladder, unspecified; R50.82 Postprocedural fever; I48.91 Unspecified atrial fibrillation; I69.354 Hemiplegia and hemiparesis following cerebral infarction affecting left non-dominant side; I95.1 Orthostatic hypotension; E78.5 Hyperlipidemia, unspecified; K21.9 Gastro-esophageal reflux disease without esophagitis; R31.0 Gross hematuria; Z95.0 Presence of cardiac pacemaker; Z79.02 Long term (current) use of antithrombotics/antiplatelets
CPT/HCPCS: 36415; 52648; 80053; 83735; 84100; 85025; 96365; 96367; G0378; J0696; J0744; J1580; J7030; J7120

== ENCOUNTER 2018-02-25 08:21 | Inpatient (IN) | payer OTHER ==
[2018-02-25 08:24] VITALS: BMI 31.8
[2018-02-25] MEDS ORDERED: Sodium Chloride 0.9% 500 ML IV STA (08:37)
--- NOTE | 2018-02-25 08:39 | ED PDOC ---
Arrival/HPI - General Chief Complaint: GI Problem Time Seen by Provider: 02/25/18 08:30 Historian: Patient - History of Present Illness Narrative History of Present Illness (Text): 02/25/18 08:36 67 year old male, with a history that includes prostate laser surgery on 02/20/18, and a-fib, presents to the emergency department with penile bleeding, since today. Patient states he went to use the bathroom and found mostly blood while urinating. Patient states he contacted his urologist Dr Shakir Montague, who instructed him to go to the emergency department for evaluation. Patient informs of some abdominal pain. Patient informs being on Eloquis for his A-fib. Patient denies any fevers, chills, headache, dizziness, chest pain, shortness of breath, cough, or any other complaint. Time/Duration: Prior to Arrival Symptom Onset: Gradual Context: Home Past Medical History - Provider Review Nursing Documentation Reviewed: Yes - Infectious Disease Hx of Infectious Diseases: None - Cardiac Hx Pacemaker: Yes - Pulmonary Hx Respiratory Disorders: No - Neurological Hx Paralysis: No - HEENT Hx HEENT Disorder: No - Renal Hx Renal Disorder: No - Endocrine/Metabolic Hx Endocrine Disorders: Yes (pre diabetes) - Hematological/Oncological Hx Blood Transfusions: No - Integumentary Hx Dermatological Disorder: No - Musculoskeletal/Rheumatological Hx Musculoskeletal Disorders: No - Gastrointestinal Hx Gastrointestinal Disorders: No - Genitourinary/Gynecological Hx Prostate Problems: Yes (bph/retention/leaking urine) - Psychiatric Hx Emotional Abuse: No Hx Physical Abuse: No Hx Substance Use: No - Surgical History Hx Cardiac Catheterization: Yes (2016) Hx Coronary Stent: Yes Other/Comment: lung node bx neg, turp with green light laser done today 02/20/18 - Anesthesia Hx Anesthesia Reactions: No Hx Malignant Hyperthermia: No - Suicidal Assessment Feels Threatened In Home Enviroment: No Family/Social History - Physician Review Nursing Documentation Reviewed: Yes Family/Social History: No Known Family HX Smoking Status: Never Smoked Hx Alcohol Use: No Hx Substance Use: No Allergies/Home Meds Allergies/Adverse Reactions: Allergies No Known Allergies Allergy (Verified 02/25/18 11:42) Home Medications: Home Meds Medication Instructions Recorded Confirmed RX: Potassium Chloride [K-Dur 20 1 tab PO DAILY 12/30/17 02/20/18 mEq ER Tab] Dofetilide [Tikosyn] 1 tab PO Q12 PRN 02/14/18 02/20/18 RX: Apixaban [Eliquis] 5 mg PO BID 02/14/18 02/20/18 RX: Lactulose [Enulose] 20 gm PO DAILY PRN 02/14/18 02/20/18 RX: Midodrine [Proamatine] 5 mg PO DAILY PRN 02/14/18 02/20/18 Review of Systems - Physician Review All systems were reviewed & negative as marked: Yes - Review of Systems Constitutional: absent: Fevers, Night Sweats Respiratory: absent: SOB, Cough Cardiovascular: absent: Chest Pain Gastrointestinal: Abdominal Pain Genitourinary Male: Hematuria Neurological: absent: Headache, Dizziness Physical Exam Vital Signs Reviewed: Yes Vital Signs Temp Pulse Resp BP Pulse Ox 02/25/18 08:24 98.9 F 69 20 162/98 H 100 Temperature: Afebrile Blood Pressure: Hypertensive Pulse: Regular Respiratory Rate: Normal Appearance: Positive for: Well-Appearing, Non-Toxic, Comfortable Pain Distress: None Mental Status: Positive for: Alert and Oriented X 3 - Systems Exam Head: Present: Atraumatic, Normocephalic Pupils: Present: PERRL Extroacular Muscles: Present: EOMI Conjunctiva: Present: Normal Mouth: Present: Moist Mucous Membranes Neck: Present: Normal Range of Motion Respiratory/Chest: Present: Clear to Auscultation, Good Air Exchange. No: Respiratory Distress, Accessory Muscle Use Cardiovascular: Present: Regular Rate and Rhythm, Normal S1, S2. No: Murmurs Abdomen: Present: Tenderness (Suprapubic tenderness). No: Distention, Peritoneal Signs Back: Present: Normal Inspection Upper Extremity: Present: Normal Inspection. No: Cyanosis, Edema Lower Extremity: Present: Normal Inspection. No: Edema Neurological: Present: GCS=15, CN II-XII Intact, Speech Normal Skin: Present: Warm, Dry, Normal Color. No: Rashes Psychiatric: Present: Alert, Oriented x 3, Normal Insight, Normal Concentration Medical Decision Making ED Course and Treatment: 02/25/18 08:40 Impression: 67 year old male presents with penile bleeding. Plan: -- CMP, Lipase, Mg -- CBC, Hematology -- Tylenol -- Urinalysis -- Reassess and disposition Prior Visits: Notes and results from previous visits were reviewed. Progress Notes: 02/25/18 08:47 EKG reviewed by me, shows: Pace rhythm rate @70 bpm 02/25/18 11:[address] prescott. bladder scan [address] montague rquests rushing. placed with drainage of 500 ml of bloody urine. accepted by dr otoole for admission. - Scribe Statement The provider has reviewed the documentation as recorded by the Scribe Devante Galo Provider Scribe Attestation: All medical record entries made by the Scribe were at my direction and personally dictated by me. I have reviewed the chart and agree that the record accurately reflects my personal performance of the history, physical exam, medical decision making, and the department course for this patient. I have also personally directed, reviewed, and agree with the discharge instructions and disposition. Disposition/Present on Arrival - Present on Arrival Any Indicators Present on Arrival: No History of DVT/PE: No History of Uncontrolled Diabetes: No Urinary Catheter: No History of Decub. Ulcer: No History Surgical Site Infection Following: None - Disposition Have Diagnosis and Disposition been Completed?: Yes Diagnosis: Hematuria Disposition: HOSPITALIZED Disposition Time: 11:30 Condition: STABLE
[2018-02-25] MEDS ORDERED: Morphine 4 mg/ml ISec IVP STA (09:15)
[2018-02-25 09:28] LABS: EOS # 0.1 (0.0-0.7); EOS % 1.3 % (1.5-5.0); GRAN # 2.82 (1.4-6.5); GRAN % 62.5 % (50.0-68.0); LYMPH # 0.8 (1.2-3.4); LYMPH % 18.2 % (22.0-35.0); MEAN CELL VOLUME 80.6 fl (80.0-105.0); MEAN CORPUSCULAR HEMOGLOBIN 25.8 pg (25.0-35.0); MEAN CORPUSCULAR HGB CONC 32.1 g/dl (31.0-37.0); MEAN PLATELET VOLUME 10.5 fl (7.0-11.0); MONO # 0.8 (0.1-0.6); RBC 3.87 10^6/uL (3.5-6.1); RED CELL DISTRIBUTION WIDTH 15.1 % (11.5-14.5); WHITE BLOOD COUNT 4.5 10^3/uL (4.5-11.0)
[2018-02-25 09:32] LABS: ALB/GLOB RATIO 0.9 (1.1-1.8); ALBUMIN 3.7 g/dL (3.0-4.8)
[2018-02-25 09:35] LABS: INR 1.3; PARTIAL THROMBOPLASTIN TIME 27.9 Seconds (25.1-36.5)
--- NOTE | 2018-02-25 10:39 | CP.PCM.HP ---
<LolitaPankaj R - Last Filed: 02/25/18 12:17> History of Present Illness - History of Present Illness History of Present Illness: PGY-2 medicine H&P note for Dr Leiva Pt is a 67 yo male with PMhx A-fib on Dofetilide and Eliquis, Orthostatic hypotension, prior stroke 2 y ago with L-sided residual weakness, hx pacemaker placed on 01/07/18, syncopal episodes, urinary incontinence, who is recently status post TURP/cystoscopy with Dr. Dash Montague on 02/20/2018 presents today for bleeding from penile meatus which began suddenly this morning at 5AM at his home. Patient had been wearing a condom catheter since his TURP (03/02/18) and noticed the collection bag had turned red with some clots. Patient also endorsed suprapubic pain as well as bilateral flank pain during this episode - this was relived once the rushing catheter was placed in the ED. He has been taking half dose of his eliquis since the TURP procedure as advised - last administration was 20 hours prior to bleeding. He has not taken his aspirin since his TURP procedure. Patient denied dizziness, chest pain, lightheadedness, fevers, GI issues. PMhx: A-fib, Orthostatic hypotension, prior stroke 2 y ago with L-sided residual weakness, syncopal episodes, urinary incontinence PSurgHx: TURP/cystoscopy 02/20/2018, pacemaker placed on 01/07/18, prior lung bx for abnormal lymph node in 2017 (no cancer identified) Allergies: NKDA Home meds: k-dur 20meq po qd, miralax 17g po prn, protonix 40mg po qd, midodrine 5mg po qd prn, lactulose 20g po qd prn, fludrocortison 0.3mg po bid, dofetilide 1 tab po q12h, lipitor 5mg po din, asa 81mg po qd, eliquis 5mg po bid Fam hx: denies Soc hx: denies cigarette smoking, EtOH or illicit drug use PMD: Dr. Reshma Briones Tuberculosis Specialist: Dr Sukhjinder Brock Present on Admission - Present on Admission Any Indicators Present on Admission: No Review of Systems - Review of Systems All systems: reviewed and no additional remarkable complaints except (as stated in HPI) Past Patient History - Infectious Disease Hx of Infectious Diseases: None - Past Social History Smoking Status: Never Smoked - CARDIAC Hx Pacemaker: Yes - PULMONARY Hx Respiratory Disorders: No - NEUROLOGICAL Hx Paralysis: No - HEENT Hx HEENT Problems: No - RENAL Hx Chronic Kidney Disease: No - ENDOCRINE/METABOLIC Hx Endocrine Disorders: Yes (pre diabetes) - HEMATOLOGICAL/ONCOLOGICAL Hx Blood Transfusions: No - INTEGUMENTARY Hx Dermatological Problems: No - MUSCULOSKELETAL/RHEUMATOLOGICAL Hx Musculoskeletal Disorders: No - GASTROINTESTINAL Hx Gastrointestinal Disorders: No - GENITOURINARY/GYNECOLOGICAL Hx Prostate Problems: Yes (bph/retention/leaking urine) - PSYCHIATRIC Hx Emotional Abuse: No Hx Physical Abuse: No Hx Substance Use: No - SURGICAL HISTORY Hx Cardiac Catheterization: Yes (2016) Hx Coronary Stent: Yes Other/Comment: lung node bx neg, turp with green light laser done today 02/20/18 - ANESTHESIA Hx Anesthesia Reactions: No Hx Malignant Hyperthermia: No Meds Allergies/Adverse Reactions: Allergies Allergy/AdvReac Type Severity Reaction Status Date / Time No Known Allergies Allergy Verified 02/25/18 13:58 Physical Exam - Constitutional Appears: Well, Non-toxic, No Acute Distress - Head Exam Head Exam: ATRAUMATIC, NORMAL INSPECTION - Eye Exam Eye Exam: EOMI, Normal appearance, PERRL. absent: Scleral icterus - ENT Exam ENT Exam: Mucous Membranes Moist - Respiratory Exam Respiratory Exam: Clear to Auscultation Bilateral, NORMAL BREATHING PATTERN. absent: Rales, Rhonchi, Wheezes - Cardiovascular Exam Cardiovascular Exam: REGULAR RHYTHM, +S1, +S2. absent: Bradycardia, Tachy cardia, JVD, Systolic Murmur - GI/Abdominal Exam GI & Abdominal Exam: Normal Bowel Sounds, Soft. absent: Distended, Guarding, Mass, Pulsatile Mass, Rebound, Rigid, Tenderness - Exam Additional comments: some dried blood around uretheral meatus; rushing in place with bloody output; no suprapubic pain; no bladder distension - Extremities Exam Extremities exam: Positive for: normal capillary refill, normal inspection, pedal pulses present. Negative for: calf tenderness, pedal edema - Back Exam Back exam: NORMAL INSPECTION. absent: CVA tenderness (L), CVA tenderness (R) - Neurological Exam Neurological exam: Alert, CN II-XII Intact, Oriented x3 Additional comments: left arm and left leg motor 4/5 compared to right which is 5/5 UE and LE - Psychiatric Exam Psychiatric exam: Normal Affect, Normal Mood - Skin Skin Exam: Dry, Intact, Normal Color, Warm Results - Vital Signs Recent Vital Signs: Last Vital Signs Temp 98.3 F 02/25/18 08:48 Pulse 69 02/25/18 10:16 Resp 18 02/25/18 10:16 BP 128/73 02/25/18 10:16 Pulse Ox 98 02/25/18 10:16 - Labs Result Diagrams: 02/25/18 09:10 02/25/18 09:10 Labs: Laboratory Results - last 24 hr 02/25/18 02/25/18 02/25/18 09:10 09:10 09:10 WBC 4.5 D RBC 3.87 Hgb 10.0 L Hct 31.2 L MCV 80.6 MCH 25.8 MCHC 32.1 RDW 15.1 H Plt Count 233 MPV 10.5 Gran % 62.5 Lymph % (Auto) 18.2 L Clark % (Auto) 18.0 H Eos % (Auto) 1.3 L Baso % (Auto) 0.0 Gran # 2.82 Lymph # (Auto) 0.8 L Clark # (Auto) 0.8 H Eos # (Auto) 0.1 Baso # (Auto) 0.00 PT 15.0 H INR 1.30 APTT 27.9 Sodium 138 Potassium 3.7 Chloride 101 Carbon Dioxide 28 Anion Gap 13 BUN 18 Creatinine 1.6 H Est GFR ( Amer) 52 Est GFR (Non-Af Amer) 43 Random Glucose 138 H Calcium 9.0 Magnesium 1.6 L Total Bilirubin 0.6 AST 37 ALT 26 Alkaline Phosphatase 106 Total Protein 7.8 Albumin 3.7 Globulin 4.1 Albumin/Globulin Ratio 0.9 L Lipase 62 Assessment & Plan - Assessment and Plan (Free Text) Plan: Pt is a 67 yo male with PMhx A-fib on Dofetilide and Eliquis, Orthostatic hypotension, prior stroke 2 y ago with L-sided residual weakness, hx pacemaker placed on 01/07/18, syncopal episodes, urinary incontinence, who is recently status post TURP/cystoscopy with Dr. Dash Montague on 02/20/2018 presents today for bleeding from urinary meatus which began suddenly: Bleeding from Urinary Meatus -rushing in place collecting bloody output; Hgb stable at 10 compared to prior admissions -consult urologist Dr Zaire Montague -proscar 5mg po qd -Hgb Q12h and if stable CBC Q24h -morphine 1mg q4h prn for severe pain -type and screen -hold blood thinners -midodrine 5mg po prn if hypotensive AFib -paced rhythm on ekg -hold eliquis 5mg po bid for now -continue home med dofetilide 250mcg q12h Hx of CVA w/ residual left-sided weakness -hold aspirin 81mg po qd for now -continue home med lipitor 5mg po hs Hx of GERD -continue home protonix 40mg po qd PPX -HHD -SCDs -contraindication to VTE Case seen and discussed with Dr Leiva. <Haroldo Leiva - Last Filed: 02/26/18 12:36> Results - Vital Signs Recent Vital Signs: Last Vital Signs Temp 99.0 F 02/26/18 06:00 Pulse 71 02/26/18 06:00 Resp 20 02/26/18 06:00 BP 136/84 02/26/18 06:00 Pulse Ox 99 02/26/18 06:00 - Labs Result Diagrams: 02/26/18 06:15 02/26/18 06:15 Labs: Laboratory Results - last 24 hr 02/25/18 02/26/18 02/26/18 18:15 06:15 06:15 WBC 5.3 RBC 3.25 L Hgb 8.6 L 8.4 L Hct 26.5 L MCV 81.5 MCH 25.8 MCHC 31.7 RDW 15.4 H Plt Count 200 MPV 10.5 Gran % 67.0 Lymph % (Auto) 17.7 L [place] % (Auto) 13.2 H Eos % (Auto) 2.1 Baso % (Auto) 0.0 Gran # 3.55 Lymph # (Auto) 0.9 L [place] # (Auto) 0.7 H Eos # (Auto) 0.1 Baso # (Auto) 0.00 Sodium Potassium Chloride Carbon Dioxide Anion Gap BUN Creatinine Est GFR ( Amer) Est GFR (Non-Af Amer) Random Glucose Calcium Phosphorus Magnesium Total Bilirubin AST ALT Alkaline Phosphatase Total Protein Albumin Globulin Albumin/Globulin Ratio Blood Type O POSITIVE Blood Type Confirm Antibody Screen Negative BBK History Checked No verified bt 02/26/18 02/26/18 06:15 07:27 WBC RBC Hgb Hct MCV MCH MCHC RDW Plt Count MPV Gran % Lymph % (Auto) Clark % (Auto) Eos % (Auto) Baso % (Auto) Gran # Lymph # (Auto) Clark # (Auto) Eos # (Auto) Baso # (Auto) Sodium 137 Potassium 3.6 Chloride 103 Carbon Dioxide 28 Anion Gap 9 L BUN 20 Creatinine 1.4 Est GFR ( Amer) > 60 Est GFR (Non-Af Amer) 50 Random Glucose 100 Calcium 8.4 Phosphorus 3.2 Magnesium 2.0 Total Bilirubin 0.5 AST 26 ALT 28 Alkaline Phosphatase 76 Total Protein 6.8 Albumin 3.1 Globulin 3.7 Albumin/Globulin Ratio 0.8 L Blood Type Blood Type Confirm O POSITIVE Antibody Screen BBK History Checked Attending/Attestation - Attestation I have personally seen and examined this patient.: Yes I have fully participated in the care of the patient.: Yes I have reviewed all pertinent clinical information: Yes Notes (Text): 02/26/18 12:33 Attending note; patient seen and examined with resident. Patient is a 67 year old male with PMhx A-fib on Dofetilide and Eliquis, h/o of Orthostatic hypotension, prior stroke, with L-sided residual weakness, hx pacemaker placed on 01/07/18, syncopal episodes, urinary incontinence, who is recently status post TURP/cystoscopy with Dr. Dash Montague on 02/20/2018. currently admitted for significant hematuria. Patient has a three-way Rushing with continuous bladder irrigation. Monitor hemoglobin. Aspirin and eliquis on hold. History of orthostatic hypotension; currently blood pressure is stable. Status post pacemaker placement. Case discussed with patient and family in detail.
[2018-02-25 10:55] LABS: PH,URINE 8.5 (4.7-8.0); URINE BILIRUBIN LARGE (NEGATIVE); URINE BLOOD LARGE (NEGATIVE); URINE GLUCOSE (UA) 100 mg/dL (NEGATIVE); URINE LEUKOCYTE ESTERASE LARGE Leu/uL (NEGATIVE); URINE PROTEIN >=300 mg/dL (<30 mg/dL)
[2018-02-25 10:58] LABS: URINE APPEARANCE TURBID (CLEAR); URINE COLOR RED (YELLOW)
[2018-02-25 11:01] LABS: URINE BACTERIA FEW /hpf; URINE EPITHELIAL CELLS 0 - 2 /hpf (0-5); URINE RBC TNTC /hpf (0-2)
[2018-02-25] MEDS ORDERED: Magnesium Sulfate 2 gm/50 ml 2 GM/50 ML BAG IVPB ONE (11:09)
[2018-02-25] MEDS ORDERED: Influenza Vaccine 60 mcg/0.5 mL SYR (4YR UP) IM ONE (14:40)
[2018-02-25] MEDS ORDERED: Pneumococcal 23-Valent Vaccine IM ONE (14:40)
[2018-02-25] MEDS: Morphine 2 mg/ml ISec IVP PRN ×2 (19:16→23:26)
--- NOTE | 2018-02-25 20:47 | CARD ---
APPROVED REPORT Date of service: 02/25/2018 EKG Measurement Heart [id number] <Conclusion> Electronic atrial pacemaker Incomplete right bundle branch block Nonspecific T wave abnormality Prolonged QT Abnormal ECG
[2018-02-26] MEDS: Morphine 2 mg/ml ISec IVP PRN (03:04)
[2018-02-26 07:08] LABS: EOS # 0.1 (0.0-0.7); EOS % 2.1 % (1.5-5.0); GRAN # 3.55 (1.4-6.5); HEMOGLOBIN 8.4 g/dL (14.0-18.0); LYMPH # 0.9 (1.2-3.4); LYMPH % 17.7 % (22.0-35.0); MEAN CELL VOLUME 81.5 fl (80.0-105.0); MEAN CORPUSCULAR HEMOGLOBIN 25.8 pg (25.0-35.0); MEAN CORPUSCULAR HGB CONC 31.7 g/dl (31.0-37.0); MEAN PLATELET VOLUME 10.5 fl (7.0-11.0); MONO # 0.7 (0.1-0.6); MONO % 13.2 % (1.0-6.0); RBC 3.25 10^6/uL (3.5-6.1); RED CELL DISTRIBUTION WIDTH 15.4 % (11.5-14.5); WHITE BLOOD COUNT 5.3 10^3/uL (4.5-11.0)
[2018-02-26 07:31] LABS: ALB/GLOB RATIO 0.8 (1.1-1.8); ALBUMIN 3.1 g/dL (3.0-4.8); ALT/SGPT 28 U/L (7-56); AST/SGOT 26 U/L (17-59); BLOOD UREA NITROGEN 20 mg/dL (7-21); CALCIUM 8.4 mg/dL (8.4-10.5); GFR NON-AFRICAN AMERICAN 50
[2018-02-26] MEDS: Pantoprazole 40 mg EC Tab PO SCH (09:59)
--- NOTE | 2018-02-26 11:08 | CP.PCM.PN ---
<Pankaj Mchugh - Last Filed: 02/26/18 11:02> Subjective - Date & Time of Evaluation Date of Evaluation: 02/26/18 Time of Evaluation: 11:02 - Subjective Subjective: PGY-2 medicine progress note for Dr Leiva No acute events overnight. Patient still with continuous bladder irrigation ongoing - urine bag now collecting pinkish colored fluid which is much improved since yesterday when it was dark red. Patient complains of pain due to rushing at urinary meatus. Otherwise he denied cp, fevers, n/v/d/c, f/c. Objective - Vital Signs/Intake and Output Vital Signs (last 24 hours): Temp Pulse Resp BP Pulse Ox 99.0 F 71 20 136/84 99 02/26/18 06:00 02/26/18 06:00 02/26/18 06:00 02/26/18 06:00 02/26/18 06:00 - Medications Medications: Current Medications Apixaban (Eliquis) 5 mg PO BID [facility]; Protocol Aspirin (Aspirin Chewable) 81 mg PO DAILY [facility] Atorvastatin Calcium (Lipitor) 5 mg PO DIN [facility] Last Admin: 02/25/18 19:16 Dose: 5 mg Finasteride (Proscar) 5 mg PO DAILY [facility] Last Admin: 02/26/18 09:59 Dose: 5 mg Midodrine (Proamatine) 5 mg PO DAILY PRN PRN Reason: Systolic Blood Pressure Morphine Sulfate (Morphine) 1 mg IVP Q4H PRN PRN Reason: Pain, severe (8-10) Last Admin: 02/26/18 03:04 Dose: 1 mg Dofetilide [Tikosyn] ((Home Med)) 1 tab PO Q12 [facility] Pantoprazole Sodium (Protonix Ec Tab) 40 mg PO DAILY [facility] Last Admin: 02/26/18 09:59 Dose: 40 mg - Labs Labs: 02/26/18 06:15 02/26/18 06:15 PT 15.0 SECONDS (9.4-12.5) H 02/25/18 09:10 INR 1.30 02/25/18 09:10 APTT 27.9 Seconds (25.1-36.5) 02/25/18 09:10 - Additional Findings Additional findings: - Constitutional Appears: Well, Non-toxic, No Acute Distress - Head Exam Head Exam: ATRAUMATIC, NORMAL INSPECTION - Eye Exam Eye Exam: EOMI, Normal appearance, PERRL. absent: Scleral icterus - ENT Exam ENT Exam: Mucous Membranes Moist - Respiratory Exam Respiratory Exam: Clear to Auscultation Bilateral, NORMAL BREATHING PATTERN. absent: Rales, Rhonchi, Wheezes - Cardiovascular Exam Cardiovascular Exam: REGULAR RHYTHM, +S1, +S2. absent: Bradycardia, Tachycardia, JVD, Systolic Murmur - GI/Abdominal Exam GI & Abdominal Exam: Normal Bowel Sounds, Soft. absent: Distended, Guarding, Mass, Pulsatile Mass, Rebound, Rigid, Tenderness - Exam Additional comments: some dried blood around uretheral meatus; 3-way rushing in place with pinkish ou tput; no suprapubic pain; no bladder distension - Extremities Exam Extremities exam: Positive for: normal capillary refill, normal inspection, pedal pulses present. Negative for: calf tenderness, pedal edema - Back Exam Back exam: NORMAL INSPECTION. absent: CVA tenderness (L), CVA tenderness (R) - Neurological Exam Neurological exam: Alert, CN II-XII Intact, Oriented x3 Additional comments: left arm and left leg motor 4/5 compared to right which is 5/5 UE and LE - Psychiatric Exam Psychiatric exam: Normal Affect, Normal Mood - Skin Skin Exam: Dry, Intact, Normal Color, Warm Assessment and Plan - Assessment and Plan (Free Text) Plan: Pt is a 67 yo male with PMhx A-fib on Dofetilide and Eliquis, Orthostatic hypotension, prior stroke 2 y ago with L-sided residual weakness, hx pacemaker placed on 01/07/18, syncopal episodes, urinary incontinence, who is recently status post TURP/cystoscopy with Dr. Dash Montague on 02/20/2018 presents today for bleeding from urinary meatus which began suddenly: Bleeding from Urinary Meatus -rushing in place collecting bloody output; Hgb stable at 8.4 - 10 compared to prior admissions -consult urologist Dr Zaire Montague * recommends stopping CBI and clamping 3rd port and possibly to discharge with rushing tomorrow and f/u in his office outpatient -proscar 5mg po qd -Hgb Q12h -morphine 1mg q4h prn for severe pain -type and screen -midodrine 5mg po prn if hypotensive AFib -paced rhythm on ekg -hold eliquis 5mg po bid for now * plan is to restart tonight at 6pm (discussed with Dr Montague) -continue home med dofetilide 250mcg q12h * patient's son to bring in today Hx of CVA w/ residual left-sided weakness -hold aspirin 81mg po qd for now * plan is to restart tonight at 6pm (discussed with Dr Montague) -continue home med lipitor 5mg po hs Hx of GERD -continue home protonix 40mg po qd PPX -HHD -SCDs -contraindication to VTE Case seen and discussed with Dr Leiva. <Haroldo Leiva - Last Filed: 02/26/18 12:39> Objective - Vital Signs/Intake and Output Vital Signs (last 24 hours): Temp Pulse Resp BP Pulse Ox 99.0 F 71 20 136/84 99 02/26/18 06:00 02/26/18 06:00 02/26/18 06:00 02/26/18 06:00 02/26/18 06:00 - Medications Medications: Current Medications Apixaban (Eliquis) 5 mg PO BID [facility]; Protocol Aspirin (Aspirin Chewable) 81 mg PO DAILY [facility] Atorvastatin Calcium (Lipitor) 5 mg PO DIN [facility] Last Admin: 02/25/18 19:16 Dose: 5 mg Finasteride (Proscar) 5 mg PO DAILY [facility] Last Admin: 02/26/18 09:59 Dose: 5 mg Midodrine (Proamatine) 5 mg PO DAILY PRN PRN Reason: Systolic Blood Pressure Morphine Sulfate (Morphine) 1 mg IVP Q4H PRN PRN Reason: Pain, severe (8-10) Last Admin: 02/26/18 03:04 Dose: 1 mg Dofetilide [Tikosyn] ((Home Med)) 1 tab PO Q12 [facility] Pantoprazole Sodium (Protonix Ec Tab) 40 mg PO DAILY [facility] Last Admin: 02/26/18 09:59 Dose: 40 mg - Labs Labs: 02/26/18 06:15 02/26/18 06:15 PT 15.0 SECONDS (9.4-12.5) H 02/25/18 09:10 INR 1.30 02/25/18 09:10 APTT 27.9 Seconds (25.1-36.5) 02/25/18 09:10 Attending/Attestation - Attestation I have personally seen and examined this patient.: Yes I have fully participated in the care of the patient.: Yes I have reviewed all pertinent clinical information, including history, physical exam and plan: Yes Notes (Text): 02/26/18 12:37 Attending note; patient seen and examined with resident. Hematuria is resolving. abdominal pain improved significantly. Tolerating diet well. Patient is a 67 year old male with PMhx A-fib on Dofetilide and Eliquis, h/o of Orthostatic hypotension, prior stroke, with L-sided residual weakness, hx pacemaker placed on 01/07/18, syncopal episodes, urinary incontinence, who is recently status post TURP/cystoscopy with Dr. Dash Montague on 02/20/2018. currently admitted for significant hematuria. cleared. Case discussed with urololgy in detail. stop continuous bladder irrigation. Leave the Rushing in. Started back on aspirin and eliquis. hemoglobin is 8.4 today. asymptomatic. History of orthostatic hypotension; currently blood pressure is stable. Status post pacemaker placement. Case discussed with patient and family in detail. upon discharge the patient will follow up with PMD Dr. mcbride. 02/26/18 12:39
[2018-02-26] MEDS: DOFETILIDE PO SCH ×2 (12:00→21:02)
[2018-02-26 18:59] LABS: HEMOGLOBIN 8.5 g/dL (14.0-18.0)
[2018-02-26 22:42] VITALS: PULSE 70
[2018-02-27 06:33] LABS: EOS # 0.2 (0.0-0.7); EOS % 4.7 % (1.5-5.0); GRAN # 2.41 (1.4-6.5); GRAN % 54.3 % (50.0-68.0); HEMOGLOBIN 8.5 g/dL (14.0-18.0); LYMPH % 23.2 % (22.0-35.0); MEAN CELL VOLUME 81.7 fl (80.0-105.0); MEAN CORPUSCULAR HEMOGLOBIN 25.5 pg (25.0-35.0); MEAN CORPUSCULAR HGB CONC 31.3 g/dl (31.0-37.0); MEAN PLATELET VOLUME 10.7 fl (7.0-11.0); MONO # 0.8 (0.1-0.6); MONO % 17.8 % (1.0-6.0); RBC 3.33 10^6/uL (3.5-6.1); RED CELL DISTRIBUTION WIDTH 15.4 % (11.5-14.5); WHITE BLOOD COUNT 4.4 10^3/uL (4.5-11.0)
[2018-02-27 06:45] LABS: ALB/GLOB RATIO 0.9 (1.1-1.8); ALBUMIN 3.1 g/dL (3.0-4.8); ALT/SGPT 28 U/L (7-56); AST/SGOT 27 U/L (17-59); BLOOD UREA NITROGEN 18 mg/dL (7-21); CALCIUM 8.4 mg/dL (8.4-10.5); GFR NON-AFRICAN AMERICAN 55
[2018-02-27 08:09] VITALS: RESP 20
--- NOTE | 2018-02-27 08:12 | PCM.URO ---
Urology Progress Note - Objective Lab Studies: Reviewed (full notes dictated plans : rushing to remain and will try to resume blood thinner as soon as safe) Lab Results Last 24 Hours: Laboratory Results - last 24 hr 02/26/18 02/26/18 02/27/18 07:27 18:10 06:00 WBC 4.4 L RBC 3.33 L Hgb 8.5 L 8.5 L Hct 26.8 L 27.2 L MCV 81.7 MCH 25.5 MCHC 31.3 RDW 15.4 H Plt Count 207 MPV 10.7 Gran % 54.3 Lymph % (Auto) 23.2 [place] % (Auto) 17.8 H Eos % (Auto) 4.7 Baso % (Auto) 0.0 Gran # 2.41 Lymph # (Auto) 1.0 L [place] # (Auto) 0.8 H Eos # (Auto) 0.2 Baso # (Auto) 0.00 Sodium Potassium Chloride Carbon Dioxide Anion Gap BUN Creatinine Est GFR ( Amer) Est GFR (Non-Af Amer) Random Glucose Calcium Total Bilirubin AST ALT Alkaline Phosphatase Total Protein Albumin Globulin Albumin/Globulin Ratio Blood Type Confirm O POSITIVE 02/27/18 06:00 WBC RBC Hgb Hct MCV MCH MCHC RDW Plt Count MPV Gran % Lymph % (Auto) [place] % (Auto) Eos % (Auto) Baso % (Auto) Gran # Lymph # (Auto) [place] # (Auto) Eos # (Auto) Baso # (Auto) Sodium 137 Potassium 3.5 L Chloride 104 Carbon Dioxide 29 Anion Gap 7 L BUN 18 Creatinine 1.3 Est GFR ( Amer) > 60 Est GFR (Non-Af Amer) 55 Random Glucose 102 Calcium 8.4 Total Bilirubin 0.4 AST 27 ALT 28 Alkaline Phosphatase 82 Total Protein 6.6 Albumin 3.1 Globulin 3.6 Albumin/Globulin Ratio 0.9 L Blood Type Confirm Intake & Output: Intake & Output 02/26/18 02/27/18 02/27/18 18:59 06:59 18:59 Output Total 2720 550 Balance -2720 -550 Output: Other 2720 550 Vital Signs: Vital Signs - 24 hr 02/26/18 02/26/18 02/26/18 14:00 18:24 22:00 Temperature 98.9 F 98.5 F Pulse Rate 74 69 70 Respiratory 20 18 Rate Blood Pressure 93/47 L 123/68 142/75 O2 Sat by Pulse 98 98 Oximetry 02/27/18 06:00 Temperature 98.9 F Pulse Rate 70 Respiratory 20 Rate Blood Pressure 160/94 H O2 Sat by Pulse 99 Oximetry
[2018-02-27] MEDS ORDERED: Potassium Chloride 20 mEq ER Tab PO STA (08:26)
[2018-02-27] MEDS: DOFETILIDE PO SCH (10:05)
[2018-02-27] MEDS: Pantoprazole 40 mg EC Tab PO SCH (10:05)
--- NOTE | 2018-02-27 10:49 | PN ---
DATE: 02/27/2018 UROLOGY PROGRESS NOTE Please see previously dictated consultation note from 02/25/2018. The patient is status post a photovaporization GreenLight laser and TURP from last week on 02/20/2018. The patient now is currently resting comfortably in his bed. He has some penile discomfort from the Heard catheter. The physical exam is otherwise unremarkable. Please see below. Plan, see below. The patient is readmitted on 02/25/2018, with gross hematuria and actually really also urinary retention. From urology standpoint, when we have turned down the CBI there was a little more blood. Right now, the CBI is barely running it is just a drip. PAST MEDICAL AND SURGICAL HISTORY: Otherwise unchanged. REVIEW OF SYSTEMS: Listed above. PHYSICAL EXAMINATION: ABDOMEN: Soft. There is no rebound or guarding. Penile catheter is in place. The Heard catheter is in place via the urethra. The CBI is barely going the wheels all the way to the bottom and it is just a drip at a second. DIAGNOSES: 1. Urinary retention. 2. Urinary incontinence with a mixed picture of overflow component mostly and also the possibility for a neurogenic bladder as well secondary to cerebrovascular accident. 3. Gross hematuria is also noted. The urology plan as follows. In summary, this is a very pleasant 67-year-old gentleman with multiple medical history specifically multiple CVAs. The issue is trying to balance the resumption of his Eliquis and aspirin with the bleeding component. The risk of not starting the medications and risk of CVA needs to be evaluated on the strong basis. For now, what we are going to recommend from the urology standpoint is to maintain the Heard catheter. We are going to try to avoid doing repeat procedures on the patient. Specifically, a cystoscopy and evacuation of clot. We are going to try to resume medication as quickly as possible. Regarding the aspirin and the Eliquis. In the meantime, we are hoping for the patient to ambulate. We will follow your patient very closely. PLAN: The plan as follows: 1. Maintain this Heard. 2. Discontinue the CBI and monitor the patient. 3. Resume the Eliquis as quickly as possible. 4. Further plans will follow. Kemar Montague MD [facility] # [id number]
--- NOTE | 2018-02-27 12:01 | CON ---
DATE: 02/25/2018 UROLOGY CONSULTATION REASON FOR CONSULTATION: Urinary retention and gross hematuria. Mr. Gray, previously dictating notes from 02/20/2018. HISTORY OF PRESENT ILLNESS: This is a very pleasant gentleman who had multiple medical issues. Last week, he underwent a photovaporization GreenLight laser, transurethral resection of the prostate. At that time, proceeded without complication, we discharged him home in a timely fashion. He has been done back on his Eliquis medication and his aspirin. We had stopped this for the procedure of course. I am trying to resume it, it could be possible given his risk for recurrence of CVA. At home, I have been speaking to the son. He reported that the patient has been continent. At that time, he was not having gross hematuria. Upon presentation here, he is incontinent and he has urinary retention and gross hematuria. He is now being admitted for observation. He has incontinence of the picture. We do not have the urodynamic study. We are unable to obtain such. picture is BPH, urinary retention and also component of the neurogenic bladder given his history of CVA. So from Urology standpoint at this point, he is admitted with gross hematuria and urinary retention with a large output. PAST MEDICAL AND SURGICAL HISTORY: Listed on the chart, otherwise unremarkable from Urology standpoint. MEDICATIONS: See the chart. Right now, we are going to discontinue the Eliquis and the aspirin temporarily until the urine clears. PHYSICAL EXAMINATION ABDOMEN: Soft. GENITOURINARY: Heard catheter is in place, it is draining clear urine with CBI. LABORATORY DATA: See chart. DIAGNOSES: Gross hematuria, voiding dysfunction, urinary retention, urinary incontinence. PLAN: As follows: 1. Maintain the Heard catheter. 2. We will start CBI. 3. We will monitor the patient closely. 4. Further plans will follow. The issue at hand will be to try to see how quickly we can resume the aspirin and the Eliquis. At the same time, as quickly as possible to stop the CBI. The other issues though we will not remove the catheter for a while, we are going to discharge him home with a Heard catheter. Previously, the patient was not able to tolerate the Heard well, so then we will entertain the possibility, but not for now per use of a suprapubic catheter. There is an alternative management for an urine output. So at this point, the plan is: 1. CBI. 2. Monitor the patient closely. 3. Repeat CBC, BUN, and creatinine. Further plans will follow and we will try to resume the Eliquis and the aspirin as quickly as possible, but we will hold it for now. Thank you for the Urology consultation. Kemar Montague MD
[2018-02-27 14:13] VITALS: BP 93/52; TEMP 97.7; O2SAT 97
--- NOTE | 2018-02-27 16:05 | CP.PCM.DIS ---
<Raudel Bellant - Last Filed: 02/27/18 15:44> Provider - Provider Date of Admission: 02/25/18 10:03 Attending physician: Haroldo Leiva MD Primary care physician: Reshma Briones MD Consults: 02/25/18 09:59 Consult [Physician Consult] Routine Comment: Consulting Provider: Dash Montague Consulting Physician: Dash Montague Reason for Consult: hematuria 02/25/18 14:40 Case Management Referral Routine Comment: DISCHARGE PLANNING WITH ASSISTANCE AT HOME Physician Instructions: Reason For Exam: EVALUATION Reason for Referral: Plastics Worker Eval 02/25/18 14:44 Social Work Referral Routine Comment: DSICHARGE PLANNING WITH ASSISTANCE AT HOME Physician Instructions: Reason For Exam: EVALUATION Time Spent in preparation of Discharge (in minutes): 45 Hospital Course - Lab Results Lab Results: Micro Results 02/25/18 Unknown Urine,Clean Catch Urine Culture - Final No Growth (<1,000 CFU/ML) Most Recent Lab Values WBC 4.4 10^3/uL (4.5-11.0) L 02/27/18 06:00 RBC 3.33 10^6/uL (3.5-6.1) L 02/27/18 06:00 Hgb 8.5 g/dL (14.0-18.0) L 02/27/18 06:00 Hct 27.2 % (42.0-52.0) L 02/27/18 06:00 MCV 81.7 fl (80.0-105.0) 02/27/18 06:00 MCH 25.5 pg (25.0-35.0) 02/27/18 06:00 MCHC 31.3 g/dl (31.0-37.0) 02/27/18 06:00 RDW 15.4 % (11.5-14.5) H 02/27/18 06:00 Plt Count 207 10^3/uL (120.0-450.0) 02/27/18 06:00 MPV 10.7 fl (7.0-11.0) 02/27/18 06:00 Gran % 54.3 % (50.0-68.0) 02/27/18 06:00 Lymph % (Auto) 23.2 % (22.0-35.0) 02/27/18 06:00 Forrest % (Auto) 17.8 % (1.0-6.0) H 02/27/18 06:00 Eos % (Auto) 4.7 % (1.5-5.0) 02/27/18 06:00 Baso % (Auto) 0.0 % (0.0-3.0) 02/27/18 06:00 Gran # 2.41 (1.4-6.5) 02/27/18 06:00 Lymph # (Auto) 1.0 (1.2-3.4) L 02/27/18 06:00 Forrest # (Auto) 0.8 (0.1-0.6) H 02/27/18 06:00 Eos # (Auto) 0.2 (0.0-0.7) 02/27/18 06:00 Baso # (Auto) 0.00 K/mm3 (0.0-2.0) 02/27/18 06:00 PT 15.0 SECONDS (9.4-12.5) H 02/25/18 09:10 INR 1.30 02/25/18 09:10 APTT 27.9 Seconds (25.1-36.5) 02/25/18 09:10 Sodium 137 mmol/L (132-148) 02/27/18 06:00 Potassium 3.5 mmol/L (3.6-5.0) L 02/27/18 06:00 Chloride 104 mmol/L (98-107) 02/27/18 06:00 Carbon Dioxide 29 mmol/L (21-33) 02/27/18 06:00 Anion Gap 7 (10-20) L 02/27/18 06:00 BUN 18 mg/dL (7-21) 02/27/18 06:00 Creatinine 1.3 mg/dl (0.8-1.5) 02/27/18 06:00 Est GFR ( Amer) > 60 02/27/18 06:00 Est GFR (Non-Af Amer) 55 02/27/18 06:00 Random Glucose 102 mg/dL (70-110) 02/27/18 06:00 Calcium 8.4 mg/dL (8.4-10.5) 02/27/18 06:00 Phosphorus 3.2 mg/dL (2.5-4.5) 02/26/18 06:15 Magnesium 2.0 mg/dL (1.7-2.2) 02/26/18 06:15 Total Bilirubin 0.4 mg/dL (0.2-1.3) 02/27/18 06:00 AST 27 U/L (17-59) 02/27/18 06:00 ALT 28 U/L (7-56) 02/27/18 06:00 Alkaline Phosphatase 82 U/L (38-126) 02/27/18 06:00 Total Protein 6.6 g/dL (5.8-8.3) 02/27/18 06:00 Albumin 3.1 g/dL (3.0-4.8) 02/27/18 06:00 Globulin 3.6 gm/dL 02/27/18 06:00 Albumin/Globulin Ratio 0.9 (1.1-1.8) L 02/27/18 06:00 Lipase 62 U/L (23-300) 02/25/18 09:10 Urine Color Red (YELLOW) 02/25/18 08:37 Urine Appearance Turbid (CLEAR) 02/25/18 08:37 Urine pH 8.5 (4.7-8.0) 02/25/18 08:37 Ur Specific [place] 1.015 (1.005-1.035) 02/25/18 08:37 Urine Protein >=300 mg/dL (<30 mg/dL) H 02/25/18 08:37 Urine Glucose (UA) 100 mg/dL (NEGATIVE) H 02/25/18 08:37 Urine Ketones 15 mg/dL (NEGATIVE) H 02/25/18 08:37 Urine Blood Large (NEGATIVE) H 02/25/18 08:37 Urine Nitrate Positive (NEGATIVE) H 02/25/18 08:37 Urine Bilirubin Large (NEGATIVE) H 02/25/18 08:37 Urine Urobilinogen 4.0 E.U./dL (<1 E.U./dL) H 02/25/18 08:37 Ur Leukocyte Esterase Large Edna/uL (NEGATIVE) H 02/25/18 08:37 Urine RBC Tntc /hpf (0-2) H 02/25/18 08:37 Urine WBC 2 - 5 /hpf (0-6) 02/25/18 08:37 Ur Epithelial Cells 0 - 2 /hpf (0-5) 02/25/18 08:37 Urine Bacteria Few /hpf (NONE) 02/25/18 08:37 Blood Type O POSITIVE 02/26/18 06:15 Blood Type Confirm O POSITIVE 02/26/18 07:27 Antibody Screen Negative 02/26/18 06:15 BBK History Checked No verified bt 02/26/18 06:15 - Hospital Course Hospital Course: Prasad Bell DO 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 Dash Montague, for complaints of penile bleeding and hematuria from a condom catheter placed since the procedure. In the ED, a bladder scan showed 500cc of retention fluid and a rushing catheter was placed yielding 500cc of bloody urine. Patients aspirin and Eliquis were h eld. He was given Tylenol and morphine for pain control. During this admission, his hemoglobin was stable at 8.4-10g/dL compared to prior admissions. Urologist, Dr. Dash Montague, was consulted and recommended continuous bladder irrigation as well as discharge with rushing catheter in place. Patient may need a suprapubic catheter pending follow up in the office. Patient was kept w/ continuous bladder irrigation for approximately 2 days. Patient was seen morning prior to discharge with help of bingo clerk. No acute events reported overnight; patien only complaining of mild pain from rushing however unchanged from day prior. No fevers/chills overnight; tolerating diet well, moving bowels well. Patient was notified that as per Dr. Mccarthy; and was notified that CBI is okay to be discontinued; however he will need to continue w/ the catheter. Patient was also informed that the midodrine should be taken only as needed if his systolic blood pressure was less than 110. Patient reported that he does not follow up with a salad counter attendant; Further conversation w/ his son revealed that patient had follow up cardiology appointment w/ Dr. Rivera on Mar 06. Patient is to also follow up w/ PMD Dr. Briones within 7 days. Medications were reconciled, delivered to bedside, and discharge instructions were reviewed with patient as well as son at bedside. Patient is medically optimized for discharge at this time. Discharge Exam - Head Exam Head Exam: ATRAUMATIC, NORMAL INSPECTION - Eye Exam Eye Exam: EOMI, Normal appearance, PERRL - ENT Exam ENT Exam: Mucous Membranes Moist - Respiratory Exam Respiratory Exam: Clear to PA & Lateral, NORMAL BREATHING PATTERN, UNREMARKABLE - Cardiovascular Exam Cardiovascular Exam: REGULAR RHYTHM, RRR, +S1, +S2 - GI/Abdominal Exam GI & Abdominal Exam: Normal Bowel Sounds, Unremarkable. absent: Tenderness - Neurological Exam Neurological exam: Alert, CN II-XII Intact, Normal Gait, Oriented x3 - Psychiatric Exam Psychiatric exam: Normal Affect, Normal Mood - Skin Skin Exam: Dry, Intact, Normal Color, Warm Discharge Plan - Discharge Medications Prescriptions: Finasteride [Proscar] 5 mg PO DAILY #30 tab Midodrine [Proamatine] 5 mg PO DAILY PRN #30 tab PRN Reason: Other - Follow Up Plan Condition: STABLE Disposition: HOME/ ROUTINE Instructions: Blood in the Urine (Hematuria), Adult (DC), Orthostatic Hypotension (DC), Syncope (DC) Additional Instructions: Please follow-up with urologist Dr Dash Montague in his office within 7 days. Please keep the rushing in place until you see Dr Dash Montague in his office. He will make a decision in regards to the rushing when he see's you. Please follow-up with your salad counter attendant Dr Brock within 7-10 days so he monitor your heart and your blood thinners. He is out of his office until Mar 04 so please make sure to make an appointment with him as soon as he returns. Please follow-up with your Primary Medical Doctor, Dr Merlos within 7 days. Follow up with Dr. Rivera on March 06 as per further evaluation. You will be given a script for the following medications: 1. Proscar (finesteride) 5mg take 1 tablet in the morning 2. Midodrine 5mg take 1 tablet if blood pressure is low or if you are dizzy from low blood pressure Please resume all your other home medications, these include: 1. Eliquis- TAKE ONE TONIGHT 02/27/18 2. Aspirin 3. Dofetilide 4. Protonix 5. Lipitor 6. Potassium If symptoms return, please go to your nearest emergency department. Referrals: Reshma Briones MD [Primary Care Provider] - Patricio Brock MD [Medical Doctor] - <Haroldo Leiva - Last Filed: 02/27/18 17:26> Provider - Provider Date of Admission: 02/25/18 10:03 Attending physician: Haroldo Leiva MD Primary care physician: Reshma Briones MD Consults: 02/25/18 09:59 Consult [Physician Consult] Routine Comment: Consulting Provider: Dash Montague Consulting Physician: Dash Montague Reason for Consult: hematuria 02/25/18 14:40 Case Management Referral Routine Comment: DISCHARGE PLANNING WITH ASSISTANCE AT HOME Physician Instructions: Reason For Exam: EVALUATION Reason for Referral: Plastics Worker Eval 02/25/18 14:44 Social Work Referral Routine Comment: DSICHARGE PLANNING WITH ASSISTANCE AT HOME Physician Instructions: Reason For Exam: EVALUATION Hospital Course - Lab Results Lab Results: Micro Results 02/25/18 Unknown Urine,Clean Catch Urine Culture - Final No Growth (<1,000 CFU/ML) Most Recent Lab Values WBC 4.4 10^3/uL (4.5-11.0) L 02/27/18 06:00 RBC 3.33 10^6/uL (3.5-6.1) L 02/27/18 06:00 Hgb 8.5 g/dL (14.0-18.0) L 02/27/18 06:00 Hct 27.2 % (42.0-52.0) L 02/27/18 06:00 MCV 81.7 fl (80.0-105.0) 02/27/18 06:00 MCH 25.5 pg (25.0-35.0) 02/27/18 06:00 MCHC 31.3 g/dl (31.0-37.0) 02/27/18 06:00 RDW 15.4 % (11.5-14.5) H 02/27/18 06:00 Plt Count 207 10^3/uL (120.0-450.0) 02/27/18 06:00 MPV 10.7 fl (7.0-11.0) 02/27/18 06:00 Gran % 54.3 % (50.0-68.0) 02/27/18 06:00 Lymph % (Auto) 23.2 % (22.0-35.0) 02/27/18 06:00 Forrest % (Auto) 17.8 % (1.0-6.0) H 02/27/18 06:00 Eos % (Auto) 4.7 % (1.5-5.0) 02/27/18 06:00 Baso % (Auto) 0.0 % (0.0-3.0) 02/27/18 06:00 Gran # 2.41 (1.4-6.5) 02/27/18 06:00 Lymph # (Auto) 1.0 (1.2-3.4) L 02/27/18 06:00 Forrest # (Auto) 0.8 (0.1-0.6) H 02/27/18 06:00 Eos # (Auto) 0.2 (0.0-0.7) 02/27/18 06:00 Baso # (Auto) 0.00 K/mm3 (0.0-2.0) 02/27/18 06:00 PT 15.0 SECONDS (9.4-12.5) H 02/25/18 09:10 INR 1.30 02/25/18 09:10 APTT 27.9 Seconds (25.1-36.5) 02/25/18 09:10 Sodium 137 mmol/L (132-148) 02/27/18 06:00 Potassium 3.5 mmol/L (3.6-5.0) L 02/27/18 06:00 Chloride 104 mmol/L (98-107) 02/27/18 06:00 Carbon Dioxide 29 mmol/L (21-33) 02/27/18 06:00 Anion Gap 7 (10-20) L 02/27/18 06:00 BUN 18 mg/dL (7-21) 02/27/18 06:00 Creatinine 1.3 mg/dl (0.8-1.5) 02/27/18 06:00 Est GFR ( Amer) > 60 02/27/18 06:00 Est GFR (Non-Af Amer) 55 02/27/18 06:00 Random Glucose 102 mg/dL (70-110) 02/27/18 06:00 Calcium 8.4 mg/dL (8.4-10.5) 02/27/18 06:00 Phosphorus 3.2 mg/dL (2.5-4.5) 02/26/18 06:15 Magnesium 2.0 mg/dL (1.7-2.2) 02/26/18 06:15 Total Bilirubin 0.4 mg/dL (0.2-1.3) 02/27/18 06:00 AST 27 U/L (17-59) 02/27/18 06:00 ALT 28 U/L (7-56) 02/27/18 06:00 Alkaline Phosphatase 82 U/L (38-126) 02/27/18 06:00 Total Protein 6.6 g/dL (5.8-8.3) 02/27/18 06:00 Albumin 3.1 g/dL (3.0-4.8) 02/27/18 06:00 Globulin 3.6 gm/dL 02/27/18 06:00 Albumin/Globulin Ratio 0.9 (1.1-1.8) L 02/27/18 06:00 Lipase 62 U/L (23-300) 02/25/18 09:10 Urine Color Red (YELLOW) 02/25/18 08:37 Urine Appearance Turbid (CLEAR) 02/25/18 08:37 Urine pH 8.5 (4.7-8.0) 02/25/18 08:37 Ur Specific [place] 1.015 (1.005-1.035) 02/25/18 08:37 Urine Protein >=300 mg/dL (<30 mg/dL) H 02/25/18 08:37 Urine Glucose (UA) 100 mg/dL (NEGATIVE) H 02/25/18 08:37 Urine Ketones 15 mg/dL (NEGATIVE) H 02/25/18 08:37 Urine Blood Large (NEGATIVE) H 02/25/18 08:37 Urine Nitrate Positive (NEGATIVE) H 02/25/18 08:37 Urine Bilirubin Large (NEGATIVE) H 02/25/18 08:37 Urine Urobilinogen 4.0 E.U./dL (<1 E.U./dL) H 02/25/18 08:37 Ur Leukocyte Esterase Large Edna/uL (NEGATIVE) H 02/25/18 08:37 Urine RBC Tntc /hpf (0-2) H 02/25/18 08:37 Urine WBC 2 - 5 /hpf (0-6) 02/25/18 08:37 Ur Epithelial Cells 0 - 2 /hpf (0-5) 02/25/18 08:37 Urine Bacteria Few /hpf (NONE) 02/25/18 08:37 Blood Type O POSITIVE 02/26/18 06:15 Blood Type Confirm O POSITIVE 02/26/18 07:27 Antibody Screen Negative 02/26/18 06:15 BBK History Checked No verified bt 02/26/18 06:15 Attending/Attestation - Attestation I have personally seen and examined this patient.: Yes I have fully participated in the care of the patient.: Yes I have reviewed all pertinent clinical information, including history, physical exam and plan: Yes Notes (Text): 02/27/18 17:24 Attending note; patient seen and examined with resident. Hematuria resolved. abdominal pain improved significantly. Tolerating diet well. Patient is a 67 year old male with PMhx A-fib on Dofetilide and Eliquis, h/o of Orthostatic hypotension, prior stroke, with L-sided residual weakness, hx pacemaker placed on 01/07/18, syncopal episodes, urinary incontinence, who is recently status post TURP/cystoscopy with Dr. Dash Montague on 02/20/2018. currently admitted for significant hematuria. Hematuria resolved. Continuous bladder irrigation stopped. Patient was seen by urologist today. Patient can be discharged home with Rushing catheter. Patient will follow-up with urology Dr. Montague in 1 week. Started back on aspirin and eliquis. hemoglobin is 8.5 today. asymptomatic. One dose of IV iron infusion given. History of orthostatic hypotension; patient has midodrine at home. currently blood pressure is stable. Status post pacemaker placement. Case discussed with patient and family in detail. upon discharge the patient will follow up with PMD Dr. briones. 02/27/18 17:25
== END 2018-02-27 19:42 | disposition home health service (06) | DRG 696 ==
LOC: ED 08:21 → ERH 10:03 → 5RNO 12:35
PROVIDERS: ADMIT Internal Medicine; ATTEND Internal Medicine
PROC: 0T9B70Z Drainage of Bladder with Drainage Device, Via Natural or Artificial Opening (ICD-10-PCS; principal; 2018-02-25)
PROC: 3E02340 Introduction of Influenza Vaccine into Muscle, Percutaneous Approach (ICD-10-PCS; 2018-02-25)
PROC: 3E0234Z Introduction of Serum, Toxoid and Vaccine into Muscle, Percutaneous Approach (ICD-10-PCS; 2018-02-25)
DX: R33.9 Retention of urine, unspecified (principal); I69.354 Hemiplegia and hemiparesis following cerebral infarction affecting left non-dominant side; R31.0 Gross hematuria; R32 Unspecified urinary incontinence; I48.91 Unspecified atrial fibrillation; Z79.01 Long term (current) use of anticoagulants; N31.9 Neuromuscular dysfunction of bladder, unspecified; Z95.0 Presence of cardiac pacemaker; Z23 Encounter for immunization